=== PATIENT | female | born 1930 | race Hispanic/Latino ===

== ENCOUNTER 2018-01-24 11:43 | Inpatient (IN) | payer MEDICARE ==
[2018-01-24 11:43] VITALS: BMI 26.6
[2018-01-24 12:43] LABS: BASO % 0.2 % (0.0-2.0); HEMOGLOBIN 11.7 g/dL (11.0-16.0); LYMPH # 1.4 K/uL (1.0-4.3); LYMPH % 7.5 % (20.0-40.0); MEAN CELL VOLUME 91.7 fL (81.0-99.0); MEAN CORPUSCULAR HEMOGLOBIN 30.8 pg (27.0-31.0); MEAN CORPUSCULAR HGB CONC 33.6 g/dL (33.0-37.0); MEAN PLATELET VOLUME 10.6 fL (7.2-11.7); MONO # 1.7 K/uL (0.0-0.8); MONO % 9.2 % (0.0-10.0); NEUT % 83.1 % (50.0-75.0); NRBC % 0.1 % (0.0-2.0); PLATELET COUNT 283 K/uL (130-400); RBC 3.81 Mil/uL (3.80-5.20); RED CELL DISTRIBUTION WIDTH 15.4 % (11.5-14.5)
[2018-01-24] MEDS ORDERED: Albuterol-Ipratrop 3 mg / 0.5 (3 ml) UD INH STA (12:43)
[2018-01-24] MEDS ORDERED: Albuterol 0.083% Inhal Sol (2.5 mg/3 mL) UD IH STA (12:44)
[2018-01-24 12:50] LABS: WHITE BLOOD COUNT 18.1 K/uL (4.8-10.8)
--- NOTE | 2018-01-24 12:58 | RAD ---
Date of service: 01/24/2018 HISTORY: cough COMPARISON: Comparison made with chest radiographs and CT scan chest dated 12/28/2015 and 11/16/2017 respectively.. FINDINGS: LUNGS: Patchy multifocal interstitial and alveolar-type opacities are present bilaterally left greater than right. Suspect underlying underlying chronic interstitial fibrotic changes small bilateral effusions not excluded PLEURA: No significant pleural effusion identified, no pneumothorax apparent. CARDIOVASCULAR: Moderate aortic atherosclerotic calcification present. Heart appears enlarged. In situ bipolar pacemaker/defibrillator unchanged. No pulmonary vascular congestion. OSSEOUS STRUCTURES: No significant abnormalities. VISUALIZED UPPER ABDOMEN: Normal. OTHER FINDINGS: Note again made of metallic clips in the right parasagittal base of neck/upper mediastinum. Clinical correlation with history recommended. IMPRESSION: Patchy multifocal interstitial and alveolar-type opacities are present bilaterally left greater than right. Suspect underlying underlying chronic interstitial fibrotic changes small bilateral effusions not excluded
[2018-01-24 12:59] LABS: ALB/GLOB RATIO 0.7 (1.0-2.1); ALBUMIN 3.3 g/dL (3.5-5.0); CALCIUM 8.3 mg/dl (8.6-10.4)
[2018-01-24] MEDS ORDERED: Albuterol-Ipratrop 3 mg / 0.5 (3 ml) UD ONE (13:08)
[2018-01-24 13:13] LABS: LYMPHOCYTE 12 % (20-40); MONOCYTE 5 % (0-10); NEUTROPHIL 83 % (50-75); PLATELET ESTIMATE NORMAL (NORMAL); TOTAL CELLS COUNTED 100
--- NOTE | 2018-01-24 13:17 | C.PDOC ---
History Of Present Illness 87 y/o female comes to ER complaining of worsening shortness of breath over the last 2-3 months, significantly worsening since last night. Patient states her SOB worsens with exertion. She was seen by her PMD Dr. Barbour last week, was instructed to use [place] Oxygen as needed. Patient has been using O2 and nebulizer treatments at home with minimal relief. She also reports a non-productive cough. Patient denies fever, chest pain, palpitations, abdominal pain, nausea/vomiting. No additional complaints. PMHx: Pulmonary fibrosis, COPD Time Seen by Provider: 01/24/18 12:06 Chief Complaint (Nursing): Shortness Of Breath History Per: Patient History/Exam Limitations: no limitations Onset/Duration Of Symptoms: Persistent, Worse Since (last night) Current Symptoms Are (Timing): Still Present Current Respiratory Medications: See Home Med List Severity: Moderate Additional History Per: Patient Past Medical History Reviewed: Historical Data, Nursing Documentation, Vital Signs Vital Signs: Last Vital Signs Temp 98.2 F 01/24/18 11:55 Pulse 66 01/24/18 11:55 Resp 15 01/24/18 11:55 BP 148/67 01/24/18 11:55 Pulse Ox 91 L 01/24/18 11:55 - Medical History PMH: Anxiety (takes paxil), Arthritis, Atrial Fibrillation, Bronchitis, CHF, COPD, Dementia (new dementia; forgetful), HTN, Hypercholesterolemia, Hyperthyroidism (surgery done), Pulmonary Embolism Surgical History: Pacemaker Family History: States: No Known Family Hx - Social History Hx Alcohol Use: No Hx Substance Use: No - Immunization History Hx Tetanus Toxoid Vaccination: No Hx Influenza Vaccination: No Hx Pneumococcal Vaccination: No Review Of Systems Constitutional: Negative for: Fever, Chills Cardiovascular: Negative for: Chest Pain Respiratory: Positive for: Cough, Shortness of Breath, SOB with Excertion. Negative for: Sputum Gastrointestinal: Negative for: Nausea, Vomiting, Abdominal Pain Skin: Negative for: Rash Neurological: Negative for: Headache, Dizziness Physical Exam - Physical Exam Appears: Well, Non-toxic, In Acute Distress (in mild to moderate respiratory distress) Skin: Normal Color, Warm, Dry Head: Normacephalic Eye(s): bilateral: Normal Inspection Oral Mucosa: Moist Neck: Supple Lymphatic: No Adenopathy Chest: Symmetrical Cardiovascular: Rhythm Regular, Murmur ( 5/6 holosystolic ) Respiratory: No Normal Breath Sounds (+ coarse breath sounds bilaterally), Rales (bilateral rales at bases), Wheezing (expiratory wheezing bilaterally), Other (speaking in full sentences) Gastrointestinal/Abdominal: Normal Exam, Bowel Sounds, Soft, No Tenderness Back: Normal Inspection Extremity: Normal ROM, Pedal Edema (1+ pitting edema bilaterally), No Calf Tenderness Pulses: Left Dorsalis Pedis: Normal, Right Dorsalis Pedis: Normal Neurological/Psych: Oriented x3 ED Course And Treatment - Laboratory Results Result Diagrams: 02/08/18 05:32 02/08/18 05:34 ECG: Interpreted By Me, Viewed By Me (atrial paced rhythm 61 bpm, normal axis, 1mm ST depressions I, II, V4-V6) ECG Interpretation: Abnormal O2 Sat by Pulse Oximetry: 91 (RA) Pulse Ox Interpretation: Abnormal - Radiology CXR: Interpreted by Me, Viewed By Me CXR Interpretation: Yes: Other (no effusions, (+) fibrotic changes B/L ). No: Infiltrates Progress Note: Blood work, UA, EKG and chest x-ray ordered and reviewed. Patient given nebulizer treatments, IV solumedrol, IV Lasix. PO ASA given for elevated troponin, PO Kdur given for mild hypokalemia. Reevaluation Time: 14:30 Reassessment Condition: Improved (Patient is mildly improved since arrival, has decreased wheezing B/L without accessory muslce use- still SOB, will need admission.) - Physician Consult Information Time Consulting Physician Contacted: 14:39 Physician Contacted: Coreen Barbour Outcome Of Conversation: Discussed patient with Dr. Barbour, agrees with admiszsion for dyspnea, copd/chf exacerbation, pulmonary fibrosis, elevated troponin. Critical Care Time - Critical Care Note Total Time (in mins): 35 Documented critical care: time excludes all time spent performing seperately billable procedures. Disposition - Disposition Disposition: HOSPITALIZED Disposition Time: 14:39 Condition: FAIR - Clinical Impression Clinical Impression: Pulmonary fibrosis, COPD exacerbation, CHF exacerbation, Dyspnea, Elevated troponin - Scribe Statement The provider has reviewed the documentation as recorded by the Karlie Pederson Provider Attestation: All medical record entries made by the Marlenibrishabh were at my direction and personally dictated by me. I have reviewed the chart and agree that the record accurately reflects my personal performance of the history, physical exam, medical decision making, and the department course for this patient. I have also personally directed, reviewed, and agree with the discharge instructions and disposition. Decision To Admit - Pt Status Changed To: Hospital Disposition Of: Inpatient - Admit Certification Admit to Inpatient:: After my assessment, the patient will require hospitalization for at least two midnights. This is because of the severity of symptoms shown, intensity of services needed, and/or the medical risk in this patient being treated as an outpatient. - InPatient: Physician Admission Certification: I certify that this patient requires 2 or more midnights of care for the following reason:: see notes - . Bed Request Type: Telemetry Admitting Physician: Coreen Barbour Patient Diagnosis: COPD exacerbation, CHF exacerbation, Pulmonary fibrosis, Dyspnea, Elevated troponin
[2018-01-24] MEDS ORDERED: Albuterol 0.083% Inhal Sol (2.5 mg/3 mL) UD ONE (13:18)
[2018-01-24 13:35] LABS: CK-MB 1.51 ng/mL (0.0-3.38)
[2018-01-24 14:27] LABS: TROPONIN I 0.301 ng/mL (0.00-0.120)
[2018-01-24] MEDS ORDERED: Potassium Chloride 20 mEq ER Tab PO STA (14:27)
[2018-01-24] MEDS ORDERED: Potassium Chloride 20 mEq ER Tab PO ONE (14:32)
[2018-01-24 15:15] LABS: SQUAMOUS EPITHIAL 1 /hpf (0-5); URINE BACTERIA RARE (<OCC); URINE BILIRUBIN NEGATIVE (NEGATIVE); URINE BLOOD 2+ (NEGATIVE); URINE CLARITY Clear (Clear); URINE COLOR Yellow (YELLOW); URINE GLUCOSE (UA) NORMAL (Normal); URINE LEUKOCYTE ESTERASE 1+ Leu/uL (Negative); URINE PROTEIN NEGATIVE (NEGATIVE); URINE UROBILINOGEN NORMAL mg/dL (0.2-1.0)
[2018-01-24] MEDS: Albuterol-Ipratrop 3 mg / 0.5 (3 ml) UD INH SCH (19:40)
[2018-01-24 21:37] LABS: CK-MB 1.8 ng/mL (0.0-3.38); TROPONIN I 0.255 ng/mL (0.00-0.120)
[2018-01-24] MEDS: MethylPREDNISolone 40 mg Vial IVP SCH (22:23)
--- NOTE | 2018-01-24 22:51 | CP.PCM.HP ---
History of Present Illness - History of Present Illness History of Present Illness: Chief complaint: Increasing shortness of breath. HPI: 87-year-old female with a history of hypertension atrial fibrillation pacemaker recently seen in my office. Patient was recently diagnosed with the interstitial lung disease, on home oxygen started recently. I also started the patient on prednisone in the house. But patient started having increasing cough. Patient also having increasing shortness of breath. Leg swelling noted. According to the family patient was also having increasing confusion, lethargic. In the emergency room patient was evaluated Also noted to have a high troponin level. Chest x-ray showing congested. Lasix was given. At this time patient is currently lying down in the bed without any distress. She is awake and comfortable. Not in any distress resting. She has no chest pain. Denies any nausea vomiting. But poor intake noted. Past medical history: Hypertension, atrial fibrillation. Past surgical history: Pacemaker, thyroidectomy. Family history noncontributory Social history: Denies any alcohol or smoking. Possible secondhand smoking noted in the past. She drinks coffee at least it 3 times. Currently not working. Current medications: Reviewed. Review of systems: Patient generally feeling okay, no headache. Denies any sinus symptoms for a Having some exertional dyspnea, no cough. Patient has regular bowel habits. On examination: Vital signs stable. Chest good air entry. Regular heart sound. But bilateral Velcro-like rales noted Pedal edema noted. Reason CAT scan showing evidence of chronic lung disease, interstitiallung fibrosis. Chest x-ray now showing evidence of worseningCHF pattern. Assessment/recommendation: 87-year-old female with history of hypertension, atrial fibrillation, osteoarthritis, and a recently had a pneumonia came to the office with the worsening swelling and pain over the major articular areas involving right great toe interphalangeal joint, and also right ring finger PIP joint. Patient was also noted to have interstitial lung disease. Positive troponin. History of atrial fibrillation. On anticoagulation orally. Patient now admitted with acute decompensated heart failure likely. Associated with this severe interstitial lung disease. I agree with the Lasix. Low-dose Solu-Medrol. Cardiology evaluation. Echocardiogram. Antibiotic for empirical. GI prophylaxis. And will follow-up the patient. Patient on home oxygen Present on Admission - Present on Admission Any Indicators Present on Admission: No History of DVT/PE: No History of Uncontrolled Diabetes: No Urinary Catheter: No Decubitus Ulcer Present: No Past Patient History - Infectious Disease Hx of Infectious Diseases: None - Tetanus Immunizations Tetanus Immunization: Unknown - Past Medical History & Family History Past Medical History?: Yes - Past Social History Smoking Status: Never Smoked - CARDIAC Hx Atrial Fibrillation: Yes Hx Congestive Heart Failure: Yes Hx Hypercholesterolemia: Yes Hx Hypertension: Yes Hx Pacemaker: Yes Hx Peripheral Edema: No - PULMONARY Hx Bronchitis: Yes Hx Chronic Obstructive Pulmonary Disease (COPD): Yes Hx Pulmonary Embolism: Yes - NEUROLOGICAL Hx Dementia: Yes (new dementia; forgetful) - HEENT Hx HEENT Problems: Yes 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; gets injections) - RENAL Hx Chronic Kidney Disease: No - ENDOCRINE/METABOLIC Hx Hyperthyroidism: Yes (surgery done) - HEMATOLOGICAL/ONCOLOGICAL Hx Blood Disorders: No - INTEGUMENTARY Hx Dermatological Problems: No - MUSCULOSKELETAL/RHEUMATOLOGICAL Hx Arthritis: Yes Hx Falls: No - GASTROINTESTINAL Hx Gastrointestinal Disorders: No - GENITOURINARY/GYNECOLOGICAL Hx Genitourinary Disorders: No - PSYCHIATRIC Hx Anxiety: Yes (takes paxil) Hx Substance Use: No - SURGICAL HISTORY Hx Surgeries: Yes Hx Thyroidectomy: Yes Other/Comment: lumpectomy left breast - ANESTHESIA Hx Anesthesia: Yes Hx Anesthesia Reactions: No Hx Malignant Hyperthermia: No Meds Allergies/Adverse Reactions: Allergies Allergy/AdvReac Type Severity Reaction Status Date / Time codeine Allergy Intermediate Verified 01/24/18 12:00 lorazepam AdvReac Severe Verified 01/24/18 12:00 Results - Vital Signs Recent Vital Signs: Last Vital Signs Temp 98.1 F 01/24/18 15:39 Pulse 60 01/24/18 19:42 Resp 28 H 01/24/18 15:39 BP 158/54 H 01/24/18 15:39 Pulse Ox 91 L 01/24/18 15:39 - Labs Result Diagrams: 01/24/18 12:30 01/24/18 12:30 Labs: Laboratory Results - last 24 hr 01/24/18 01/24/18 01/24/18 12:30 12:30 15:00 WBC 18.1 H D RBC 3.81 Hgb 11.7 Hct 35.0 MCV 91.7 MCH 30.8 MCHC 33.6 RDW 15.4 H Plt Count 283 MPV 10.6 Neut % (Auto) 83.1 H Lymph % (Auto) 7.5 L Hamblen % (Auto) 9.2 Eos % (Auto) 0.0 Baso % (Auto) 0.2 Neut # (Auto) 15.0 H Lymph # (Auto) 1.4 Hamblen # (Auto) 1.7 H Eos # (Auto) 0.0 Baso # (Auto) 0.0 Neutrophils % (Manual) 83 H Lymphocytes % (Manual) 12 L Monocytes % (Manual) 5 Platelet Estimate Normal Sodium 136 Potassium 3.3 L Chloride 97 L Carbon Dioxide 26 Anion Gap 16 BUN 33 H Creatinine 1.2 Est GFR ( Amer) 52 Est GFR (Non-Af Amer) 43 Random Glucose 130 H Calcium 8.3 L Total Bilirubin 1.4 H AST 69 H D ALT 32 Alkaline Phosphatase 142 H D Total Creatine Kinase 56 CK-MB (Mass) 1.51 Troponin I 0.3010 H* NT-Pro-B Natriuret Pep 28571 H Total Protein 7.8 Albumin 3.3 L Globulin 4.5 H Albumin/Globulin Ratio 0.7 L Urine Color Yellow Urine Clarity Clear Urine pH 6.0 Ur Specific Girard 1.010 Urine Protein Negative Urine Glucose (UA) Normal Urine Ketones Negative Urine Blood 2+ H Urine Nitrate Negative Urine Bilirubin Negative Urine Urobilinogen Normal Ur Leukocyte Esterase 1+ H Urine WBC (Auto) 7 H Urine RBC (Auto) 13 H Ur Squamous Epith Cells 1 Urine Bacteria Rare 01/24/18 20:38 WBC RBC Hgb Hct MCV MCH MCHC RDW Plt Count MPV Neut % (Auto) Lymph % (Auto) Hamblen % (Auto) Eos % (Auto) Baso % (Auto) Neut # (Auto) Lymph # (Auto) Hamblen # (Auto) Eos # (Auto) Baso # (Auto) Neutrophils % (Manual) Lymphocytes % (Manual) Monocytes % (Manual) Platelet Estimate Sodium Potassium Chloride Carbon Dioxide Anion Gap BUN Creatinine Est GFR ( Amer) Est GFR (Non-Af Amer) Random Glucose Calcium Total Bilirubin AST ALT Alkaline Phosphatase Total Creatine Kinase 59 CK-MB (Mass) 1.80 Troponin I 0.2550 H* NT-Pro-B Natriuret Pep Total Protein Albumin Globulin Albumin/Globulin Ratio Urine Color Urine Clarity Urine pH Ur Specific Girard Urine Protein Urine Glucose (UA) Urine Ketones Urine Blood Urine Nitrate Urine Bilirubin Urine Urobilinogen Ur Leukocyte Esterase Urine WBC (Auto) Urine RBC (Auto) Ur Squamous Epith Cells Urine Bacteria
[2018-01-25] MEDS: Albuterol-Ipratrop 3 mg / 0.5 (3 ml) UD INH SCH ×4 (01:38→19:22)
[2018-01-25 07:54] LABS: BASO % 0.2 % (0.0-2.0); HEMOGLOBIN 11.4 g/dL (11.0-16.0); LYMPH # 0.8 K/uL (1.0-4.3); LYMPH % 4.5 % (20.0-40.0); MEAN CELL VOLUME 91.3 fL (81.0-99.0); MEAN CORPUSCULAR HEMOGLOBIN 30.4 pg (27.0-31.0); MEAN CORPUSCULAR HGB CONC 33.3 g/dL (33.0-37.0); MONO # 0.7 K/uL (0.0-0.8); MONO % 3.8 % (0.0-10.0); NEUT # 16.1 K/uL (1.8-7.0); NEUT % 91.5 % (50.0-75.0); PLATELET COUNT 273 K/uL (130-400); RBC 3.76 Mil/uL (3.80-5.20); RED CELL DISTRIBUTION WIDTH 14.9 % (11.5-14.5); WHITE BLOOD COUNT 17.6 K/uL (4.8-10.8)
[2018-01-25 08:41] LABS: ALB/GLOB RATIO 0.7 (1.0-2.1); ALBUMIN 2.8 g/dL (3.5-5.0); CALCIUM 8.3 mg/dl (8.6-10.4); CK-MB 1.95 ng/mL (0.0-3.38); TROPONIN I 0.186 ng/mL (0.00-0.120)
[2018-01-25] MEDS: MethylPREDNISolone 40 mg Vial IVP SCH (09:54)
[2018-01-25] MEDS ORDERED: PAROXETINE HCL 40 MG PO SCH (10:00)
[2018-01-25] MEDS: Azithromycin 500 MG in Sodium Chloride 0.9% 250 ML IVPB SCH (10:10)
[2018-01-25 10:49] LABS: LYMPHOCYTE 3 % (20-40); MONOCYTE 2 % (0-10); NEUTROPHIL 95 % (50-75); PLATELET ESTIMATE NORMAL (NORMAL); TOTAL CELLS COUNTED 100
[2018-01-25 10:50] LABS: ANISOCYTOSIS SLIGHT; HYPOCHROMIC SLIGHT; LARGE PLATELETS PRESENT; POLYCHROMIC SLIGHT; TOXIC GRANULATION PRESENT
[2018-01-25] MEDS ORDERED: Magnesium Sulfate 1 gm in D5W 1 GM/100 ML BAG IVPB ONE (15:30)
[2018-01-25] MEDS ORDERED: Potassium Chloride 20 mEq/15 ml LIQ UD PO ONE (15:30)
--- NOTE | 2018-01-25 21:06 | CARD ---
APPROVED REPORT Date of service: 01/25/2018 EXAM: Two-dimensional and M-mode echocardiogram with Doppler and color Doppler. Other Information Quality : GoodRhythm : INDICATION Dyspnea Atrial Fibrillation Syncope AORTIC STENOSIS 2D DIMENSIONS Aortic Root (2D)2.6 (2.0-3.7cm)LVOT Diameter1.2 (1.8-2.4cm) LA Glxmid341 (18-58mL)LVEF (%)60.0 (>50%) LVEF (Xavier's)60 % M-Mode DIMENSIONS Left Atrium (MM)4.82 (2.5-4.0cm)IVSd0.94 (0.7-1.1cm) Aortic Root3.09 (2.2-3.7cm)LVDd4.91 (4.0-5.6cm) Aortic Cusp Exc.1.20 (1.5-2.0cm)PWd1.46 (0.7-1.1cm) FS (%) 34 %LVDs3.25 (2.0-3.8cm) LVEF (%)62 (>50%) Aortic Valve AoV Peak Hyfuetyi530.3cm/sAoV VTI46.3cmAO Peak GR.24mmHg LVOT Peak Poitldcz761.3cm/sLVOT VTI37.26cmAO Mean GR.13mmHg CHRISTOPH (VMAX)0.25vz5CTI (VTI)0.36fc9YE P 1/2 [id number] Mitral Valve MV E Clamgfqw207.9cm/sMV A Upptxzed06.9cm/sMV [id number] E/A ratio2.3MVA (PHT)1.86cm2 TDI Lateral E' Peak V8.74cm/sMedial E' Peak V5.64cm/sE/Lateral E'13.9 E/Medial E'21.6 Tricuspid Valve TR Peak Gflaugza315df/sTR Peak Gr.34lfXuLKRA21joWo LEFT VENTRICLE The left ventricle is normal size. There is normal left ventricular wall thickness. Left ventricle systolic function is normal. The Ejection Fraction is 60-65%. There is normal LV segmental wall motion. The left ventricular diastolic function is normal. RIGHT VENTRICLE The right ventricle is normal size. There is normal right ventricular wall thickness. The right ventricular systolic function is normal. There is a pacemaker lead in the right ventricle. ATRIA The left atrium is moderately dilated. The right atrium size is normal. The interatrial septum is intact with no evidence for an atrial septal defect. AORTIC VALVE The aortic valve is calcified and displays decreased opening. There is mild aortic regurgitation. There is moderate to severe valvular aortic stenosis. Calculated aortic valve area is 0.9624 cm2 with maximum pressure gradient of 24 mmHg and mean pressure gradient of 13 mmHg. MITRAL VALVE Mitral annular calcification is moderate. There is no evidence of mitral valve prolapse. There is no mitral valve stenosis. Mitral regurgitation is mild to moderate. TRICUSPID VALVE The tricuspid valve is normal in structure. There is mild to moderate tricuspid regurgitation. Right ventricular systolic pressure is estimated at 40-50 mmHg. There is moderate pulmonary hypertension. PULMONIC VALVE The pulmonic valve is not well visualized. There is no pulmonic valvular regurgitation. GREAT VESSELS The aortic root is normal in size. PERICARDIAL EFFUSION There is no significant pericardial effusion. <Conclusion> Left ventricle systolic function is normal. The Ejection Fraction is 60-65%. There is mild aortic regurgitation. There is moderate to severe valvular aortic stenosis. Mitral regurgitation is mild to moderate. There is mild to moderate tricuspid regurgitation. There is moderate pulmonary hypertension. There is no pulmonic valvular regurgitation.
[2018-01-26] MEDS: Albuterol-Ipratrop 3 mg / 0.5 (3 ml) UD INH SCH ×5 (01:14→19:32)
--- NOTE | 2018-01-26 06:47 | PCM.RRT ---
<Moe Valladares - Last Filed: 01/26/18 06:52> CUPBOARD BUILDER Nurses Assessment - Situation Date: 01/26/18 Time CUPBOARD BUILDER was called: 06:35 CUPBOARD BUILDER Responder Arrival Time:: 06:36 CUPBOARD BUILDER Location:: Med/Surg Room Number: 652B CUPBOARD BUILDER Reason for Call: O2 Saturation below 90% CUPBOARD BUILDER Called By: RN - IV IV Inserted during CUPBOARD BUILDER?: No - Respiratory CUPBOARD BUILDER Delivery Method: Venturi Mask @% Oxygen Flow Rate: 50 Received Nebulizer Treatments: No Was the Patient Ventilated with Bag/Mask 100% O2?: No Secretions Suctioned?: No Was the Patient Intubated?: No Was the Patient Placed on a Ventilator?: No - Ventilator Settings SAO2 %: 95 - Medication Medications Administered During CUPBOARD BUILDER: Lasix 20mg IVP I.Reason for CUPBOARD BUILDER - A) Acute Change in Patient: (Select all that apply): Acute change in SpO2 less - Constitutional Appears: In Acute Distress - Head Head Exam: ATRAUMATIC, NORMAL INSPECTION - Eyes Eye Exam: EOMI, Normal appearance - Respiratory Exam Respiratory Exam: Rales (bilateral lower and right upper lung aguilar), Wheezes - Cardiovascular Exam Cardiovascular Exam: RRR, +S1, +S2, Murmur (aortic stenosis) - GI/Abdominal Exam GI & Abdominal Exam: Soft. absent: Tenderness - Neurological Exam Neurological Exam: Alert, Awake, CN II-XII Intact, Oriented x3 - Extremities Exam Extremities Exam: Normal Inspection Plan - Assessment of Findings&Treatment Plan CUPBOARD BUILDER called for spO2 of 79% BP 155/90 HR 95 T 98.1 RR 20 Vitals end of CUPBOARD BUILDER 95% spO2 BP 155/90 HR 95 T 98.1 RR 20 Pt is chronic COPD and pulmonary fibrosis, past CXR reviewed and medications reviewed Pt was started on Venti Mask 50%, spO2 normalized 95% rapid increase Ordered Lasix 20mg IVP Dr Barbour notifyed <Reji Celeste - Last Filed: 01/27/18 03:28> CUPBOARD BUILDER Nurses Assessment - Vital Signs Vital Signs: Rapid Response Vital Sign Blood Pressure 97/59 Pulse Rate 170 Respiratory Rate 20 Temperature 97.8 F Oxygen Saturation 97 - Vital Signs at end of CUPBOARD BUILDER Vital Signs at end of CUPBOARD BUILDER: Rapid Response End Vital Sign Blood Pressure 166/69 Pulse Rate 92 Respiratory Rate 20 Temperature 98.2 F O2 Sat by Pulse Oximetry 95 Attending/Attestation - Attestation I have personally seen and examined this patient.: Yes I have fully participated in the care of the patient.: Yes I have reviewed all pertinent clinical information, including history, physical exam and plan: Yes
[2018-01-26 08:24] LABS: BASO % 0.2 % (0.0-2.0); HEMOGLOBIN 11.2 g/dL (11.0-16.0); LYMPH # 0.6 K/uL (1.0-4.3); MEAN CORPUSCULAR HEMOGLOBIN 31.1 pg (27.0-31.0); MEAN CORPUSCULAR HGB CONC 34.2 g/dL (33.0-37.0); MONO # 1.7 K/uL (0.0-0.8); NEUT # 16.5 K/uL (1.8-7.0); NEUT % 87.8 % (50.0-75.0); NRBC % 0.2 % (0.0-2.0); PLATELET COUNT 303 K/uL (130-400); RED CELL DISTRIBUTION WIDTH 15.4 % (11.5-14.5); WHITE BLOOD COUNT 18.7 K/uL (4.8-10.8)
[2018-01-26 08:38] LABS: ALB/GLOB RATIO 0.7 (1.0-2.1); CALCIUM 8.2 mg/dl (8.6-10.4)
--- NOTE | 2018-01-26 09:45 | CP.PCM.CON ---
History of Present Illness - History of Present Illness History of Present Illness: Patient was seen and evaluated on 17/03/17 87 F with hx of Pulm fibrosis admitted for dyspnea on minimal exertion Labs revealed Non STEMI and CHF excerbation Patient not in distress but still has dyspnea ECHO: Normal EF Moderate to severe and moderate AI Moderate to severe pulmonary HTN A/P: Acute on chronic diastolic heart failure Non STEMI Pulmonary Fibrosis ? A Fib S/P PPM Change Pradaxa to Renal dose Lovenox Diuretic therapy Patient may lkely benefit fro cardiac Cath and Aortic valve evaluation Will d/w the family and PMD Past Patient History - Infectious Disease Hx of Infectious Diseases: None - Tetanus Immunizations Tetanus Immunization: Unknown - Past Medical History & Family History Past Medical History?: Yes - Past Social History Smoking Status: Never Smoked - CARDIAC Hx Atrial Fibrillation: Yes Hx Congestive Heart Failure: Yes Hx Hypercholesterolemia: Yes Hx Hypertension: Yes Hx Pacemaker: Yes Hx Peripheral Edema: No - PULMONARY Hx Bronchitis: Yes Hx Chronic Obstructive Pulmonary Disease (COPD): Yes Hx Pulmonary Embolism: Yes - NEUROLOGICAL Hx Dementia: Yes (new dementia; forgetful) - HEENT Hx HEENT Problems: Yes 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; gets injections) - RENAL Hx Chronic Kidney Disease: No - ENDOCRINE/METABOLIC Hx Hyperthyroidism: Yes (surgery done) - HEMATOLOGICAL/ONCOLOGICAL Hx Blood Disorders: No - INTEGUMENTARY Hx Dermatological Problems: No - MUSCULOSKELETAL/RHEUMATOLOGICAL Hx Arthritis: Yes Hx Falls: No - GASTROINTESTINAL Hx Gastrointestinal Disorders: No - GENITOURINARY/GYNECOLOGICAL Hx Genitourinary Disorders: No - PSYCHIATRIC Hx Anxiety: Yes (takes paxil) Hx Substance Use: No - SURGICAL HISTORY Hx Surgeries: Yes Hx Thyroidectomy: Yes Other/Comment: lumpectomy left breast - ANESTHESIA Hx Anesthesia: Yes Hx Anesthesia Reactions: No Hx Malignant Hyperthermia: No Meds Allergies/Adverse Reactions: Allergies Allergy/AdvReac Type Severity Reaction Status Date / Time codeine Allergy Intermediate Verified 01/24/18 12:00 lorazepam AdvReac Severe Verified 01/24/18 12:00 - Medications Medications: Current Medications Albuterol/Ipratropium (Duoneb 3 Mg/0.5 Mg (3 Ml) Ud) 3 ml INH RQ6 [facility] Last Admin: 01/26/18 07:53 Dose: 3 ml Enoxaparin Sodium (Lovenox) 30 mg SC Q12 [facility] Furosemide (Lasix) 20 mg IVP BID [facility] Ceftriaxone Sodium 1 gm/ (Sodium Chloride) 100 mls @ 100 mls/hr IVPB DAILY [facility]; Protocol Last Admin: 01/26/18 09:35 Dose: 100 mls/hr Azithromycin 500 mg/ Sodium (Chloride) 250 mls @ 250 mls/hr IVPB DAILY [facility]; Protocol Last Admin: 01/25/18 10:10 Dose: 250 mls/hr Influenza Virus Vaccine (Fluzone Quad [id number]) 60 mcg IM .ONCE ONE Stop: 01/27/18 12:01 Losartan Potassium (Cozaar) 50 mg PO DAILY [facility] Last Admin: 01/26/18 09:29 Dose: 50 mg Methylprednisolone (Solu-Medrol) 40 mg IVP DAILY [facility] Metoprolol Tartrate (Lopressor) 50 mg PO BID [facility] Last Admin: 01/26/18 09:29 Dose: 50 mg Pantoprazole Sodium (Protonix Inj) 40 mg IVP DAILY [facility] Last Admin: 01/26/18 09:29 Dose: 40 mg Paroxetine HCl (Paxil) 40 mg PO DAILY [facility] Last Admin: 01/26/18 09:29 Dose: 40 mg Pneumococcal Polyvalent Vaccine (Pneumovax 23 Vaccine) 0.5 ml IM .ONCE ONE Stop: 01/27/18 12:01 Results - Vital Signs Recent Vital Signs: Last Vital Signs Temp 98.1 F 01/26/18 06:50 Pulse 86 01/26/18 09:31 Resp 20 01/26/18 06:50 BP 120/55 L 01/26/18 09:33 Pulse Ox 95 01/26/18 06:50 - Labs Result Diagrams: 01/26/18 08:10 01/26/18 08:10 Labs: Laboratory Results - last 24 hr 01/25/18 01/26/18 01/26/18 07:43 06:37 08:10 WBC 18.7 H RBC 3.60 L Hgb 11.2 Hct 32.8 L MCV 91.0 MCH 31.1 H MCHC 34.2 RDW 15.4 H Plt Count 303 MPV 10.0 Neut % (Auto) 87.8 H Lymph % (Auto) 3.0 L [place] % (Auto) 9.0 Eos % (Auto) 0.0 Baso % (Auto) 0.2 Neut # (Auto) 16.5 H Lymph # (Auto) 0.6 L [place] # (Auto) 1.7 H Eos # (Auto) 0.0 Baso # (Auto) 0.0 Neutrophils % (Manual) 95 H Lymphocytes % (Manual) 3 L Monocytes % (Manual) 2 Toxic Granulation Present Platelet Estimate Normal Large Platelets Present Polychromasia Slight Hypochromasia (manual) Slight Anisocytosis (manual) Slight Sodium Potassium Chloride Carbon Dioxide Anion Gap BUN Creatinine Est GFR ( Amer) Est GFR (Non-Af Amer) POC Glucose (mg/dL) 142 H Random Glucose Calcium Total Bilirubin AST ALT Alkaline Phosphatase Total Protein Albumin Globulin Albumin/Globulin Ratio 01/26/18 08:10 WBC RBC Hgb Hct MCV MCH MCHC RDW Plt Count MPV Neut % (Auto) Lymph % (Auto) [place] % (Auto) Eos % (Auto) Baso % (Auto) Neut # (Auto) Lymph # (Auto) [place] # (Auto) Eos # (Auto) Baso # (Auto) Neutrophils % (Manual) Lymphocytes % (Manual) Monocytes % (Manual) Toxic Granulation Platelet Estimate Large Platelets Polychromasia Hypochromasia (manual) Anisocytosis (manual) Sodium 133 Potassium 3.3 L Chloride 94 L Carbon Dioxide 26 Anion Gap 16 BUN 41 H Creatinine 1.5 H Est GFR ( Amer) 40 Est GFR (Non-Af Amer) 33 POC Glucose (mg/dL) Random Glucose 113 H Calcium 8.2 L Total Bilirubin 0.7 AST 86 H D ALT 31 Alkaline Phosphatase 159 H D Total Protein 7.1 Albumin 3.0 L Globulin 4.1 H Albumin/Globulin Ratio 0.7 L
[2018-01-26] MEDS ORDERED: Potassium Chloride 20 mEq/15 ml LIQ UD PO STA (09:47)
[2018-01-26] MEDS ORDERED: Enoxaparin 30 mg Syringe SC SCH (10:00)
[2018-01-26] MEDS ORDERED: MethylPREDNISolone 40 mg Vial IVP SCH (10:00)
[2018-01-26] MEDS: Azithromycin 500 MG in Sodium Chloride 0.9% 250 ML IVPB SCH (10:33)
[2018-01-26 10:36] LABS: BANDS 3 % (0-2); MONOCYTE 4 % (0-10); NUCLEATED RED BLOOD CELL 1 % (0-0); TOTAL CELLS COUNTED 100
[2018-01-26 10:37] LABS: PLATELET ESTIMATE NORMAL (NORMAL)
[2018-01-26 10:46] LABS: LYMPHOCYTE 1 % (20-40); NEUTROPHIL 92 % (50-75)
[2018-01-26 21:38] LABS: BASO % 0.1 % (0.0-2.0); HEMOGLOBIN 11.5 g/dL (11.0-16.0); LYMPH # 0.4 K/uL (1.0-4.3); LYMPH % 3.1 % (20.0-40.0); MEAN CELL VOLUME 91.1 fL (81.0-99.0); MEAN CORPUSCULAR HEMOGLOBIN 30.4 pg (27.0-31.0); MEAN CORPUSCULAR HGB CONC 33.4 g/dL (33.0-37.0); MEAN PLATELET VOLUME 9.9 fL (7.2-11.7); MONO # 0.8 K/uL (0.0-0.8); MONO % 5.5 % (0.0-10.0); NEUT # 12.7 K/uL (1.8-7.0); NEUT % 91.3 % (50.0-75.0); NRBC % 0.1 % (0.0-2.0); PLATELET COUNT 265 K/uL (130-400); RBC 3.77 Mil/uL (3.80-5.20); RED CELL DISTRIBUTION WIDTH 15.6 % (11.5-14.5); WHITE BLOOD COUNT 13.9 K/uL (4.8-10.8)
[2018-01-26] MEDS ORDERED: Metoprolol 1 mg/ml Inj IVP PRN (21:59)
[2018-01-26 22:04] LABS: ALB/GLOB RATIO 0.8 (1.0-2.1); CALCIUM 7.8 mg/dl (8.6-10.4)
[2018-01-26 22:05] LABS: ANISOCYTOSIS SLIGHT; BANDS 4 % (0-2); HYPOCHROMIC SLIGHT; LYMPHOCYTE 3 % (20-40); MONOCYTE 5 % (0-10); NEUTROPHIL 88 % (50-75); PLATELET ESTIMATE NORMAL (NORMAL); POLYCHROMIC SLIGHT; TOTAL CELLS COUNTED 100; TOXIC GRANULATION PRESENT
[2018-01-26 22:06] LABS: LARGE PLATELETS PRESENT
[2018-01-26] MEDS ORDERED: Magnesium Sulfate 1 gm in D5W 1 GM/100 ML BAG IVPB ONE ×2 (22:08→23:00)
[2018-01-26] MEDS ORDERED: Heparin25000 units/250ml 1/2NS 25,000 UNITS/250 ML BAG IV PRN (22:13)
[2018-01-26] MEDS ORDERED: Potassium Chloride 20 mEq/15 ml LIQ UD PO ONE (22:30)
[2018-01-26] MEDS ORDERED: Amiodarone 360 mg/D5W 200 ml 360 MG/200 ML BAG IV ONE (22:30)
--- NOTE | 2018-01-26 22:51 | CP.PCM.CON ---
History of Present Illness - History of Present Illness History of Present Illness: Patient with h/o A-fib on lopressor 50 mg bid had a rapid response. 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 limited history as patient has dementia (delirium during evening) Pmx: A-fib, HTN, pulm HTN Psurg hx: unknown Alelrgies: opioids/benzo Review of Systems - Review of Systems Systems not reviewed;Unavailable: Altered Mental Status Past Patient History - Infectious Disease Hx of Infectious Diseases: None - Tetanus Immunizations Tetanus Immunization: Unknown - Past Medical History & Family History Past Medical History?: Yes - Past Social History Smoking Status: Never Smoked - CARDIAC Hx Atrial Fibrillation: Yes Hx Congestive Heart Failure: Yes Hx Hypercholesterolemia: Yes Hx Hypertension: Yes Hx Pacemaker: Yes Hx Peripheral Edema: No - PULMONARY Hx Bronchitis: Yes Hx Chronic Obstructive Pulmonary Disease (COPD): Yes Hx Pulmonary Embolism: Yes - NEUROLOGICAL Hx Dementia: Yes (new dementia; forgetful) - HEENT Hx HEENT Problems: Yes 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; gets injections) - RENAL Hx Chronic Kidney Disease: No - ENDOCRINE/METABOLIC Hx Hyperthyroidism: Yes (surgery done) - HEMATOLOGICAL/ONCOLOGICAL Hx Blood Disorders: No - INTEGUMENTARY Hx Dermatological Problems: No - MUSCULOSKELETAL/RHEUMATOLOGICAL Hx Arthritis: Yes Hx Falls: No - GASTROINTESTINAL Hx Gastrointestinal Disorders: No - GENITOURINARY/GYNECOLOGICAL Hx Genitourinary Disorders: No - PSYCHIATRIC Hx Anxiety: Yes (takes paxil) Hx Substance Use: No - SURGICAL HISTORY Hx Surgeries: Yes Hx Thyroidectomy: Yes Other/Comment: lumpectomy left breast - ANESTHESIA Hx Anesthesia: Yes Hx Anesthesia Reactions: No Hx Malignant Hyperthermia: No Meds Allergies/Adverse Reactions: Allergies Allergy/AdvReac Type Severity Reaction Status Date / Time codeine Allergy Intermediate Verified 01/24/18 12:00 lorazepam AdvReac Severe Verified 01/24/18 12:00 - Medications Medications: Current Medications Furosemide (Lasix) 20 mg IVP BID [facility] Last Admin: 01/26/18 17:57 Dose: 20 mg Ceftriaxone Sodium 1 gm/ (Sodium Chloride) 100 mls @ 100 mls/hr IVPB DAILY [facility]; Protocol Last Admin: 01/26/18 09:35 Dose: 100 mls/hr Azithromycin 500 mg/ Sodium (Chloride) 250 mls @ 250 mls/hr IVPB DAILY [facility]; Protocol Last Admin: 01/26/18 10:33 Dose: 250 mls/hr Potassium Chloride (Potassium Chloride 10 Meq/100 Ml) 10 meq in 100 mls @ 100 mls/hr IVPB ONCE ONE Stop: 01/26/18 23:02 Potassium Chloride (Potassium Chloride 10 Meq/100 Ml) 10 meq in 100 mls @ 100 mls/hr IVPB ONCE ONE Stop: 01/27/18 00:04 Potassium Chloride (Potassium Chloride 10 Meq/100 Ml) 10 meq in 100 mls @ 100 mls/hr IVPB ONCE ONE Stop: 01/27/18 01:04 Potassium Chloride (Potassium Chloride 10 Meq/100 Ml) 10 meq in 100 mls @ 100 mls/hr IVPB ONCE ONE Stop: 01/27/18 02:04 Magnesium Sulfate/Dextrose (Magnesium Sulfate 1 Gm/100 Ml D5w) 1 gm in 100 mls @ 200 mls/hr IVPB ONCE ONE Stop: 01/26/18 23:29 Heparin Sodium/Sodium Chloride (Heparin 27792 Units/250ml 1/2 Normal Saline) 25,000 units in 250 mls @ 0 mls/hr IV .Q0M PRN; Protocol PRN Reason: PROTOCOL Amiodarone HCl/Dextrose (Nexterone 360 Mg In D5w 200 Ml (Premix)) 360 mg in 200 mls @ 33.333 mls/hr IV .Q6H [facility]; Protocol Stop: 01/27/18 04:29 Amiodarone HCl 540 mg/ (Dextrose) 492.8 mls @ 27.38 mls/hr IV .Q18H [facility]; Protocol Stop: 01/27/18 22:30 Influenza Virus Vaccine (Fluzone Quad [id number]) 60 mcg IM .ONCE ONE Stop: 01/27/18 12:01 Losartan Potassium (Cozaar) 50 mg PO DAILY [facility] Last Admin: 01/26/18 09:29 Dose: 50 mg Methylprednisolone (Solu-Medrol) 40 mg IVP DAILY [facility] Last Admin: 01/26/18 10:27 Dose: Not Given Metoprolol Tartrate (Lopressor) 50 mg PO BID [facility] Last Admin: 01/26/18 17:58 Dose: Not Given Metoprolol Tartrate (Lopressor) 25 mg PO BID [facility] Pantoprazole Sodium (Protonix Inj) 40 mg IVP DAILY [facility] Last Admin: 01/26/18 09:29 Dose: 40 mg Paroxetine HCl (Paxil) 40 mg PO DAILY [facility] Last Admin: 01/26/18 09:29 Dose: 40 mg Pneumococcal Polyvalent Vaccine (Pneumovax 23 Vaccine) 0.5 ml IM .ONCE ONE Stop: 01/27/18 12:01 Verapamil HCl (Verapamil Inj) 5 mg IVP Q4H PRN PRN Reason: Heart rate Physical Exam - Eye Exam Eye Exam: EOMI, Normal appearance - ENT Exam ENT Exam: Mucous Membranes Moist - Respiratory Exam Respiratory Exam: Rales, NORMAL BREATHING PATTERN. absent: Accessory Muscle Use, Prolonged Expiratory Phase, Respiratory Distress, Stridor - Cardiovascular Exam Cardiovascular Exam: Tachycardia, +S1, +S2, Systolic Murmur - GI/Abdominal Exam GI & Abdominal Exam: Normal Bowel Sounds, Soft - Extremities Exam Extremities exam: Positive for: normal inspection. Negative for: pedal edema - Neurological Exam Neurological exam: Altered - Skin Skin Exam: Warm Results - Vital Signs Recent Vital Signs: Last Vital Signs Temp 98 F 01/26/18 15:00 Pulse 95 H 01/26/18 20:00 Resp 20 01/26/18 15:00 BP 128/60 01/26/18 17:57 Pulse Ox 96 01/26/18 15:00 - Labs Result Diagrams: 01/26/18 21:32 01/26/18 21:32 Labs: Laboratory Results - last 24 hr 01/26/18 01/26/18 01/26/18 06:37 08:10 08:10 WBC 18.7 H RBC 3.60 L Hgb 11.2 Hct 32.8 L MCV 91.0 MCH 31.1 H MCHC 34.2 RDW 15.4 H Plt Count 303 MPV 10.0 Neut % (Auto) 87.8 H Lymph % (Auto) 3.0 L [place] % (Auto) 9.0 Eos % (Auto) 0.0 Baso % (Auto) 0.2 Neut # (Auto) 16.5 H Lymph # (Auto) 0.6 L [place] # (Auto) 1.7 H Eos # (Auto) 0.0 Baso # (Auto) 0.0 Neutrophils % (Manual) 92 H Band Neutrophils % 3 H Lymphocytes % (Manual) 1 L Monocytes % (Manual) 4 Nucleated RBC % 1 H Toxic Granulation Platelet Estimate Normal Large Platelets Polychromasia Hypochromasia (manual) Anisocytosis (manual) Sodium 133 Potassium 3.3 L Chloride 94 L Carbon Dioxide 26 Anion Gap 16 BUN 41 H Creatinine 1.5 H Est GFR ( Amer) 40 Est GFR (Non-Af Amer) 33 POC Glucose (mg/dL) 142 H Random Glucose 113 H Calcium 8.2 L Phosphorus Magnesium Total Bilirubin 0.7 AST 86 H D ALT 31 Alkaline Phosphatase 159 H D Total Protein 7.1 Albumin 3.0 L Globulin 4.1 H Albumin/Globulin Ratio 0.7 L 01/26/18 01/26/18 01/26/18 16:42 21:32 21:32 WBC 13.9 H RBC 3.77 L Hgb 11.5 Hct 34.3 MCV 91.1 MCH 30.4 MCHC 33.4 RDW 15.6 H Plt Count 265 MPV 9.9 Neut % (Auto) 91.3 H Lymph % (Auto) 3.1 L [place] % (Auto) 5.5 Eos % (Auto) 0.0 Baso % (Auto) 0.1 Neut # (Auto) 12.7 H Lymph # (Auto) 0.4 L [place] # (Auto) 0.8 Eos # (Auto) 0.0 Baso # (Auto) 0.0 Neutrophils % (Manual) 88 H Band Neutrophils % 4 H Lymphocytes % (Manual) 3 L Monocytes % (Manual) 5 Nucleated RBC % Toxic Granulation Present Platelet Estimate Normal Large Platelets Present Polychromasia Slight Hypochromasia (manual) Slight Anisocytosis (manual) Slight Sodium 133 136 Potassium 2.8 L 2.6 L Chloride 92 L 92 L Carbon Dioxide 29 31 H Anion Gap 15 15 BUN 36 H 37 H Creatinine 1.4 H 1.4 H Est GFR ( Amer) 43 43 Est GFR (Non-Af Amer) 36 36 POC Glucose (mg/dL) Random Glucose 164 H 162 H Calcium 8.0 L 7.8 L Phosphorus 3.2 Magnesium 1.7 1.7 Total Bilirubin 0.6 AST 46 H D ALT 27 Alkaline Phosphatase 131 H Total Protein 7.1 Albumin 3.0 L Globulin 4.0 H Albumin/Globulin Ratio 0.8 L Assessment & Plan - Assessment and Plan (Free Text) Assessment: Tachycarrythmia: patient takes lopressor, continue oral lopressor, check and replace electrolytes, d/c beta agonist(albuterol), rate controlled with combination of verapamil and oral lopressor -A-fib: rate to be controlled with oral meds and IV, continue AC as per home dosage -Pulmonary HTN: suspect underlying pulmonary fibrosis, continue rx as per pharmacy technician instructor -avoid fluid overloaded states -(+)cough, check influenza and spututm cultures -contineu dvt ppx on NOAC -pud ppx pepcid -Severe hypopotassemia: can also lead to tachyarrythmia:check and replace potassium IV adn oral + mag sulfate -continue to monitor -d/w ICU team -Check and replace electrolytes and serial hb/hct f/u am labs multiple diagnostic test results pending - Date & Time Date: 01/26/18 Time: 22:56
[2018-01-26 22:55] LABS: ABG ALLEN TEST PO; ARTERIAL BLOOD GAS HCO3 32.3 mmol/L (21-28); ARTERIAL BLOOD GAS HEMOGLOBIN 10.5 g/dL (11.7-17.4); ARTERIAL BLOOD GAS O2 SAT 99.5 % (95-98); ARTERIAL BLOOD GAS PCO2 36 mm/Hg (35-45); ARTERIAL BLOOD GAS PH 7.56 (7.35-7.45); ARTERIAL BLOOD GAS PO2 117 mm/Hg (80-100); ARTERIAL BLOOD GAS TCO2 33.3 mmol/L (22-28)
--- NOTE | 2018-01-26 23:24 | PCM.RRT ---
BOAT FINISHER Nurses Assessment - Situation Date: 01/26/18 Time BOAT FINISHER was called: 21:00 BOAT FINISHER Responder Arrival Time:: 21:01 BOAT FINISHER Location:: T Med/Surg BOAT FINISHER Reason for Call: Tachycardia BOAT FINISHER Called By: RN - IV IV Inserted during BOAT FINISHER?: No - Respiratory BOAT FINISHER Delivery Method: Venturi Mask @% Received Nebulizer Treatments: No Was the Patient Ventilated with Bag/Mask 100% O2?: No Secretions Suctioned?: No Was the Patient Intubated?: No Was the Patient Placed on a Ventilator?: No - Ventilator Settings SAO2 %: 95 - Medication Medications Administered During BOAT FINISHER: Lasix 20mg IVP - Diagnostic Test Ordered EKG: Yes Chest X-Ray: No CT Scan: No - Stat Labs Ordered BOAT FINISHER Stat Labs Ordered: CBC, BMP CPR started during BOAT FINISHER?: No - Vital Signs Vital Signs: Rapid Response Vital Sign Blood Pressure 97/59 Pulse Rate 170 Respiratory Rate 20 Temperature 97.8 F Oxygen Saturation 97 - Time BOAT FINISHER Ended Time BOAT FINISHER Ended: 22:00 - Vital Signs at end of BOAT FINISHER Vital Signs at end of BOAT FINISHER: Rapid Response End Vital Sign Blood Pressure 166/69 Pulse Rate 92 Respiratory Rate 20 Temperature 98.2 F O2 Sat by Pulse Oximetry 95 - Recommendations Notifications: Attending Physician, Consultations I.Reason for BOAT FINISHER - A) Acute Change in Patient: (Select all that apply): Staff member or family is worried about patient - Neurological Status (Select all that apply): Alert, Responsive, Oriented, Verbal, Follows Commands - Respiratory Oxygen Delivery Method: Venturi Mask @% - Constitutional Appears: Well, Non-toxic, No Acute Distress - Head Head Exam: ATRAUMATIC, NORMAL INSPECTION, NORMOCEPHALIC - Eyes Eye Exam: EOMI, Normal appearance - Respiratory Exam Respiratory Exam: Wheezes (right middle lobe), NORMAL BREATHING PATTERN Additional comments: crackles on left lower lobe - Cardiovascular Exam Cardiovascular Exam: Tachycardia, Irregular Rhythm, +S1, +S2 - GI/Abdominal Exam GI & Abdominal Exam: Soft, Normal Bowel Sounds - Neurological Exam Neurological Exam: Alert, Awake, Oriented x3 - Extremities Exam Extremities Exam: Full ROM Plan - Assessment of Findings&Treatment Plan BOAT FINISHER called for Vtach. Vitals BP: 157/76, T: 98.3, HR 200, sat 94%. Upon arrival, patient was in no acute distress, with no complains. Denied chest pain, shortness of breath, palpiation or dizziness. EKG was ordered stat, confirmed SVT. 6mg of amiodarone pushed, bringing heart rate to 82 but rebouncing back to 160s-170s after seconds of administration. two 12mg of amiodarone were administered, heart rate down to 60-80s but rebounced once back to 160-180s. Blood pressuire at the time 116/63. Dr Flores notified and recommended transfer to ICU, and Amiodarone bolus and drip, and switch lovenox to heparin drip. Dr Lien Celeste notified, recommended ABG, Magnesium 2mg and potassium 10meq Qhour x4 and Bipap administration.
--- NOTE | 2018-01-27 00:05 | CP.PCM.PN ---
Subjective - Date & Time of Evaluation Date of Evaluation: 01/25/18 Time of Evaluation: 18:00 - Subjective Subjective: pt is comfortable elevation of troponin noted i discussed with cardio will get echo conservative treatment d/c family about the condition will need rehab eval pt with lung fibrosis and worsening chf ?pneumonia on o2 Objective - Vital Signs/Intake and Output Vital Signs (last 24 hours): Temp Pulse Resp BP Pulse Ox 98 F 95 H 20 128/60 96 01/26/18 15:00 01/26/18 20:00 01/26/18 15:00 01/26/18 17:57 01/26/18 15:00 - Medications Medications: Current Medications Ceftriaxone Sodium 1 gm/ (Sodium Chloride) 100 mls @ 100 mls/hr IVPB DAILY [facility]; Protocol Last Admin: 01/26/18 09:35 Dose: 100 mls/hr Azithromycin 500 mg/ Sodium (Chloride) 250 mls @ 250 mls/hr IVPB DAILY [facility]; Protocol Last Admin: 01/26/18 10:33 Dose: 250 mls/hr Heparin Sodium/Sodium Chloride (Heparin 73285 Units/250ml 1/2 Normal Saline) 25,000 units in 250 mls @ 5.661 mls/hr IV .Q24H PRN; Protocol PRN Reason: PROTOCOL Amiodarone HCl/Dextrose (Nexterone 360 Mg In D5w 200 Ml (Premix)) 360 mg in 200 mls @ 33.333 mls/hr IV .Q6H [facility]; Protocol Stop: 01/27/18 04:29 Amiodarone HCl 540 mg/ (Dextrose) 499.8 mls @ 27.77 mls/hr IV .Q18H [facility]; Protocol Stop: 01/27/18 22:30 Potassium Chloride (Potassium Chloride 20 Meq/100 Ml) 20 meq in 100 mls @ 50 mls/hr IVPB Q2H [facility] Stop: 01/27/18 03:44 Influenza Virus Vaccine (Fluzone Quad [id number]) 60 mcg IM .ONCE [facility] Stop: 01/27/18 12:01 Losartan Potassium (Cozaar) 50 mg PO DAILY [facility] Last Admin: 01/26/18 09:29 Dose: 50 mg Methylprednisolone (Solu-Medrol) 40 mg IVP DAILY [facility] Last Admin: 01/26/18 10:27 Dose: Not Given Metoprolol Tartrate (Lopressor) 50 mg PO BID [facility] Last Admin: 01/26/18 17:58 Dose: Not Given Pantoprazole Sodium (Protonix Inj) 40 mg IVP DAILY [facility] Last Admin: 01/26/18 09:29 Dose: 40 mg Paroxetine HCl (Paxil) 40 mg PO DAILY [facility] Last Admin: 01/26/18 09:29 Dose: 40 mg Pneumococcal Polyvalent Vaccine (Pneumovax 23 Vaccine) 0.5 ml IM .ONCE ONE Stop: 01/27/18 12:01 Verapamil HCl (Verapamil Inj) 5 mg IVP Q4H PRN PRN Reason: Heart rate - Labs Labs: 01/26/18 21:32 01/26/18 21:32
[2018-01-27] MEDS ORDERED: Verapamil 180 mg ER Tab PO ONE (00:11)
[2018-01-27] MEDS ORDERED: MethylPREDNISolone 40 mg Vial IVP SCH ×2 (00:14→13:30)
--- NOTE | 2018-01-27 00:17 | CP.PCM.PN ---
Subjective - Date & Time of Evaluation Date of Evaluation: 01/26/18 Time of Evaluation: 20:00 - Subjective Subjective: pt had episode of afib with rvr transferred to icu had ct chest did show worsening infiltrate and needing more O2 electrolytes being supplemented as pt has worsening lung fibrotic changes will avoid amiodarone continue beta sanjeev added verapamil on pradaxa will f/u pt also have severe aortic stenosis PHTN Objective - Vital Signs/Intake and Output Vital Signs (last 24 hours): Temp Pulse Resp BP Pulse Ox 98 F 95 H 20 128/60 96 01/26/18 15:00 01/26/18 20:00 01/26/18 15:00 01/26/18 17:57 01/26/18 15:00 - Medications Medications: Current Medications Dabigatran (Pradaxa) 75 mg PO BID [facility] Ceftriaxone Sodium 1 gm/ (Sodium Chloride) 100 mls @ 100 mls/hr IVPB DAILY [facility]; Protocol Last Admin: 01/26/18 09:35 Dose: 100 mls/hr Potassium Chloride (Potassium Chloride 20 Meq/100 Ml) 20 meq in 100 mls @ 50 mls/hr IVPB Q2H [facility] Stop: 01/27/18 03:44 Influenza Virus Vaccine (Fluzone Quad [id number]) 60 mcg IM .ONCE ONE Stop: 01/27/18 12:01 Methylprednisolone (Solu-Medrol) 20 mg IVP DAILY [facility] Stop: 01/28/18 10:01 Metoprolol Tartrate (Lopressor) 50 mg PO BID [facility] Last Admin: 01/26/18 17:58 Dose: Not Given Pantoprazole Sodium (Protonix Inj) 40 mg IVP DAILY [facility] Last Admin: 01/26/18 09:29 Dose: 40 mg Paroxetine HCl (Paxil) 40 mg PO DAILY [facility] Last Admin: 01/26/18 09:29 Dose: 40 mg Pneumococcal Polyvalent Vaccine (Pneumovax 23 Vaccine) 0.5 ml IM .ONCE ONE Stop: 01/27/18 12:01 Verapamil HCl (Verapamil Inj) 5 mg IVP Q4H PRN PRN Reason: Heart rate Verapamil HCl (Calan Sr Tab) 180 mg PO DAILY [facility] - Labs Labs: 01/26/18 21:32 01/26/18 21:32
[2018-01-27] MEDS ORDERED: Magnesium Sulfate 1 gm in D5W 1 GM/100 ML BAG IVPB ONE ×3 (01:00→02:30)
[2018-01-27] MEDS ORDERED: Potassium Chloride 20 mEq/15 ml LIQ UD PO ONE (01:15)
[2018-01-27] MEDS ORDERED: WATER IV ONE (04:31)
[2018-01-27] MEDS ORDERED: DEXTROSE 5% IV ONE (04:31)
[2018-01-27] MEDS ORDERED: AMIODARONE IV ONE (04:31)
[2018-01-27 06:45] LABS: HEMOGLOBIN 11.1 g/dL (11.0-16.0); LYMPH # 0.6 K/uL (1.0-4.3); LYMPH % 4.8 % (20.0-40.0); MEAN CELL VOLUME 91.3 fL (81.0-99.0); MEAN CORPUSCULAR HEMOGLOBIN 30.7 pg (27.0-31.0); MEAN CORPUSCULAR HGB CONC 33.7 g/dL (33.0-37.0); MEAN PLATELET VOLUME 9.7 fL (7.2-11.7); MONO # 1.1 K/uL (0.0-0.8); MONO % 8.5 % (0.0-10.0); NEUT # 11.3 K/uL (1.8-7.0); NEUT % 86.7 % (50.0-75.0); NRBC % 0.3 % (0.0-2.0); PLATELET COUNT 274 K/uL (130-400); RBC 3.63 Mil/uL (3.80-5.20); RED CELL DISTRIBUTION WIDTH 15.4 % (11.5-14.5)
[2018-01-27 06:56] LABS: ALB/GLOB RATIO 0.7 (1.0-2.1); ALBUMIN 2.8 g/dL (3.5-5.0); CALCIUM 7.9 mg/dl (8.6-10.4)
[2018-01-27 09:06] LABS: ANISOCYTOSIS SLIGHT; LYMPHOCYTE 4 % (20-40); MONOCYTE 4 % (0-10); NEUTROPHIL 92 % (50-75); PLATELET ESTIMATE NORMAL (NORMAL); TOTAL CELLS COUNTED 100
--- NOTE | 2018-01-27 09:45 | CARD ---
APPROVED REPORT Date of service: 01/26/2018 EKG Measurement Heart [id number] <Conclusion> Atrial fibrillation with premature ventricular or aberrantly conducted complexes Voltage criteria for left ventricular hypertrophy Marked ST abnormality, possible inferior subendocardial injury Marked ST abnormality, possible anterolateral subendocardial injury Abnormal ECG
[2018-01-27] MEDS ORDERED: Sodium Chloride 0.9% 1,000 ML IV ONE (09:50)
[2018-01-27] MEDS: Sodium Chloride 0.9% 250 ML IV ONE ×4 (10:00→13:43)
[2018-01-27] MEDS ORDERED: Verapamil 180 mg ER Tab PO SCH (10:00)
--- NOTE | 2018-01-27 10:21 | CT ---
Date of service: 01/26/2018 PROCEDURE: CT Chest without contrast HISTORY: Evaluate lungs COMPARISON: Comparison made with prior CT scan chest 01/26/2018. The TECHNIQUE: Contiguous axial images were obtained through the chest without intravenous contrast enhancement. Sagittal and coronal reconstructions were performed. Radiation dose: Total exam DLP = 350.31 mGy-cm. This CT exam was performed using one or more of the following dose reduction techniques: Automated exposure control, adjustment of the mA and/or kV according to patient size, and/or use of iterative reconstruction technique. FINDINGS: LUNGS: There appear to be underlying diffuse chronic interstitial changes with superimposed patchy multifocal ground-glass opacities and interstitial opacities seen throughout the upper and lower lobes bilaterally.. Findings may represent superimposed multifocal pneumonia. MEDIASTINUM: Heart is mildly enlarged with markedly enlarged left atrium. No evidence of significant pericardial effusion. Ascending thoracic aorta measures approximately 3.7 cm and descending thoracic aorta measures approximately 2.5 cm. Mild aortic atherosclerotic calcification.Pulmonary trunk measures approximately 3.1 cm.. No aneurysm. Normal sized heart. . Multiple small to enlarged mediastinal lymph nodes are present the largest in the right paratracheal region measuring approximately 2.6 cm. Evaluation for hilar adenopathy is limited due to the lack of circulating intravenous contrast material. The trachea is midline and patent with no large endoluminal lesions. Intermittent air seen throughout the esophagus. There is a small hiatal hernia. PLEURA: No pleural fluid. No pneumothorax. BONES: Mild diffuse demineralization. There are chronic appearing superior endplate compression deformities of the T11 and T12 segments with minimal fish-mouth endplate deformities of several additional mid mid/upper thoracic segments as well. UPPER ABDOMEN: Grossly unremarkable. OTHER FINDINGS: None. IMPRESSION: Apparent underlying diffuse chronic interstitial changes with superimposed patchy multifocal ground-glass opacities as well as increased interstitial opacities seen throughout the upper and lower lobes bilaterally.. Findings may represent superimposed multifocal pneumonia.. Mediastinal adenopathy.
[2018-01-27 11:13] LABS: TROPONIN I 0.106 ng/mL (0.00-0.120)
[2018-01-27] MEDS ORDERED: Pneumococcal 23-Valent Vaccine IM ONE (12:00)
[2018-01-27] MEDS ORDERED: Influenza Vaccine 60 MCG/0.5 ML SYR (3 yr & up) IM ONE (12:00)
[2018-01-27] MEDS ORDERED: Sodium Chloride 0.9% 250 ML IV ONE (12:14)
--- NOTE | 2018-01-27 13:24 | CP.PCM.PN ---
<MikeGiovanna perry - Last Filed: 01/27/18 18:19> Subjective - Date & Time of Evaluation Date of Evaluation: 01/27/18 Time of Evaluation: 13:21 - Subjective Subjective: Cardiology Follow Up Patient seen and examined at bedside. Patient denies any chest pain, shortness of breath, or palpitations. Objective - Vital Signs/Intake and Output Vital Signs (last 24 hours): Temp Pulse Resp BP Pulse Ox 98.3 F 60 20 80/27 L 100 01/27/18 00:00 01/27/18 12:03 01/27/18 12:03 01/27/18 12:04 01/27/18 12:03 Intake and Output: 01/27/18 01/27/18 06:59 18:59 Intake Total 570 620 Output Total 300 150 Balance 270 470 - Medications Medications: Current Medications Albuterol/Ipratropium (Duoneb 3 Mg/0.5 Mg (3 Ml) Ud) 3 ml INH RQ6 ANTONINO Dabigatran (Pradaxa) 75 mg PO BID [facility] Last Admin: 01/27/18 01:00 Dose: 75 mg Ceftriaxone Sodium 1 gm/ (Sodium Chloride) 100 mls @ 100 mls/hr IVPB DAILY [facility]; Protocol Last Admin: 01/27/18 10:27 Dose: 100 mls/hr Sodium Chloride (Sodium Chloride 0.9%) 1,000 mls @ 100 mls/hr IV .Q10H ONE Stop: 01/27/18 19:49 Last Admin: 01/27/18 11:52 Dose: 100 mls/hr Methylprednisolone (Solu-Medrol) 20 mg IVP DAILY [facility] Stop: 01/28/18 10:01 Last Admin: 01/27/18 10:09 Dose: 20 mg Metoprolol Tartrate (Lopressor) 50 mg PO BID [facility] Last Admin: 01/27/18 11:09 Dose: Not Given Pantoprazole Sodium (Protonix Inj) 40 mg IVP DAILY [facility] Last Admin: 01/27/18 10:08 Dose: 40 mg Paroxetine HCl (Paxil) 40 mg PO DAILY [facility] Last Admin: 01/26/18 09:29 Dose: 40 mg Verapamil HCl (Verapamil Inj) 5 mg IVP Q4H PRN PRN Reason: Heart rate Verapamil HCl (Calan Sr Tab) 180 mg PO DAILY [facility] Last Admin: 01/27/18 11:51 Dose: Not Given - Labs Labs: 01/27/18 06:32 01/27/18 06:32 - Constitutional Appears: No Acute Distress - Head Exam Head Exam: NORMAL INSPECTION, NORMOCEPHALIC - Eye Exam Eye Exam: EOMI, PERRL Pupil Exam: NORMAL ACCOMODATION - ENT Exam ENT Exam: Mucous Membranes Moist - Respiratory Exam Respiratory Exam: Decreased Breath Sounds - Cardiovascular Exam Cardiovascular Exam: Irregular Rhythm, +S1, +S2 - GI/Abdominal Exam GI & Abdominal Exam: Soft, Normal Bowel Sounds. absent: Distended, Tenderness - Extremities Exam Extremities Exam: Normal Inspection. absent: Pedal Edema, Tenderness - Neurological Exam Neurological Exam: Alert, Awake, Oriented x3 - Psychiatric Exam Psychiatric exam: Normal Affect, Normal Mood - Skin Skin Exam: Dry, Intact, Normal Color, Warm Assessment and Plan - Assessment and Plan (Free Text) Plan: Acute on Chronic Diastolic Heart Failure s/p PPM NSTEMI Atrial Fibrillation Pulmonary Fibrosis on home oxygen Hypertension Imaging: - ECHO: Normal EF. Moderate to severe and moderate AI. Moderate to severe pulmonary HTN Management: - Patient is for cardiac catherization Saturday01/29/18 8am. Case discussed with Giovanna Moyer, DO PGY2 <Jori Flores - Last Filed: 01/27/18 22:13> Objective - Vital Signs/Intake and Output Vital Signs (last 24 hours): Temp Pulse Resp BP Pulse Ox 98.3 F 62 15 103/46 L 98 01/27/18 00:00 01/27/18 21:00 01/27/18 21:00 01/27/18 20:59 01/27/18 21:00 Intake and Output: 01/27/18 01/28/18 18:59 06:59 Intake Total 1610 540 Output Total 200 Balance 1410 540 - Medications Medications: Current Medications Albuterol/Ipratropium (Duoneb 3 Mg/0.5 Mg (3 Ml) Ud) 3 ml INH RQ6 [facility] Last Admin: 01/27/18 19:27 Dose: 3 ml Dabigatran (Pradaxa) 75 mg PO BID [facility] Last Admin: 01/27/18 21:13 Dose: 75 mg Ceftriaxone Sodium 1 gm/ (Sodium Chloride) 100 mls @ 50 mls/hr IVPB DAILY [facility]; Protocol Methylprednisolone (Solu-Medrol) 40 mg IVP Q24H [facility] Last Admin: 01/27/18 13:38 Dose: 40 mg Metoprolol Tartrate (Lopressor) 50 mg PO BID [facility] Last Admin: 01/27/18 11:09 Dose: Not Given Pantoprazole Sodium (Protonix Inj) 40 mg IVP DAILY [facility] Last Admin: 01/27/18 10:08 Dose: 40 mg Paroxetine HCl (Paxil) 40 mg PO DAILY [facility] Last Admin: 01/27/18 15:42 Dose: 40 mg - Labs Labs: 01/27/18 15:38 01/27/18 15:38 Assessment and Plan - Assessment and Plan (Free Text) Plan: Patient seen and evaluated in person by me. Plan of care d/w the medical staff director and as documented
[2018-01-27] MEDS: Albuterol-Ipratrop 3 mg / 0.5 (3 ml) UD INH SCH ×2 (13:39→19:27)
[2018-01-27] MEDS ORDERED: Albuterol-Ipratrop 3 mg / 0.5 (3 ml) UD INH SCH (14:00)
--- NOTE | 2018-01-27 14:54 | RAD ---
Date of service: 01/27/2018 HISTORY: Abdominal pain COMPARISON: Noncontrast chest CT performed 01/26/18, chest x-ray performed 01/24/18 FINDINGS: BOWEL: Gaseous distension of the stomach. Nonspecific bowel gas pattern. Pelvic calcification, likely phlebolith. BONES: Osseous demineralization. Degenerative changes. Scoliosis. OTHER FINDINGS: Cardiomegaly. Ectatic aorta containing dense atherosclerotic calcifications. Dual lead left-sided pacemaker. Chronic interstitial markings. Mild superimposed edema or infection not excluded. Blunting of the right costophrenic angle may reflect pleural thickening or small fluid. Biapical pleural thickening. No definite pneumothorax. Multiple metallic clips project over the right neck. IMPRESSION: Gaseous distension of the stomach. Nonspecific bowel gas pattern. Correlate clinically. Chronic interstitial markings. Mild superimposed edema or infection not excluded. Blunting of the right costophrenic angle may reflect small fluid or pleural thickening. Biapical pleural thickening.
[2018-01-27 15:43] LABS: BASO % 0.1 % (0.0-2.0); HEMOGLOBIN 10.9 g/dL (11.0-16.0); LYMPH # 0.6 K/uL (1.0-4.3); MEAN CORPUSCULAR HEMOGLOBIN 29.9 pg (27.0-31.0); MEAN CORPUSCULAR HGB CONC 32.2 g/dL (33.0-37.0); MEAN PLATELET VOLUME 10.1 fL (7.2-11.7); MONO # 1.3 K/uL (0.0-0.8); MONO % 9.1 % (0.0-10.0); NEUT # 12.8 K/uL (1.8-7.0); NEUT % 86.8 % (50.0-75.0); NRBC % 0.3 % (0.0-2.0); PLATELET COUNT 259 K/uL (130-400); RBC 3.64 Mil/uL (3.80-5.20); RED CELL DISTRIBUTION WIDTH 15.7 % (11.5-14.5); WHITE BLOOD COUNT 14.7 K/uL (4.8-10.8)
--- NOTE | 2018-01-27 16:06 | CP.CCUPN ---
CCU Subjective - Physician Review Subjective (Free Text): 01/27/18 16:04 Danni Valladares PGY1 Progress Note for Dr. Barbour Pt was examined at bedside this morning. She was restless, and as per daughter who was present at bedside, pt was complaining of neck pain and shortness of breath. CCU Objective - Vital Signs / Intake & Output Vital Signs (Last 4 hours): Vital Signs Pulse Resp BP Pulse Ox 01/27/18 14:50 60 14 100 01/27/18 14:49 60 13 87/36 L 100 01/27/18 14:40 60 14 100 01/27/18 14:34 60 16 82/33 L 100 01/27/18 14:30 60 14 100 01/27/18 14:20 60 14 100 01/27/18 14:19 60 14 84/32 L 100 01/27/18 14:10 61 15 100 01/27/18 14:04 60 16 85/30 L 100 01/27/18 14:00 61 17 100 01/27/18 13:50 60 20 100 01/27/18 13:49 69 19 83/35 L 100 01/27/18 13:43 60 01/27/18 13:40 60 16 100 01/27/18 13:38 60 16 84/31 L 100 01/27/18 13:34 60 15 65/40 L 100 01/27/18 13:30 60 16 100 01/27/18 13:26 60 17 81/32 L 100 01/27/18 13:20 60 18 79/26 L 100 01/27/18 13:10 60 17 01/27/18 13:07 60 23 87/42 L 01/27/18 13:00 60 14 100 01/27/18 12:50 60 18 01/27/18 12:49 60 17 83/39 L 100 01/27/18 12:40 61 18 100 01/27/18 12:34 60 19 84/45 L 100 01/27/18 12:30 60 18 100 01/27/18 12:19 60 19 82/27 L 100 01/27/18 12:10 60 21 100 Intake and Output (Last 8hrs): Intake & Output 01/27/18 01/27/18 01/27/18 06:59 14:59 22:59 Intake Total 570 970 Output Total 300 150 Balance 270 820 Weight 116 lb 8 oz Intake: Intake, IV Amount 500 850 Right Forearm 300 50 Right Hand 200 800 Oral 70 120 Output: Urine 300 150 Urine, Voided 300 150 Stool 0 0 Other: # Voids Urine, Voided 1 - Physical Exam Physical Exam Limitations: Positive for: Uncooperative Head: Positive for: Atraumatic, Normocephalic Pupils: Positive for: PERRL Extroacular Muscles: Positive for: EOMI Conjunctiva: Positive for: Normal Mouth: Positive for: Moist Mucous Membranes Neck: Positive for: Paraspinal Tenderness. Negative for: Meningeal Signs, MIDLINE TENDERNESS Respiratory/Chest: Positive for: Rhonchi, Tachypneic. Negative for: Respiratory Distress, Retracting Cardiovascular: Positive for: Murmurs, Normal S1, S2, Irregular Rhythm, Tachycardic. Negative for: Rub, Gallop Abdomen: Positive for: Tenderness, Normal Bowel Sounds. Negative for: Distention, Peritoneal Signs, Rebound Upper Extremity: Positive for: Normal Inspection. Negative for: Cyanosis, Edema Lower Extremity: Positive for: Normal Inspection. Negative for: Edema Neurological: Positive for: GCS=15, Speech Normal Skin: Positive for: Warm, Diaphoretic. Negative for: Rashes, Normal Color - Medications Active Medications: Active Medications Generic Name Dose Route Start Last Admin Trade Name Freq PRN Reason Stop Dose Admin Albuterol/Ipratropium 3 ml 01/27/18 10:16 01/27/18 13:39 Duoneb 3 Mg/0.5 Mg (3 Ml) Ud INH 3 ml RQ6 ANTONINO Administration Dabigatran 75 mg 01/27/18 00:15 01/27/18 15:42 Pradaxa PO 75 mg BID ANTONINO Administration Ceftriaxone Sodium 1 gm/ 100 mls @ 100 mls/hr 01/25/18 10:00 01/27/18 10:27 Sodium Chloride IVPB 100 mls/hr DAILY AN[facility]INO Administration Protocol Sodium Chloride 1,000 mls @ 100 mls/hr 01/27/18 09:50 01/27/18 11:52 Sodium Chloride 0.9% IV 01/27/18 19:49 100 mls/hr .Q10H ONE Administration Methylprednisolone 40 mg 01/27/18 13:30 01/27/18 13:38 Solu-Medrol IVP 40 mg Q24H ANTONINO Administration Metoprolol Tartrate 50 mg 01/24/18 18:00 01/27/18 11:09 Lopressor PO Not Given BID ANTONINO Pantoprazole Sodium 40 mg 01/25/18 10:00 01/27/18 10:08 Protonix Inj IVP 40 mg DAILY AN[facility]INO Administration Paroxetine HCl 40 mg 01/26/18 10:00 01/27/18 15:42 Paxil PO 40 mg DAILY [facility] Administration Verapamil HCl 5 mg 01/26/18 22:39 Verapamil Inj IVP Q4H PRN Heart rate - Patient Studies Lab Studies: Microbiology Studies 01/24/18 13:40 Blood Culture - Preliminary Blood NO GROWTH AFTER 3 DAYS 01/24/18 13:39 Blood Culture - Preliminary Blood NO GROWTH AFTER 3 DAYS Lab Studies 01/27/18 01/27/18 01/27/18 Range/Units 15:38 06:32 06:32 WBC 14.7 H 13.0 H (4.8-10.8) K/uL RBC 3.64 L 3.63 L (3.80-5.20) Mil/uL Hgb 10.9 L 11.1 (11.0-16.0) g/dL Hct 33.8 L 33.1 L (34.0-47.0) % MCV 93.0 91.3 (81.0-99.0) fL MCH 29.9 30.7 (27.0-31.0) pg MCHC 32.2 L 33.7 (33.0-37.0) g/dL RDW 15.7 H 15.4 H (11.5-14.5) % Plt Count 259 274 (130-400) K/uL MPV 10.1 9.7 (7.2-11.7) fL Neut % (Auto) 86.8 H 86.7 H (50.0-75.0) % Lymph % (Auto) 4.0 L 4.8 L (20.0-40.0) % [place] % (Auto) 9.1 8.5 (0.0-10.0) % Eos % (Auto) 0.0 0.0 (0.0-4.0) % Baso % (Auto) 0.1 0.0 (0.0-2.0) % Neut # (Auto) 12.8 H 11.3 H (1.8-7.0) K/uL Lymph # (Auto) 0.6 L 0.6 L (1.0-4.3) K/uL [place] # (Auto) 1.3 H 1.1 H (0.0-0.8) K/uL Eos # (Auto) 0.0 0.0 (0.0-0.7) K/uL Baso # (Auto) 0.0 0.0 (0.0-0.2) K/uL Neutrophils % (Manual) 92 H (50-75) % Band Neutrophils % (0-2) % Lymphocytes % (Manual) 4 L (20-40) % Monocytes % (Manual) 4 (0-10) % Toxic Granulation Platelet Estimate Normal (NORMAL) Large Platelets Polychromasia Hypochromasia (manual) Anisocytosis (manual) Slight Puncture Site pCO2 (35-45) mm/Hg pO2 (80-100) mm/Hg HCO3 (21-28) mmol/L ABG pH (7.35-7.45) ABG Total CO2 (22-28) mmol/L ABG O2 Saturation (95-98) % ABG Base Excess (-2.0-3.0) mmol/L ABG Hemoglobin (11.7-17.4) g/dL ABG Carboxyhemoglobin (0.5-1.5) % POC ABG HHb (Measured) (0.0-5.0) % ABG Methemoglobin (0.0-3.0) % Glen Test A-a O2 Difference mm/Hg Respiratory Index Hgb O2 Saturation (95.0-98.0) % Liter Flow FiO2 % Sodium 137 (132-148) mmol/L Potassium 4.2 (3.6-5.2) mmol/L Chloride 97 L (98-107) mmol/L Carbon Dioxide 29 (22-30) mmol/L Anion Gap 15 (10-20) BUN 33 H (7-17) mg/dL Creatinine 1.1 (0.7-1.2) mg/dL Est GFR ( Amer) 57 Est GFR (Non-Af Amer) 47 Random Glucose 142 H (65-105) mg/dL Calcium 7.9 L (8.6-10.4) mg/dl Phosphorus 3.7 (2.5-4.5) mg/dL Magnesium 3.4 H (1.6-2.3) mg/dL Total Bilirubin 0.6 (0.2-1.3) mg/dL AST 58 H D (14-36) U/L ALT 28 (9-52) U/L Alkaline Phosphatase 127 H (38-126) U/L Troponin I 0.1060 (0.00-0.120) ng/mL Total Protein 6.8 (6.3-8.3) g/dL Albumin 2.8 L (3.5-5.0) g/dL Globulin 4.0 H (2.2-3.9) gm/dL Albumin/Globulin Ratio 0.7 L (1.0-2.1) 01/26/18 01/26/18 01/26/18 Range/Units 22:52 21:32 21:32 WBC 13.9 H (4.8-10.8) K/uL RBC 3.77 L (3.80-5.20) Mil/uL Hgb 11.5 (11.0-16.0) g/dL Hct 34.3 (34.0-47.0) % MCV 91.1 (81.0-99.0) fL MCH 30.4 (27.0-31.0) pg MCHC 33.4 (33.0-37.0) g/dL RDW 15.6 H (11.5-14.5) % Plt Count 265 (130-400) K/uL MPV 9.9 (7.2-11.7) fL Neut % (Auto) 91.3 H (50.0-75.0) % Lymph % (Auto) 3.1 L (20.0-40.0) % [place] % (Auto) 5.5 (0.0-10.0) % Eos % (Auto) 0.0 (0.0-4.0) % Baso % (Auto) 0.1 (0.0-2.0) % Neut # (Auto) 12.7 H (1.8-7.0) K/uL Lymph # (Auto) 0.4 L (1.0-4.3) K/uL [place] # (Auto) 0.8 (0.0-0.8) K/uL Eos # (Auto) 0.0 (0.0-0.7) K/uL Baso # (Auto) 0.0 (0.0-0.2) K/uL Neutrophils % (Manual) 88 H (50-75) % Band Neutrophils % 4 H (0-2) % Lymphocytes % (Manual) 3 L (20-40) % Monocytes % (Manual) 5 (0-10) % Toxic Granulation Present Platelet Estimate Normal (NORMAL) Large Platelets Present Polychromasia Slight Hypochromasia (manual) Slight Anisocytosis (manual) Slight Puncture Site Rr pCO2 36 (35-45) mm/Hg pO2 117 H (80-100) mm/Hg HCO3 32.3 H (21-28) mmol/L ABG pH 7.56 H (7.35-7.45) ABG Total CO2 33.3 H (22-28) mmol/L ABG O2 Saturation 99.5 H (95-98) % ABG Base Excess 9.4 H (-2.0-3.0) mmol/L ABG Hemoglobin 10.5 L (11.7-17.4) g/dL ABG Carboxyhemoglobin 2.0 H (0.5-1.5) % POC ABG HHb (Measured) 0.5 (0.0-5.0) % ABG Methemoglobin 0.9 (0.0-3.0) % Glen Test Po A-a O2 Difference 195.0 mm/Hg Respiratory Index 1.7 Hgb O2 Saturation 96.5 (95.0-98.0) % Liter Flow 12.0 FiO2 50.0 % Sodium 136 (132-148) mmol/L Potassium 2.6 L (3.6-5.2) mmol/L Chloride 92 L (98-107) mmol/L Carbon Dioxide 31 H (22-30) mmol/L Anion Gap 15 (10-20) BUN 37 H (7-17) mg/dL Creatinine 1.4 H (0.7-1.2) mg/dL Est GFR ( Amer) 43 Est GFR (Non-Af Amer) 36 Random Glucose 162 H (65-105) mg/dL Calcium 7.8 L (8.6-10.4) mg/dl Phosphorus 3.2 (2.5-4.5) mg/dL Magnesium 1.7 (1.6-2.3) mg/dL Total Bilirubin 0.6 (0.2-1.3) mg/dL AST 46 H D (14-36) U/L ALT 27 (9-52) U/L Alkaline Phosphatase 131 H (38-126) U/L Troponin I (0.00-0.120) ng/mL Total Protein 7.1 (6.3-8.3) g/dL Albumin 3.0 L (3.5-5.0) g/dL Globulin 4.0 H (2.2-3.9) gm/dL Albumin/Globulin Ratio 0.8 L (1.0-2.1) 01/26/18 Range/Units 16:42 WBC (4.8-10.8) K/uL RBC (3.80-5.20) Mil/uL Hgb (11.0-16.0) g/dL Hct (34.0-47.0) % MCV (81.0-99.0) fL MCH (27.0-31.0) pg MCHC (33.0-37.0) g/dL RDW (11.5-14.5) % Plt Count (130-400) K/uL MPV (7.2-11.7) fL Neut % (Auto) (50.0-75.0) % Lymph % (Auto) (20.0-40.0) % [place] % (Auto) (0.0-10.0) % Eos % (Auto) (0.0-4.0) % Baso % (Auto) (0.0-2.0) % Neut # (Auto) (1.8-7.0) K/uL Lymph # (Auto) (1.0-4.3) K/uL [place] # (Auto) (0.0-0.8) K/uL Eos # (Auto) (0.0-0.7) K/uL Baso # (Auto) (0.0-0.2) K/uL Neutrophils % (Manual) (50-75) % Band Neutrophils % (0-2) % Lymphocytes % (Manual) (20-40) % Monocytes % (Manual) (0-10) % Toxic Granulation Platelet Estimate (NORMAL) Large Platelets Polychromasia Hypochromasia (manual) Anisocytosis (manual) Puncture Site pCO2 (35-45) mm/Hg pO2 (80-100) mm/Hg HCO3 (21-28) mmol/L ABG pH (7.35-7.45) ABG Total CO2 (22-28) mmol/L ABG O2 Saturation (95-98) % ABG Base Excess (-2.0-3.0) mmol/L ABG Hemoglobin (11.7-17.4) g/dL ABG Carboxyhemoglobin (0.5-1.5) % POC ABG HHb (Measured) (0.0-5.0) % ABG Methemoglobin (0.0-3.0) % Glne Test A-a O2 Difference mm/Hg Respiratory Index Hgb O2 Saturation (95.0-98.0) % Liter Flow FiO2 % Sodium 133 (132-148) mmol/L Potassium 2.8 L (3.6-5.2) mmol/L Chloride 92 L (98-107) mmol/L Carbon Dioxide 29 (22-30) mmol/L Anion Gap 15 (10-20) BUN 36 H (7-17) mg/dL Creatinine 1.4 H (0.7-1.2) mg/dL Est GFR ( Amer) 43 Est GFR (Non-Af Amer) 36 Random Glucose 164 H (65-105) mg/dL Calcium 8.0 L (8.6-10.4) mg/dl Phosphorus (2.5-4.5) mg/dL Magnesium 1.7 (1.6-2.3) mg/dL Total Bilirubin (0.2-1.3) mg/dL AST (14-36) U/L ALT (9-52) U/L Alkaline Phosphatase (38-126) U/L Troponin I (0.00-0.120) ng/mL Total Protein (6.3-8.3) g/dL Albumin (3.5-5.0) g/dL Globulin (2.2-3.9) gm/dL Albumin/Globulin Ratio (1.0-2.1) Laboratory Results - last 24 hr 01/26/18 01/26/18 01/26/18 16:42 21:32 21:32 WBC 13.9 H RBC 3.77 L Hgb 11.5 Hct 34.3 MCV 91.1 MCH 30.4 MCHC 33.4 RDW 15.6 H Plt Count 265 MPV 9.9 Neut % (Auto) 91.3 H Lymph % (Auto) 3.1 L [place] % (Auto) 5.5 Eos % (Auto) 0.0 Baso % (Auto) 0.1 Neut # (Auto) 12.7 H Lymph # (Auto) 0.4 L [place] # (Auto) 0.8 Eos # (Auto) 0.0 Baso # (Auto) 0.0 Neutrophils % (Manual) 88 H Band Neutrophils % 4 H Lymphocytes % (Manual) 3 L Monocytes % (Manual) 5 Toxic Granulation Present Platelet Estimate Normal Large Platelets Present Polychromasia Slight Hypochromasia (manual) Slight Anisocytosis (manual) Slight Puncture Site pCO2 pO2 HCO3 ABG pH ABG Total CO2 ABG O2 Saturation ABG Base Excess ABG Hemoglobin ABG Carboxyhemoglobin POC ABG HHb (Measured) ABG Methemoglobin [place] Test A-a O2 Difference Respiratory Index Hgb O2 Saturation Liter Flow FiO2 Sodium 133 136 Potassium 2.8 L 2.6 L Chloride 92 L 92 L Carbon Dioxide 29 31 H Anion Gap 15 15 BUN 36 H 37 H Creatinine 1.4 H 1.4 H Est GFR ( Amer) 43 43 Est GFR (Non-Af Amer) 36 36 Random Glucose 164 H 162 H Calcium 8.0 L 7.8 L Phosphorus 3.2 Magnesium 1.7 1.7 Total Bilirubin 0.6 AST 46 H D ALT 27 Alkaline Phosphatase 131 H Troponin I Total Protein 7.1 Albumin 3.0 L Globulin 4.0 H Albumin/Globulin Ratio 0.8 L 01/26/18 01/27/18 01/27/18 22:52 06:32 06:32 WBC 13.0 H RBC 3.63 L Hgb 11.1 Hct 33.1 L MCV 91.3 MCH 30.7 MCHC 33.7 RDW 15.4 H Plt Count 274 MPV 9.7 Neut % (Auto) 86.7 H Lymph % (Auto) 4.8 L [place] % (Auto) 8.5 Eos % (Auto) 0.0 Baso % (Auto) 0.0 Neut # (Auto) 11.3 H Lymph # (Auto) 0.6 L [place] # (Auto) 1.1 H Eos # (Auto) 0.0 Baso # (Auto) 0.0 Neutrophils % (Manual) 92 H Band Neutrophils % Lymphocytes % (Manual) 4 L Monocytes % (Manual) 4 Toxic Granulation Platelet Estimate Normal Large Platelets Polychromasia Hypochromasia (manual) Anisocytosis (manual) Slight Puncture Site Rr pCO2 36 pO2 117 H HCO3 32.3 H ABG pH 7.56 H ABG Total CO2 33.3 H ABG O2 Saturation 99.5 H ABG Base Excess 9.4 H ABG Hemoglobin 10.5 L ABG Carboxyhemoglobin 2.0 H POC ABG HHb (Measured) 0.5 ABG Methemoglobin 0.9 Glen Test Po A-a O2 Difference 195.0 Respiratory Index 1.7 Hgb O2 Saturation 96.5 Liter Flow 12.0 FiO2 50.0 Sodium 137 Potassium 4.2 Chloride 97 L Carbon Dioxide 29 Anion Gap 15 BUN 33 H Creatinine 1.1 Est GFR ( Amer) 57 Est GFR (Non-Af Amer) 47 Random Glucose 142 H Calcium 7.9 L Phosphorus 3.7 Magnesium 3.4 H Total Bilirubin 0.6 AST 58 H D ALT 28 Alkaline Phosphatase 127 H Troponin I 0.1060 Total Protein 6.8 Albumin 2.8 L Globulin 4.0 H Albumin/Globulin Ratio 0.7 L 01/27/18 15:38 WBC 14.7 H RBC 3.64 L Hgb 10.9 L Hct 33.8 L MCV 93.0 MCH 29.9 MCHC 32.2 L RDW 15.7 H Plt Count 259 MPV 10.1 Neut % (Auto) 86.8 H Lymph % (Auto) 4.0 L [place] % (Auto) 9.1 Eos % (Auto) 0.0 Baso % (Auto) 0.1 Neut # (Auto) 12.8 H Lymph # (Auto) 0.6 L [place] # (Auto) 1.3 H Eos # (Auto) 0.0 Baso # (Auto) 0.0 Neutrophils % (Manual) Band Neutrophils % Lymphocytes % (Manual) Monocytes % (Manual) Toxic Granulation Platelet Estimate Large Platelets Polychromasia Hypochromasia (manual) Anisocytosis (manual) Puncture Site pCO2 pO2 HCO3 ABG pH ABG Total CO2 ABG O2 Saturation ABG Base Excess ABG Hemoglobin ABG Carboxyhemoglobin POC ABG HHb (Measured) ABG Methemoglobin [place] Test A-a O2 Difference Respiratory Index Hgb O2 Saturation Liter Flow FiO2 Sodium Potassium Chloride Carbon Dioxide Anion Gap BUN Creatinine Est GFR ( Amer) Est GFR (Non-Af Amer) Random Glucose Calcium Phosphorus Magnesium Total Bilirubin AST ALT Alkaline Phosphatase Troponin I Total Protein Albumin Globulin Albumin/Globulin Ratio EKG/Cardiology Studies: Cardiology / EKG Studies 01/26/18 21:05 EKG [ELECTROCARDIOGRAM] Stat Comment: Mode Of Transportation: BED Reason For Exam: [email or web address] 01/26/18 21:09 EKG [ELECTROCARDIOGRAM] Stat Comment: 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 01/27/18 06:00 EKG [ELECTROCARDIOGRAM] Routine Comment: Mode Of Transportation: Reason For Exam: [email or web address] 01/27/18 13:00 EKG [ELECTROCARDIOGRAM] Stat Comment: Mode Of Transportation: Reason For Exam: h/o NSTEMI Review of Systems - Review of Systems Review of Systems: as per [facility] Critical Care Progress Note - Nutrition Nutrition: Nutrition Category Date Time Status Heart Healthy Diet [DIET] Diets 01/24/18 Breakfast Active Assessment/Plan - Assessment and Plan (Free Text) Assessment: 87yo F with PMH A.fib, HTN, pulmonary HTN, admitted for acute decompensated heart failure and transferred to ICU s/p episode of V.tach, secondary to hypokalemia. Pt in respiratory distress today, started on Bipap. Plan: Neuro - pt with baseline dementia - no focal deficits Cardio - ECHO: normal EF, moderate to severe , moderate to severe pulmonary HTN - pt hypotensive today, given 250ml bolus - lopressor 50 po BID and verapamil 180mg po daily NOT given today - pradaxa 75mg po BID - Cardio consulted, Dr. Flores Pulm - CXR 01/27: chronic interstitial markings. mild superimposed edema or infection not excluded. blunting of R costophrenic angle. small fluid or pleural thickening. biapical pleural thickening - CT chest 01/26: pulmonary HTN - solumedrol 40mg IV daily - high flow GI - Abd Xray 01/27: gaseous distension of the stomach Renal - no active issues Heme - no active issues Endo - no active issues MSK - neck pain - toradol 15mg IV given once - morphine 2mg IV given once ID - UA: +leuk esterase, neg nitrates - BCx: neg x3 days - Ceftriaxone 1g IV daily (01/25) PPX GI: protonix 40 IV DVT: not indicated at this time HHD Pt seen and case reviewed with Dr. Barbour
[2018-01-27 16:13] LABS: ALB/GLOB RATIO 0.7 (1.0-2.1); ALBUMIN 2.5 g/dL (3.5-5.0); CALCIUM 7.8 mg/dl (8.6-10.4)
[2018-01-27 16:29] LABS: TROPONIN I 0.122 ng/mL (0.00-0.120)
[2018-01-27 16:30] LABS: BANDS 2 % (0-2); LYMPHOCYTE 3 % (20-40); MONOCYTE 7 % (0-10); NEUTROPHIL 87 % (50-75); PLATELET ESTIMATE NORMAL (NORMAL); TOTAL CELLS COUNTED 100
[2018-01-27 16:31] LABS: ANISOCYTOSIS SLIGHT; HYPOCHROMIC SLIGHT; LARGE PLATELETS PRESENT; POIKILOCYTOSIS SLIGHT
--- NOTE | 2018-01-28 00:01 | PN ---
DATE: 01/27/2018 The patient is currently in the intensive care unit. During the morning rounds around 7 o'clock, the patient was doing okay but an hour later, the patient became increasingly short of breath, hypotension and also worsening respiratory distress. The patient was placed immediately on the bed. While she was sitting down and then placed on the bed, she was placed on BiPAP also, received pain medication as the patient was complaining of increasing back pain, neck pain, and headache. Initially received Toradol 15 mg, but there was not improvement. Morphine 2 mg was given. Oxygen was 100% placed. As her blood pressure was very low, IV fluids were given. Fluid challenge was also given. Pressure slowly improved. The patient also slowly improved over a time. Heartbeat is currently 60, saturation 100%, respiration is 16%. Slowly over the next few hours, the patient got significant improvement in the condition. Now, the patient is currently on high-flow oxygen 60%, doing well at this time. I discussed with the family in detail. The patient's family was somewhat concerned about the overall prognosis. They do not want any intubation. We will discuss again tomorrow for further detail about the DNR and rehabilitation, and we will follow up the patient. Currently, the patient is receiving antibiotic for suspected pneumonia and IV fluid. Closely, we will monitor and we will follow up the patient. Coreen Barbour MD
[2018-01-28] MEDS: Albuterol-Ipratrop 3 mg / 0.5 (3 ml) UD INH SCH ×4 (02:26→19:34)
[2018-01-28] MEDS: Sodium Chloride 0.9% 1,000 ML IV SCH ×2 (04:37→22:00)
[2018-01-28 06:13] LABS: BASO % 0.2 % (0.0-2.0); HEMOGLOBIN 10.6 g/dL (11.0-16.0); LYMPH # 0.5 K/uL (1.0-4.3); LYMPH % 4.8 % (20.0-40.0); MEAN CELL VOLUME 92.1 fL (81.0-99.0); MEAN CORPUSCULAR HEMOGLOBIN 30.7 pg (27.0-31.0); MEAN CORPUSCULAR HGB CONC 33.3 g/dL (33.0-37.0); MEAN PLATELET VOLUME 9.9 fL (7.2-11.7); MONO # 0.7 K/uL (0.0-0.8); MONO % 6.1 % (0.0-10.0); NEUT % 88.9 % (50.0-75.0); PLATELET COUNT 235 K/uL (130-400); RBC 3.45 Mil/uL (3.80-5.20); RED CELL DISTRIBUTION WIDTH 15.7 % (11.5-14.5); WHITE BLOOD COUNT 11.2 K/uL (4.8-10.8)
[2018-01-28 06:34] LABS: ALB/GLOB RATIO 0.7 (1.0-2.1); ALBUMIN 2.6 g/dL (3.5-5.0); CALCIUM 7.8 mg/dl (8.6-10.4)
[2018-01-28 08:28] LABS: BANDS 2 % (0-2); LYMPHOCYTE 5 % (20-40); MONOCYTE 5 % (0-10); NEUTROPHIL 88 % (50-75); TOTAL CELLS COUNTED 100
[2018-01-28 08:29] LABS: ANISOCYTOSIS SLIGHT; HYPOCHROMIC SLIGHT; PLATELET ESTIMATE NORMAL (NORMAL); POLYCHROMIC SLIGHT
[2018-01-28] MEDS: MethylPREDNISolone 40 mg Vial IVP SCH (10:51)
[2018-01-28] MEDS: Heparin25000 units/250ml 1/2NS 25,000 UNITS/250 ML BAG IV PRN ×2 (10:52→19:43)
--- NOTE | 2018-01-28 12:45 | CP.CCUPN ---
<Danni Valladares - Last Filed: 01/28/18 12:58> CCU Subjective - Physician Review Subjective (Free Text): 01/28/18 12:42 Danni Valladares PGY1 Progress note for Dr. Man Pt was examined at bedside this morning. She reports improvement in her breathing. She denies any chest pain, headache, abdominal pain, nausea, or vomiting. CCU Objective - Vital Signs / Intake & Output Vital Signs (Last 4 hours): Vital Signs Resp 01/28/18 12:41 18 Intake and Output (Last 8hrs): Intake & Output 01/27/18 01/28/18 01/28/18 22:59 06:59 14:59 Intake Total 1380 680 60 Output Total 840 Balance 1380 -160 60 Weight 118 lb 9.6 oz Intake: Intake, IV Amount 800 680 60 Right Hand 800 680 60 Oral 580 Output: Urine 840 Urine, Voided 590 - Physical Exam Head: Positive for: Atraumatic, Normocephalic Pupils: Positive for: PERRL Extroacular Muscles: Positive for: EOMI Conjunctiva: Positive for: Normal Mouth: Positive for: Moist Mucous Membranes Neck: Positive for: Paraspinal Tenderness. Negative for: Meningeal Signs, MIDLINE TENDERNESS Respiratory/Chest: Positive for: Rhonchi. Negative for: Respiratory Distress, Rales, Retracting Cardiovascular: Positive for: Murmurs, Normal S1, S2, Irregular Rhythm. Negative for: Rub, Gallop Abdomen: Positive for: Normal Bowel Sounds. Negative for: Tenderness, Distention, Peritoneal Signs, Rebound Upper Extremity: Positive for: Normal Inspection. Negative for: Cyanosis, Edema Lower Extremity: Positive for: Normal Inspection. Negative for: Edema Neurological: Positive for: GCS=15, Speech Normal Skin: Positive for: Warm, Diaphoretic. Negative for: Rashes, Normal Color - Medications Active Medications: Active Medications Generic Name Dose Route Start Last Admin Trade Name Freq PRN Reason Stop Dose Admin Albuterol/Ipratropium 3 ml 01/27/18 10:16 01/28/18 07:50 Duoneb 3 Mg/0.5 Mg (3 Ml) Ud INH 3 ml RQ6 ANTONINO Administration Ceftriaxone Sodium 1 gm/ 100 mls @ 50 mls/hr 01/27/18 19:04 01/28/18 10:52 Sodium Chloride IVPB 50 mls/hr DAILY ANTONINO Administration Protocol Sodium Chloride 1,000 mls @ 60 mls/hr 01/28/18 04:30 01/28/18 04:37 Sodium Chloride 0.9% IV 60 mls/hr .[id number] ANTONINO Administration Heparin Sodium/Sodium Chloride 25,000 units in 250 mls @ 6.456 mls/hr 01/28/18 11:00 01/28/18 10:52 Heparin 27575 Units/250ml 1/2 Normal Saline IV 12 units/kg/hr .Q24H PRN 6.456 mls/hr PROTOCOL Administration Protocol 12 UNITS/KG/HR Methylprednisolone 20 mg 01/28/18 10:00 01/28/18 10:51 Solu-Medrol IVP 01/31/18 10:01 20 mg DAILY ANTONINO Administration Metoprolol Tartrate 50 mg 01/24/18 18:00 01/27/18 11:09 Lopressor PO Not Given BID ANTONINO Pantoprazole Sodium 40 mg 01/25/18 10:00 01/28/18 10:51 Protonix Inj IVP 40 mg DAILY ANTOINNO Administration Paroxetine HCl 40 mg 01/26/18 10:00 01/28/18 10:50 Paxil PO 40 mg DAILY ANTONINO Administration - Patient Studies Lab Studies: Microbiology Studies 01/24/18 13:40 Blood Culture - Preliminary Blood NO GROWTH AFTER 3 DAYS 01/24/18 13:39 Blood Culture - Preliminary Blood NO GROWTH AFTER 3 DAYS Lab Studies 01/28/18 01/28/18 01/27/18 Range/Units 06:10 06:10 15:38 WBC 11.2 H (4.8-10.8) K/uL RBC 3.45 L (3.80-5.20) Mil/uL Hgb 10.6 L (11.0-16.0) g/dL Hct 31.8 L (34.0-47.0) % MCV 92.1 (81.0-99.0) fL MCH 30.7 (27.0-31.0) pg MCHC 33.3 (33.0-37.0) g/dL RDW 15.7 H (11.5-14.5) % Plt Count 235 (130-400) K/uL MPV 9.9 (7.2-11.7) fL Neut % (Auto) 88.9 H (50.0-75.0) % Lymph % (Auto) 4.8 L (20.0-40.0) % Burnet % (Auto) 6.1 (0.0-10.0) % Eos % (Auto) 0.0 (0.0-4.0) % Baso % (Auto) 0.2 (0.0-2.0) % Neut # (Auto) 10.0 H (1.8-7.0) K/uL Lymph # (Auto) 0.5 L (1.0-4.3) K/uL Burnet # (Auto) 0.7 (0.0-0.8) K/uL Eos # (Auto) 0.0 (0.0-0.7) K/uL Baso # (Auto) 0.0 (0.0-0.2) K/uL Neutrophils % (Manual) 88 H (50-75) % Band Neutrophils % 2 (0-2) % Lymphocytes % (Manual) 5 L (20-40) % Monocytes % (Manual) 5 (0-10) % Platelet Estimate Normal (NORMAL) Large Platelets Polychromasia Slight Hypochromasia (manual) Slight Poikilocytosis (manual Anisocytosis (manual) Slight Sodium 139 139 (132-148) mmol/L Potassium 3.9 3.8 (3.6-5.2) mmol/L Chloride 105 100 (98-107) mmol/L Carbon Dioxide 27 30 (22-30) mmol/L Anion Gap 12 13 (10-20) BUN 47 H 40 H (7-17) mg/dL Creatinine 1.7 H 1.7 H (0.7-1.2) mg/dL Est GFR ( Amer) 34 34 Est GFR (Non-Af Amer) 28 28 Random Glucose 118 H 135 H (65-105) mg/dL Calcium 7.8 L 7.8 L (8.6-10.4) mg/dl Phosphorus 5.0 H 5.3 H (2.5-4.5) mg/dL Magnesium 2.8 H 3.2 H (1.6-2.3) mg/dL Total Bilirubin 0.4 0.5 (0.2-1.3) mg/dL AST 163 H D 381 H D (14-36) U/L ALT 72 H D 92 H D (9-52) U/L Alkaline Phosphatase 208 H 213 H D (38-126) U/L Troponin I 0.1220 H* (0.00-0.120) ng/mL Total Protein 6.3 6.2 L (6.3-8.3) g/dL Albumin 2.6 L 2.5 L (3.5-5.0) g/dL Globulin 3.7 3.7 (2.2-3.9) gm/dL Albumin/Globulin Ratio 0.7 L 0.7 L (1.0-2.1) 01/27/18 Range/Units 15:38 WBC 14.7 H (4.8-10.8) K/uL RBC 3.64 L (3.80-5.20) Mil/uL Hgb 10.9 L (11.0-16.0) g/dL Hct 33.8 L (34.0-47.0) % MCV 93.0 (81.0-99.0) fL MCH 29.9 (27.0-31.0) pg MCHC 32.2 L (33.0-37.0) g/dL RDW 15.7 H (11.5-14.5) % Plt Count 259 (130-400) K/uL MPV 10.1 (7.2-11.7) fL Neut % (Auto) 86.8 H (50.0-75.0) % Lymph % (Auto) 4.0 L (20.0-40.0) % Burnet % (Auto) 9.1 (0.0-10.0) % Eos % (Auto) 0.0 (0.0-4.0) % Baso % (Auto) 0.1 (0.0-2.0) % Neut # (Auto) 12.8 H (1.8-7.0) K/uL Lymph # (Auto) 0.6 L (1.0-4.3) K/uL Burnet # (Auto) 1.3 H (0.0-0.8) K/uL Eos # (Auto) 0.0 (0.0-0.7) K/uL Baso # (Auto) 0.0 (0.0-0.2) K/uL Neutrophils % (Manual) 87 H (50-75) % Band Neutrophils % 2 (0-2) % Lymphocytes % (Manual) 3 L (20-40) % Monocytes % (Manual) 7 (0-10) % Platelet Estimate Normal (NORMAL) Large Platelets Present Polychromasia Hypochromasia (manual) Slight Poikilocytosis (manual Slight Anisocytosis (manual) Slight Sodium (132-148) mmol/L Potassium (3.6-5.2) mmol/L Chloride (98-107) mmol/L Carbon Dioxide (22-30) mmol/L Anion Gap (10-20) BUN (7-17) mg/dL Creatinine (0.7-1.2) mg/dL Est GFR ( Amer) Est GFR (Non-Af Amer) Random Glucose (65-105) mg/dL Calcium (8.6-10.4) mg/dl Phosphorus (2.5-4.5) mg/dL Magnesium (1.6-2.3) mg/dL Total Bilirubin (0.2-1.3) mg/dL AST (14-36) U/L ALT (9-52) U/L Alkaline Phosphatase (38-126) U/L Troponin I (0.00-0.120) ng/mL Total Protein (6.3-8.3) g/dL Albumin (3.5-5.0) g/dL Globulin (2.2-3.9) gm/dL Albumin/Globulin Ratio (1.0-2.1) Laboratory Results - last 24 hr 01/27/18 01/27/18 01/28/18 15:38 15:38 06:10 WBC 14.7 H 11.2 H RBC 3.64 L 3.45 L Hgb 10.9 L 10.6 L Hct 33.8 L 31.8 L MCV 93.0 92.1 MCH 29.9 30.7 MCHC 32.2 L 33.3 RDW 15.7 H 15.7 H Plt Count 259 235 MPV 10.1 9.9 Neut % (Auto) 86.8 H 88.9 H Lymph % (Auto) 4.0 L 4.8 L Burnet % (Auto) 9.1 6.1 Eos % (Auto) 0.0 0.0 Baso % (Auto) 0.1 0.2 Neut # (Auto) 12.8 H 10.0 H Lymph # (Auto) 0.6 L 0.5 L Burnet # (Auto) 1.3 H 0.7 Eos # (Auto) 0.0 0.0 Baso # (Auto) 0.0 0.0 Neutrophils % (Manual) 87 H 88 H Band Neutrophils % 2 2 Lymphocytes % (Manual) 3 L 5 L Monocytes % (Manual) 7 5 Platelet Estimate Normal Normal Large Platelets Present Polychromasia Slight Hypochromasia (manual) Slight Slight Poikilocytosis (manual Slight Anisocytosis (manual) Slight Slight Sodium 139 Potassium 3.8 Chloride 100 Carbon Dioxide 30 Anion Gap 13 BUN 40 H Creatinine 1.7 H Est GFR ( Amer) 34 Est GFR (Non-Af Amer) 28 Random Glucose 135 H Calcium 7.8 L Phosphorus 5.3 H Magnesium 3.2 H Total Bilirubin 0.5 AST 381 H D ALT 92 H D Alkaline Phosphatase 213 H D Troponin I 0.1220 H* Total Protein 6.2 L Albumin 2.5 L Globulin 3.7 Albumin/Globulin Ratio 0.7 L 01/28/18 06:10 WBC RBC Hgb Hct MCV MCH MCHC RDW Plt Count MPV Neut % (Auto) Lymph % (Auto) Burnet % (Auto) Eos % (Auto) Baso % (Auto) Neut # (Auto) Lymph # (Auto) Burnet # (Auto) Eos # (Auto) Baso # (Auto) Neutrophils % (Manual) Band Neutrophils % Lymphocytes % (Manual) Monocytes % (Manual) Platelet Estimate Large Platelets Polychromasia Hypochromasia (manual) Poikilocytosis (manual Anisocytosis (manual) Sodium 139 Potassium 3.9 Chloride 105 Carbon Dioxide 27 Anion Gap 12 BUN 47 H Creatinine 1.7 H Est GFR ( Amer) 34 Est GFR (Non-Af Amer) 28 Random Glucose 118 H Calcium 7.8 L Phosphorus 5.0 H Magnesium 2.8 H Total Bilirubin 0.4 AST 163 H D ALT 72 H D Alkaline Phosphatase 208 H Troponin I Total Protein 6.3 Albumin 2.6 L Globulin 3.7 Albumin/Globulin Ratio 0.7 L EKG/Cardiology Studies: Cardiology / EKG Studies 01/27/18 13:00 EKG [ELECTROCARDIOGRAM] Stat Comment: Mode Of Transportation: Reason For Exam: h/o NSTEMI Review of Systems - Review of Systems Review of Systems: as per HPI Critical Care Progress Note - Nutrition Nutrition: Nutrition Category Date Time Status Heart Healthy Diet [DIET] Diets 01/24/18 Breakfast Active Heart Healthy Diet [DIET] Diets 01/29/18 Lunch Active NPO Diet [DIET] Diets 01/29/18 Breakfast Active Assessment/Plan - Assessment and Plan (Free Text) Assessment: 87yo F with PMH A.fib, HTN, pulmonary HTN, admitted for acute decompensated heart failure and transferred to ICU s/p episode of V.tach, secondary to hypokalemia. Pt had respiratory distress 01/26, now breathing improved and on high flow O2. Potential cath tomorrow. Plan: Neuro - pt with baseline dementia - no focal deficits Cardio - ECHO: normal EF, moderate to severe , moderate to severe pulmonary HTN - pt normotensive, maintain - start heparin drip - hold lopressor and verapamil - d/c pradaxa - for potential cath tomorrow, family still deciding if willing to agree to cath - Cardio consulted, Dr. Flores Pulm - CXR 01/27: chronic interstitial markings. mild superimposed edema or infection not excluded. blunting of R costophrenic angle. small fluid or pleural thickening. biapical pleural thickening - CT chest 01/26: pulmonary HTN - f/u rpt ABG - solumedrol 20mg IV daily - high flow O2 at 50 - duonebs q6h PRN GI - Abd Xray 01/27: gaseous distension of the stomach Renal - no active issues Heme - no active issues Endo - no active issues ID - UA: +leuk esterase, neg nitrates - BCx: neg x3 days - Ceftriaxone 1g IV daily (01/25) PPX GI: protonix 40 IV DVT: heparin drip HHD Pt seen and case reviewed with Dr. Man <Charlie Man - Last Filed: 01/28/18 18:31> CCU Subjective - Physician Review Critical Care Time Spent (in minutes): 40 CCU Objective - Vital Signs / Intake & Output Vital Signs (Last 4 hours): Vital Signs Pulse Resp BP Pulse Ox 01/28/18 17:03 84 13 140/59 L 95 01/28/18 17:00 86 23 134/60 94 L 01/28/18 16:12 18 01/28/18 16:02 81 18 134/60 92 L 01/28/18 16:00 81 26 H 91 L 01/28/18 15:33 67 20 134/50 L 88 L 01/28/18 15:03 68 17 133/49 L 97 01/28/18 15:00 66 16 96 Intake and Output (Last 8hrs): Intake & Output 01/28/18 01/28/18 01/28/18 06:59 14:59 22:59 Intake Total 680 261.0 Output Total 840 Balance -160 261.0 Weight 118 lb 9.6 oz Intake: Intake, IV Amount 680 86.0 Right Forearm 26.0 Right Hand 680 60 Oral 175 Output: Urine 840 Urine, Voided 590 Other: # Voids Urine, Voided 0 - Medications Active Medications: Active Medications Generic Name Dose Route Start Last Admin Trade Name Freq PRN Reason Stop Dose Admin Albuterol/Ipratropium 3 ml 01/27/18 10:16 01/28/18 14:03 Duoneb 3 Mg/0.5 Mg (3 Ml) Ud INH 3 ml RQ6 ANTONINO Administration Ceftriaxone Sodium 1 gm/ 100 mls @ 50 mls/hr 01/27/18 19:04 01/28/18 10:52 Sodium Chloride IVPB 50 mls/hr DAILY ANTONINO Administration Protocol Sodium Chloride 1,000 mls @ 60 mls/hr 01/28/18 04:30 01/28/18 04:37 Sodium Chloride 0.9% IV 60 mls/hr .[id number] ANTONINO Administration Heparin Sodium/Sodium Chloride 25,000 units in 250 mls @ 6.456 mls/hr 01/28/18 11:00 01/28/18 10:52 Heparin 51973 Units/250ml 1/2 Normal Saline IV 12 units/kg/hr .Q24H PRN 6.456 mls/hr PROTOCOL Administration Protocol 12 UNITS/KG/HR Methylprednisolone 20 mg 01/28/18 10:00 01/28/18 10:51 Solu-Medrol IVP 01/31/18 10:01 20 mg DAILY ANTONINO Administration Metoprolol Tartrate 50 mg 01/24/18 18:00 01/27/18 11:09 Lopressor PO Not Given BID ANTONINO Pantoprazole Sodium 40 mg 01/25/18 10:00 01/28/18 10:51 Protonix Inj IVP 40 mg DAILY ANTONINO Administration Paroxetine HCl 40 mg 01/26/18 10:00 12/04/18 10:50 Paxil PO 40 mg DAILY ANTONINO Administration - Patient Studies Lab Studies: Microbiology Studies 01/24/18 13:40 Blood Culture - Preliminary Blood NO GROWTH AFTER 4 DAYS 01/24/18 13:39 Blood Culture - Preliminary Blood NO GROWTH AFTER 4 DAYS Lab Studies 01/28/18 01/28/18 Range/Units 06:10 06:10 WBC 11.2 H (4.8-10.8) K/uL RBC 3.45 L (3.80-5.20) Mil/uL Hgb 10.6 L (11.0-16.0) g/dL Hct 31.8 L (34.0-47.0) % MCV 92.1 (81.0-99.0) fL MCH 30.7 (27.0-31.0) pg MCHC 33.3 (33.0-37.0) g/dL RDW 15.7 H (11.5-14.5) % Plt Count 235 (130-400) K/uL MPV 9.9 (7.2-11.7) fL Neut % (Auto) 88.9 H (50.0-75.0) % Lymph % (Auto) 4.8 L (20.0-40.0) % Burnet % (Auto) 6.1 (0.0-10.0) % Eos % (Auto) 0.0 (0.0-4.0) % Baso % (Auto) 0.2 (0.0-2.0) % Neut # (Auto) 10.0 H (1.8-7.0) K/uL Lymph # (Auto) 0.5 L (1.0-4.3) K/uL Burnet # (Auto) 0.7 (0.0-0.8) K/uL Eos # (Auto) 0.0 (0.0-0.7) K/uL Baso # (Auto) 0.0 (0.0-0.2) K/uL Neutrophils % (Manual) 88 H (50-75) % Band Neutrophils % 2 (0-2) % Lymphocytes % (Manual) 5 L (20-40) % Monocytes % (Manual) 5 (0-10) % Platelet Estimate Normal (NORMAL) Polychromasia Slight Hypochromasia (manual) Slight Anisocytosis (manual) Slight Sodium 139 (132-148) mmol/L Potassium 3.9 (3.6-5.2) mmol/L Chloride 105 (98-107) mmol/L Carbon Dioxide 27 (22-30) mmol/L Anion Gap 12 (10-20) BUN 47 H (7-17) mg/dL Creatinine 1.7 H (0.7-1.2) mg/dL Est GFR ( Amer) 34 Est GFR (Non-Af Amer) 28 Random Glucose 118 H (65-105) mg/dL Calcium 7.8 L (8.6-10.4) mg/dl Phosphorus 5.0 H (2.5-4.5) mg/dL Magnesium 2.8 H (1.6-2.3) mg/dL Total Bilirubin 0.4 (0.2-1.3) mg/dL AST 163 H D (14-36) U/L ALT 72 H D (9-52) U/L Alkaline Phosphatase 208 H (38-126) U/L Total Protein 6.3 (6.3-8.3) g/dL Albumin 2.6 L (3.5-5.0) g/dL Globulin 3.7 (2.2-3.9) gm/dL Albumin/Globulin Ratio 0.7 L (1.0-2.1) Laboratory Results - last 24 hr 01/28/18 01/28/18 06:10 06:10 WBC 11.2 H RBC 3.45 L Hgb 10.6 L Hct 31.8 L MCV 92.1 MCH 30.7 MCHC 33.3 RDW 15.7 H Plt Count 235 MPV 9.9 Neut % (Auto) 88.9 H Lymph % (Auto) 4.8 L Burnet % (Auto) 6.1 Eos % (Auto) 0.0 Baso % (Auto) 0.2 Neut # (Auto) 10.0 H Lymph # (Auto) 0.5 L Burnet # (Auto) 0.7 Eos # (Auto) 0.0 Baso # (Auto) 0.0 Neutrophils % (Manual) 88 H Band Neutrophils % 2 Lymphocytes % (Manual) 5 L Monocytes % (Manual) 5 Platelet Estimate Normal Polychromasia Slight Hypochromasia (manual) Slight Anisocytosis (manual) Slight Sodium 139 Potassium 3.9 Chloride 105 Carbon Dioxide 27 Anion Gap 12 BUN 47 H Creatinine 1.7 H Est GFR ( Amer) 34 Est GFR (Non-Af Amer) 28 Random Glucose 118 H Calcium 7.8 L Phosphorus 5.0 H Magnesium 2.8 H Total Bilirubin 0.4 AST 163 H D ALT 72 H D Alkaline Phosphatase 208 H Total Protein 6.3 Albumin 2.6 L Globulin 3.7 Albumin/Globulin Ratio 0.7 L Critical Care Progress Note - Nutrition Nutrition: Nutrition Category Date Time Status Heart Healthy Diet [DIET] Diets 01/24/18 Breakfast Active Heart Healthy Diet [DIET] Diets 01/29/18 Lunch Active NPO Diet [DIET] Diets 01/29/18 Breakfast Active Attending/Attestation - Attestation I have personally seen and examined this patient.: Yes I have fully participated in the care of the patient.: Yes I have reviewed all pertinent clinical information: Yes Notes (Text): 01/28/18 18:29 Patient seen and examined in the intensive care unit. Continue high flow oxygen poor Urine output status post fluid resuscitation Possible cardiac cath Continue present treatment Continue antibiotics and IV steroids
--- NOTE | 2018-01-28 13:20 | VASCLAB ---
Date of service: 01/27/2018 PROCEDURE: Lower Extremity Venous Duplex Exam. HISTORY: Leg swelling PRIORS: None. TECHNIQUE: Bilateral common femoral, femoral, popliteal and posterior tibial, peroneal and great saphenous veins were evaluated. Flow was assessed with color Doppler, compressibility, assessment of phasic flow and augmentation response. Report prepared by Pal Reynolds, TORRIE, RVT FINDINGS: RIGHT: 1. Common Femoral Vein: 1.1. Compressibility - Fully compressible: Thrombus - None : Flow - Phasic: Augmentation -Normal: Reflux - None. 2. Femoral Vein: 2.1. Compressibility - Fully compressible: Thrombus - None : Flow - Phasic: Augmentation -Normal: Reflux - None. 3. Popliteal Vein: 3.1. Compressibility - Fully compressible: Thrombus - None : Flow - Phasic: Augmentation -Normal: Reflux - None. 4. Posterior Tibial Vein: 4.1. Compressibility - Fully compressible: Thrombus - None: Flow - Phasic: Augmentation -Normal: Reflux - None. 5. Peroneal Vein: 5.1. Compressibility - Fully compressible: Thrombus - None: Flow - Phasic: Augmentation -Normal: Reflux - None. 6. Great Saphenous Vein: 6.1. Compressibility - Fully compressible: Thrombus - None: Flow - Phasic: Augmentation - Normal: Reflux - None. LEFT: 1. Common Femoral Vein: 1.1. Compressibility - Fully compressible: Thrombus - None: Flow - Phasic: Augmentation -Normal: Reflux - None. 2. Femoral Vein: 2.1. Compressibility - Fully compressible: Thrombus - None: Flow - Phasic: Augmentation -Normal: Reflux - None. 3. Popliteal Vein: 3.1. Compressibility - Fully compressible: Thrombus - None : Flow - Phasic: Augmentation -Normal: Reflux - None. 4. Posterior Tibial Vein: 4.1. Compressibility - Fully compressible: Thrombus - None: Flow - Phasic: Augmentation -Normal: Reflux - None. 5. Peroneal Vein: 5.1. Compressibility - Fully compressible: Thrombus - None: Flow - Phasic: Augmentation -Normal: Reflux - None. 6. Great Saphenous Vein: 6.1. Compressibility - Fully compressible: Thrombus - None: Flow - Phasic: Augmentation - Normal: Reflux - None. OTHER FINDINGS: Right: Intima wall thickening noted in the right greater saphenous vein. Left: None significant. IMPRESSION: Right: No evidence of deep or superficial vein thrombosis of the right lower extremity. Normal valve function noted of the right side. Left: No evidence of deep or superficial vein thrombosis of the left lower extremity. Normal valve function noted of the left side.
[2018-01-28] MEDS ORDERED: Sodium Chloride 0.9% 250 ML IV ONE (15:37)
--- NOTE | 2018-01-28 19:24 | CARD ---
APPROVED REPORT Date of service: 01/27/2018 EKG Measurement Heart [id number] <Conclusion> Atrial fibrillation Voltage criteria for left ventricular hypertrophy Abnormal ECG
[2018-01-29 01:01] LABS: CALCIUM 7.3 mg/dl (8.6-10.4)
[2018-01-29 01:19] LABS: ALBUMIN 2.3 g/dL (3.5-5.0)
[2018-01-29] MEDS: Albuterol-Ipratrop 3 mg / 0.5 (3 ml) UD INH SCH ×4 (01:19→19:58)
[2018-01-29] MEDS ORDERED: Potassium Chloride 20 mEq/15 ml LIQ UD PO ONE (01:26)
[2018-01-29 01:40] LABS: ALB/GLOB RATIO 0.6 (1.0-2.1)
[2018-01-29] MEDS: Sodium Chloride 0.9% 1,000 ML IV SCH (01:43)
--- NOTE | 2018-01-29 02:46 | PN ---
DATE: 01/28/2018 SUBJECTIVE: The patient is now in the intensive care unit at bed #3. Family is at bedside. The patient's daughter as well as is there. Son in the bedside. I explained to him. I spoke to the family in details about the overall condition. The patient now is more comfortable, currently tolerating the 3 L of nasal canula. No chest pain noted. She is coughing minimally, able to bring up the mucus. Able to eat today better. No BM noted, but urine output is somewhat on limited side. PHYSICAL EXAMINATION: VITAL SIGNS: Now, temperature is afebrile, heart rate 85 beats per minutes, blood pressure 136/48, saturation is 93% with 3 L of nasal canula. CHEST: Good air entry. Bilateral rales and wheezing noted. ABDOMEN: Nontender. EXTREMITIES: Edema negative. LABORATORY DATA: Labs showing WBC 11.2, hemoglobin 10.6. Chemistry: BUN 47, creatinine 1.7 with a GFR of 28. Mild positive troponin noted. MEDICATIONS: Currently, the patient is on Solu-Medrol; IV fluid, low dose; Rocephin; pantoprazole; paroxetine; and heparin drip. Also receiving DuoNeb. ASSESSMENT AND PLAN: An 87-year-old female with a history of chronic atrial fibrillation, on anticoagulation; also recently developing pulmonary fibrosis, oxygen dependent now; chronic pneumonia; chronic pneumonitis, possibly secondary to interstitial lung disease; aortic stenosis, moderate. Admitted with worsening respiratory status, likely secondary to lung fibrosis and interstitial lung changes worsening, likely diastolic heart failure, pulmonary hypertension, possible cor pulmonale and hypoxia secondary to pulmonary fibrosis. I spoke to the family in details about the possibility of angiogram, but the family is currently reluctant, and also there is a worsening renal function noted with low urinary output. Contrast may increase the risk of renal insufficiency. I will discuss with the marketing communications leader. We will continue the current supportive medical treatment, taper up the Solu-Medrol and will follow up the patient. Currently, the patient is Do Not Intubate. Coreen Barbour MD
[2018-01-29] MEDS ORDERED: Verapamil 2 ML ONE (05:17)
[2018-01-29] MEDS ORDERED: Nitroglycerin 2% Ointment Foilpak UD TOP STA (06:12)
[2018-01-29] MEDS ORDERED: Nitroglycerin 2% Ointment Foilpak UD TOP ONE (06:12)
--- NOTE | 2018-01-29 06:26 | CP.PCM.PCO ---
Additional Comments - Additional Comments Additional Comments: Patient got up from bed, removed oxygen, was confused spo2 in 70's, hr in 180's afib, elevated bp, she was then put on 100% NRB, given verapamil 2.5mgiv, the hr improved, spo2 improved but when being titrated of o2 she became hypoxic, she also had rales now, spo2 88% on NRB. Lasix 40mg iv given, nitro paste 2 inches, bipap 12/6/100% started as chf treatment, RR improved, sp2o 98%. CXR done mean while showed worsening alveolar infiltrates which in this senario were clinically acute chf. Patient is DNI, she will be continued to be followed up.
[2018-01-29 07:01] LABS: GRANULAR CAST 4 /lpf (0-1); SQUAMOUS EPITHIAL 1 /hpf (0-5); URINE BACTERIA OCC (<OCC); URINE BILIRUBIN NEGATIVE (NEGATIVE); URINE BLOOD 2+ (NEGATIVE); URINE CLARITY Clear (Clear); URINE COLOR Straw (YELLOW); URINE GLUCOSE (UA) NORMAL (Normal); URINE LEUKOCYTE ESTERASE NEG Leu/uL (Negative); URINE PROTEIN NEGATIVE (NEGATIVE); URINE UROBILINOGEN NORMAL mg/dL (0.2-1.0)
[2018-01-29 07:06] LABS: BASO % 0.1 % (0.0-2.0); HEMOGLOBIN 11.5 g/dL (11.0-16.0); LYMPH # 0.6 K/uL (1.0-4.3); LYMPH % 2.8 % (20.0-40.0); MEAN CELL VOLUME 91.7 fL (81.0-99.0); MEAN CORPUSCULAR HEMOGLOBIN 30.7 pg (27.0-31.0); MEAN CORPUSCULAR HGB CONC 33.5 g/dL (33.0-37.0); MEAN PLATELET VOLUME 9.8 fL (7.2-11.7); MONO # 1.7 K/uL (0.0-0.8); MONO % 7.8 % (0.0-10.0); NEUT # 19.5 K/uL (1.8-7.0); NEUT % 89.3 % (50.0-75.0); NRBC % 0.1 % (0.0-2.0); PLATELET COUNT 321 K/uL (130-400); RBC 3.74 Mil/uL (3.80-5.20); RED CELL DISTRIBUTION WIDTH 15.3 % (11.5-14.5); WHITE BLOOD COUNT 21.8 K/uL (4.8-10.8)
[2018-01-29 07:32] LABS: ALB/GLOB RATIO 0.7 (1.0-2.1); ALBUMIN 2.8 g/dL (3.5-5.0); CALCIUM 7.8 mg/dl (8.6-10.4)
[2018-01-29 08:15] LABS: ANISOCYTOSIS SLIGHT; BANDS 1 % (0-2); LYMPHOCYTE 1 % (20-40); MONOCYTE 5 % (0-10); NEUTROPHIL 93 % (50-75); PLATELET ESTIMATE NORMAL (NORMAL); TOTAL CELLS COUNTED 100
[2018-01-29 08:16] LABS: HYPOCHROMIC SLIGHT; POLYCHROMIC SLIGHT
--- NOTE | 2018-01-29 09:22 | RAD ---
Chest x-ray single frontal view HISTORY: Respiratory distress. COMPARISON: 01/27/2018 Findings: Prominent dense confluent consolidative opacification throughout both lungs, increased since the prior study. Enlarged ectatic aorta with calcification at the aortic. Cardiomegaly. Left-sided pacemaker. Degenerative changes in the spine and shoulders. Impression: Prominent dense confluent consolidative opacification throughout both lungs, increased since the prior study. Enlarged ectatic aorta with calcification at the aortic. Cardiomegaly. Left-sided pacemaker.
[2018-01-29] MEDS: MethylPREDNISolone 40 mg Vial IVP SCH ×2 (09:41→21:07)
--- NOTE | 2018-01-29 10:22 | CP.CCUPN ---
<DavidmarekDanni fischer - Last Filed: 01/29/18 10:19> CCU Subjective - Physician Review Subjective (Free Text): 01/29/18 10:19 Drisshildarishabh Hernandezjosiane PGY1 Progress note for Dr. Man Pt was examined at bedside this morning. She reports improvement of her shortness of breath overnight. She denies any chest pain, abdominal pain, headache, nausea, vomiting, diarrhea, dysuria. CCU Objective - Vital Signs / Intake & Output Vital Signs (Last 4 hours): Vital Signs Temp Pulse Resp BP Pulse Ox 01/29/18 09:39 141/59 L 01/29/18 09:03 93 H 24 141/59 L 100 01/29/18 09:00 94 H 22 100 01/29/18 08:28 90 01/29/18 08:03 120 H 27 H 147/68 95 01/29/18 08:00 98.4 F 98 H 19 88 L 01/29/18 07:47 88 19 160/66 H 100 01/29/18 07:02 97 H 26 H 169/110 H 97 01/29/18 07:00 98 H 18 98 01/29/18 06:26 115 H 22 187/80 H 98 01/29/18 06:24 106 H Intake and Output (Last 8hrs): Intake & Output 01/28/18 01/29/18 01/29/18 22:59 06:59 14:59 Intake Total 629.55 498.4 14.4 Output Total 500 325 825 Balance 129.55 173.4 -810.6 Weight 116 lb Intake: IV 250 Intake, IV Amount 279.55 398.4 14.4 Right Forearm 39.55 38.4 14.4 Right Hand 240 360 Oral 100 100 Output: Urine 500 325 825 Urethral (Bloom) 250 825 Urine, Voided 500 75 Other: # Bowel Movements 1 - Physical Exam Head: Positive for: Atraumatic, Normocephalic Pupils: Positive for: PERRL Extroacular Muscles: Positive for: EOMI Conjunctiva: Positive for: Normal Mouth: Positive for: Dry, Other (scant blood and fissure in anterior tongue, xerotic lips) Neck: Positive for: Paraspinal Tenderness. Negative for: Meningeal Signs, MIDLINE TENDERNESS Respiratory/Chest: Positive for: Rales. Negative for: Respiratory Distress, Retracting, Rhonchi Cardiovascular: Positive for: Murmurs, Normal S1, S2, Irregular Rhythm. Negative for: Rub, Gallop Abdomen: Positive for: Normal Bowel Sounds. Negative for: Tenderness, Distention, Peritoneal Signs, Rebound Upper Extremity: Positive for: Normal Inspection. Negative for: Cyanosis, Edema Lower Extremity: Positive for: Normal Inspection. Negative for: Edema Neurological: Positive for: GCS=15, Speech Normal Skin: Positive for: Warm, Diaphoretic. Negative for: Rashes, Normal Color - Medications Active Medications: Active Medications Generic Name Dose Route Start Last Admin Trade Name Freq PRN Reason Stop Dose Admin Albuterol/Ipratropium 3 ml 01/27/18 10:16 01/29/18 08:20 Duoneb 3 Mg/0.5 Mg (3 Ml) Ud INH 3 ml RQ6 ANTONINO Administration Ceftriaxone Sodium 1 gm/ 100 mls @ 50 mls/hr 01/27/18 19:04 01/29/18 09:39 Sodium Chloride IVPB 50 mls/hr DAILY ANTONINO Administration Protocol Heparin Sodium/Sodium Chloride 25,000 units in 250 mls @ 6.456 mls/hr 01/28/18 11:00 01/28/18 19:43 Heparin 20458 Units/250ml 1/2 Normal Saline IV 9 units/kg/hr .Q24H PRN 4.842 mls/hr PROTOCOL Administration Protocol 12 UNITS/KG/HR Methylprednisolone 20 mg 01/28/18 10:00 01/29/18 09:41 Solu-Medrol IVP 01/31/18 10:01 20 mg DAILY ANTONINO Administration Methylprednisolone 40 mg 01/29/18 14:00 Solu-Medrol IVP Q8 ANTONINO Metoprolol Tartrate 50 mg 01/24/18 18:00 01/27/18 11:09 Lopressor PO Not Given BID ANTONINO Pantoprazole Sodium 40 mg 01/25/18 10:00 01/29/18 09:39 Protonix Inj IVP 40 mg DAILY ANTONINO Administration Paroxetine HCl 40 mg 01/26/18 10:00 01/28/18 10:50 Paxil PO 40 mg DAILY ANTONINO Administration - Patient Studies Lab Studies: Microbiology Studies 01/27/18 06:27 MRSA Culture (Admit) - Final Nose MRSA NOT DETECTED 01/24/18 13:40 Blood Culture - Preliminary Blood NO GROWTH AFTER 4 DAYS 01/24/18 13:39 Blood Culture - Preliminary Blood NO GROWTH AFTER 4 DAYS Lab Studies 01/29/18 01/29/18 01/29/18 Range/Units 06:52 06:52 06:52 WBC (4.8-10.8) K/uL RBC (3.80-5.20) Mil/uL Hgb (11.0-16.0) g/dL Hct (34.0-47.0) % MCV (81.0-99.0) fL MCH (27.0-31.0) pg MCHC (33.0-37.0) g/dL RDW (11.5-14.5) % Plt Count (130-400) K/uL MPV (7.2-11.7) fL Neut % (Auto) (50.0-75.0) % Lymph % (Auto) (20.0-40.0) % Emmet % (Auto) (0.0-10.0) % Eos % (Auto) (0.0-4.0) % Baso % (Auto) (0.0-2.0) % Neut # (Auto) (1.8-7.0) K/uL Lymph # (Auto) (1.0-4.3) K/uL Emmet # (Auto) (0.0-0.8) K/uL Eos # (Auto) (0.0-0.7) K/uL Baso # (Auto) (0.0-0.2) K/uL Neutrophils % (Manual) (50-75) % Band Neutrophils % (0-2) % Lymphocytes % (Manual) (20-40) % Monocytes % (Manual) (0-10) % Platelet Estimate (NORMAL) Polychromasia Hypochromasia (manual) Anisocytosis (manual) APTT 65 H D (21-34) SECONDS Sodium 138 (132-148) mmol/L Potassium 3.9 (3.6-5.2) mmol/L Chloride 103 (98-107) mmol/L Carbon Dioxide 22 (22-30) mmol/L Anion Gap 16 (10-20) BUN 44 H (7-17) mg/dL Creatinine 1.5 H (0.7-1.2) mg/dL Est GFR ( Amer) 40 Est GFR (Non-Af Amer) 33 Random Glucose 134 H (65-105) mg/dL Calcium 7.8 L (8.6-10.4) mg/dl Phosphorus 4.0 (2.5-4.5) mg/dL Magnesium 2.4 H (1.6-2.3) mg/dL Total Bilirubin 0.4 (0.2-1.3) mg/dL AST 120 H D (14-36) U/L ALT 68 H (9-52) U/L Alkaline Phosphatase 177 H (38-126) U/L Total Protein 6.9 (6.3-8.3) g/dL Albumin 2.8 L D (3.5-5.0) g/dL Globulin 4.1 H (2.2-3.9) gm/dL Albumin/Globulin Ratio 0.7 L (1.0-2.1) Urine Color Straw (YELLOW) Urine Clarity Clear (Clear) Urine pH 5.0 (5.0-8.0) Ur Specific [place] 1.009 (1.003-1.030) Urine Protein Negative (NEGATIVE) mg/dL Urine Glucose (UA) Normal (Normal) mg/dL Urine Ketones Negative (NEGATIVE) mg/dL Urine Blood 2+ H (NEGATIVE) Urine Nitrate Negative (NEGATIVE) Urine Bilirubin Negative (NEGATIVE) Urine Urobilinogen Normal (0.2-1.0) mg/dL Ur Leukocyte Esterase Neg (Negative) Melo/uL Urine WBC (Auto) 4 (0-5) /hpf Urine RBC (Auto) 60 H (0-3) /hpf Ur Squamous Epith Cells 1 (0-5) /hpf Urine Bacteria Occ H (<OCC) Hyaline Casts 3-5 H (0-2) /lpf Granular Casts (Auto) 4 (0-1) /lpf 01/29/18 01/29/18 01/29/18 Range/Units 06:52 00:37 00:37 WBC 21.8 H D (4.8-10.8) K/uL RBC 3.74 L (3.80-5.20) Mil/uL Hgb 11.5 (11.0-16.0) g/dL Hct 34.3 (34.0-47.0) % MCV 91.7 (81.0-99.0) fL MCH 30.7 (27.0-31.0) pg MCHC 33.5 (33.0-37.0) g/dL RDW 15.3 H (11.5-14.5) % Plt Count 321 (130-400) K/uL MPV 9.8 (7.2-11.7) fL Neut % (Auto) 89.3 H (50.0-75.0) % Lymph % (Auto) 2.8 L (20.0-40.0) % Emmet % (Auto) 7.8 (0.0-10.0) % Eos % (Auto) 0.0 (0.0-4.0) % Baso % (Auto) 0.1 (0.0-2.0) % Neut # (Auto) 19.5 H (1.8-7.0) K/uL Lymph # (Auto) 0.6 L (1.0-4.3) K/uL Emmet # (Auto) 1.7 H (0.0-0.8) K/uL Eos # (Auto) 0.0 (0.0-0.7) K/uL Baso # (Auto) 0.0 (0.0-0.2) K/uL Neutrophils % (Manual) 93 H (50-75) % Band Neutrophils % 1 (0-2) % Lymphocytes % (Manual) 1 L (20-40) % Monocytes % (Manual) 5 (0-10) % Platelet Estimate Normal (NORMAL) Polychromasia Slight Hypochromasia (manual) Slight Anisocytosis (manual) Slight APTT 83 H D (21-34) SECONDS Sodium 136 (132-148) mmol/L Potassium 3.4 L (3.6-5.2) mmol/L Chloride 104 (98-107) mmol/L Carbon Dioxide 24 (22-30) mmol/L Anion Gap 12 (10-20) BUN 45 H (7-17) mg/dL Creatinine 1.5 H (0.7-1.2) mg/dL Est GFR ( Amer) 40 Est GFR (Non-Af Amer) 33 Random Glucose 115 H (65-105) mg/dL Calcium 7.3 L (8.6-10.4) mg/dl Phosphorus (2.5-4.5) mg/dL Magnesium (1.6-2.3) mg/dL Total Bilirubin 0.4 (0.2-1.3) mg/dL AST 84 H D (14-36) U/L ALT 64 H (9-52) U/L Alkaline Phosphatase 169 H (38-126) U/L Total Protein 5.9 L (6.3-8.3) g/dL Albumin 2.3 L (3.5-5.0) g/dL Globulin 3.6 (2.2-3.9) gm/dL Albumin/Globulin Ratio 0.6 L (1.0-2.1) Urine Color (YELLOW) Urine Clarity (Clear) Urine pH (5.0-8.0) Ur Specific [place] (1.003-1.030) Urine Protein (NEGATIVE) mg/dL Urine Glucose (UA) (Normal) mg/dL Urine Ketones (NEGATIVE) mg/dL Urine Blood (NEGATIVE) Urine Nitrate (NEGATIVE) Urine Bilirubin (NEGATIVE) Urine Urobilinogen (0.2-1.0) mg/dL Ur Leukocyte Esterase (Negative) Melo/uL Urine WBC (Auto) (0-5) /hpf Urine RBC (Auto) (0-3) /hpf Ur Squamous Epith Cells (0-5) /hpf Urine Bacteria (<OCC) Hyaline Casts (0-2) /lpf Granular Casts (Auto) (0-1) /lpf 01/28/18 Range/Units 17:40 WBC (4.8-10.8) K/uL RBC (3.80-5.20) Mil/uL Hgb (11.0-16.0) g/dL Hct (34.0-47.0) % MCV (81.0-99.0) fL MCH (27.0-31.0) pg MCHC (33.0-37.0) g/dL RDW (11.5-14.5) % Plt Count (130-400) K/uL MPV (7.2-11.7) fL Neut % (Auto) (50.0-75.0) % Lymph % (Auto) (20.0-40.0) % Emmet % (Auto) (0.0-10.0) % Eos % (Auto) (0.0-4.0) % Baso % (Auto) (0.0-2.0) % Neut # (Auto) (1.8-7.0) K/uL Lymph # (Auto) (1.0-4.3) K/uL Emmet # (Auto) (0.0-0.8) K/uL Eos # (Auto) (0.0-0.7) K/uL Baso # (Auto) (0.0-0.2) K/uL Neutrophils % (Manual) (50-75) % Band Neutrophils % (0-2) % Lymphocytes % (Manual) (20-40) % Monocytes % (Manual) (0-10) % Platelet Estimate (NORMAL) Polychromasia Hypochromasia (manual) Anisocytosis (manual) APTT 121 H* (21-34) SECONDS Sodium (132-148) mmol/L Potassium (3.6-5.2) mmol/L Chloride (98-107) mmol/L Carbon Dioxide (22-30) mmol/L Anion Gap (10-20) BUN (7-17) mg/dL Creatinine (0.7-1.2) mg/dL Est GFR ( Amer) Est GFR (Non-Af Amer) Random Glucose (65-105) mg/dL Calcium (8.6-10.4) mg/dl Phosphorus (2.5-4.5) mg/dL Magnesium (1.6-2.3) mg/dL Total Bilirubin (0.2-1.3) mg/dL AST (14-36) U/L ALT (9-52) U/L Alkaline Phosphatase (38-126) U/L Total Protein (6.3-8.3) g/dL Albumin (3.5-5.0) g/dL Globulin (2.2-3.9) gm/dL Albumin/Globulin Ratio (1.0-2.1) Urine Color (YELLOW) Urine Clarity (Clear) Urine pH (5.0-8.0) Ur Specific [place] (1.003-1.030) Urine Protein (NEGATIVE) mg/dL Urine Glucose (UA) (Normal) mg/dL Urine Ketones (NEGATIVE) mg/dL Urine Blood (NEGATIVE) Urine Nitrate (NEGATIVE) Urine Bilirubin (NEGATIVE) Urine Urobilinogen (0.2-1.0) mg/dL Ur Leukocyte Esterase (Negative) Melo/uL Urine WBC (Auto) (0-5) /hpf Urine RBC (Auto) (0-3) /hpf Ur Squamous Epith Cells (0-5) /hpf Urine Bacteria (<OCC) Hyaline Casts (0-2) /lpf Granular Casts (Auto) (0-1) /lpf Laboratory Results - last 24 hr 01/28/18 01/29/18 01/29/18 17:40 00:37 00:37 WBC RBC Hgb Hct MCV MCH MCHC RDW Plt Count MPV Neut % (Auto) Lymph % (Auto) Emmet % (Auto) Eos % (Auto) Baso % (Auto) Neut # (Auto) Lymph # (Auto) Emmet # (Auto) Eos # (Auto) Baso # (Auto) Neutrophils % (Manual) Band Neutrophils % Lymphocytes % (Manual) Monocytes % (Manual) Platelet Estimate Polychromasia Hypochromasia (manual) Anisocytosis (manual) APTT 121 H* 83 H D Sodium 136 Potassium 3.4 L Chloride 104 Carbon Dioxide 24 Anion Gap 12 BUN 45 H Creatinine 1.5 H Est GFR ( Amer) 40 Est GFR (Non-Af Amer) 33 Random Glucose 115 H Calcium 7.3 L Phosphorus Magnesium Total Bilirubin 0.4 AST 84 H D ALT 64 H Alkaline Phosphatase 169 H Total Protein 5.9 L Albumin 2.3 L Globulin 3.6 Albumin/Globulin Ratio 0.6 L Urine Color Urine Clarity Urine pH Ur Specific [place] Urine Protein Urine Glucose (UA) Urine Ketones Urine Blood Urine Nitrate Urine Bilirubin Urine Urobilinogen Ur Leukocyte Esterase Urine WBC (Auto) Urine RBC (Auto) Ur Squamous Epith Cells Urine Bacteria Hyaline Casts Granular Casts (Auto) 01/29/18 01/29/18 01/29/18 06:52 06:52 06:52 WBC 21.8 H D RBC 3.74 L Hgb 11.5 Hct 34.3 MCV 91.7 MCH 30.7 MCHC 33.5 RDW 15.3 H Plt Count 321 MPV 9.8 Neut % (Auto) 89.3 H Lymph % (Auto) 2.8 L Emmet % (Auto) 7.8 Eos % (Auto) 0.0 Baso % (Auto) 0.1 Neut # (Auto) 19.5 H Lymph # (Auto) 0.6 L Emmet # (Auto) 1.7 H Eos # (Auto) 0.0 Baso # (Auto) 0.0 Neutrophils % (Manual) 93 H Band Neutrophils % 1 Lymphocytes % (Manual) 1 L Monocytes % (Manual) 5 Platelet Estimate Normal Polychromasia Slight Hypochromasia (manual) Slight Anisocytosis (manual) Slight APTT 65 H D Sodium 138 Potassium 3.9 Chloride 103 Carbon Dioxide 22 Anion Gap 16 BUN 44 H Creatinine 1.5 H Est GFR ( Amer) 40 Est GFR (Non-Af Amer) 33 Random Glucose 134 H Calcium 7.8 L Phosphorus 4.0 Magnesium 2.4 H Total Bilirubin 0.4 AST 120 H D ALT 68 H Alkaline Phosphatase 177 H Total Protein 6.9 Albumin 2.8 L D Globulin 4.1 H Albumin/Globulin Ratio 0.7 L Urine Color Urine Clarity Urine pH Ur Specific [place] Urine Protein Urine Glucose (UA) Urine Ketones Urine Blood Urine Nitrate Urine Bilirubin Urine Urobilinogen Ur Leukocyte Esterase Urine WBC (Auto) Urine RBC (Auto) Ur Squamous Epith Cells Urine Bacteria Hyaline Casts Granular Casts (Auto) 01/29/18 06:52 WBC RBC Hgb Hct MCV MCH MCHC RDW Plt Count MPV Neut % (Auto) Lymph % (Auto) Emmet % (Auto) Eos % (Auto) Baso % (Auto) Neut # (Auto) Lymph # (Auto) Emmet # (Auto) Eos # (Auto) Baso # (Auto) Neutrophils % (Manual) Band Neutrophils % Lymphocytes % (Manual) Monocytes % (Manual) Platelet Estimate Polychromasia Hypochromasia (manual) Anisocytosis (manual) APTT Sodium Potassium Chloride Carbon Dioxide Anion Gap BUN Creatinine Est GFR ( Amer) Est GFR (Non-Af Amer) Random Glucose Calcium Phosphorus Magnesium Total Bilirubin AST ALT Alkaline Phosphatase Total Protein Albumin Globulin Albumin/Globulin Ratio Urine Color Straw Urine Clarity Clear Urine pH 5.0 Ur Specific [place] 1.009 Urine Protein Negative Urine Glucose (UA) Normal Urine Ketones Negative Urine Blood 2+ H Urine Nitrate Negative Urine Bilirubin Negative Urine Urobilinogen Normal Ur Leukocyte Esterase Neg Urine WBC (Auto) 4 Urine RBC (Auto) 60 H Ur Squamous Epith Cells 1 Urine Bacteria Occ H Hyaline Casts 3-5 H Granular Casts (Auto) 4 Review of Systems - Review of Systems Review of Systems: as per HPI Critical Care Progress Note - Nutrition Nutrition: Nutrition Category Date Time Status Heart Healthy Diet [DIET] Diets 01/29/18 Lunch Active Assessment/Plan - Assessment and Plan (Free Text) Assessment: 87yo F with PMH A.fib, HTN, pulmonary HTN, admitted for acute decompensated heart failure and transferred to ICU s/p episode of V.tach, secondary to hypokalemia. Pt had respiratory distress overnight, was placed on Bipap and given nitro paste 2%, verapamil, lasix IV. Pt now having good urine output. Cardiac cath for today cancelled as per Dr. Flores. Plan: Neuro - pt with baseline dementia - no focal deficits Cardio - ECHO: normal EF, moderate to severe , moderate to severe pulmonary HTN - pt normotensive, maintain - heparin @12u/kg/hr drip - lasix 40mg IV once given - hold lopressor - d/c IVF - Cardio consulted, Dr. Flores- cath for today cancelled, as pt is unstable Pulm - CXR 01/29: prominent dense confluent consolidative opacifications increased b/l. calcified aorta. cardiomegaly - CT chest 01/26: pulmonary HTN - f/u rpt ABG - f/u procal - f/u mycoplasma IgM - d/c IVF - lasix 40mg IV once given - xanax 0.5 BID PRN - solumedrol 40mg IV q8h - duonebs GI - Abd Xray 01/27: gaseous distension of the stomach Renal - BUN/Cr 44/1.5, improving Heme - no active issues Endo - no active issues ID - UA: +leuk esterase, neg nitrates - BCx: neg x3 days - Ceftriaxone 1g IV daily (01/25) PPX GI: protonix 40 IV DVT: heparin drip HHD Pt seen and case reviewed with Dr. Man <Charlie Man S - Last Filed: 01/29/18 17:19> CCU Subjective - Physician Review Critical Care Time Spent (in minutes): 45 CCU Objective - Vital Signs / Intake & Output Vital Signs (Last 4 hours): Vital Signs Pulse Resp BP Pulse Ox 01/29/18 17:02 75 20 152/67 H 96 01/29/18 17:00 80 21 96 01/29/18 16:02 73 23 143/44 L 99 01/29/18 16:00 85 22 99 01/29/18 15:02 96 H 21 155/59 H 99 01/29/18 15:00 92 H 23 100 01/29/18 14:02 97 H 22 161/50 H 98 01/29/18 14:00 87 22 93 L Intake and Output (Last 8hrs): Intake & Output 01/29/18 01/29/18 01/29/18 06:59 14:59 22:59 Intake Total 498.4 598.4 114.4 Output Total 325 2125 400 Balance 173.4 -1526.6 -285.6 Weight 116 lb Intake: Intake, IV Amount 398.4 38.4 14.4 Right Forearm 38.4 38.4 14.4 Right Hand 360 Oral 100 360 100 TPN/PPN 200 Output: Urine 325 2125 400 Urethral (Bloom) 250 2125 400 Urine, Voided 75 Other: # Bowel Movements 1 - Medications Active Medications: Active Medications Generic Name Dose Route Start Last Admin Trade Name Freq PRN Reason Stop Dose Admin Albuterol/Ipratropium 3 ml 01/27/18 10:16 01/29/18 13:20 Duoneb 3 Mg/0.5 Mg (3 Ml) Ud INH Not Given RQ6 ANTONINO Alprazolam 0.5 mg 01/29/18 17:12 Xanax PO BID PRN Anxiety Ceftriaxone Sodium 1 gm/ 100 mls @ 50 mls/hr 01/27/18 19:04 01/29/18 09:39 Sodium Chloride IVPB 50 mls/hr DAILY ANTONINO Administration Protocol Heparin Sodium/Sodium Chloride 25,000 units in 250 mls @ 6.456 mls/hr 01/28/18 11:00 01/28/18 19:43 Heparin 94493 Units/250ml 1/2 Normal Saline IV 9 units/kg/hr .Q24H PRN 4.842 mls/hr PROTOCOL Administration Protocol 12 UNITS/KG/HR Methylprednisolone 40 mg 01/29/18 14:00 01/29/18 15:02 Solu-Medrol IVP 40 mg Q8 ANTONINO Administration Metoprolol Tartrate 50 mg 01/24/18 18:00 01/27/18 11:09 Lopressor PO Not Given BID ANTONINO Pantoprazole Sodium 40 mg 01/25/18 10:00 01/29/18 09:39 Protonix Inj IVP 40 mg DAILY ANTONINO Administration Paroxetine HCl 40 mg 01/26/18 10:00 01/28/18 10:50 Paxil PO 40 mg DAILY ANTONINO Administration - Patient Studies Lab Studies: Microbiology Studies 01/24/18 13:40 Blood Culture - Final Blood NO GROWTH AFTER 5 DAYS Gram Stain - Final TEST NOT PERFORMED 01/24/18 13:39 Blood Culture - Final Blood NO GROWTH AFTER 5 DAYS Gram Stain - Final TEST NOT PERFORMED 01/27/18 06:27 MRSA Culture (Admit) - Final Nose MRSA NOT DETECTED Lab Studies 01/29/18 01/29/18 01/29/18 Range/Units 06:52 06:52 06:52 WBC (4.8-10.8) K/uL RBC (3.80-5.20) Mil/uL Hgb (11.0-16.0) g/dL Hct (34.0-47.0) % MCV (81.0-99.0) fL MCH (27.0-31.0) pg MCHC (33.0-37.0) g/dL RDW (11.5-14.5) % Plt Count (130-400) K/uL MPV (7.2-11.7) fL Neut % (Auto) (50.0-75.0) % Lymph % (Auto) (20.0-40.0) % Emmet % (Auto) (0.0-10.0) % Eos % (Auto) (0.0-4.0) % Baso % (Auto) (0.0-2.0) % Neut # (Auto) (1.8-7.0) K/uL Lymph # (Auto) (1.0-4.3) K/uL Emmet # (Auto) (0.0-0.8) K/uL Eos # (Auto) (0.0-0.7) K/uL Baso # (Auto) (0.0-0.2) K/uL Neutrophils % (Manual) (50-75) % Band Neutrophils % (0-2) % Lymphocytes % (Manual) (20-40) % Monocytes % (Manual) (0-10) % Platelet Estimate (NORMAL) Polychromasia Hypochromasia (manual) Anisocytosis (manual) APTT 65 H D (21-34) SECONDS Sodium 138 (132-148) mmol/L Potassium 3.9 (3.6-5.2) mmol/L Chloride 103 (98-107) mmol/L Carbon Dioxide 22 (22-30) mmol/L Anion Gap 16 (10-20) BUN 44 H (7-17) mg/dL Creatinine 1.5 H (0.7-1.2) mg/dL Est GFR ( Amer) 40 Est GFR (Non-Af Amer) 33 Random Glucose 134 H (65-105) mg/dL Calcium 7.8 L (8.6-10.4) mg/dl Phosphorus 4.0 (2.5-4.5) mg/dL Magnesium 2.4 H (1.6-2.3) mg/dL Total Bilirubin 0.4 (0.2-1.3) mg/dL AST 120 H D (14-36) U/L ALT 68 H (9-52) U/L Alkaline Phosphatase 177 H (38-126) U/L Total Protein 6.9 (6.3-8.3) g/dL Albumin 2.8 L D (3.5-5.0) g/dL Globulin 4.1 H (2.2-3.9) gm/dL Albumin/Globulin Ratio 0.7 L (1.0-2.1) Urine Color Straw (YELLOW) Urine Clarity Clear (Clear) Urine pH 5.0 (5.0-8.0) Ur Specific [place] 1.009 (1.003-1.030) Urine Protein Negative (NEGATIVE) mg/dL Urine Glucose (UA) Normal (Normal) mg/dL Urine Ketones Negative (NEGATIVE) mg/dL Urine Blood 2+ H (NEGATIVE) Urine Nitrate Negative (NEGATIVE) Urine Bilirubin Negative (NEGATIVE) Urine Urobilinogen Normal (0.2-1.0) mg/dL Ur Leukocyte Esterase Neg (Negative) Melo/uL Urine WBC (Auto) 4 (0-5) /hpf Urine RBC (Auto) 60 H (0-3) /hpf Ur Squamous Epith Cells 1 (0-5) /hpf Urine Bacteria Occ H (<OCC) Hyaline Casts 3-5 H (0-2) /lpf Granular Casts (Auto) 4 (0-1) /lpf 01/29/18 01/29/18 01/29/18 Range/Units 06:52 00:37 00:37 WBC 21.8 H D (4.8-10.8) K/uL RBC 3.74 L (3.80-5.20) Mil/uL Hgb 11.5 (11.0-16.0) g/dL Hct 34.3 (34.0-47.0) % MCV 91.7 (81.0-99.0) fL MCH 30.7 (27.0-31.0) pg MCHC 33.5 (33.0-37.0) g/dL RDW 15.3 H (11.5-14.5) % Plt Count 321 (130-400) K/uL MPV 9.8 (7.2-11.7) fL Neut % (Auto) 89.3 H (50.0-75.0) % Lymph % (Auto) 2.8 L (20.0-40.0) % Emmet % (Auto) 7.8 (0.0-10.0) % Eos % (Auto) 0.0 (0.0-4.0) % Baso % (Auto) 0.1 (0.0-2.0) % Neut # (Auto) 19.5 H (1.8-7.0) K/uL Lymph # (Auto) 0.6 L (1.0-4.3) K/uL Emmet # (Auto) 1.7 H (0.0-0.8) K/uL Eos # (Auto) 0.0 (0.0-0.7) K/uL Baso # (Auto) 0.0 (0.0-0.2) K/uL Neutrophils % (Manual) 93 H (50-75) % Band Neutrophils % 1 (0-2) % Lymphocytes % (Manual) 1 L (20-40) % Monocytes % (Manual) 5 (0-10) % Platelet Estimate Normal (NORMAL) Polychromasia Slight Hypochromasia (manual) Slight Anisocytosis (manual) Slight APTT 83 H D (21-34) SECONDS Sodium 136 (132-148) mmol/L Potassium 3.4 L (3.6-5.2) mmol/L Chloride 104 (98-107) mmol/L Carbon Dioxide 24 (22-30) mmol/L Anion Gap 12 (10-20) BUN 45 H (7-17) mg/dL Creatinine 1.5 H (0.7-1.2) mg/dL Est GFR ( Amer) 40 Est GFR (Non-Af Amer) 33 Random Glucose 115 H (65-105) mg/dL Calcium 7.3 L (8.6-10.4) mg/dl Phosphorus (2.5-4.5) mg/dL Magnesium (1.6-2.3) mg/dL Total Bilirubin 0.4 (0.2-1.3) mg/dL AST 84 H D (14-36) U/L ALT 64 H (9-52) U/L Alkaline Phosphatase 169 H (38-126) U/L Total Protein 5.9 L (6.3-8.3) g/dL Albumin 2.3 L (3.5-5.0) g/dL Globulin 3.6 (2.2-3.9) gm/dL Albumin/Globulin Ratio 0.6 L (1.0-2.1) Urine Color (YELLOW) Urine Clarity (Clear) Urine pH (5.0-8.0) Ur Specific [place] (1.003-1.030) Urine Protein (NEGATIVE) mg/dL Urine Glucose (UA) (Normal) mg/dL Urine Ketones (NEGATIVE) mg/dL Urine Blood (NEGATIVE) Urine Nitrate (NEGATIVE) Urine Bilirubin (NEGATIVE) Urine Urobilinogen (0.2-1.0) mg/dL Ur Leukocyte Esterase (Negative) Melo/uL Urine WBC (Auto) (0-5) /hpf Urine RBC (Auto) (0-3) /hpf Ur Squamous Epith Cells (0-5) /hpf Urine Bacteria (<OCC) Hyaline Casts (0-2) /lpf Granular Casts (Auto) (0-1) /lpf 01/28/18 Range/Units 17:40 WBC (4.8-10.8) K/uL RBC (3.80-5.20) Mil/uL Hgb (11.0-16.0) g/dL Hct (34.0-47.0) % MCV (81.0-99.0) fL MCH (27.0-31.0) pg MCHC (33.0-37.0) g/dL RDW (11.5-14.5) % Plt Count (130-400) K/uL MPV (7.2-11.7) fL Neut % (Auto) (50.0-75.0) % Lymph % (Auto) (20.0-40.0) % Emmet % (Auto) (0.0-10.0) % Eos % (Auto) (0.0-4.0) % Baso % (Auto) (0.0-2.0) % Neut # (Auto) (1.8-7.0) K/uL Lymph # (Auto) (1.0-4.3) K/uL Emmet # (Auto) (0.0-0.8) K/uL Eos # (Auto) (0.0-0.7) K/uL Baso # (Auto) (0.0-0.2) K/uL Neutrophils % (Manual) (50-75) % Band Neutrophils % (0-2) % Lymphocytes % (Manual) (20-40) % Monocytes % (Manual) (0-10) % Platelet Estimate (NORMAL) Polychromasia Hypochromasia (manual) Anisocytosis (manual) APTT 121 H* (21-34) SECONDS Sodium (132-148) mmol/L Potassium (3.6-5.2) mmol/L Chloride (98-107) mmol/L Carbon Dioxide (22-30) mmol/L Anion Gap (10-20) BUN (7-17) mg/dL Creatinine (0.7-1.2) mg/dL Est GFR ( Amer) Est GFR (Non-Af Amer) Random Glucose (65-105) mg/dL Calcium (8.6-10.4) mg/dl Phosphorus (2.5-4.5) mg/dL Magnesium (1.6-2.3) mg/dL Total Bilirubin (0.2-1.3) mg/dL AST (14-36) U/L ALT (9-52) U/L Alkaline Phosphatase (38-126) U/L Total Protein (6.3-8.3) g/dL Albumin (3.5-5.0) g/dL Globulin (2.2-3.9) gm/dL Albumin/Globulin Ratio (1.0-2.1) Urine Color (YELLOW) Urine Clarity (Clear) Urine pH (5.0-8.0) Ur Specific [place] (1.003-1.030) Urine Protein (NEGATIVE) mg/dL Urine Glucose (UA) (Normal) mg/dL Urine Ketones (NEGATIVE) mg/dL Urine Blood (NEGATIVE) Urine Nitrate (NEGATIVE) Urine Bilirubin (NEGATIVE) Urine Urobilinogen (0.2-1.0) mg/dL Ur Leukocyte Esterase (Negative) Melo/uL Urine WBC (Auto) (0-5) /hpf Urine RBC (Auto) (0-3) /hpf Ur Squamous Epith Cells (0-5) /hpf Urine Bacteria (<OCC) Hyaline Casts (0-2) /lpf Granular Casts (Auto) (0-1) /lpf Laboratory Results - last 24 hr 01/28/18 01/29/18 01/29/18 17:40 00:37 00:37 WBC RBC Hgb Hct MCV MCH MCHC RDW Plt Count MPV Neut % (Auto) Lymph % (Auto) Emmet % (Auto) Eos % (Auto) Baso % (Auto) Neut # (Auto) Lymph # (Auto) Emmet # (Auto) Eos # (Auto) Baso # (Auto) Neutrophils % (Manual) Band Neutrophils % Lymphocytes % (Manual) Monocytes % (Manual) Platelet Estimate Polychromasia Hypochromasia (manual) Anisocytosis (manual) APTT 121 H* 83 H D Sodium 136 Potassium 3.4 L Chloride 104 Carbon Dioxide 24 Anion Gap 12 BUN 45 H Creatinine 1.5 H Est GFR ( Amer) 40 Est GFR (Non-Af Amer) 33 Random Glucose 115 H Calcium 7.3 L Phosphorus Magnesium Total Bilirubin 0.4 AST 84 H D ALT 64 H Alkaline Phosphatase 169 H Total Protein 5.9 L Albumin 2.3 L Globulin 3.6 Albumin/Globulin Ratio 0.6 L Urine Color Urine Clarity Urine pH Ur Specific [place] Urine Protein Urine Glucose (UA) Urine Ketones Urine Blood Urine Nitrate Urine Bilirubin Urine Urobilinogen Ur Leukocyte Esterase Urine WBC (Auto) Urine RBC (Auto) Ur Squamous Epith Cells Urine Bacteria Hyaline Casts Granular Casts (Auto) 01/29/18 01/29/18 01/29/18 06:52 06:52 06:52 WBC 21.8 H D RBC 3.74 L Hgb 11.5 Hct 34.3 MCV 91.7 MCH 30.7 MCHC 33.5 RDW 15.3 H Plt Count 321 MPV 9.8 Neut % (Auto) 89.3 H Lymph % (Auto) 2.8 L Emmet % (Auto) 7.8 Eos % (Auto) 0.0 Baso % (Auto) 0.1 Neut # (Auto) 19.5 H Lymph # (Auto) 0.6 L Emmet # (Auto) 1.7 H Eos # (Auto) 0.0 Baso # (Auto) 0.0 Neutrophils % (Manual) 93 H Band Neutrophils % 1 Lymphocytes % (Manual) 1 L Monocytes % (Manual) 5 Platelet Estimate Normal Polychromasia Slight Hypochromasia (manual) Slight Anisocytosis (manual) Slight APTT 65 H D Sodium 138 Potassium 3.9 Chloride 103 Carbon Dioxide 22 Anion Gap 16 BUN 44 H Creatinine 1.5 H Est GFR ( Amer) 40 Est GFR (Non-Af Amer) 33 Random Glucose 134 H Calcium 7.8 L Phosphorus 4.0 Magnesium 2.4 H Total Bilirubin 0.4 AST 120 H D ALT 68 H Alkaline Phosphatase 177 H Total Protein 6.9 Albumin 2.8 L D Globulin 4.1 H Albumin/Globulin Ratio 0.7 L Urine Color Urine Clarity Urine pH Ur Specific [place] Urine Protein Urine Glucose (UA) Urine Ketones Urine Blood Urine Nitrate Urine Bilirubin Urine Urobilinogen Ur Leukocyte Esterase Urine WBC (Auto) Urine RBC (Auto) Ur Squamous Epith Cells Urine Bacteria Hyaline Casts Granular Casts (Auto) 01/29/18 06:52 WBC RBC Hgb Hct MCV MCH MCHC RDW Plt Count MPV Neut % (Auto) Lymph % (Auto) Emmet % (Auto) Eos % (Auto) Baso % (Auto) Neut # (Auto) Lymph # (Auto) Emmet # (Auto) Eos # (Auto) Baso # (Auto) Neutrophils % (Manual) Band Neutrophils % Lymphocytes % (Manual) Monocytes % (Manual) Platelet Estimate Polychromasia Hypochromasia (manual) Anisocytosis (manual) APTT Sodium Potassium Chloride Carbon Dioxide Anion Gap BUN Creatinine Est GFR ( Amer) Est GFR (Non-Af Amer) Random Glucose Calcium Phosphorus Magnesium Total Bilirubin AST ALT Alkaline Phosphatase Total Protein Albumin Globulin Albumin/Globulin Ratio Urine Color Straw Urine Clarity Clear Urine pH 5.0 Ur Specific [place] 1.009 Urine Protein Negative Urine Glucose (UA) Normal Urine Ketones Negative Urine Blood 2+ H Urine Nitrate Negative Urine Bilirubin Negative Urine Urobilinogen Normal Ur Leukocyte Esterase Neg Urine WBC (Auto) 4 Urine RBC (Auto) 60 H Ur Squamous Epith Cells 1 Urine Bacteria Occ H Hyaline Casts 3-5 H Granular Casts (Auto) 4 Critical Care Progress Note - Nutrition Nutrition: Nutrition Category Date Time Status Heart Healthy Diet [DIET] Diets 01/29/18 Lunch Active Attending/Attestation - Attestation I have personally seen and examined this patient.: Yes I have fully participated in the care of the patient.: Yes I have reviewed all pertinent clinical information: Yes Notes (Text): 01/29/18 17:17 patient seen and examined in the intensive care unit. in the morning patient went into pulmonary edema and to see if Lasix and nitrates Good urine output Breathing better On BiPAP Steroids increased Cardiac Cath cancelled Follow-up chest x-ray and ABG
--- NOTE | 2018-01-29 11:41 | CARD ---
APPROVED REPORT Date of service: 01/27/2018 EKG Measurement Heart [id number] [id number] <Conclusion> AV dual-paced rhythm with prolonged AV conduction Abnormal ECG
--- NOTE | 2018-01-29 11:41 | CARD ---
APPROVED REPORT Date of service: 01/27/2018 EKG Measurement Heart [id number] [id number] <Conclusion> AV dual-paced rhythm with prolonged AV conduction Abnormal ECG
[2018-01-29] MEDS ORDERED: MethylPREDNISolone 40 mg Vial IVP SCH (14:00)
[2018-01-29 18:50] LABS: ALB/GLOB RATIO 0.7 (1.0-2.1); ALBUMIN 2.6 g/dL (3.5-5.0); CALCIUM 7.7 mg/dl (8.6-10.4)
--- NOTE | 2018-01-29 22:22 | CP.PCM.PN ---
Subjective - Date & Time of Evaluation Date of Evaluation: 01/29/18 Time of Evaluation: 17:20 - Subjective Subjective: Patient seen and examined at bedside. Patient denies any chest pain, shortness of breath, or palpitations. Physical Examination - Constitutional Appears: No Acute Distress - Head Exam Head Exam: NORMAL INSPECTION, NORMOCEPHALIC - Eye Exam Eye Exam: EOMI, PERRL Pupil Exam: NORMAL ACCOMODATION - ENT Exam ENT Exam: Mucous Membranes Moist - Respiratory Exam Respiratory Exam: Decreased Breath Sounds - Cardiovascular Exam Cardiovascular Exam: Irregular Rhythm, +S1, +S2 - GI/Abdominal Exam GI & Abdominal Exam: Soft, Normal Bowel Sounds. absent: Distended, Tenderness - Extremities Exam Extremities Exam: Normal Inspection. absent: Pedal Edema, Tenderness - Neurological Exam Neurological Exam: Alert, Awake, Oriented x3 - Psychiatric Exam Psychiatric exam: Normal Affect, Normal Mood - Skin Skin Exam: Dry, Intact, Normal Color, Warm Assessment and Plan - Assessment and Plan (Free Text) Plan: Acute on Chronic Diastolic Heart Failure s/p PPM NSTEMI Atrial Fibrillation Pulmonary Fibrosis on home oxygen Hypertension Imaging: - ECHO: Normal EF. Moderate to severe and moderate AI. Moderate to severe pulmonary HTN Management: - Patient and family do not want cath Medical management only Objective - Vital Signs/Intake and Output Vital Signs (last 24 hours): Temp Pulse Resp BP Pulse Ox 98.4 F 80 21 122/61 96 01/29/18 08:00 01/29/18 21:35 01/29/18 21:02 01/29/18 21:02 01/29/18 21:02 Intake and Output: 01/29/18 01/30/18 18:59 06:59 Intake Total 817.6 371.6 Output Total 4000 250 Balance -3182.4 121.6 - Medications Medications: Current Medications Albuterol/Ipratropium (Duoneb 3 Mg/0.5 Mg (3 Ml) Ud) 3 ml INH RQ6 PENDING SALE TO [facility] Last Admin: 01/29/18 19:58 Dose: 3 ml Alprazolam (Xanax) 0.5 mg PO BID PRN PRN Reason: Anxiety Dabigatran (Pradaxa) 75 mg PO BID PENDING SALE TO [facility] Last Admin: 01/29/18 21:05 Dose: 75 mg Furosemide (Lasix) 20 mg PO DAILY PENDING SALE TO [facility] Ceftriaxone Sodium 1 gm/ (Sodium Chloride) 100 mls @ 50 mls/hr IVPB DAILY PENDING SALE TO [facility]; Protocol Last Admin: 01/29/18 09:39 Dose: 50 mls/hr Methylprednisolone (Solu-Medrol) 20 mg IVP Q12 ANTONINO Stop: 01/31/18 22:01 Last Admin: 01/29/18 21:07 Dose: 20 mg Metoprolol Tartrate (Lopressor) 50 mg PO BID PENDING SALE TO [facility] Last Admin: 01/27/18 11:09 Dose: Not Given Pantoprazole Sodium (Protonix Inj) 40 mg IVP DAILY PENDING SALE TO [facility] Last Admin: 01/29/18 09:39 Dose: 40 mg Paroxetine HCl (Paxil) 40 mg PO DAILY PENDING SALE TO [facility] Last Admin: 01/29/18 18:56 Dose: Not Given - Labs Labs: 01/29/18 06:52 01/29/18 18:28 APTT 65 SECONDS (21-34) H D 01/29/18 06:52
--- NOTE | 2018-01-30 00:19 | PN ---
DATE: 01/29/2018 SUBJECTIVE: The patient is seen by me around 9 p.m. in the ICU. She is in bed # 3. Family is at bedside. The patient this morning had an episode of tachycardia and also episode of tachypneic, placed on BiPAP. The patient was given verapamil intravenously, now received metoprolol. Heartbeat is much controlled now, but having episodes of atrial fibrillation with rapid ventricular rate. Blood pressure is stable otherwise. The patient able to eat this evening slightly better than before, but the patient has increasingly weakness noted, and she is also more sleepy at this time. PHYSICAL EXAMINATION: VITAL SIGNS: Temperature afebrile, pulse 80, blood pressure 122/61, respirations 21. The patient is currently on BiPAP 12/6 and 60%. CHEST: Diffuse bilateral wheezing and rales noted. HEART: Irregular heart sounds. Systolic murmur. ABDOMEN: Soft. EXTREMITIES: Edema bilaterally noted. LABORATORY DATA: Labs reviewed. WBC 21.8, hemoglobin 11.5, hematocrit is 34.3, platelet is 321. Chemistry: BUN and creatinine slight improvement noted. Potassium is 3.3, magnesium is 1.9. Chest x-ray: Diffuse bilateral pulmonary fibrotic changes, associated pneumonia cannot be ruled out. ASSESSMENT AND RECOMMENDATION: An 87-year-old female with pulmonary fibrosis, atrial fibrillation, chronic anticoagulation, severe aortic stenosis with possible diastolic heart failure. Admitted with worsening respiratory status. Underlying pneumonia cannot be ruled out. Mild procalcitonin elevation noted. On ceftriaxone. We will get the cultures tomorrow. Repeat blood gas analysis and chest x-ray. I discussed with the family regarding the overall prognosis. Prognosis is very poor at this time. The patient is currently Do Not Intubate. We will discuss with the family regarding the progression and prognosis tomorrow again. Coreen Barbour MD
[2018-01-30] MEDS: Albuterol-Ipratrop 3 mg / 0.5 (3 ml) UD INH SCH ×2 (01:10→07:41)
[2018-01-30 06:04] LABS: ABG ALLEN TEST POS; ARTERIAL BLOOD GAS HCO3 34.8 mmol/L (21-28); ARTERIAL BLOOD GAS HEMOGLOBIN 10.2 g/dL (11.7-17.4); ARTERIAL BLOOD GAS O2 SAT 94.4 % (95-98); ARTERIAL BLOOD GAS PCO2 44 mm/Hg (35-45); ARTERIAL BLOOD GAS PH 7.53 (7.35-7.45); ARTERIAL BLOOD GAS PO2 56 mm/Hg (80-100); ARTERIAL BLOOD GAS TCO2 38.2 mmol/L (22-28)
[2018-01-30 06:08] LABS: HEMOGLOBIN 10.6 g/dL (11.0-16.0); LYMPH # 0.5 K/uL (1.0-4.3); LYMPH % 3.3 % (20.0-40.0); MEAN CELL VOLUME 92.4 fL (81.0-99.0); MEAN CORPUSCULAR HEMOGLOBIN 30.7 pg (27.0-31.0); MEAN CORPUSCULAR HGB CONC 33.2 g/dL (33.0-37.0); MEAN PLATELET VOLUME 9.7 fL (7.2-11.7); MONO # 0.4 K/uL (0.0-0.8); MONO % 2.9 % (0.0-10.0); NEUT # 12.9 K/uL (1.8-7.0); NEUT % 93.8 % (50.0-75.0); PLATELET COUNT 235 K/uL (130-400); RBC 3.46 Mil/uL (3.80-5.20); RED CELL DISTRIBUTION WIDTH 15.2 % (11.5-14.5); WHITE BLOOD COUNT 13.8 K/uL (4.8-10.8)
[2018-01-30 06:28] LABS: ALB/GLOB RATIO 0.7 (1.0-2.1); ALBUMIN 2.6 g/dL (3.5-5.0); CALCIUM 7.8 mg/dl (8.6-10.4)
--- NOTE | 2018-01-30 07:12 | CP.CCUPN ---
<OmardeshaunJacky - Last Filed: 01/30/18 13:48> CCU Subjective - Physician Review Subjective (Free Text): 01/30/18 08:13 Patient was examined at bedside this morning. No acute events overnight. She denies any chest pain, abdominal pain, headache, nausea, vomiting, diarrhea, dysuria. Critical Care Time Spent (in minutes): 35 CCU Objective - Vital Signs / Intake & Output Vital Signs (Last 4 hours): Vital Signs Pulse Resp BP Pulse Ox 01/30/18 06:11 17 01/30/18 06:02 75 15 135/30 L 91 L 01/30/18 05:03 86 25 H 131/36 L 88 L 01/30/18 04:02 77 16 128/47 L 97 Intake and Output (Last 8hrs): Intake & Output 01/29/18 01/30/18 01/30/18 22:59 06:59 14:59 Intake Total 490.8 305 Output Total 1700 700 Balance -1209.2 -395 Weight 50.984 kg Intake: IV 62 Intake, IV Amount 328.8 65 Right Antecubital 45 Right Forearm 28.8 10 Right Hand 300 10 Oral 100 240 Output: Urine 1700 700 Urethral (Bloom) 1700 700 - Physical Exam Head: Positive for: Atraumatic, Normocephalic Pupils: Positive for: PERRL Extroacular Muscles: Positive for: EOMI Conjunctiva: Positive for: Normal Mouth: Positive for: Dry, Other (scant blood and fissure in anterior tongue, xerotic lips) Neck: Positive for: Paraspinal Tenderness. Negative for: Meningeal Signs, MIDLINE TENDERNESS Respiratory/Chest: Positive for: Rales. Negative for: Respiratory Distress, Retracting, Rhonchi Cardiovascular: Positive for: Murmurs, Normal S1, S2, Irregular Rhythm. Negative for: Rub, Gallop Abdomen: Positive for: Normal Bowel Sounds. Negative for: Tenderness, Distention, Peritoneal Signs, Rebound Upper Extremity: Positive for: Normal Inspection. Negative for: Cyanosis, Edema Lower Extremity: Positive for: Normal Inspection. Negative for: Edema Neurological: Positive for: GCS=15, Speech Normal Skin: Positive for: Warm, Diaphoretic. Negative for: Rashes, Normal Color - Medications Active Medications: Active Medications Generic Name Dose Route Start Last Admin Trade Name Freq PRN Reason Stop Dose Admin Albuterol/Ipratropium 3 ml 01/27/18 10:16 01/30/18 01:10 Duoneb 3 Mg/0.5 Mg (3 Ml) Ud INH 3 ml RQ6 ANTONINO Administration Alprazolam 0.5 mg 01/29/18 17:12 Xanax PO BID PRN Anxiety Dabigatran 75 mg 01/29/18 20:30 01/29/18 21:05 Pradaxa PO 75 mg BID ANTONINO Administration Furosemide 20 mg 01/30/18 10:00 Lasix PO DAILY ANTONINO Ceftriaxone Sodium 1 gm/ 100 mls @ 50 mls/hr 01/27/18 19:04 01/29/18 09:39 Sodium Chloride IVPB 50 mls/hr DAILY ANTONINO Administration Protocol Diltiazem HCl 125 mg/ Dextrose 125 mls @ 5 mls/hr 01/29/18 22:30 01/29/18 23:15 IV 5 mg/hr .Q24H ANTONINO 5 mls/hr Administration Protocol 5 MG/HR Methylprednisolone 20 mg 01/29/18 22:00 01/29/18 21:07 Solu-Medrol IVP 01/31/18 22:01 20 mg Q12 ANTONINO Administration Metoprolol Tartrate 50 mg 01/24/18 18:00 01/27/18 11:09 Lopressor PO Not Given BID ANTONINO Pantoprazole Sodium 40 mg 01/25/18 10:00 01/29/18 09:39 Protonix Inj IVP 40 mg DAILY ANTONINO Administration Paroxetine HCl 40 mg 01/26/18 10:00 01/29/18 18:56 Paxil PO Not Given DAILY ANTONINO - Patient Studies Lab Studies: Microbiology Studies 01/24/18 13:40 Blood Culture - Final Blood NO GROWTH AFTER 5 DAYS Gram Stain - Final TEST NOT PERFORMED 01/24/18 13:39 Blood Culture - Final Blood NO GROWTH AFTER 5 DAYS Gram Stain - Final TEST NOT PERFORMED Lab Studies 01/30/18 01/30/18 01/30/18 Range/Units 05:49 05:49 05:45 WBC 13.8 H (4.8-10.8) K/uL RBC 3.46 L (3.80-5.20) Mil/uL Hgb 10.6 L (11.0-16.0) g/dL Hct 32.0 L (34.0-47.0) % MCV 92.4 (81.0-99.0) fL MCH 30.7 (27.0-31.0) pg MCHC 33.2 (33.0-37.0) g/dL RDW 15.2 H (11.5-14.5) % Plt Count 235 (130-400) K/uL MPV 9.7 (7.2-11.7) fL Neut % (Auto) 93.8 H (50.0-75.0) % Lymph % (Auto) 3.3 L (20.0-40.0) % [place] % (Auto) 2.9 (0.0-10.0) % Eos % (Auto) 0.0 (0.0-4.0) % Baso % (Auto) 0.0 (0.0-2.0) % Neut # (Auto) 12.9 H (1.8-7.0) K/uL Lymph # (Auto) 0.5 L (1.0-4.3) K/uL [place] # (Auto) 0.4 (0.0-0.8) K/uL Eos # (Auto) 0.0 (0.0-0.7) K/uL Baso # (Auto) 0.0 (0.0-0.2) K/uL Neutrophils % (Manual) (50-75) % Band Neutrophils % (0-2) % Lymphocytes % (Manual) (20-40) % Monocytes % (Manual) (0-10) % Platelet Estimate (NORMAL) Polychromasia Hypochromasia (manual) Anisocytosis (manual) APTT (21-34) SECONDS Puncture Site R rad pCO2 44 (35-45) mm/Hg pO2 56 L (80-100) mm/Hg HCO3 34.8 H (21-28) mmol/L ABG pH 7.53 H (7.35-7.45) ABG Total CO2 38.2 H (22-28) mmol/L ABG O2 Saturation 94.4 L (95-98) % ABG Base Excess 12.8 H (-2.0-3.0) mmol/L ABG Hemoglobin 10.2 L (11.7-17.4) g/dL ABG Carboxyhemoglobin 2.4 H (0.5-1.5) % POC ABG HHb (Measured) 5.4 H (0.0-5.0) % ABG Methemoglobin 1.4 (0.0-3.0) % Glen Test Pos A-a O2 Difference 317.0 mm/Hg Respiratory Index 5.7 Hgb O2 Saturation 90.8 L (95.0-98.0) % FiO2 60.0 % Sodium 139 (132-148) mmol/L Potassium 3.1 L (3.6-5.2) mmol/L Chloride 96 L (98-107) mmol/L Carbon Dioxide 35 H (22-30) mmol/L Anion Gap 12 (10-20) BUN 33 H (7-17) mg/dL Creatinine 1.4 H (0.7-1.2) mg/dL Est GFR ( Amer) 43 Est GFR (Non-Af Amer) 36 Random Glucose 141 H (65-105) mg/dL Calcium 7.8 L (8.6-10.4) mg/dl Phosphorus 3.3 (2.5-4.5) mg/dL Magnesium 1.8 (1.6-2.3) mg/dL Total Bilirubin 0.6 (0.2-1.3) mg/dL AST 51 H D (14-36) U/L ALT 46 (9-52) U/L Alkaline Phosphatase 124 (38-126) U/L Total Protein 6.2 L (6.3-8.3) g/dL Albumin 2.6 L (3.5-5.0) g/dL Globulin 3.7 (2.2-3.9) gm/dL Albumin/Globulin Ratio 0.7 L (1.0-2.1) Procalcitonin (0.19-0.49) NG/ML Mycoplasma pneumon IgM (NEGATIVE) 01/29/18 01/29/18 01/29/18 Range/Units 18:28 12:41 12:41 WBC (4.8-10.8) K/uL RBC (3.80-5.20) Mil/uL Hgb (11.0-16.0) g/dL Hct (34.0-47.0) % MCV (81.0-99.0) fL MCH (27.0-31.0) pg MCHC (33.0-37.0) g/dL RDW (11.5-14.5) % Plt Count (130-400) K/uL MPV (7.2-11.7) fL Neut % (Auto) (50.0-75.0) % Lymph % (Auto) (20.0-40.0) % [place] % (Auto) (0.0-10.0) % Eos % (Auto) (0.0-4.0) % Baso % (Auto) (0.0-2.0) % Neut # (Auto) (1.8-7.0) K/uL Lymph # (Auto) (1.0-4.3) K/uL [place] # (Auto) (0.0-0.8) K/uL Eos # (Auto) (0.0-0.7) K/uL Baso # (Auto) (0.0-0.2) K/uL Neutrophils % (Manual) (50-75) % Band Neutrophils % (0-2) % Lymphocytes % (Manual) (20-40) % Monocytes % (Manual) (0-10) % Platelet Estimate (NORMAL) Polychromasia Hypochromasia (manual) Anisocytosis (manual) APTT (21-34) SECONDS Puncture Site pCO2 (35-45) mm/Hg pO2 (80-100) mm/Hg HCO3 (21-28) mmol/L ABG pH (7.35-7.45) ABG Total CO2 (22-28) mmol/L ABG O2 Saturation (95-98) % ABG Base Excess (-2.0-3.0) mmol/L ABG Hemoglobin (11.7-17.4) g/dL ABG Carboxyhemoglobin (0.5-1.5) % POC ABG HHb (Measured) (0.0-5.0) % ABG Methemoglobin (0.0-3.0) % Glen Test A-a O2 Difference mm/Hg Respiratory Index Hgb O2 Saturation (95.0-98.0) % FiO2 % Sodium 137 (132-148) mmol/L Potassium 3.3 L (3.6-5.2) mmol/L Chloride 95 L (98-107) mmol/L Carbon Dioxide 34 H (22-30) mmol/L Anion Gap 12 (10-20) BUN 38 H (7-17) mg/dL Creatinine 1.6 H (0.7-1.2) mg/dL Est GFR ( Amer) 37 Est GFR (Non-Af Amer) 31 Random Glucose 142 H (65-105) mg/dL Calcium 7.7 L (8.6-10.4) mg/dl Phosphorus 3.7 (2.5-4.5) mg/dL Magnesium 1.9 (1.6-2.3) mg/dL Total Bilirubin 0.5 (0.2-1.3) mg/dL AST 72 H D (14-36) U/L ALT 53 H D (9-52) U/L Alkaline Phosphatase 141 H D (38-126) U/L Total Protein 6.4 (6.3-8.3) g/dL Albumin 2.6 L (3.5-5.0) g/dL Globulin 3.8 (2.2-3.9) gm/dL Albumin/Globulin Ratio 0.7 L (1.0-2.1) Procalcitonin 0.94 H (0.19-0.49) NG/ML Mycoplasma pneumon IgM Negative (NEGATIVE) 01/29/18 01/29/18 01/29/18 Range/Units 06:52 06:52 06:52 WBC 21.8 H D (4.8-10.8) K/uL RBC 3.74 L (3.80-5.20) Mil/uL Hgb 11.5 (11.0-16.0) g/dL Hct 34.3 (34.0-47.0) % MCV 91.7 (81.0-99.0) fL MCH 30.7 (27.0-31.0) pg MCHC 33.5 (33.0-37.0) g/dL RDW 15.3 H (11.5-14.5) % Plt Count 321 (130-400) K/uL MPV 9.8 (7.2-11.7) fL Neut % (Auto) 89.3 H (50.0-75.0) % Lymph % (Auto) 2.8 L (20.0-40.0) % [place] % (Auto) 7.8 (0.0-10.0) % Eos % (Auto) 0.0 (0.0-4.0) % Baso % (Auto) 0.1 (0.0-2.0) % Neut # (Auto) 19.5 H (1.8-7.0) K/uL Lymph # (Auto) 0.6 L (1.0-4.3) K/uL [place] # (Auto) 1.7 H (0.0-0.8) K/uL Eos # (Auto) 0.0 (0.0-0.7) K/uL Baso # (Auto) 0.0 (0.0-0.2) K/uL Neutrophils % (Manual) 93 H (50-75) % Band Neutrophils % 1 (0-2) % Lymphocytes % (Manual) 1 L (20-40) % Monocytes % (Manual) 5 (0-10) % Platelet Estimate Normal (NORMAL) Polychromasia Slight Hypochromasia (manual) Slight Anisocytosis (manual) Slight APTT 65 H D (21-34) SECONDS Puncture Site pCO2 (35-45) mm/Hg pO2 (80-100) mm/Hg HCO3 (21-28) mmol/L ABG pH (7.35-7.45) ABG Total CO2 (22-28) mmol/L ABG O2 Saturation (95-98) % ABG Base Excess (-2.0-3.0) mmol/L ABG Hemoglobin (11.7-17.4) g/dL ABG Carboxyhemoglobin (0.5-1.5) % POC ABG HHb (Measured) (0.0-5.0) % ABG Methemoglobin (0.0-3.0) % Glen Test A-a O2 Difference mm/Hg Respiratory Index Hgb O2 Saturation (95.0-98.0) % FiO2 % Sodium 138 (132-148) mmol/L Potassium 3.9 (3.6-5.2) mmol/L Chloride 103 (98-107) mmol/L Carbon Dioxide 22 (22-30) mmol/L Anion Gap 16 (10-20) BUN 44 H (7-17) mg/dL Creatinine 1.5 H (0.7-1.2) mg/dL Est GFR ( Amer) 40 Est GFR (Non-Af Amer) 33 Random Glucose 134 H (65-105) mg/dL Calcium 7.8 L (8.6-10.4) mg/dl Phosphorus 4.0 (2.5-4.5) mg/dL Magnesium 2.4 H (1.6-2.3) mg/dL Total Bilirubin 0.4 (0.2-1.3) mg/dL AST 120 H D (14-36) U/L ALT 68 H (9-52) U/L Alkaline Phosphatase 177 H (38-126) U/L Total Protein 6.9 (6.3-8.3) g/dL Albumin 2.8 L D (3.5-5.0) g/dL Globulin 4.1 H (2.2-3.9) gm/dL Albumin/Globulin Ratio 0.7 L (1.0-2.1) Procalcitonin (0.19-0.49) NG/ML Mycoplasma pneumon IgM (NEGATIVE) Laboratory Results - last 24 hr 01/29/18 01/29/18 01/29/18 06:52 06:52 06:52 WBC 21.8 H D RBC 3.74 L Hgb 11.5 Hct 34.3 MCV 91.7 MCH 30.7 MCHC 33.5 RDW 15.3 H Plt Count 321 MPV 9.8 Neut % (Auto) 89.3 H Lymph % (Auto) 2.8 L [place] % (Auto) 7.8 Eos % (Auto) 0.0 Baso % (Auto) 0.1 Neut # (Auto) 19.5 H Lymph # (Auto) 0.6 L [place] # (Auto) 1.7 H Eos # (Auto) 0.0 Baso # (Auto) 0.0 Neutrophils % (Manual) 93 H Band Neutrophils % 1 Lymphocytes % (Manual) 1 L Monocytes % (Manual) 5 Platelet Estimate Normal Polychromasia Slight Hypochromasia (manual) Slight Anisocytosis (manual) Slight APTT 65 H D Puncture Site pCO2 pO2 HCO3 ABG pH ABG Total CO2 ABG O2 Saturation ABG Base Excess ABG Hemoglobin ABG Carboxyhemoglobin POC ABG HHb (Measured) ABG Methemoglobin [place] Test A-a O2 Difference Respiratory Index Hgb O2 Saturation FiO2 Sodium 138 Potassium 3.9 Chloride 103 Carbon Dioxide 22 Anion Gap 16 BUN 44 H Creatinine 1.5 H Est GFR ( Amer) 40 Est GFR (Non-Af Amer) 33 Random Glucose 134 H Calcium 7.8 L Phosphorus 4.0 Magnesium 2.4 H Total Bilirubin 0.4 AST 120 H D ALT 68 H Alkaline Phosphatase 177 H Total Protein 6.9 Albumin 2.8 L D Globulin 4.1 H Albumin/Globulin Ratio 0.7 L Procalcitonin Mycoplasma pneumon IgM 01/29/18 01/29/18 01/29/18 12:41 12:41 18:28 WBC RBC Hgb Hct MCV MCH MCHC RDW Plt Count MPV Neut % (Auto) Lymph % (Auto) [place] % (Auto) Eos % (Auto) Baso % (Auto) Neut # (Auto) Lymph # (Auto) [place] # (Auto) Eos # (Auto) Baso # (Auto) Neutrophils % (Manual) Band Neutrophils % Lymphocytes % (Manual) Monocytes % (Manual) Platelet Estimate Polychromasia Hypochromasia (manual) Anisocytosis (manual) APTT Puncture Site pCO2 pO2 HCO3 ABG pH ABG Total CO2 ABG O2 Saturation ABG Base Excess ABG Hemoglobin ABG Carboxyhemoglobin POC ABG HHb (Measured) ABG Methemoglobin [place] Test A-a O2 Difference Respiratory Index Hgb O2 Saturation FiO2 Sodium 137 Potassium 3.3 L Chloride 95 L Carbon Dioxide 34 H Anion Gap 12 BUN 38 H Creatinine 1.6 H Est GFR ( Amer) 37 Est GFR (Non-Af Amer) 31 Random Glucose 142 H Calcium 7.7 L Phosphorus 3.7 Magnesium 1.9 Total Bilirubin 0.5 AST 72 H D ALT 53 H D Alkaline Phosphatase 141 H D Total Protein 6.4 Albumin 2.6 L Globulin 3.8 Albumin/Globulin Ratio 0.7 L Procalcitonin 0.94 H Mycoplasma pneumon IgM Negative 01/30/18 01/30/18 01/30/18 05:45 05:49 05:49 WBC 13.8 H RBC 3.46 L Hgb 10.6 L Hct 32.0 L MCV 92.4 MCH 30.7 MCHC 33.2 RDW 15.2 H Plt Count 235 MPV 9.7 Neut % (Auto) 93.8 H Lymph % (Auto) 3.3 L [place] % (Auto) 2.9 Eos % (Auto) 0.0 Baso % (Auto) 0.0 Neut # (Auto) 12.9 H Lymph # (Auto) 0.5 L [place] # (Auto) 0.4 Eos # (Auto) 0.0 Baso # (Auto) 0.0 Neutrophils % (Manual) Band Neutrophils % Lymphocytes % (Manual) Monocytes % (Manual) Platelet Estimate Polychromasia Hypochromasia (manual) Anisocytosis (manual) APTT Puncture Site R rad pCO2 44 pO2 56 L HCO3 34.8 H ABG pH 7.53 H ABG Total CO2 38.2 H ABG O2 Saturation 94.4 L ABG Base Excess 12.8 H ABG Hemoglobin 10.2 L ABG Carboxyhemoglobin 2.4 H POC ABG HHb (Measured) 5.4 H ABG Methemoglobin 1.4 Glen Test Pos A-a O2 Difference 317.0 Respiratory Index 5.7 Hgb O2 Saturation 90.8 L FiO2 60.0 Sodium 139 Potassium 3.1 L Chloride 96 L Carbon Dioxide 35 H Anion Gap 12 BUN 33 H Creatinine 1.4 H Est GFR ( Amer) 43 Est GFR (Non-Af Amer) 36 Random Glucose 141 H Calcium 7.8 L Phosphorus 3.3 Magnesium 1.8 Total Bilirubin 0.6 AST 51 H D ALT 46 Alkaline Phosphatase 124 Total Protein 6.2 L Albumin 2.6 L Globulin 3.7 Albumin/Globulin Ratio 0.7 L Procalcitonin Mycoplasma pneumon IgM Critical Care Progress Note - Nutrition Nutrition: Nutrition Category Date Time Status Heart Healthy Diet [DIET] Diets 01/29/18 Lunch Active Assessment/Plan - Assessment and Plan (Free Text) Assessment: 87yo F with PMH A.fib, HTN, pulmonary HTN, admitted for acute decompensated heart failure and transferred to ICU s/p episode of V.tach, secondary to hypokalemia. Plan: Neuro Dementia - pt with baseline dementia - no focal deficits - Xanax 0.5mg PO Q12 PRN - Paroxetine 40mg PO QD Cardio Acute on Chronic Diastolic Heart Failure s/p PPM - ECHO: normal EF, moderate to severe , moderate to severe pulmonary HTN - lasix 20mg PO QD - Toprol XL 25mg PO QD NSTEMI - Cardio consulted, Dr. Flores - Pradaxa 75mg PO QD - Toprol XL 25mg PO QD - Patient family refused cardiac cath, medical management only Pulm Pulmonary fibrosis - CXR 01/29: prominent dense confluent consolidative opacifications increased b/l. calcified aorta. cardiomegaly - CT chest 01/26: pulmonary HTN - solumedrol 40mg IV q8h Possible PNA - Procal: 0.94 - Mycoplasma IgM: negative GI - Abd Xray 01/27: gaseous distension of the stomach Renal ROSE - BUN/Cr 33/1.4, improving - Avoid nephrotoxins - Continue to monitor Hypokalemia - Replete as needed - Continue to monitor Heme - no active issues Endo - no active issues ID UTI - UA: +leuk esterase, neg nitrates - BCx: neg x3 days - Ceftriaxone 1g IV daily (01/25) PPX GI: protonix 40 IV QD DVT: SCD's Pt seen and case reviewed with Dr. Monserrat Ma, PGY-1 <Aminta Celeste - Last Filed: 01/31/18 12:54> CCU Objective - Vital Signs / Intake & Output Vital Signs (Last 4 hours): Vital Signs Resp BP 01/31/18 11:22 15 01/31/18 10:16 104/40 L 01/31/18 09:26 132/56 L Intake and Output (Last 8hrs): Intake & Output 01/30/18 01/31/18 01/31/18 22:59 06:59 14:59 Intake Total 845 45 5 Output Total 320 400 0 Balance 525 -355 5 Weight 103 lb 8 oz Intake: IV 125 Intake, IV Amount 40 45 5 Right Antecubital 40 40 5 Right Forearm 5 Oral 680 Output: Urine 320 400 0 Urine, Voided 320 400 0 Other: # Voids Urine, Voided 1 - Medications Active Medications: Active Medications Generic Name Dose Route Start Last Admin Trade Name Freq PRN Reason Stop Dose Admin Alprazolam 0.5 mg 01/29/18 17:12 01/31/18 00:13 Xanax PO 0.5 mg BID PRN Administration Anxiety Dabigatran 75 mg 01/29/18 20:30 01/31/18 09:24 Pradaxa PO 75 mg BID ANTONINO Administration Furosemide 20 mg 01/30/18 10:00 01/31/18 09:26 Lasix PO 20 mg DAILY ANTONINO Administration Ceftriaxone Sodium 1 gm/ 100 mls @ 50 mls/hr 01/27/18 19:04 01/31/18 09:35 Sodium Chloride IVPB 50 mls/hr DAILY ANTONINO Administration Protocol Diltiazem HCl 125 mg/ Dextrose 125 mls @ 5 mls/hr 01/29/18 22:30 01/30/18 21:45 IV 5 mg/hr .Q24H ANTONINO 5 mls/hr Administration Protocol 5 MG/HR Methylprednisolone 20 mg 01/29/18 22:00 01/31/18 09:25 Solu-Medrol IVP 01/31/18 22:01 20 mg Q12 ANTONINO Administration Metoprolol Succinate 25 mg 01/30/18 10:00 01/31/18 09:24 Toprol Xl PO 25 mg DAILY ANTONINO Administration Pantoprazole Sodium 40 mg 01/25/18 10:00 01/31/18 09:26 Protonix Inj IVP 40 mg DAILY ANTONINO Administration Paroxetine HCl 40 mg 01/26/18 10:00 01/31/18 09:25 Paxil PO 40 mg DAILY ANTONINO Administration - Patient Studies Lab Studies: Microbiology Studies 01/30/18 00:34 Blood Culture - Preliminary Blood NO GROWTH AFTER 24 HOURS 01/29/18 06:52 Urine Culture - Final Urine,Catheterized No Growth (<1,000 CFU/ML) Lab Studies 01/31/18 01/31/18 Range/Units 06:22 06:22 WBC 14.3 H (4.8-10.8) K/uL RBC 3.37 L (3.80-5.20) Mil/uL Hgb 10.3 L (11.0-16.0) g/dL Hct 31.2 L (34.0-47.0) % MCV 92.6 (81.0-99.0) fL MCH 30.7 (27.0-31.0) pg MCHC 33.1 (33.0-37.0) g/dL RDW 15.3 H (11.5-14.5) % Plt Count 230 (130-400) K/uL MPV 9.5 (7.2-11.7) fL Neut % (Auto) 92.0 H (50.0-75.0) % Lymph % (Auto) 4.8 L (20.0-40.0) % [place] % (Auto) 3.1 (0.0-10.0) % Eos % (Auto) 0.0 (0.0-4.0) % Baso % (Auto) 0.1 (0.0-2.0) % Neut # (Auto) 13.2 H (1.8-7.0) K/uL Lymph # (Auto) 0.7 L (1.0-4.3) K/uL [place] # (Auto) 0.4 (0.0-0.8) K/uL Eos # (Auto) 0.0 (0.0-0.7) K/uL Baso # (Auto) 0.0 (0.0-0.2) K/uL Neutrophils % (Manual) 93 H (50-75) % Band Neutrophils % 1 (0-2) % Lymphocytes % (Manual) 5 L (20-40) % Monocytes % (Manual) 1 (0-10) % Platelet Estimate Normal (NORMAL) Polychromasia Slight Hypochromasia (manual) Slight Anisocytosis (manual) Slight Sodium 134 (132-148) mmol/L Potassium 3.5 L (3.6-5.2) mmol/L Chloride 95 L (98-107) mmol/L Carbon Dioxide 35 H (22-30) mmol/L Anion Gap 8 L (10-20) BUN 31 H (7-17) mg/dL Creatinine 1.2 (0.7-1.2) mg/dL Est GFR ( Amer) 52 Est GFR (Non-Af Amer) 43 Random Glucose 124 H (65-105) mg/dL Calcium 7.7 L (8.6-10.4) mg/dl Phosphorus 2.8 (2.5-4.5) mg/dL Magnesium 1.7 (1.6-2.3) mg/dL Total Bilirubin 0.8 (0.2-1.3) mg/dL AST 35 (14-36) U/L ALT 39 (9-52) U/L Alkaline Phosphatase 111 (38-126) U/L Total Protein 6.0 L (6.3-8.3) g/dL Albumin 2.4 L (3.5-5.0) g/dL Globulin 3.6 (2.2-3.9) gm/dL Albumin/Globulin Ratio 0.7 L (1.0-2.1) Laboratory Results - last 24 hr 01/31/18 01/31/18 06:22 06:22 WBC 14.3 H RBC 3.37 L Hgb 10.3 L Hct 31.2 L MCV 92.6 MCH 30.7 MCHC 33.1 RDW 15.3 H Plt Count 230 MPV 9.5 Neut % (Auto) 92.0 H Lymph % (Auto) 4.8 L [place] % (Auto) 3.1 Eos % (Auto) 0.0 Baso % (Auto) 0.1 Neut # (Auto) 13.2 H Lymph # (Auto) 0.7 L [place] # (Auto) 0.4 Eos # (Auto) 0.0 Baso # (Auto) 0.0 Neutrophils % (Manual) 93 H Band Neutrophils % 1 Lymphocytes % (Manual) 5 L Monocytes % (Manual) 1 Platelet Estimate Normal Polychromasia Slight Hypochromasia (manual) Slight Anisocytosis (manual) Slight Sodium 134 Potassium 3.5 L Chloride 95 L Carbon Dioxide 35 H Anion Gap 8 L BUN 31 H Creatinine 1.2 Est GFR ( Amer) 52 Est GFR (Non-Af Amer) 43 Random Glucose 124 H Calcium 7.7 L Phosphorus 2.8 Magnesium 1.7 Total Bilirubin 0.8 AST 35 ALT 39 Alkaline Phosphatase 111 Total Protein 6.0 L Albumin 2.4 L Globulin 3.6 Albumin/Globulin Ratio 0.7 L Critical Care Progress Note - Nutrition Nutrition: Nutrition Category Date Time Status Pureed [Dysphagia/Modified Consistency Diet] [DIET] Diets 01/30/18 Dinner Active Assessment/Plan - Assessment and Plan (Free Text) Plan: -Tachycarrythmia:patient getting IV cardizem + oral lopressor, consider change from IV to oral cardizem, optimize oral av dianna sanjeev, -A-fib: will benefit from av dianna sanjeev + oral NOAC -Pulmonary HTN: suspect underlying pulmonary fibrosis, oxygen supplementation and AC, not a candidate for heart/lung transplant, continue rx as per provider enrollment specialist -avoid fluid overloaded states -(+)cough: improved -contineu dvt ppx on NOAC -pud ppx pepcid -continue to monitor -d/w ICU team -OOB to chair -eating oral diet -oob to chair -titrate off IV CCB and start with oral CCB d/w ICU team - Date & Time Date: 01/30/18 Time: 19:00
[2018-01-30 08:18] LABS: ANISOCYTOSIS SLIGHT; LYMPHOCYTE 1 % (20-40); MONOCYTE 4 % (0-10); NEUTROPHIL 95 % (50-75); PLATELET ESTIMATE NORMAL (NORMAL); TOTAL CELLS COUNTED 100
[2018-01-30] MEDS ORDERED: Potassium Chloride 20 mEq ER Tab PO ONE (08:30)
[2018-01-30] MEDS: MethylPREDNISolone 40 mg Vial IVP SCH ×2 (09:25→21:45)
[2018-01-30] MEDS: Metoprolol Succinate 25 mg XL Tab PO SCH (09:25)
[2018-01-30] MEDS ORDERED: diltiaZEM 240 mg/24 Hours CD Cap PO SCH (10:00)
--- NOTE | 2018-01-30 13:44 | RAD ---
Date of service: 01/30/2018 HISTORY: SOB COMPARISON: 01/29/2018 FINDINGS: LUNGS: The bilateral patchy coalescent airspace opacities compatible with bilateral patchy infiltrates are fairly similar in appearance. Slight decreased density-inferred trace improved aeration of that right sided lateral mid lung zone opacity is suggested.. No other changes appreciated PLEURA: Probable small bilateral pleural effusions. No more significant appearing effusions suggested. No pneumothorax apparent. CARDIOVASCULAR: There is presence of aortic atherosclerotic calcification on x-ray. Cardiomegaly-similar Pacemaker in place as before. Normal cardiac size. Concomitant mild pulmonary venous congestion possible. OSSEOUS STRUCTURES: Bilateral shoulder arthrosis. Generalized osteopenia, thoracic spondylosis. And slight leftward convexity to the inferior thoracic spine noted. VISUALIZED UPPER ABDOMEN: Normal. OTHER FINDINGS: Right paratracheal nuchal level surgical clips probably relating to prior thyroid surgery. Correlate clinically IMPRESSION: Persistent patchy bilateral coalescent infiltrates. -as referenced above. Additional areas of concomitant pulmonary venous congestion not excluded. Other findings as above.
[2018-01-30] MEDS ORDERED: Potassium Chloride 20 mEq ER Tab PO SCH (16:15)
[2018-01-30] MEDS ORDERED: Vitamins A & D Oint UD Foilpak TOP SCH (19:20)
--- NOTE | 2018-01-30 21:52 | PN ---
DATE: 01/30/[address] Flores. SUBJECTIVE: According to the patient's daughter at the bedside, the patient is wheezing, is much better than yesterday. She denies any chest pain. PHYSICAL EXAMINATION: VITAL SIGNS: Blood pressure 175/46, heart rate 74, and temperature 98.4. HEENT: Normocephalic. CHEST: Bilateral dry crepitations. HEART: S1 and S2, regular. EXTREMITIES: No edema. LABORATORY DATA: Today's hemoglobin and hematocrit 10.6 and 32, white count 15.3, and platelet count 135,000. SMA-7: Sodium 139, potassium 3.1, chloride 96, CO2 of 35, glucose 141, BUN 33, creatinine 1.4. Yesterday's PTT was 65. Today's chest x-ray revealed persistent patchy bilateral infiltrate, additional areas of concomitant pulmonary venous congestion not excluded. Echocardiographic study revealed normal ejection fraction, moderate to severe aortic stenosis, and moderate pulmonary hypertension. ASSESSMENT: 1. Pulmonary fibrosis. 2. Moderate to severe aortic stenosis. 3. Paroxysmal atrial fibrillation. RECOMMENDATIONS: Continue current IV Rocephin at 1 g daily. Continue Lasix 20 mg once a day, mg twice a day, Solu-Medrol 20 mg intravenously every 12 hours, Toprol-XL 25 mg daily. I will order K-Dur 20 mEq orally today. Marvin East MD
--- NOTE | 2018-01-30 22:26 | CARD ---
APPROVED REPORT Date of service: 01/24/2018 EKG Measurement Heart [id number] [place] 192P [id number] <Conclusion> Atrial-paced rhythm Left ventricular hypertrophy with repolarization abnormality Prolonged QT Abnormal ECG
--- NOTE | 2018-01-31 01:54 | PN ---
DATE: 01/30/2018 TIME OF VISIT: 08:16 p.m. SUBJECTIVE: The patient's son is in the bedside. Today, the patient is more awake and responding. She is off BiPAP, high flow oxygen, 60% is running right now. Right now, she has a sinus rhythm, 73 beats per minute. PHYSICAL EXAMINATION: VITAL SIGNS: Blood pressure 124/38, respirations 19, saturations 94% on FiO2 of 60%. CHEST: Diffuse bilateral rales and wheezing noted. HEART: Regular heart sound. ABDOMEN: Soft. Edema 1+ noted. LABORATORY DATA: Labs today showing WBC 13.8, hemoglobin 10.6, hematocrit is 32, platelet is 235. BUN 33, creatinine 1.4. Liver enzyme is improving. Magnesium is 1.8, potassium is 3.1. Chest x-ray is still showing diffuse bilateral pulmonary infiltrative changes. The process is most likely related to chronic lung fibrosis and associated to mild fluid in the lungs, and also the patient has gastric shadows. MEDICATIONS: The patient is currently on Xanax p.r.n., Protonix 40 IV daily, Paxil 40 daily, Rocephin 1 g daily, Pradaxa 50 to 75 b.i.d., methylprednisolone 20 mg b.i.d., Lasix 20 daily, diltiazem 5 mg, metoprolol 25 mg daily. The patient received IV potassium today. ASSESSMENT AND PLAN: An 87 female with a history of atrial fibrillation, chronic; osteoporosis; osteoarthritis; aortic stenosis; admitted with worsening lung fibrotic changes, non-ST elevation myocardial infarction, mild congestive heart failure, and possible pneumonia. The patient is currently being treated with all 3 conditions, needing high flow FiO2. Gently, we will taper off the Cardizem. We will slowly increase metoprolol, and we will closely follow up the patient. Coreen Barbour MD
[2018-01-31 06:33] LABS: BASO % 0.1 % (0.0-2.0); HEMOGLOBIN 10.3 g/dL (11.0-16.0); LYMPH # 0.7 K/uL (1.0-4.3); LYMPH % 4.8 % (20.0-40.0); MEAN CELL VOLUME 92.6 fL (81.0-99.0); MEAN CORPUSCULAR HEMOGLOBIN 30.7 pg (27.0-31.0); MEAN CORPUSCULAR HGB CONC 33.1 g/dL (33.0-37.0); MEAN PLATELET VOLUME 9.5 fL (7.2-11.7); MONO # 0.4 K/uL (0.0-0.8); MONO % 3.1 % (0.0-10.0); NEUT # 13.2 K/uL (1.8-7.0); PLATELET COUNT 230 K/uL (130-400); RBC 3.37 Mil/uL (3.80-5.20); RED CELL DISTRIBUTION WIDTH 15.3 % (11.5-14.5); WHITE BLOOD COUNT 14.3 K/uL (4.8-10.8)
[2018-01-31 07:03] LABS: ALB/GLOB RATIO 0.7 (1.0-2.1); ALBUMIN 2.4 g/dL (3.5-5.0); CALCIUM 7.7 mg/dl (8.6-10.4)
--- NOTE | 2018-01-31 07:58 | CP.CCUPN ---
<Danni Valladares - Last Filed: 01/31/18 09:56> CCU Subjective - Physician Review Subjective (Free Text): 01/31/18 09:42 Danni Valladares PGY1 Progress note for Dr. Man Pt was examined at bedside this morning. She has no acute complaints. She denies any chest pain, abdominal pain, shortness of breath, headache, nausea, vomiting, diarrhea, dysuria. Pt is deemed stable for downgrade to [facility]. CCU Objective - Vital Signs / Intake & Output Vital Signs (Last 4 hours): Vital Signs Pulse Resp BP Pulse Ox 01/31/18 06:26 65 14 127/49 L 96 01/31/18 05:17 15 01/31/18 04:28 60 17 140/42 L 98 Intake and Output (Last 8hrs): Intake & Output 01/30/18 01/31/18 01/31/18 22:59 06:59 14:59 Intake Total 845 45 5 Output Total 320 400 0 Balance 525 -355 5 Weight 103 lb 8 oz Intake: IV 125 Intake, IV Amount 40 45 5 Right Antecubital 40 40 5 Right Forearm 5 Oral 680 Output: Urine 320 400 0 Urine, Voided 320 400 0 Other: # Voids Urine, Voided 1 - Physical Exam Head: Positive for: Atraumatic, Normocephalic Pupils: Positive for: PERRL Extroacular Muscles: Positive for: EOMI Conjunctiva: Positive for: Normal Mouth: Positive for: Dry, Other (scant blood and fissure in anterior tongue, xerotic lips) Neck: Positive for: Normal Range of Motion. Negative for: Meningeal Signs, MIDLINE TENDERNESS Respiratory/Chest: Positive for: Rales. Negative for: Respiratory Distress, Retracting, Rhonchi Cardiovascular: Positive for: Murmurs, Normal S1, S2, Irregular Rhythm. Neg ative for: Rub, Gallop Abdomen: Positive for: Normal Bowel Sounds. Negative for: Tenderness, Distention, Peritoneal Signs, Rebound Upper Extremity: Positive for: Normal Inspection. Negative for: Cyanosis, Edema Lower Extremity: Positive for: Normal Inspection. Negative for: Edema Neurological: Positive for: GCS=15, Speech Normal Skin: Positive for: Warm. Negative for: Rashes, Normal Color - Medications Active Medications: Active Medications Generic Name Dose Route Start Last Admin Trade Name Freq PRN Reason Stop Dose Admin Alprazolam 0.5 mg 01/29/18 17:12 01/31/18 00:13 Xanax PO 0.5 mg BID PRN Administration Anxiety Dabigatran 75 mg 01/29/18 20:30 01/30/18 17:26 Pradaxa PO 75 mg BID [facility] Administration Furosemide 20 mg 01/30/18 10:00 01/30/18 09:25 Lasix PO 20 mg DAILY [facility] Administration Ceftriaxone Sodium 1 gm/ 100 mls @ 50 mls/hr 01/27/18 19:04 01/30/18 09:43 Sodium Chloride IVPB 50 mls/hr DAILY [facility] Administration Protocol Diltiazem HCl 125 mg/ Dextrose 125 mls @ 5 mls/hr 01/29/18 22:30 01/30/18 21:45 IV 5 mg/hr .Q24H [facility]INO 5 mls/hr Administration Protocol 5 MG/HR Methylprednisolone 20 mg 01/29/18 22:00 01/30/18 21:45 Solu-Medrol IVP 01/31/18 22:01 20 mg Q12 [facility]INO Administration Metoprolol Succinate 25 mg 01/30/18 10:00 01/30/18 09:25 Toprol Xl PO 25 mg DAILY [facility] Administration Pantoprazole Sodium 40 mg 01/25/18 10:00 01/30/18 09:25 Protonix Inj IVP 40 mg DAILY [facility]INO Administration Paroxetine HCl 40 mg 01/26/18 10:00 01/30/18 09:51 Paxil PO 40 mg DAILY [facility] Administration Potassium Chloride 20 meq 01/31/18 07:30 Potassium Chloride Oral Soln PO 01/31/18 11:31 Q4H ANTONINO - Patient Studies Lab Studies: Microbiology Studies 01/30/18 00:34 Blood Culture - Preliminary Blood NO GROWTH AFTER 24 HOURS 01/29/18 06:52 Urine Culture - Final Urine,Catheterized No Growth (<1,000 CFU/ML) Lab Studies 01/31/18 01/31/18 01/30/18 Range/Units 06:22 06:22 05:49 WBC 14.3 H (4.8-10.8) K/uL RBC 3.37 L (3.80-5.20) Mil/uL Hgb 10.3 L (11.0-16.0) g/dL Hct 31.2 L (34.0-47.0) % MCV 92.6 (81.0-99.0) fL MCH 30.7 (27.0-31.0) pg MCHC 33.1 (33.0-37.0) g/dL RDW 15.3 H (11.5-14.5) % Plt Count 230 (130-400) K/uL MPV 9.5 (7.2-11.7) fL Neut % (Auto) 92.0 H (50.0-75.0) % Lymph % (Auto) 4.8 L (20.0-40.0) % [place] % (Auto) 3.1 (0.0-10.0) % Eos % (Auto) 0.0 (0.0-4.0) % Baso % (Auto) 0.1 (0.0-2.0) % Neut # (Auto) 13.2 H (1.8-7.0) K/uL Lymph # (Auto) 0.7 L (1.0-4.3) K/uL [place] # (Auto) 0.4 (0.0-0.8) K/uL Eos # (Auto) 0.0 (0.0-0.7) K/uL Baso # (Auto) 0.0 (0.0-0.2) K/uL Neutrophils % (Manual) 95 H (50-75) % Lymphocytes % (Manual) 1 L (20-40) % Monocytes % (Manual) 4 (0-10) % Platelet Estimate Normal (NORMAL) Anisocytosis (manual) Slight Sodium 134 (132-148) mmol/L Potassium 3.5 L (3.6-5.2) mmol/L Chloride 95 L (98-107) mmol/L Carbon Dioxide 35 H (22-30) mmol/L Anion Gap 8 L (10-20) BUN 31 H (7-17) mg/dL Creatinine 1.2 (0.7-1.2) mg/dL Est GFR ( Amer) 52 Est GFR (Non-Af Amer) 43 Random Glucose 124 H (65-105) mg/dL Calcium 7.7 L (8.6-10.4) mg/dl Phosphorus 2.8 (2.5-4.5) mg/dL Magnesium 1.7 (1.6-2.3) mg/dL Total Bilirubin 0.8 (0.2-1.3) mg/dL AST 35 (14-36) U/L ALT 39 (9-52) U/L Alkaline Phosphatase 111 (38-126) U/L Total Protein 6.0 L (6.3-8.3) g/dL Albumin 2.4 L (3.5-5.0) g/dL Globulin 3.6 (2.2-3.9) gm/dL Albumin/Globulin Ratio 0.7 L (1.0-2.1) Laboratory Results - last 24 hr 01/30/18 01/31/18 01/31/18 05:49 06:22 06:22 WBC 14.3 H RBC 3.37 L Hgb 10.3 L Hct 31.2 L MCV 92.6 MCH 30.7 MCHC 33.1 RDW 15.3 H Plt Count 230 MPV 9.5 Neut % (Auto) 92.0 H Lymph % (Auto) 4.8 L [place] % (Auto) 3.1 Eos % (Auto) 0.0 Baso % (Auto) 0.1 Neut # (Auto) 13.2 H Lymph # (Auto) 0.7 L [place] # (Auto) 0.4 Eos # (Auto) 0.0 Baso # (Auto) 0.0 Neutrophils % (Manual) 95 H Lymphocytes % (Manual) 1 L Monocytes % (Manual) 4 Platelet Estimate Normal Anisocytosis (manual) Slight Sodium 134 Potassium 3.5 L Chloride 95 L Carbon Dioxide 35 H Anion Gap 8 L BUN 31 H Creatinine 1.2 Est GFR ( Amer) 52 Est GFR (Non-Af Amer) 43 Random Glucose 124 H Calcium 7.7 L Phosphorus 2.8 Magnesium 1.7 Total Bilirubin 0.8 AST 35 ALT 39 Alkaline Phosphatase 111 Total Protein 6.0 L Albumin 2.4 L Globulin 3.6 Albumin/Globulin Ratio 0.7 L Review of Systems - Review of Systems Review of Systems: as per HPI Critical Care Progress Note - Nutrition Nutrition: Nutrition Category Date Time Status Pureed [Dysphagia/Modified Consistency Diet] [DIET] Diets 01/30/18 Dinner Active Assessment/Plan - Assessment and Plan (Free Text) Assessment: 87yo F with PMH A.fib, HTN, pulmonary HTN, admitted for acute decompensated heart failure and transferred to ICU s/p episode of V.tach, secondary to hypokalemia. Pt with NSTEMI. Plan: Neuro Dementia - pt with baseline dementia - no focal deficits - Xanax 0.5mg PO Q12 PRN - Paroxetine 40mg PO QD Cardio Acute on Chronic Diastolic Heart Failure s/p PPM - ECHO: normal EF, moderate to severe , moderate to severe pulmonary HTN - lasix 20mg PO QD - Toprol XL 25mg PO QD NSTEMI - Cardio consulted, Dr. Flores - Pradaxa 75mg PO QD - Toprol XL 25mg PO QD - Patient family refused cardiac cath, medical management only Pulm Pulmonary fibrosis - CXR 01/29: prominent dense confluent consolidative opacifications increased b/l. calcified aorta. cardiomegaly - CT chest 01/26: pulmonary HTN - solumedrol 40mg IV q8h Possible PNA - Procal: 0.94 - Mycoplasma IgM: negative GI - Abd Xray 01/27: gaseous distension of the stomach Renal ROSE - BUN/Cr 33/1.4, improving - Avoid nephrotoxins - Continue to monitor Hypokalemia - Replete as needed - Continue to monitor Heme - no active issues Endo - no active issues ID UTI - UA: +leuk esterase, neg nitrates - BCx: neg x3 days - Ceftriaxone 1g IV daily (01/25) PPX GI: protonix 40 IV QD DVT: SCD's Pureed diet Pt seen and case reviewed with Dr. Monserrat Celeste <Aminta Celeste - Last Filed: 01/31/18 13:52> CCU Objective - Vital Signs / Intake & Output Vital Signs (Last 4 hours): Vital Signs Resp BP 01/31/18 11:22 15 01/31/18 10:16 104/40 L 01/31/18 09:26 132/56 L Intake and Output (Last 8hrs): Intake & Output 01/30/18 01/31/18 01/31/18 22:59 06:59 14:59 Intake Total 845 45 5 Output Total 320 400 0 Balance 525 -355 5 Weight 103 lb 8 oz Intake: IV 125 Intake, IV Amount 40 45 5 Right Antecubital 40 40 5 Right Forearm 5 Oral 680 Output: Urine 320 400 0 Urine, Voided 320 400 0 Other: # Voids Urine, Voided 1 - Medications Active Medications: Active Medications Generic Name Dose Route Start Last Admin Trade Name Freq PRN Reason Stop Dose Admin Alprazolam 0.5 mg 01/29/18 17:12 01/31/18 00:13 Xanax PO 0.5 mg BID PRN Administration Anxiety Dabigatran 75 mg 01/29/18 20:30 01/31/18 09:24 Pradaxa PO 75 mg BID ANTONINO Administration Furosemide 20 mg 01/30/18 10:00 01/31/18 09:26 Lasix PO 20 mg DAILY AN[facility]INO Administration Ceftriaxone Sodium 1 gm/ 100 mls @ 50 mls/hr 01/27/18 19:04 01/31/18 09:35 Sodium Chloride IVPB 50 mls/hr DAILY AN[facility]INO Administration Protocol Diltiazem HCl 125 mg/ Dextrose 125 mls @ 5 mls/hr 01/29/18 22:30 01/30/18 21:45 IV 5 mg/hr .Q24H AN[facility]INO 5 mls/hr Administration Protocol 5 MG/HR Methylprednisolone 20 mg 01/29/18 22:00 01/31/18 09:25 Solu-Medrol IVP 01/31/18 22:01 20 mg Q12 ANTONINO Administration Metoprolol Succinate 25 mg 01/30/18 10:00 01/31/18 09:24 Toprol Xl PO 25 mg DAILY AN[facility]INO Administration Pantoprazole Sodium 40 mg 01/25/18 10:00 01/31/18 09:26 Protonix Inj IVP 40 mg DAILY AN[facility]INO Administration Paroxetine HCl 40 mg 01/26/18 10:00 01/31/18 09:25 Paxil PO 40 mg DAILY AN[facility]INO Administration - Patient Studies Lab Studies: Microbiology Studies 01/30/18 00:34 Blood Culture - Preliminary Blood NO GROWTH AFTER 24 HOURS 01/29/18 06:52 Urine Culture - Final Urine,Catheterized No Growth (<1,000 CFU/ML) Lab Studies 01/31/18 01/31/18 Range/Units 06:22 06:22 WBC 14.3 H (4.8-10.8) K/uL RBC 3.37 L (3.80-5.20) Mil/uL Hgb 10.3 L (11.0-16.0) g/dL Hct 31.2 L (34.0-47.0) % MCV 92.6 (81.0-99.0) fL MCH 30.7 (27.0-31.0) pg MCHC 33.1 (33.0-37.0) g/dL RDW 15.3 H (11.5-14.5) % Plt Count 230 (130-400) K/uL MPV 9.5 (7.2-11.7) fL Neut % (Auto) 92.0 H (50.0-75.0) % Lymph % (Auto) 4.8 L (20.0-40.0) % [place] % (Auto) 3.1 (0.0-10.0) % Eos % (Auto) 0.0 (0.0-4.0) % Baso % (Auto) 0.1 (0.0-2.0) % Neut # (Auto) 13.2 H (1.8-7.0) K/uL Lymph # (Auto) 0.7 L (1.0-4.3) K/uL [place] # (Auto) 0.4 (0.0-0.8) K/uL Eos # (Auto) 0.0 (0.0-0.7) K/uL Baso # (Auto) 0.0 (0.0-0.2) K/uL Neutrophils % (Manual) 93 H (50-75) % Band Neutrophils % 1 (0-2) % Lymphocytes % (Manual) 5 L (20-40) % Monocytes % (Manual) 1 (0-10) % Platelet Estimate Normal (NORMAL) Polychromasia Slight Hypochromasia (manual) Slight Anisocytosis (manual) Slight Sodium 134 (132-148) mmol/L Potassium 3.5 L (3.6-5.2) mmol/L Chloride 95 L (98-107) mmol/L Carbon Dioxide 35 H (22-30) mmol/L Anion Gap 8 L (10-20) BUN 31 H (7-17) mg/dL Creatinine 1.2 (0.7-1.2) mg/dL Est GFR ( Amer) 52 Est GFR (Non-Af Amer) 43 Random Glucose 124 H (65-105) mg/dL Calcium 7.7 L (8.6-10.4) mg/dl Phosphorus 2.8 (2.5-4.5) mg/dL Magnesium 1.7 (1.6-2.3) mg/dL Total Bilirubin 0.8 (0.2-1.3) mg/dL AST 35 (14-36) U/L ALT 39 (9-52) U/L Alkaline Phosphatase 111 (38-126) U/L Total Protein 6.0 L (6.3-8.3) g/dL Albumin 2.4 L (3.5-5.0) g/dL Globulin 3.6 (2.2-3.9) gm/dL Albumin/Globulin Ratio 0.7 L (1.0-2.1) Laboratory Results - last 24 hr 01/31/18 01/31/18 06:22 06:22 WBC 14.3 H RBC 3.37 L Hgb 10.3 L Hct 31.2 L MCV 92.6 MCH 30.7 MCHC 33.1 RDW 15.3 H Plt Count 230 MPV 9.5 Neut % (Auto) 92.0 H Lymph % (Auto) 4.8 L [place] % (Auto) 3.1 Eos % (Auto) 0.0 Baso % (Auto) 0.1 Neut # (Auto) 13.2 H Lymph # (Auto) 0.7 L [place] # (Auto) 0.4 Eos # (Auto) 0.0 Baso # (Auto) 0.0 Neutrophils % (Manual) 93 H Band Neutrophils % 1 Lymphocytes % (Manual) 5 L Monocytes % (Manual) 1 Platelet Estimate Normal Polychromasia Slight Hypochromasia (manual) Slight Anisocytosis (manual) Slight Sodium 134 Potassium 3.5 L Chloride 95 L Carbon Dioxide 35 H Anion Gap 8 L BUN 31 H Creatinine 1.2 Est GFR ( Amer) 52 Est GFR (Non-Af Amer) 43 Random Glucose 124 H Calcium 7.7 L Phosphorus 2.8 Magnesium 1.7 Total Bilirubin 0.8 AST 35 ALT 39 Alkaline Phosphatase 111 Total Protein 6.0 L Albumin 2.4 L Globulin 3.6 Albumin/Globulin Ratio 0.7 L Critical Care Progress Note - Nutrition Nutrition: Nutrition Category Date Time Status Pureed [Dysphagia/Modified Consistency Diet] [DIET] Diets 01/30/18 Dinner Active Assessment/Plan - Assessment and Plan (Free Text) Plan: Above patient seen and examined at bedside. Patient did not get oral CCB (discontinued by PMD) and IV ccb restarted at low dose. Patient oob to chair -A-fib: rate controlled, consider switch to oral CCB, continue AC -Heart failure//Diastolic: Patient will need good AV dianna sanjeev, tachycarrythmia can cause transient respiratory failure -continue all other treatment -PAtient remains hemodynamically stable (consider switching from IV to oral ccb) -d/w daughter - prognosis poor -code status DNI - Date & Time Date: 01/31/18 Time: 13:52
[2018-01-31 08:36] LABS: ANISOCYTOSIS SLIGHT; BANDS 1 % (0-2); HYPOCHROMIC SLIGHT; LYMPHOCYTE 5 % (20-40); MONOCYTE 1 % (0-10); NEUTROPHIL 93 % (50-75); PLATELET ESTIMATE NORMAL (NORMAL); POLYCHROMIC SLIGHT; TOTAL CELLS COUNTED 100
[2018-01-31] MEDS: Potassium Chloride 20 mEq/15 ml LIQ UD PO SCH ×2 (09:00→12:30)
[2018-01-31] MEDS: Metoprolol Succinate 25 mg XL Tab PO SCH (09:24)
[2018-01-31] MEDS: MethylPREDNISolone 40 mg Vial IVP SCH ×2 (09:25→21:48)
--- NOTE | 2018-01-31 10:53 | CP.PCM.PN ---
<Elizabeth Bergmana - Last Filed: 01/31/18 10:49> Subjective - Date & Time of Evaluation Date of Evaluation: 01/31/18 Time of Evaluation: 10:50 - Subjective Subjective: Cardiology Follow Up Patient seen and examined at bedside. Patient currently on vapotherm, saturating mid 80s. Patient denies any chest pain, shortness of breath, or palpitations. Objective - Vital Signs/Intake and Output Vital Signs (last 24 hours): Temp Pulse Resp BP Pulse Ox 98.4 F 65 14 104/40 L 96 01/29/18 08:00 01/31/18 06:26 01/31/18 08:16 01/31/18 10:16 01/31/18 06:26 Intake and Output: 01/31/18 01/31/18 06:59 18:59 Intake Total 670 5 Output Total 500 0 Balance 170 5 - Medications Medications: Current Medications Alprazolam (Xanax) 0.5 mg PO BID PRN PRN Reason: Anxiety Last Admin: 01/31/18 00:13 Dose: 0.5 mg Dabigatran (Pradaxa) 75 mg PO BID [facility] Last Admin: 01/31/18 09:24 Dose: 75 mg Furosemide (Lasix) 20 mg PO DAILY [facility] Last Admin: 01/31/18 09:26 Dose: 20 mg Ceftriaxone Sodium 1 gm/ (Sodium Chloride) 100 mls @ 50 mls/hr IVPB DAILY [facility]; Protocol Last Admin: 01/31/18 09:35 Dose: 50 mls/hr Diltiazem HCl 125 mg/ Dextrose 125 mls @ 5 mls/hr IV .Q24H [facility]; Protocol Last Admin: 01/30/18 21:45 Dose: 5 mg/hr, 5 mls/hr Methylprednisolone (Solu-Medrol) 20 mg IVP Q12 [facility] Stop: 01/31/18 22:01 Last Admin: 01/31/18 09:25 Dose: 20 mg Metoprolol Succinate (Toprol Xl) 25 mg PO DAILY [facility] Last Admin: 01/31/18 09:24 Dose: 25 mg Pantoprazole Sodium (Protonix Inj) 40 mg IVP DAILY [facility] Last Admin: 01/31/18 09:26 Dose: 40 mg Paroxetine HCl (Paxil) 40 mg PO DAILY [facility] Last Admin: 01/31/18 09:25 Dose: 40 mg Potassium Chloride (Potassium Chloride Oral Soln) 20 meq PO Q4H [facility] Stop: 01/31/18 11:31 Last Admin: 01/31/18 09:00 Dose: 20 meq - Labs Labs: 01/31/18 06:22 01/31/18 06:22 APTT 65 SECONDS (21-34) H D 01/29/18 06:52 - Additional Findings Additional findings: - Constitutional Appears: No Acute Distress - Head Exam Head Exam: NORMAL INSPECTION, NORMOCEPHALIC - Eye Exam Eye Exam: EOMI, PERRL Pupil Exam: NORMAL ACCOMODATION - ENT Exam ENT Exam: Mucous Membranes Moist - Respiratory Exam Respiratory Exam: Decreased Breath Sounds - Cardiovascular Exam Cardiovascular Exam: Irregular Rhythm, +S1, +S2 - GI/Abdominal Exam GI & Abdominal Exam: Soft, Normal Bowel Sounds. absent: Distended, Tenderness - Extremities Exam Extremities Exam: Normal Inspection. absent: Pedal Edema, Tenderness - Neurological Exam Neurological Exam: Alert, Awake, Oriented x3 - Psychiatric Exam Psychiatric exam: Normal Affect, Normal Mood - Skin Skin Exam: Dry, Intact, Normal Color, Warm Assessment and Plan - Assessment and Plan (Free Text) Plan: Acute on Chronic Diastolic Heart Failure s/p PPM NSTEMI Atrial Fibrillation Pulmonary Fibrosis on home oxygen Hypertension Imaging: - ECHO: Normal EF. Moderate to severe and moderate AI. Moderate to severe pulmonary HTN Management: - As per family's request, no cardiac catherization, medical management only. - Continue with current AC, as per primary. Case discussed with Giovanna Moyer, DO PGY2 <Jori Flores - Last Filed: 01/31/18 21:47> Objective - Vital Signs/Intake and Output Vital Signs (last 24 hours): Temp Pulse Resp BP Pulse Ox 97.8 F 60 20 131/50 L 97 01/31/18 20:00 01/31/18 20:27 01/31/18 20:32 01/31/18 20:27 01/31/18 20:27 Intake and Output: 01/31/18 02/01/18 18:59 06:59 Intake Total 392 109 Output Total 601 Balance -209 109 - Medications Medications: Current Medications Acetylcysteine (Acetylcysteine 20%) 4 ml INH Q12 [facility] Alprazolam (Xanax) 0.5 mg PO BID PRN PRN Reason: Anxiety Last Admin: 01/31/18 00:13 Dose: 0.5 mg Dabigatran (Pradaxa) 75 mg PO BID [facility] Last Admin: 01/31/18 17:34 Dose: 75 mg Diltiazem HCl (Cardizem) 30 mg PO Q8 [facility] Furosemide (Lasix) 20 mg PO DAILY [facility] Last Admin: 01/31/18 09:26 Dose: 20 mg Diltiazem HCl 125 mg/ Dextrose 125 mls @ 5 mls/hr IV .Q24H [facility]; Protocol Last Titration: 01/31/18 12:30 Dose: 3 mg/hr, 3 mls/hr Methylprednisolone (Solu-Medrol) 20 mg IVP Q12 [facility] Stop: 01/31/18 22:01 Last Admin: 01/31/18 09:25 Dose: 20 mg Metoprolol Succinate (Toprol Xl) 25 mg PO DAILY [facility] Last Admin: 01/31/18 09:24 Dose: 25 mg Nystatin (Nystatin Oral Susp) 5 ml PO QID [facility] Pantoprazole Sodium (Protonix Susp) 40 mg PO 0600 [facility] Paroxetine HCl (Paxil) 20 mg PO DAILY [facility] Tiotropium [place] (Spiriva) 18 mcg INH RQ24 [facility] - Labs Labs: 01/31/18 06:22 01/31/18 06:22 APTT 65 SECONDS (21-34) H D 01/29/18 06:52 Assessment and Plan - Assessment and Plan (Free Text) Plan: Patient seen and evaluated personally by wy Plan of care d/w the medical device assembler and as documented
--- NOTE | 2018-01-31 21:27 | PN ---
DATE: 01/31/2018 SUBJECTIVE: The patient is currently in the intensive care unit, bed 3. Today, the patient is still on Cardizem drip. Heart rate is much controlled than before. Pacemaker rhythm noted. Blood pressure is 123/50, saturation is 93%, but the patient is on high-flow FIO2 at 80%. The patient needing high-flow oxygen now. The patient is able to eat today. She is also making urine. She denies any chest pain. Mild distress noted otherwise. Edema 1+ noted. LABORATORY DATA: Labs reviewed. Potassium low noted. Magnesium is also low. Supplemented this morning. We will repeat the chest x-ray tomorrow. ASSESSMENT: The patient is an 87-year-old female with chronic atrial fibrillation, aortic stenosis, pulmonary fibrosis, moderate pulmonary hypertension. PLAN: We will continue the bronchodilator. Also, we will continue Mucomyst, incentive spirometer. We are currently off antibiotics. We will monitor antibiotics status. To repeat a chest x-ray if needed. We will start the patient on empirical antibiotics for possible methicillin-resistant staphylococcus aureus or staphylococcal infection and the possible fungal infection also, but at this time, there is no evidence on anticoagulation and we will follow up the patient. Coreen Barbour MD
[2018-01-31] MEDS: Nystatin 100,000 Units/ml Oral Susp 5 ml UD PO SCH (21:52)
[2018-01-31] MEDS ORDERED: Acetylcysteine 20% Inhal Soln (4ml) INH SCH (22:00)
[2018-02-01] MEDS: Pantoprazole 40 mg Susp UD PO SCH (05:31)
[2018-02-01 05:44] LABS: BASO % 0.1 % (0.0-2.0); HEMOGLOBIN 11.3 g/dL (11.0-16.0); LYMPH # 0.7 K/uL (1.0-4.3); LYMPH % 4.5 % (20.0-40.0); MEAN CELL VOLUME 90.7 fL (81.0-99.0); MEAN CORPUSCULAR HEMOGLOBIN 29.8 pg (27.0-31.0); MEAN CORPUSCULAR HGB CONC 32.9 g/dL (33.0-37.0); MEAN PLATELET VOLUME 9.2 fL (7.2-11.7); MONO # 0.5 K/uL (0.0-0.8); MONO % 3.3 % (0.0-10.0); NEUT # 14.4 K/uL (1.8-7.0); NEUT % 92.1 % (50.0-75.0); NRBC % 0.1 % (0.0-2.0); PLATELET COUNT 273 K/uL (130-400); RBC 3.79 Mil/uL (3.80-5.20); RED CELL DISTRIBUTION WIDTH 15.4 % (11.5-14.5); WHITE BLOOD COUNT 15.6 K/uL (4.8-10.8)
[2018-02-01 06:38] LABS: ALB/GLOB RATIO 0.7 (1.0-2.1); ALBUMIN 2.6 g/dL (3.5-5.0); CALCIUM 7.7 mg/dl (8.6-10.4)
[2018-02-01] MEDS: Tiotropium 18 mcg Cap For Inhalation INH SCH (08:03)
[2018-02-01] MEDS ORDERED: Magnesium Sulfate 1 gm in D5W 1 GM/100 ML BAG IVPB ONE (08:07)
[2018-02-01 08:37] LABS: ANISOCYTOSIS SLIGHT; BANDS 2 % (0-2); LYMPHOCYTE 4 % (20-40); MONOCYTE 3 % (0-10); NEUTROPHIL 90 % (50-75); PLATELET ESTIMATE NORMAL (NORMAL); REACTIVE LYMPHOCYTES 1 % (0-0); TOTAL CELLS COUNTED 100
[2018-02-01 08:38] LABS: GIANT PLATELETS PRESENT; HYPOCHROMIC SLIGHT; LARGE PLATELETS PRESENT; POLYCHROMIC SLIGHT
[2018-02-01] MEDS: MethylPREDNISolone 40 mg Vial IVP SCH ×2 (08:45→21:40)
[2018-02-01] MEDS: Potassium Chloride 20 mEq/15 ml LIQ UD PO SCH ×3 (08:50→21:27)
[2018-02-01] MEDS: Nystatin 100,000 Units/ml Oral Susp 5 ml UD PO SCH ×4 (09:27→21:36)
[2018-02-01] MEDS: Metoprolol Succinate 25 mg XL Tab PO SCH (09:27)
--- NOTE | 2018-02-01 09:48 | CP.PCM.PN ---
Subjective - Date & Time of Evaluation Date of Evaluation: 02/01/18 Time of Evaluation: 09:45 - Subjective Subjective: Patient seen and examined at bedside. Patient awake, alert breathing comfotable. Objective - Vital Signs/Intake and Output Vital Signs (last 24 hours): Temp Pulse Resp BP Pulse Ox 98.1 F 68 17 142/54 L 97 02/01/18 04:00 02/01/18 07:02 02/01/18 08:05 02/01/18 09:27 02/01/18 07:02 Intake and Output: 02/01/18 02/01/18 06:59 18:59 Intake Total 323.5 Output Total 300 Balance 23.5 - Medications Medications: Current Medications Albuterol/Ipratropium (Duoneb 3 Mg/0.5 Mg (3 Ml) Ud) 3 ml INH RQ6 [facility] Alprazolam (Xanax) 0.5 mg PO BID PRN PRN Reason: Anxiety Last Admin: 01/31/18 00:13 Dose: 0.5 mg Dabigatran (Pradaxa) 75 mg PO BID [facility] Last Admin: 02/01/18 09:27 Dose: 75 mg Diltiazem HCl (Cardizem) 30 mg PO Q8 [facility] Last Admin: 02/01/18 05:31 Dose: 30 mg Furosemide (Lasix) 20 mg PO DAILY [facility] Last Admin: 02/01/18 09:27 Dose: 20 mg Potassium Chloride (Potassium Chloride 10 Meq/100 Ml) 10 meq in 100 mls @ 100 mls/hr IVPB Q1H [facility] Stop: 02/01/18 10:59 Last Admin: 02/01/18 09:44 Dose: 100 mls/hr Methylprednisolone (Solu-Medrol) 20 mg IVP Q12H [facility] Last Admin: 02/01/18 08:45 Dose: 20 mg Metoprolol Succinate (Toprol Xl) 25 mg PO DAILY [facility] Last Admin: 02/01/18 09:27 Dose: 25 mg Nystatin (Nystatin Oral Susp) 5 ml PO QID [facility] Last Admin: 02/01/18 09:27 Dose: 5 ml Pantoprazole Sodium (Protonix Susp) 40 mg PO 0600 [facility] Last Admin: 02/01/18 05:31 Dose: 40 mg Paroxetine HCl (Paxil) 20 mg PO DAILY [facility] Last Admin: 02/01/18 09:27 Dose: 20 mg Potassium Chloride (Potassium Chloride Oral Soln) 40 meq PO Q6H [facility] Stop: 02/01/18 20:01 Last Admin: 02/01/18 08:50 Dose: 40 meq Tiotropium [place] (Spiriva) 18 mcg INH RQ24 [facility] Last Admin: 02/01/18 08:03 Dose: 18 mcg - Labs Labs: 02/01/18 05:34 02/01/18 05:34 APTT 65 SECONDS (21-34) H D 01/29/18 06:52 - Head Exam Head Exam: ATRAUMATIC, NORMAL INSPECTION - Eye Exam Eye Exam: EOMI - ENT Exam ENT Exam: Mucous Membranes Moist - Respiratory Exam Respiratory Exam: Rales, NORMAL BREATHING PATTERN - Cardiovascular Exam Cardiovascular Exam: REGULAR RHYTHM, +S1, +S2, +S4, Murmur - GI/Abdominal Exam GI & Abdominal Exam: Normal Bowel Sounds - Extremities Exam Extremities Exam: Normal Inspection Assessment and Plan - Assessment and Plan (Free Text) Assessment: -A-fib: rate controlled, on CCB orally, not on IV cardizem -Heart failure//Diastolic:optimize heart medications -continue all other treatment -PAtient remains hemodynamically stable - prognosis poor as patient has pulmonary HTN -code status DNI -continue to monitor
--- NOTE | 2018-02-01 12:21 | PN ---
DATE: 02/01/2018 TIME: 7:30 a.m. SUBJECTIVE: The patient last night was more comfortable. Her heart rate was much controlled well with Cardizem. The Cardizem drip was discontinued last night. Currently, she is still receiving high FiO2, but saturation is 99% at the FiO2 of 60%. The patient had a confusion last night and she was also agitated last night. She was trying to pull things out. PHYSICAL EXAMINATION: VITAL SIGNS: Currently afebrile, heartbeat is 68 beats per minute, blood pressure 134/49, saturation is 97% with the FiO2 of 60% high flow. CHEST: Good air entry but bilateral respiratory wheezing and rales noted. HEART: Regular heart sounds. ABDOMEN: Soft. EXTREMITIES: Edema 1+ noted. MEDICATIONS: So far, the cultures are negative. The patient is currently on Solu-Medrol 20 every 12 hours, also received potassium supplementation. Antibiotic is currently off. LABORATORY DATA: Reviewed. Chest x-ray showing slight worsening infiltrative changes. ASSESSMENT AND PLAN: An 87-year-old female, admitted with a history of chronic atrial fibrillation, admitted with pulmonary fibrosis. We will continue the current treatment. Out of bed to chair, physical therapy, continue the oxygen, and we will follow up the patient. Coreen Barbour MD
--- NOTE | 2018-02-01 12:29 | RAD ---
Date of service: 02/01/2018 HISTORY: pna COMPARISON: 01/30/2018. FINDINGS: LUNGS: There is redemonstration of multifocal airspace disease in the lungs. There is also a background of interstitial fibrosis. PLEURA: Small effusions. No pneumothorax. CARDIOVASCULAR: Cannot evaluate due to overlying leads. Stable position of left-sided permanent pacing device. No aortic atherosclerotic calcification present. OSSEOUS STRUCTURES: Within normal limits for the patient's age. VISUALIZED UPPER ABDOMEN: Normal. OTHER FINDINGS: None. IMPRESSION: No change in multifocal airspace disease superimposed on underlying chronic interstitial fibrosis. Limited portable examination.
[2018-02-01] MEDS: Albuterol-Ipratrop 3 mg / 0.5 (3 ml) UD INH SCH ×3 (13:43→19:26)
[2018-02-01] MEDS ORDERED: Potassium Chloride 20 mEq/15 ml LIQ UD PO ONE (21:26)
--- NOTE | 2018-02-01 22:47 | CP.PCM.PN ---
Subjective - Date & Time of Evaluation Date of Evaluation: 02/01/18 Time of Evaluation: 12:05 - Subjective Subjective: Patient seen and examined at bedside. Patient currently on vapotherm, saturating mid 80s. Patient denies any chest pain, shortness of breath, or palpitations. Objective - Vital Signs/Intake and Output Vital Signs (last 24 hours): Temp Pulse Resp BP Pulse Ox 98.4 F 65 14 104/40 L 96 01/29/18 08:00 01/31/18 06:26 01/31/18 08:16 01/31/18 10:16 01/31/18 06:26 Intake and Output: 01/31/18 01/31/18 06:59 18:59 Intake Total 670 5 Output Total 500 0 Balance 170 5 - Medications Medications: Current Medications Alprazolam (Xanax) 0.5 mg PO BID PRN PRN Reason: Anxiety Last Admin: 01/31/18 00:13 Dose: 0.5 mg Dabigatran (Pradaxa) 75 mg PO BID [facility] Last Admin: 01/31/18 09:24 Dose: 75 mg Furosemide (Lasix) 20 mg PO DAILY [facility] Last Admin: 01/31/18 09:26 Dose: 20 mg Ceftriaxone Sodium 1 gm/ (Sodium Chloride) 100 mls @ 50 mls/hr IVPB DAILY [facility]; Protocol Last Admin: 01/31/18 09:35 Dose: 50 mls/hr Diltiazem HCl 125 mg/ Dextrose 125 mls @ 5 mls/hr IV .Q24H [facility]; Protocol Last Admin: 01/30/18 21:45 Dose: 5 mg/hr, 5 mls/hr Methylprednisolone (Solu-Medrol) 20 mg IVP Q12 [facility] Stop: 01/31/18 22:01 Last Admin: 01/31/18 09:25 Dose: 20 mg Metoprolol Succinate (Toprol Xl) 25 mg PO DAILY [facility] Last Admin: 01/31/18 09:24 Dose: 25 mg Pantoprazole Sodium (Protonix Inj) 40 mg IVP DAILY [facility] Last Admin: 01/31/18 09:26 Dose: 40 mg Paroxetine HCl (Paxil) 40 mg PO DAILY [facility] Last Admin: 01/31/18 09:25 Dose: 40 mg Potassium Chloride (Potassium Chloride Oral Soln) 20 meq PO Q4H [facility] Stop: 01/31/18 11:31 Last Admin: 01/31/18 09:00 Dose: 20 meq - Labs Labs: 01/31/18 06:22 01/31/18 06:22 APTT 65 SECONDS (21-34) H D 01/29/18 06:52 - Additional Findings Additional findings: - Constitutional Appears: No Acute Distress - Head Exam Head Exam: NORMAL INSPECTION, NORMOCEPHALIC - Eye Exam Eye Exam: EOMI, PERRL Pupil Exam: NORMAL ACCOMODATION - ENT Exam ENT Exam: Mucous Membranes Moist - Respiratory Exam Respiratory Exam: Decreased Breath Sounds - Cardiovascular Exam Cardiovascular Exam: Irregular Rhythm, +S1, +S2 - GI/Abdominal Exam GI & Abdominal Exam: Soft, Normal Bowel Sounds. absent: Distended, Tenderness - Extremities Exam Extremities Exam: Normal Inspection. absent: Pedal Edema, Tenderness - Neurological Exam Neurological Exam: Alert, Awake, Oriented x3 - Psychiatric Exam Psychiatric exam: Normal Affect, Normal Mood - Skin Skin Exam: Dry, Intact, Normal Color, Warm Assessment and Plan - Assessment and Plan (Free Text) Plan: Acute on Chronic Diastolic Heart Failure s/p PPM NSTEMI Atrial Fibrillation Pulmonary Fibrosis on home oxygen Hypertension Imaging: - ECHO: Normal EF. Moderate to severe and moderate AI. Moderate to severe pulmonary HTN Management: - As per family's request, no cardiac catherization, medical management only. - Continue with current AC, as per primary. Objective - Vital Signs/Intake and Output Vital Signs (last 24 hours): Temp Pulse Resp BP Pulse Ox 98.1 F 70 17 122/49 L 96 02/01/18 04:00 02/01/18 16:02 02/01/18 21:00 02/01/18 16:02 02/01/18 16:02 Intake and Output: 02/01/18 02/02/18 18:59 06:59 Intake Total 600 Output Total 300 Balance 300 - Medications Medications: Current Medications Albuterol/Ipratropium (Duoneb 3 Mg/0.5 Mg (3 Ml) Ud) 3 ml INH RQ6 [facility] Last Admin: 02/01/18 19:26 Dose: 3 ml Alprazolam (Xanax) 0.5 mg PO BID PRN PRN Reason: Anxiety Last Admin: 01/31/18 00:13 Dose: 0.5 mg Dabigatran (Pradaxa) 75 mg PO BID [facility] Last Admin: 02/01/18 17:55 Dose: 75 mg Diltiazem HCl (Cardizem) 30 mg PO Q8 [facility] Last Admin: 02/01/18 21:36 Dose: 30 mg Furosemide (Lasix) 20 mg PO DAILY [facility] Last Admin: 02/01/18 09:27 Dose: 20 mg Methylprednisolone (Solu-Medrol) 20 mg IVP Q12H [facility] Last Admin: 02/01/18 21:40 Dose: 20 mg Metoprolol Succinate (Toprol Xl) 25 mg PO DAILY [facility] Last Admin: 02/01/18 09:27 Dose: 25 mg Nystatin (Nystatin Oral Susp) 5 ml PO QID [facility] Last Admin: 02/01/18 21:36 Dose: 5 ml Pantoprazole Sodium (Protonix Susp) 40 mg PO 0600 [facility] Last Admin: 02/01/18 05:31 Dose: 40 mg Paroxetine HCl (Paxil) 20 mg PO DAILY [facility] Last Admin: 02/01/18 09:27 Dose: 20 mg Tiotropium [place] (Spiriva) 18 mcg INH RQ24 [facility] Last Admin: 02/01/18 08:03 Dose: 18 mcg - Labs Labs: 02/01/18 05:34 02/01/18 05:34 APTT 65 SECONDS (21-34) H D 01/29/18 06:52
[2018-02-02] MEDS: Albuterol-Ipratrop 3 mg / 0.5 (3 ml) UD INH SCH ×4 (01:04→19:30)
[2018-02-02] MEDS: Pantoprazole 40 mg Susp UD PO SCH (06:17)
[2018-02-02 07:39] LABS: HEMOGLOBIN 11.3 g/dL (11.0-16.0); LYMPH # 0.7 K/uL (1.0-4.3); MEAN CELL VOLUME 92.6 fL (81.0-99.0); MEAN CORPUSCULAR HEMOGLOBIN 30.6 pg (27.0-31.0); MEAN CORPUSCULAR HGB CONC 33.1 g/dL (33.0-37.0); MEAN PLATELET VOLUME 9.5 fL (7.2-11.7); MONO # 0.6 K/uL (0.0-0.8); MONO % 3.4 % (0.0-10.0); NEUT # 15.3 K/uL (1.8-7.0); NEUT % 92.6 % (50.0-75.0); PLATELET COUNT 279 K/uL (130-400); RED CELL DISTRIBUTION WIDTH 15.4 % (11.5-14.5); WHITE BLOOD COUNT 16.5 K/uL (4.8-10.8)
[2018-02-02] MEDS: Tiotropium 18 mcg Cap For Inhalation INH SCH (07:43)
[2018-02-02 08:06] LABS: ALB/GLOB RATIO 0.7 (1.0-2.1); ALBUMIN 2.4 g/dL (3.5-5.0); CALCIUM 7.8 mg/dl (8.6-10.4)
[2018-02-02] MEDS: MethylPREDNISolone 40 mg Vial IVP SCH ×2 (08:28→20:44)
[2018-02-02 08:52] LABS: LYMPHOCYTE 4 % (20-40); MONOCYTE 4 % (0-10); NEUTROPHIL 92 % (50-75); PLATELET ESTIMATE NORMAL (NORMAL); TOTAL CELLS COUNTED 100
[2018-02-02 08:53] LABS: ANISOCYTOSIS SLIGHT; GIANT PLATELETS PRESENT; LARGE PLATELETS PRESENT; TOXIC GRANULATION PRESENT
[2018-02-02 08:54] LABS: HYPOCHROMIC SLIGHT; POLYCHROMIC SLIGHT
[2018-02-02] MEDS: Nystatin 100,000 Units/ml Oral Susp 5 ml UD PO SCH ×4 (09:46→21:44)
[2018-02-02] MEDS: Metoprolol Succinate 25 mg XL Tab PO SCH (09:47)
--- NOTE | 2018-02-02 17:50 | CP.PCM.PN ---
Subjective - Date & Time of Evaluation Date of Evaluation: 02/02/18 Time of Evaluation: 15:10 - Subjective Subjective: Patient seen and examined at bedside. No cardiac events noted. Physical Examination - Additional Findings Additional findings: - Constitutional Appears: No Acute Distress - Head Exam Head Exam: NORMAL INSPECTION, NORMOCEPHALIC - Eye Exam Eye Exam: EOMI, PERRL Pupil Exam: NORMAL ACCOMODATION - ENT Exam ENT Exam: Mucous Membranes Moist - Respiratory Exam Respiratory Exam: Decreased Breath Sounds - Cardiovascular Exam Cardiovascular Exam: Irregular Rhythm, +S1, +S2 - GI/Abdominal Exam GI & Abdominal Exam: Soft, Normal Bowel Sounds. absent: Distended, Tenderness - Extremities Exam Extremities Exam: Normal Inspection. absent: Pedal Edema, Tenderness - Neurological Exam Neurological Exam: Alert, Awake, Oriented x3 - Psychiatric Exam Psychiatric exam: Normal Affect, Normal Mood - Skin Skin Exam: Dry, Intact, Normal Color, Warm Assessment and Plan - Assessment and Plan (Free Text) Plan: Acute on Chronic Diastolic Heart Failure s/p PPM NSTEMI Atrial Fibrillation Pulmonary Fibrosis on home oxygen Hypertension Imaging: - ECHO: Normal EF. Moderate to severe and moderate AI. Moderate to severe pulmonary HTN Management: - As per family's request, no cardiac catherization, medical management only. - Continue with current AC, as per primary. Objective - Vital Signs/Intake and Output Vital Signs (last 24 hours): Temp Pulse Resp BP Pulse Ox 98.3 F 66 28 H 136/47 L 97 02/02/18 16:00 02/02/18 16:17 02/02/18 16:17 02/02/18 16:17 02/02/18 16:17 Intake and Output: 02/02/18 02/02/18 06:59 18:59 Intake Total 220 720 Output Total 300 Balance -80 720 - Medications Medications: Current Medications Albuterol/Ipratropium (Duoneb 3 Mg/0.5 Mg (3 Ml) Ud) 3 ml INH RQ6 [facility] Last Admin: 02/02/18 13:09 Dose: 3 ml Alprazolam (Xanax) 0.5 mg PO BID PRN PRN Reason: Anxiety Last Admin: 01/31/18 00:13 Dose: 0.5 mg Dabigatran (Pradaxa) 75 mg PO BID [facility] Last Admin: 02/02/18 09:46 Dose: 75 mg Diltiazem HCl (Cardizem) 30 mg PO Q8 [facility] Last Admin: 02/02/18 14:07 Dose: 30 mg Furosemide (Lasix) 20 mg PO DAILY [facility] Last Admin: 02/02/18 09:47 Dose: 20 mg Methylprednisolone (Solu-Medrol) 20 mg IVP Q12H [facility] Last Admin: 02/02/18 08:28 Dose: 20 mg Metoprolol Succinate (Toprol Xl) 25 mg PO DAILY [facility] Last Admin: 02/02/18 09:47 Dose: 25 mg Nystatin (Nystatin Oral Susp) 5 ml PO QID [facility] Last Admin: 02/02/18 14:07 Dose: 5 ml Pantoprazole Sodium (Protonix Susp) 40 mg PO 0600 [facility] Last Admin: 02/02/18 06:17 Dose: 40 mg Paroxetine HCl (Paxil) 20 mg PO DAILY [facility] Last Admin: 02/02/18 09:47 Dose: 20 mg Tiotropium [place] (Spiriva) 18 mcg INH RQ24 [facility] Last Admin: 02/02/18 07:43 Dose: 18 mcg - Labs Labs: 02/02/18 07:32 02/02/18 07:32 APTT 65 SECONDS (21-34) H D 01/29/18 06:52
[2018-02-03] MEDS: Albuterol-Ipratrop 3 mg / 0.5 (3 ml) UD INH SCH ×3 (02:18→19:25)
[2018-02-03 05:49] LABS: BASO % 0.2 % (0.0-2.0); HEMOGLOBIN 11.6 g/dL (11.0-16.0); LYMPH # 0.7 K/uL (1.0-4.3); LYMPH % 4.2 % (20.0-40.0); MEAN CELL VOLUME 91.8 fL (81.0-99.0); MEAN CORPUSCULAR HEMOGLOBIN 29.7 pg (27.0-31.0); MEAN CORPUSCULAR HGB CONC 32.4 g/dL (33.0-37.0); MEAN PLATELET VOLUME 9.8 fL (7.2-11.7); MONO # 0.3 K/uL (0.0-0.8); MONO % 1.9 % (0.0-10.0); NEUT # 16.4 K/uL (1.8-7.0); NEUT % 93.7 % (50.0-75.0); NRBC % 0.1 % (0.0-2.0); PLATELET COUNT 237 K/uL (130-400); RBC 3.92 Mil/uL (3.80-5.20); RED CELL DISTRIBUTION WIDTH 15.3 % (11.5-14.5); WHITE BLOOD COUNT 17.5 K/uL (4.8-10.8)
[2018-02-03] MEDS: Pantoprazole 40 mg Susp UD PO SCH (06:47)
[2018-02-03 06:54] LABS: ALB/GLOB RATIO 0.7 (1.0-2.1); ALBUMIN 2.4 g/dL (3.5-5.0); CALCIUM 7.7 mg/dl (8.6-10.4)
[2018-02-03] MEDS: MethylPREDNISolone 40 mg Vial IVP SCH ×2 (07:48→22:52)
[2018-02-03] MEDS: Tiotropium 18 mcg Cap For Inhalation INH SCH (08:00)
[2018-02-03 09:04] LABS: MONOCYTE 1 % (0-10); TOTAL CELLS COUNTED 100
[2018-02-03 09:05] LABS: LYMPHOCYTE 2 % (20-40); NEUTROPHIL 97 % (50-75); PLATELET ESTIMATE NORMAL (NORMAL)
--- NOTE | 2018-02-03 09:31 | CP.PCM.PN ---
<MikeorlandoGiovanna - Last Filed: 02/03/18 09:29> Subjective - Date & Time of Evaluation Date of Evaluation: 02/03/18 Time of Evaluation: 09:30 - Subjective Subjective: Cardiology Follow Up Patient seen and examined at bedside. Patient denies any chest pain, shortness of breath, or palpitations. Objective - Vital Signs/Intake and Output Vital Signs (last 24 hours): Temp Pulse Resp BP Pulse Ox 97.6 F 62 17 134/53 L 93 L 02/03/18 08:00 02/03/18 08:17 02/03/18 08:17 02/03/18 08:17 02/03/18 08:17 Intake and Output: 02/03/18 02/03/18 06:59 18:59 Intake Total 400 Output Total 500 Balance -100 - Medications Medications: Current Medications Albuterol/Ipratropium (Duoneb 3 Mg/0.5 Mg (3 Ml) Ud) 3 ml INH RQ6 [facility] Last Admin: 02/03/18 08:00 Dose: 3 ml Alprazolam (Xanax) 0.5 mg PO BID PRN PRN Reason: Anxiety Last Admin: 01/31/18 00:13 Dose: 0.5 mg Dabigatran (Pradaxa) 75 mg PO BID [facility] Last Admin: 02/02/18 18:00 Dose: 75 mg Diltiazem HCl (Cardizem) 30 mg PO Q8 [facility] Last Admin: 02/03/18 06:47 Dose: 30 mg Furosemide (Lasix) 20 mg PO DAILY [facility] Last Admin: 02/02/18 09:47 Dose: 20 mg Methylprednisolone (Solu-Medrol) 20 mg IVP Q12H [facility] Last Admin: 02/03/18 07:48 Dose: 20 mg Metoprolol Succinate (Toprol Xl) 25 mg PO DAILY [facility] Last Admin: 02/02/18 09:47 Dose: 25 mg Nystatin (Nystatin Oral Susp) 5 ml PO QID [facility] Last Admin: 02/02/18 21:44 Dose: 5 ml Pantoprazole Sodium (Protonix Susp) 40 mg PO 0600 [facility] Last Admin: 02/03/18 06:47 Dose: 40 mg Paroxetine HCl (Paxil) 20 mg PO DAILY [facility] Last Admin: 02/02/18 09:47 Dose: 20 mg Tiotropium [place] (Spiriva) 18 mcg INH RQ24 [facility] Last Admin: 02/03/18 08:00 Dose: 18 mcg - Labs Labs: 02/03/18 05:40 02/03/18 06:37 APTT 65 SECONDS (21-34) H D 01/29/18 06:52 - Additional Findings Additional findings: - Constitutional Appears: No Acute Distress - Head Exam Head Exam: NORMAL INSPECTION, NORMOCEPHALIC - Eye Exam Eye Exam: EOMI, PERRL Pupil Exam: NORMAL ACCOMODATION - ENT Exam ENT Exam: Mucous Membranes Moist - Respiratory Exam Respiratory Exam: Decreased Breath Sounds - Cardiovascular Exam Cardiovascular Exam: Irregular Rhythm, +S1, +S2 - GI/Abdominal Exam GI & Abdominal Exam: Soft, Normal Bowel Sounds. absent: Distended, Tenderness - Extremities Exam Extremities Exam: Normal Inspection. absent: Pedal Edema, Tenderness - Neurological Exam Neurological Exam: Alert, Awake, Oriented x3 - Psychiatric Exam Psychiatric exam: Normal Affect, Normal Mood - Skin Skin Exam: Dry, Intact, Normal Color, Warm Assessment and Plan - Assessment and Plan (Free Text) Plan: Acute on Chronic Diastolic Heart Failure s/p PPM NSTEMI Atrial Fibrillation Pulmonary Fibrosis on home oxygen Hypertension Imaging: - ECHO: Normal EF. Moderate to severe and moderate AI. Moderate to severe pulmonary HTN Management: - As per family's request, no cardiac catherization, medical management only. - Continue with current AC, as per primary. Case discussed with Giovanna Moyer, DO PGY2 <Jori Flores - Last Filed: 02/03/18 21:32> Objective - Vital Signs/Intake and Output Vital Signs (last 24 hours): Temp Pulse Resp BP Pulse Ox 97.2 F L 75 12 136/48 L 96 02/03/18 16:00 02/03/18 20:18 02/03/18 20:18 02/03/18 20:18 02/03/18 20:18 Intake and Output: 02/03/18 02/04/18 18:59 06:59 Intake Total 720 Output Total 250 Balance 470 - Medications Medications: Current Medications Albuterol/Ipratropium (Duoneb 3 Mg/0.5 Mg (3 Ml) Ud) 3 ml INH RQ6 [facility] Last Admin: 02/03/18 19:25 Dose: 3 ml Alprazolam (Xanax) 0.5 mg PO BID PRN PRN Reason: Anxiety Last Admin: 01/31/18 00:13 Dose: 0.5 mg Dabigatran (Pradaxa) 75 mg PO BID [facility] Last Admin: 02/03/18 18:41 Dose: 75 mg Diltiazem HCl (Cardizem) 30 mg PO Q8 [facility] Last Admin: 02/03/18 13:11 Dose: 30 mg Furosemide (Lasix) 20 mg PO DAILY [facility] Last Admin: 02/03/18 09:39 Dose: 20 mg Methylprednisolone (Solu-Medrol) 20 mg IVP Q12H [facility] Last Admin: 02/03/18 07:48 Dose: 20 mg Metoprolol Succinate (Toprol Xl) 25 mg PO DAILY [facility] Last Admin: 02/03/18 09:39 Dose: 25 mg Nystatin (Nystatin Oral Susp) 5 ml PO QID [facility] Last Admin: 02/03/18 17:09 Dose: 5 ml Pantoprazole Sodium (Protonix Susp) 40 mg PO 0600 [facility] Last Admin: 02/03/18 06:47 Dose: 40 mg Paroxetine HCl (Paxil) 20 mg PO DAILY [facility] Last Admin: 02/03/18 09:39 Dose: 20 mg Tiotropium [place] (Spiriva) 18 mcg INH RQ24 [facility] Last Admin: 02/03/18 08:00 Dose: 18 mcg - Labs Labs: 02/03/18 05:40 02/03/18 06:37 APTT 65 SECONDS (21-34) H D 01/29/18 06:52 Assessment and Plan - Assessment and Plan (Free Text) Plan: Patient seen and evaluated personally by ms Plan of care d/w the resident and as documented
[2018-02-03] MEDS: Nystatin 100,000 Units/ml Oral Susp 5 ml UD PO SCH ×4 (09:39→22:52)
[2018-02-03] MEDS: Metoprolol Succinate 25 mg XL Tab PO SCH (09:39)
--- NOTE | 2018-02-03 10:59 | PN ---
DATE: 02/03/2018 SUBJECTIVE: The patient today is feeling much better than yesterday. She is able to eat. She was actually out of bed to chair. The patient's son at bedside. PHYSICAL EXAMINATION: VITAL SIGNS: Afebrile temperature, heart rate is 69, blood pressure is 135/53, respiration is 20, oxygen saturation is 98% with FIO2 of 50%. CHEST: Good air entry. Expiratory wheezing. Rales noted. Regular heart sound. ABDOMEN: Soft. Nontender. EXTREMITIES: Pedal edema negative. LABORATORY DATA: Blood culture and urine culture is negative. Labs are reviewed and nonspecific. ASSESSMENT AND PLAN: Feeling well otherwise. We will continue the current treatment and we will follow up the patient. Coreen Barbour MD
[2018-02-04] MEDS: Albuterol-Ipratrop 3 mg / 0.5 (3 ml) UD INH SCH ×4 (01:41→19:49)
[2018-02-04 06:11] LABS: BASO % 0.1 % (0.0-2.0); HEMOGLOBIN 12.1 g/dL (11.0-16.0); LYMPH # 1.3 K/uL (1.0-4.3); LYMPH % 5.3 % (20.0-40.0); MEAN CELL VOLUME 93.4 fL (81.0-99.0); MEAN CORPUSCULAR HEMOGLOBIN 30.5 pg (27.0-31.0); MEAN CORPUSCULAR HGB CONC 32.7 g/dL (33.0-37.0); MEAN PLATELET VOLUME 9.2 fL (7.2-11.7); MONO # 1.1 K/uL (0.0-0.8); MONO % 4.5 % (0.0-10.0); NEUT # 21.6 K/uL (1.8-7.0); NEUT % 90.1 % (50.0-75.0); PLATELET COUNT 314 K/uL (130-400); RBC 3.95 Mil/uL (3.80-5.20); RED CELL DISTRIBUTION WIDTH 15.4 % (11.5-14.5)
[2018-02-04 06:37] LABS: ALB/GLOB RATIO 0.8 (1.0-2.1); ALBUMIN 2.8 g/dL (3.5-5.0); CALCIUM 7.7 mg/dl (8.6-10.4)
[2018-02-04] MEDS: Pantoprazole 40 mg Susp UD PO SCH (06:37)
[2018-02-04] MEDS: Tiotropium 18 mcg Cap For Inhalation INH SCH (07:20)
[2018-02-04] MEDS: MethylPREDNISolone 40 mg Vial IVP SCH (07:58)
[2018-02-04 08:51] LABS: BANDS 4 % (0-2); LYMPHOCYTE 4 % (20-40); MONOCYTE 3 % (0-10); NEUTROPHIL 89 % (50-75); TOTAL CELLS COUNTED 100
[2018-02-04 08:52] LABS: PLATELET ESTIMATE NORMAL (NORMAL)
[2018-02-04] MEDS: Nystatin 100,000 Units/ml Oral Susp 5 ml UD PO SCH ×4 (09:56→22:54)
[2018-02-04] MEDS: Saccharomyces Boulardi 250 mg Cap PO SCH ×3 (09:57→19:42)
[2018-02-04] MEDS: Metoprolol Succinate 25 mg XL Tab PO SCH (09:57)
[2018-02-04] MEDS ORDERED: MethylPREDNISolone 40 mg Vial IVP SCH (10:00)
[2018-02-04 10:30] LABS: URINE BACTERIA OCC (<OCC); URINE BILIRUBIN NEGATIVE (NEGATIVE); URINE BLOOD NEGATIVE (NEGATIVE); URINE CLARITY Clear (Clear); URINE COLOR Yellow (YELLOW); URINE GLUCOSE (UA) NORMAL (Normal); URINE LEUKOCYTE ESTERASE NEG Leu/uL (Negative); URINE PROTEIN NEGATIVE (NEGATIVE); URINE UROBILINOGEN NORMAL mg/dL (0.2-1.0)
--- NOTE | 2018-02-04 11:59 | PN ---
DATE: 02/03/2018 SUBJECTIVE: The patient is much comfortable. She is currently receiving low oxygen, 95% saturation noted. The patient is having minimal cough. She is out of bed to chair. Eating well. No chest pain. Minimal exertional dyspnea noted. PHYSICAL EXAMINATION: VITAL SIGNS: Temperature is afebrile, blood pressure is 134/53. According to the nurse, the patient had two episodes of diarrhea. We will continue to monitor. We will do the stool workup and we will follow up the patient. 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 Continue to taper off the oxygen slowly, physical therapy, possible rehab evaluation and we will follow up the patient. Coreen Barbour MD
--- NOTE | 2018-02-04 12:03 | RAD ---
Chest x-ray single frontal view HISTORY: Pneumonia. COMPARISON: 02/01/2018 Findings: Prominent diffuse confluent increased airspace opacifications which may represent superimposed acute infiltrate on chronic fibrotic changes. Clinical correlation. Post treatment interval follow-up may be helpful if clinically indicated. Correlation with chest CT may be helpful if clinically indicated. Surgical clips in the neck and at the right apex. Atherosclerotic calcification at the aortic knob. Cardiomegaly. Left-sided pacemaker. Degenerative changes in the spine and shoulders. Impression: Prominent diffuse confluent increased airspace opacifications which may represent superimposed acute infiltrate on chronic fibrotic changes. Clinical correlation. Post treatment interval follow-up may be helpful if clinically indicated. Correlation with chest CT may be helpful if clinically indicated. Surgical clips in the neck and at the right apex. Atherosclerotic calcification at the aortic knob. Cardiomegaly. Left-sided pacemaker.
--- NOTE | 2018-02-04 19:46 | CP.PCM.CON ---
History of Present Illness - History of Present Illness History of Present Illness: INFECTIOUS DISEASE ICU #3 CONSULTATION PHOENIX BROWN MD, FACP 02/04/2018 CHART REVIEWED PT EXAMINED CASE DISCUSSED WITH PMD DR GHOSH AND OSD [employer] FINISHER 87 F with hx of Pulm fibrosis admitted for dyspnea on minimal exertion Labs revealed Non STEMI and CHF excerbation Patient not in distress but still has dyspnea ECHO: Normal EF Moderate to severe and moderate AI Moderate to severe pulmonary HTN AN INFECTIOUS DISEASE CONSULTATION WAS REQUESTED BECAUSE OF ELEVATED WBC AND DIARRHEA ALLERGIC TO CODEINE/DIAZEPAMS NO TOBACCO SOCIAL MEAL TIME ETOH IN THE PAST FAMILY HX NOT APPLICABLE A/P: LEUKOCYTOSIS WITH DIARRHEA POST PNEUMONIA - R/P C DIFF VS ANTIBIOTIC INDUCED DIARRHEA DEMENTIA S/P THYROID SURGERY Acute on chronic diastolic heart failure Non STEMI Pulmonary Fibrosis ? A Fib S/P PPM Change Pradaxa to Renal dose Lovenox Diuretic therapy Patient may lkely benefit fro cardiac Cath and Aortic valve evaluation Will d/w the family and PMD NO OBVIOUS NEED FOR ISOLATION SINCE BM'S REDUCING TO SOLID SMALL PARTICLES, BUT WILL BE PREEMPTIVE-START VANCOMYCIN PO 125MG PO Q 6 HOURS, DEEMED SAFE AND PRECAUTIONARY. Past Patient History - Infectious Disease Hx of Infectious Diseases: None - Tetanus Immunizations Tetanus Immunization: Unknown - Past Medical History & Family History Past Medical History?: Yes - Past Social History Smoking Status: Never Smoked - CARDIAC Hx Atrial Fibrillation: Yes Hx Congestive Heart Failure: Yes Hx Hypercholesterolemia: Yes Hx Hypertension: Yes Hx Pacemaker: Yes Hx Peripheral Edema: No - PULMONARY Hx Bronchitis: Yes Hx Chronic Obstructive Pulmonary Disease (COPD): Yes Hx Pulmonary Embolism: Yes - NEUROLOGICAL Hx Dementia: Yes (new dementia; forgetful) - HEENT Hx HEENT Problems: Yes 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; gets injections) - RENAL Hx Chronic Kidney Disease: No - ENDOCRINE/METABOLIC Hx Hyperthyroidism: Yes (surgery done) - HEMATOLOGICAL/ONCOLOGICAL Hx Blood Disorders: No - INTEGUMENTARY Hx Dermatological Problems: No - MUSCULOSKELETAL/RHEUMATOLOGICAL Hx Arthritis: Yes Hx Falls: No - GASTROINTESTINAL Hx Gastrointestinal Disorders: No - GENITOURINARY/GYNECOLOGICAL Hx Genitourinary Disorders: No - PSYCHIATRIC Hx Anxiety: Yes (takes paxil) Hx Substance Use: No - SURGICAL HISTORY Hx Surgeries: Yes Hx Thyroidectomy: Yes Other/Comment: lumpectomy left breast - ANESTHESIA Hx Anesthesia: Yes Hx Anesthesia Reactions: No Hx Malignant Hyperthermia: No Meds Allergies/Adverse Reactions: Allergies Allergy/AdvReac Type Severity Reaction Status Date / Time codeine Allergy Intermediate Verified 01/24/18 12:00 lorazepam AdvReac Severe Verified 01/24/18 12:00 - Medications Medications: Current Medications Albuterol/Ipratropium (Duoneb 3 Mg/0.5 Mg (3 Ml) Ud) 3 ml INH RQ6 [facility] Last Admin: 01/26/18 07:53 Dose: 3 ml Enoxaparin Sodium (Lovenox) 30 mg SC Q12 [facility] Furosemide (Lasix) 20 mg IVP BID [facility] Ceftriaxone Sodium 1 gm/ (Sodium Chloride) 100 mls @ 100 mls/hr IVPB DAILY [facility]; Protocol Last Admin: 01/26/18 09:35 Dose: 100 mls/hr Azithromycin 500 mg/ Sodium (Chloride) 250 mls @ 250 mls/hr IVPB DAILY [facility]; Protocol Last Admin: 01/25/18 10:10 Dose: 250 mls/hr Influenza Virus Vaccine (Fluzone Quad [id number]) 60 mcg IM .ONCE ONE Stop: 01/27/18 12:01 Losartan Potassium (Cozaar) 50 mg PO DAILY [facility] Last Admin: 01/26/18 09:29 Dose: 50 mg Methylprednisolone (Solu-Medrol) 40 mg IVP DAILY [facility] Metoprolol Tartrate (Lopressor) 50 mg PO BID [facility] Last Admin: 01/26/18 09:29 Dose: 50 mg Pantoprazole Sodium (Protonix Inj) 40 mg IVP DAILY [facility] Last Admin: 01/26/18 09:29 Dose: 40 mg Paroxetine HCl (Paxil) 40 mg PO DAILY [facility] Last Admin: 01/26/18 09:29 Dose: 40 mg Pneumococcal Polyvalent Vaccine (Pneumovax 23 Vaccine) 0.5 ml IM .ONCE ONE Stop: 01/27/18 12:01 Results - Vital Signs Recent Vital Signs: Last Vital Signs Temp 98.1 F 01/26/18 06:50 Pulse 86 01/26/18 09:31 Resp 20 01/26/18 06:50 BP 120/55 L 01/26/18 09:33 Pulse Ox 95 01/26/18 06:50 - Labs Result Diagrams: 01/26/18 08:10 01/26/18 08:10 Labs: Laboratory Results - last 24 hr 01/25/18 01/26/18 01/26/18 07:43 06:37 08:10 WBC 18.7 H RBC 3.60 L Hgb 11.2 Hct 32.8 L MCV 91.0 MCH 31.1 H MCHC 34.2 RDW 15.4 H Plt Count 303 MPV 10.0 Neut % (Auto) 87.8 H Lymph % (Auto) 3.0 L Wallace % (Auto) 9.0 Eos % (Auto) 0.0 Baso % (Auto) 0.2 Neut # (Auto) 16.5 H Lymph # (Auto) 0.6 L Wallace # (Auto) 1.7 H Eos # (Auto) 0.0 Baso # (Auto) 0.0 Neutrophils % (Manual) 95 H Lymphocytes % (Manual) 3 L Monocytes % (Manual) 2 Toxic Granulation Present Platelet Estimate Normal Large Platelets Present Polychromasia Slight Hypochromasia (manual) Slight Anisocytosis (manual) Slight Sodium Potassium Chloride Carbon Dioxide Anion Gap BUN Creatinine Est GFR ( Amer) Est GFR (Non-Af Amer) POC Glucose (mg/dL) 142 H Random Glucose Calcium Total Bilirubin AST ALT Alkaline Phosphatase Total Protein Albumin Globulin Albumin/Globulin Ratio 01/26/18 08:10 WBC RBC Hgb Hct MCV MCH MCHC RDW Plt Count MPV Neut % (Auto) Lymph % (Auto) Wallace % (Auto) Eos % (Auto) Baso % (Auto) Neut # (Auto) Lymph # (Auto) Wallace # (Auto) Eos # (Auto) Baso # (Auto) Neutrophils % (Manual) Lymphocytes % (Manual) Monocytes % (Manual) Toxic Granulation Platelet Estimate Large Platelets Polychromasia Hypochromasia (manual) Anisocytosis (manual) Sodium 133 Potassium 3.3 L Chloride 94 L Carbon Dioxide 26 Anion Gap 16 BUN 41 H Creatinine 1.5 H Est GFR ( Amer) 40 Est GFR (Non-Af Amer) 33 POC Glucose (mg/dL) Random Glucose 113 H Calcium 8.2 L Total Bilirubin 0.7 AST 86 H D ALT 31 Alkaline Phosphatase 159 H D Total Protein 7.1 Albumin 3.0 L Globulin 4.1 H Albumin/Globulin Ratio 0.7 L Past Patient History - Infectious Disease Hx of Infectious Diseases: None - Tetanus Immunizations Tetanus Immunization: Unknown - Past Medical History & Family History Past Medical History?: Yes - Past Social History Smoking Status: Never Smoked - CARDIAC Hx Congestive Heart Failure: Yes Hx Hypercholesterolemia: Yes Hx Hypertension: Yes - PULMONARY Hx Chronic Obstructive Pulmonary Disease (COPD): Yes - NEUROLOGICAL Hx Dementia: Yes (new dementia; forgetful) - HEENT Hx HEENT Problems: Yes 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; gets injections) - RENAL Hx Chronic Kidney Disease: No - ENDOCRINE/METABOLIC Hx Hyperthyroidism: Yes (surgery done) - HEMATOLOGICAL/ONCOLOGICAL Hx Blood Disorders: No - INTEGUMENTARY Hx Dermatological Problems: No - MUSCULOSKELETAL/RHEUMATOLOGICAL Hx Arthritis: Yes - GASTROINTESTINAL Hx Gastrointestinal Disorders: No - GENITOURINARY/GYNECOLOGICAL Hx Genitourinary Disorders: No - PSYCHIATRIC Hx Anxiety: Yes (takes paxil) Hx Substance Use: No - SURGICAL HISTORY Hx Surgeries: Yes Hx Thyroidectomy: Yes Other/Comment: lumpectomy left breast - ANESTHESIA Hx Anesthesia: Yes Hx Anesthesia Reactions: No Hx Malignant Hyperthermia: No Meds Allergies/Adverse Reactions: Allergies Allergy/AdvReac Type Severity Reaction Status Date / Time codeine Allergy Intermediate Verified 01/24/18 12:00 lorazepam AdvReac Severe Verified 01/24/18 12:00 - Medications Medications: Current Medications Albuterol/Ipratropium (Duoneb 3 Mg/0.5 Mg (3 Ml) Ud) 3 ml INH RQ6 [facility] Last Admin: 02/04/18 13:50 Dose: 3 ml Alprazolam (Xanax) 0.5 mg PO BID PRN PRN Reason: Anxiety Last Admin: 01/31/18 00:13 Dose: 0.5 mg Budesonide (Pulmicort Respules) 0.5 mg INH RQ12 [facility] Dabigatran (Pradaxa) 75 mg PO BID [facility] Last Admin: 02/04/18 17:26 Dose: 75 mg Diltiazem HCl (Cardizem) 30 mg PO Q8 [facility] Last Admin: 02/04/18 13:46 Dose: 30 mg Furosemide (Lasix) 20 mg PO DAILY [facility] Last Admin: 02/04/18 09:56 Dose: 20 mg Metoprolol Succinate (Toprol Xl) 25 mg PO DAILY [facility] Last Admin: 02/04/18 09:57 Dose: 25 mg Metronidazole (Flagyl) 250 mg PO Q8H [facility]; Protocol Last Admin: 02/04/18 17:26 Dose: 250 mg Nystatin (Nystatin Oral Susp) 5 ml PO QID [facility] Last Admin: 02/04/18 17:26 Dose: 5 ml Pantoprazole Sodium (Protonix Susp) 40 mg PO 0600 [facility] Last Admin: 02/04/18 06:37 Dose: 40 mg Paroxetine HCl (Paxil) 20 mg PO DAILY [facility] Last Admin: 02/04/18 09:56 Dose: 20 mg Saccharomyces Boulardii (Florastor) 250 mg PO TID [facility] Last Admin: 02/04/18 14:23 Dose: 250 mg Tiotropium [place] (Spiriva) 18 mcg INH RQ24 [facility] Last Admin: 02/04/18 07:20 Dose: 18 mcg Vancomycin HCl (Vancocin (Oral Or Rectal Use)) 125 mg PO Q6H [facility]; Protocol Vitamin A (Vitamin A & D Oint Ud Foilpak) 1 ea TOP Q8 PRN PRN Reason: dry lips Results - Vital Signs Recent Vital Signs: Last Vital Signs Temp 98.1 F 02/04/18 16:00 Pulse 78 02/04/18 18:00 Resp 24 02/04/18 18:00 BP 138/51 L 02/04/18 15:52 Pulse Ox 96 02/04/18 18:00 - Labs Result Diagrams: 02/04/18 06:03 02/04/18 06:03 Labs: Laboratory Results - last 24 hr 02/03/18 02/04/18 02/04/18 07:43 06:03 06:03 WBC 24.0 H RBC 3.95 Hgb 12.1 Hct 36.9 MCV 93.4 MCH 30.5 MCHC 32.7 L RDW 15.4 H Plt Count 314 MPV 9.2 Neut % (Auto) 90.1 H Lymph % (Auto) 5.3 L Wallace % (Auto) 4.5 Eos % (Auto) 0.0 Baso % (Auto) 0.1 Neut # (Auto) 21.6 H Lymph # (Auto) 1.3 Wallace # (Auto) 1.1 H Eos # (Auto) 0.0 Baso # (Auto) 0.0 Neutrophils % (Manual) 89 H Band Neutrophils % 4 H Lymphocytes % (Manual) 4 L Monocytes % (Manual) 3 Platelet Estimate Normal RBC Morphology Normal Sodium 134 Potassium 4.9 Chloride 96 L Carbon Dioxide 28 Anion Gap 15 BUN 54 H Creatinine 1.1 Est GFR ( Amer) 57 Est GFR (Non-Af Amer) 47 Random Glucose 104 Calcium 7.7 L Phosphorus 4.0 Magnesium 1.8 Total Bilirubin 0.6 AST 24 ALT 20 Alkaline Phosphatase 90 Total Protein 6.3 Albumin 2.8 L Globulin 3.6 Albumin/Globulin Ratio 0.8 L Urine Color Urine Clarity Urine pH Ur Specific [place] Urine Protein Urine Glucose (UA) Urine Ketones Urine Blood Urine Nitrate Urine Bilirubin Urine Urobilinogen Ur Leukocyte Esterase Urine WBC (Auto) Urine RBC (Auto) Urine Bacteria C. difficile Ag & Toxin Negative 02/04/18 10:14 WBC RBC Hgb Hct MCV MCH MCHC RDW Plt Count MPV Neut % (Auto) Lymph % (Auto) Wallace % (Auto) Eos % (Auto) Baso % (Auto) Neut # (Auto) Lymph # (Auto) Wallace # (Auto) Eos # (Auto) Baso # (Auto) Neutrophils % (Manual) Band Neutrophils % Lymphocytes % (Manual) Monocytes % (Manual) Platelet Estimate RBC Morphology Sodium Potassium Chloride Carbon Dioxide Anion Gap BUN Creatinine Est GFR ( Amer) Est GFR (Non-Af Amer) Random Glucose Calcium Phosphorus Magnesium Total Bilirubin AST ALT Alkaline Phosphatase Total Protein Albumin Globulin Albumin/Globulin Ratio Urine Color Yellow Urine Clarity Clear Urine pH 6.0 Ur Specific [place] 1.015 Urine Protein Negative Urine Glucose (UA) Normal Urine Ketones Negative Urine Blood Negative Urine Nitrate Negative Urine Bilirubin Negative Urine Urobilinogen Normal Ur Leukocyte Esterase Neg Urine WBC (Auto) 1 Urine RBC (Auto) 1 Urine Bacteria Occ H C. difficile Ag & Toxin
[2018-02-04] MEDS: Budesonide 0.5 mg/2 ml Inhal Susp UD INH SCH (19:49)
[2018-02-04] MEDS ORDERED: Saccharomyces Boulardi 250 mg Cap PO SCH (20:00)
[2018-02-04] MEDS: Vancomycin 125 MG/5 ML SOLN (ORAL/RECTAL) PO SCH (20:15)
[2018-02-05] MEDS: Albuterol-Ipratrop 3 mg / 0.5 (3 ml) UD INH SCH ×4 (01:06→19:09)
[2018-02-05] MEDS: Vancomycin 125 MG/5 ML SOLN (ORAL/RECTAL) PO SCH ×4 (01:30→20:46)
[2018-02-05] MEDS: Pantoprazole 40 mg Susp UD PO SCH (05:34)
[2018-02-05 05:46] LABS: BASO % 0.3 % (0.0-2.0); EOS % 0.1 % (0.0-4.0); HEMOGLOBIN 11.2 g/dL (11.0-16.0); LYMPH # 1.1 K/uL (1.0-4.3); LYMPH % 6.7 % (20.0-40.0); MEAN CELL VOLUME 92.3 fL (81.0-99.0); MEAN CORPUSCULAR HGB CONC 33.5 g/dL (33.0-37.0); MEAN PLATELET VOLUME 8.9 fL (7.2-11.7); MONO # 0.9 K/uL (0.0-0.8); MONO % 5.4 % (0.0-10.0); NEUT # 14.8 K/uL (1.8-7.0); NEUT % 87.5 % (50.0-75.0); PLATELET COUNT 236 K/uL (130-400); RBC 3.62 Mil/uL (3.80-5.20); RED CELL DISTRIBUTION WIDTH 15.1 % (11.5-14.5); WHITE BLOOD COUNT 16.9 K/uL (4.8-10.8)
--- NOTE | 2018-02-05 06:18 | CP.PCM.PN ---
Subjective - Date & Time of Evaluation Date of Evaluation: 02/04/18 Time of Evaluation: 10:30 - Subjective Subjective: Patient seen and evaluated No active cardiac symptoms at this time Conservative medical management for now as per the family request Objective - Vital Signs/Intake and Output Vital Signs (last 24 hours): Temp Pulse Resp BP Pulse Ox 98.1 F 65 19 119/45 L 99 02/04/18 16:00 02/05/18 06:00 02/05/18 06:00 02/05/18 04:17 02/05/18 06:00 Intake and Output: 02/04/18 02/05/18 18:59 06:59 Intake Total 820 Output Total 450 Balance 370 - Medications Medications: Current Medications Albuterol/Ipratropium (Duoneb 3 Mg/0.5 Mg (3 Ml) Ud) 3 ml INH RQ6 [facility] Last Admin: 02/05/18 01:06 Dose: 3 ml Alprazolam (Xanax) 0.5 mg PO BID PRN PRN Reason: Anxiety Last Admin: 02/04/18 22:54 Dose: 0.5 mg Budesonide (Pulmicort Respules) 0.5 mg INH RQ12 [facility] Last Admin: 02/04/18 19:49 Dose: 0.5 mg Dabigatran (Pradaxa) 75 mg PO BID [facility] Last Admin: 02/04/18 17:26 Dose: 75 mg Diltiazem HCl (Cardizem) 30 mg PO Q8 [facility] Last Admin: 02/05/18 05:34 Dose: 30 mg Furosemide (Lasix) 20 mg PO DAILY [facility] Last Admin: 02/04/18 09:56 Dose: 20 mg Metoprolol Succinate (Toprol Xl) 25 mg PO DAILY [facility] Last Admin: 02/04/18 09:57 Dose: 25 mg Nystatin (Nystatin Oral Susp) 5 ml PO QID [facility] Last Admin: 02/04/18 22:54 Dose: 5 ml Pantoprazole Sodium (Protonix Susp) 40 mg PO 0600 [facility] Last Admin: 02/05/18 05:34 Dose: 40 mg Paroxetine HCl (Paxil) 20 mg PO DAILY [facility] Last Admin: 02/04/18 09:56 Dose: 20 mg Saccharomyces Boulardii (Florastor) 500 mg PO BID [facility] Tiotropium [place] (Spiriva) 18 mcg INH RQ24 [facility] Last Admin: 02/04/18 07:20 Dose: 18 mcg Vancomycin HCl (Vancocin (Oral Or Rectal Use)) 125 mg PO Q6H [facility]; Protocol Last Admin: 02/04/18 20:15 Dose: 125 mg Vitamin A (Vitamin A & D Oint Ud Foilpak) 1 ea TOP Q8 PRN PRN Reason: dry lips - Labs Labs: 02/05/18 05:42 02/04/18 06:03 APTT 65 SECONDS (21-34) H D 01/29/18 06:52
[2018-02-05 06:32] LABS: ALB/GLOB RATIO 0.7 (1.0-2.1); ALBUMIN 2.3 g/dL (3.5-5.0); CALCIUM 7.3 mg/dl (8.6-10.4)
[2018-02-05] MEDS: Budesonide 0.5 mg/2 ml Inhal Susp UD INH SCH ×2 (07:45→19:08)
[2018-02-05] MEDS: Tiotropium 18 mcg Cap For Inhalation INH SCH (07:45)
[2018-02-05 08:11] LABS: ANISOCYTOSIS SLIGHT; HYPOCHROMIC SLIGHT; LYMPHOCYTE 4 % (20-40); MONOCYTE 9 % (0-10); NEUTROPHIL 87 % (50-75); OVALOCYTES SLIGHT; PLATELET ESTIMATE NORMAL (NORMAL); POIKILOCYTOSIS SLIGHT; TARGET CELLS SLIGHT; TOTAL CELLS COUNTED 100
[2018-02-05 08:12] LABS: TEARDROP CELLS SLIGHT
[2018-02-05] MEDS: Nystatin 100,000 Units/ml Oral Susp 5 ml UD PO SCH ×4 (09:02→22:08)
[2018-02-05] MEDS: Metoprolol Succinate 25 mg XL Tab PO SCH (09:02)
[2018-02-05] MEDS: Saccharomyces Boulardi 250 mg Cap PO SCH ×2 (09:04→18:21)
--- NOTE | 2018-02-05 09:23 | CP.PCM.PN ---
<Elizabeth Bergmana - Last Filed: 02/05/18 09:22> Subjective - Date & Time of Evaluation Date of Evaluation: 02/05/18 Time of Evaluation: 09:22 - Subjective Subjective: Cardiology Follow Up Patient seen and examined at bedside. Patient denies any chest pain, shortness of breath, or palpitations. Objective - Vital Signs/Intake and Output Vital Signs (last 24 hours): Temp Pulse Resp BP Pulse Ox 98.1 F 76 23 159/58 H 100 02/04/18 16:00 02/05/18 08:17 02/05/18 08:17 02/05/18 09:02 02/05/18 08:17 - Medications Medications: Current Medications Albuterol/Ipratropium (Duoneb 3 Mg/0.5 Mg (3 Ml) Ud) 3 ml INH RQ6 [facility] Last Admin: 02/05/18 07:45 Dose: 3 ml Alprazolam (Xanax) 0.5 mg PO BID PRN PRN Reason: Anxiety Last Admin: 02/04/18 22:54 Dose: 0.5 mg Budesonide (Pulmicort Respules) 0.5 mg INH RQ12 [facility] Last Admin: 02/05/18 07:45 Dose: 0.5 mg Dabigatran (Pradaxa) 75 mg PO BID [facility] Last Admin: 02/05/18 09:02 Dose: 75 mg Diltiazem HCl (Cardizem) 30 mg PO Q8 [facility] Last Admin: 02/05/18 05:34 Dose: 30 mg Furosemide (Lasix) 20 mg PO DAILY [facility] Last Admin: 02/05/18 09:02 Dose: 20 mg Metoprolol Succinate (Toprol Xl) 25 mg PO DAILY [facility] Last Admin: 02/05/18 09:02 Dose: 25 mg Nystatin (Nystatin Oral Susp) 5 ml PO QID [facility] Last Admin: 02/05/18 09:02 Dose: 5 ml Pantoprazole Sodium (Protonix Susp) 40 mg PO 0600 [facility] [place] Last Admin: 02/05/18 05:34 Dose: 40 mg Paroxetine HCl (Paxil) 20 mg PO DAILY [facility] [place] Last Admin: 02/05/18 09:02 Dose: 20 mg Saccharomyces Boulardii (Florastor) 500 mg PO BID [facility] [place] Last Admin: 02/05/18 09:04 Dose: 500 mg Tiotropium [place] (Spiriva) 18 mcg INH RQ24 [facility] Last Admin: 02/05/18 07:45 Dose: 18 mcg Vancomycin HCl (Vancocin (Oral Or Rectal Use)) 125 mg PO Q6H [facility]; Protocol Last Admin: 02/05/18 09:02 Dose: 125 mg Vitamin A (Vitamin A & D Oint Ud Foilpak) 1 ea TOP Q8 PRN PRN Reason: dry lips - Labs Labs: 02/05/18 05:42 02/05/18 05:42 APTT 65 SECONDS (21-34) H D 01/29/18 06:52 - Additional Findings Additional findings: - Constitutional Appears: No Acute Distress - Head Exam Head Exam: NORMAL INSPECTION, NORMOCEPHALIC - Eye Exam Eye Exam: EOMI, PERRL Pupil Exam: NORMAL ACCOMODATION - ENT Exam ENT Exam: Mucous Membranes Moist - Respiratory Exam Respiratory Exam: Decreased Breath Sounds - Cardiovascular Exam Cardiovascular Exam: Irregular Rhythm, +S1, +S2 - GI/Abdominal Exam GI & Abdominal Exam: Soft, Normal Bowel Sounds. absent: Distended, Tenderness - Extremities Exam Extremities Exam: Normal Inspection. absent: Pedal Edema, Tenderness - Neurological Exam Neurological Exam: Alert, Awake, Oriented x3 - Psychiatric Exam Psychiatric exam: Normal Affect, Normal Mood - Skin Skin Exam: Dry, Intact, Normal Color, Warm Assessment and Plan - Assessment and Plan (Free Text) Plan: Chronic Diastolic Heart Failure s/p PPM NSTEMI Atrial Fibrillation Pulmonary Fibrosis on home oxygen Hypertension Imaging: - ECHO: Normal EF. Moderate to severe and moderate AI. Moderate to severe pulmonary HTN Management: - As per family's request, no cardiac catherization, medical management only. - Continue with current AC, as per primary. Case discussed with Giovanna Moyer, DO PGY2 <Jori Flores - Last Filed: 02/05/18 22:17> Objective - Vital Signs/Intake and Output Vital Signs (last 24 hours): Temp Pulse Resp BP Pulse Ox 97.6 F 75 23 124/64 97 02/05/18 12:00 02/05/18 18:00 02/05/18 19:09 02/05/18 16:17 02/05/18 18:00 Intake and Output: 02/05/18 02/06/18 18:59 06:59 Intake Total 960 Balance 960 - Medications Medications: Current Medications Albuterol/Ipratropium (Duoneb 3 Mg/0.5 Mg (3 Ml) Ud) 3 ml INH RQ6 [facility] Last Admin: 02/05/18 19:09 Dose: 3 ml Budesonide (Pulmicort Respules) 0.5 mg INH RQ12 [facility] [place] Last Admin: 02/05/18 19:08 Dose: 0.5 mg Dabigatran (Pradaxa) 75 mg PO BID [facility] [place] Last Admin: 02/05/18 18:21 Dose: 75 mg Diltiazem HCl (Cardizem) 30 mg PO Q8 [facility] [place] Last Admin: 02/05/18 15:40 Dose: 30 mg Furosemide (Lasix) 20 mg PO DAILY [facility] [place] Last Admin: 02/05/18 09:02 Dose: 20 mg Metoprolol Succinate (Toprol Xl) 25 mg PO DAILY [facility] [place] Last Admin: 02/05/18 09:02 Dose: 25 mg Nystatin (Nystatin Oral Susp) 5 ml PO QID [facility] [place] Last Admin: 02/05/18 18:21 Dose: 5 ml Pantoprazole Sodium (Protonix Susp) 40 mg PO 0600 [facility] [place] Last Admin: 02/05/18 05:34 Dose: 40 mg Paroxetine HCl (Paxil) 20 mg PO DAILY [facility] [place] Last Admin: 02/05/18 09:02 Dose: 20 mg Saccharomyces Boulardii (Florastor) 500 mg PO BID [facility] [place] Last Admin: 02/05/18 18:21 Dose: 500 mg Tiotropium [place] (Spiriva) 18 mcg INH RQ24 [facility] [place] Last Admin: 02/05/18 07:45 Dose: 18 mcg Vancomycin HCl (Vancocin (Oral Or Rectal Use)) 125 mg PO Q6H [facility]; Protocol Last Admin: 02/05/18 20:46 Dose: 125 mg Vitamin A (Vitamin A & D Oint Ud Foilpak) 1 ea TOP Q8 PRN PRN Reason: dry lips Last Admin: 02/05/18 20:48 Dose: 1 ea - Labs Labs: 02/05/18 05:42 02/05/18 05:42 APTT 65 SECONDS (21-34) H D 01/29/18 06:52 Assessment and Plan - Assessment and Plan (Free Text) Plan: patient seen and evaluated personally by tx Plan of care d/w the medical officer and as documented
[2018-02-05] MEDS: Vitamins A & D Oint UD Foilpak TOP PRN (20:48)
--- NOTE | 2018-02-05 23:02 | CP.PCM.PN ---
Subjective - Date & Time of Evaluation Date of Evaluation: 02/05/18 Time of Evaluation: 22:58 - Subjective Subjective: INFECTIOUS DISEASE ICU#3 PROGRESS NOTES PHOENIX BROWN MD, FACP 02/05/2018 CHART REVIEWED EXAMINE DESCRIBED CASE DISCUSSED WITH DR GHOSH Patient denies any chest pain, shortness of breath, or palpitations. Objective - Vital Signs/Intake and Output Vital Signs (last 24 hours): Temp Pulse Resp BP Pulse Ox 98.1 F 76 23 159/58 H 100 02/04/18 16:00 02/05/18 08:17 02/05/18 08:17 02/05/18 09:02 02/05/18 08:17 - Medications Medications: Current Medications Albuterol/Ipratropium (Duoneb 3 Mg/0.5 Mg (3 Ml) Ud) 3 ml INH RQ6 [facility] Last Admin: 02/05/18 07:45 Dose: 3 ml Alprazolam (Xanax) 0.5 mg PO BID PRN PRN Reason: Anxiety Last Admin: 02/04/18 22:54 Dose: 0.5 mg Budesonide (Pulmicort Respules) 0.5 mg INH RQ12 [facility] Last Admin: 02/05/18 07:45 Dose: 0.5 mg Dabigatran (Pradaxa) 75 mg PO BID [facility] Last Admin: 02/05/18 09:02 Dose: 75 mg Diltiazem HCl (Cardizem) 30 mg PO Q8 [facility] Last Admin: 02/05/18 05:34 Dose: 30 mg Furosemide (Lasix) 20 mg PO DAILY [facility] Last Admin: 02/05/18 09:02 Dose: 20 mg Metoprolol Succinate (Toprol Xl) 25 mg PO DAILY [facility] Last Admin: 02/05/18 09:02 Dose: 25 mg Nystatin (Nystatin Oral Susp) 5 ml PO QID [facility] Last Admin: 02/05/18 09:02 Dose: 5 ml Pantoprazole Sodium (Protonix Susp) 40 mg PO 0600 [facility] Last Admin: 02/05/18 05:34 Dose: 40 mg Paroxetine HCl (Paxil) 20 mg PO DAILY [facility] Last Admin: 02/05/18 09:02 Dose: 20 mg Saccharomyces Boulardii (Florastor) 500 mg PO BID [facility] Last Admin: 02/05/18 09:04 Dose: 500 mg Tiotrop[address] [place] (Spiriva) 18 mcg INH RQ24 [facility] Last Admin: 02/05/18 07:45 Dose: 18 mcg Vancomycin HCl (Vancocin (Oral Or Rectal Use)) 125 mg PO Q6H [facility]; Protocol Last Admin: 02/05/18 09:02 Dose: 125 mg Vitamin A (Vitamin A & D Oint Ud Foilpak) 1 ea TOP Q8 PRN PRN Reason: dry lips - Labs Labs: 02/05/18 05:42 02/05/18 05:42 APTT 65 SECONDS (21-34) H D 01/29/18 06:52 - Additional Findings Additional findings: - Constitutional Appears: No Acute Distress - Head Exam Head Exam: NORMAL INSPECTION, NORMOCEPHALIC - Eye Exam Eye Exam: EOMI, PERRL Pupil Exam: NORMAL ACCOMODATION - ENT Exam ENT Exam: Mucous Membranes Moist - Respiratory Exam Respiratory Exam: Decreased Breath Sounds - Cardiovascular Exam Cardiovascular Exam: Irregular Rhythm, +S1, +S2 - GI/Abdominal Exam GI & Abdominal Exam: Soft, Normal Bowel Sounds. absent: Distended, Tenderness - Extremities Exam Extremities Exam: Normal Inspection. absent: Pedal Edema, Tenderness - Neurological Exam Neurological Exam: Alert, Awake, Oriented x3 - Psychiatric Exam Psychiatric exam: Normal Affect, Normal Mood - Skin Skin Exam: Dry, Intact, Normal Color, Warm Assessment and Plan - Assessment and Plan (Free Text) Plan: Chronic Diastolic Heart Failure s/p PPM NSTEMI Atrial Fibrillation Pulmonary Fibrosis on home oxygen Hypertension DIARRHEA-RESOLVING DEMENTIA Imaging: - ECHO: Normal EF. Moderate to severe and moderate AI. Moderate to severe pulmonary HTN Management: - As per family's request, no cardiac catherization, medical management only. - Continue with current AC, as per primary. Objective - Vital Signs/Intake and Output Vital Signs (last 24 hours): Temp Pulse Resp BP Pulse Ox 97.6 F 75 23 124/64 97 02/05/18 12:00 02/05/18 18:00 02/05/18 19:09 02/05/18 16:17 02/05/18 18:00 Intake and Output: 02/05/18 02/06/18 18:59 06:59 Intake Total 960 Balance 960 - Medications Medications: Current Medications Albuterol/Ipratropium (Duoneb 3 Mg/0.5 Mg (3 Ml) Ud) 3 ml INH RQ6 [facility] Last Admin: 02/05/18 19:09 Dose: 3 ml Budesonide (Pulmicort Respules) 0.5 mg INH RQ12 [facility] Last Admin: 02/05/18 19:08 Dose: 0.5 mg Dabigatran (Pradaxa) 75 mg PO BID [facility] Last Admin: 02/05/18 18:21 Dose: 75 mg Diltiazem HCl (Cardizem) 30 mg PO Q8 [facility] Last Admin: 02/05/18 15:40 Dose: 30 mg Furosemide (Lasix) 20 mg PO DAILY [facility] Last Admin: 02/05/18 09:02 Dose: 20 mg Metoprolol Succinate (Toprol Xl) 25 mg PO DAILY [facility] Last Admin: 02/05/18 09:02 Dose: 25 mg Nystatin (Nystatin Oral Susp) 5 ml PO QID [facility] Last Admin: 02/05/18 18:21 Dose: 5 ml Pantoprazole Sodium (Protonix Susp) 40 mg PO 0600 [facility] Last Admin: 02/05/18 05:34 Dose: 40 mg Paroxetine HCl (Paxil) 20 mg PO DAILY [facility] Last Admin: 02/05/18 09:02 Dose: 20 mg Saccharomyces Boulardii (Florastor) 500 mg PO BID [facility] Last Admin: 02/05/18 18:21 Dose: [address] T[address] [place] (Spiriva) 18 mcg INH RQ24 [facility] Last Admin: 02/05/18 07:45 Dose: 18 mcg Vancomycin HCl (Vancocin (Oral Or Rectal Use)) 125 mg PO Q6H [facility]; Protocol Last Admin: 02/05/18 20:46 Dose: 125 mg Vitamin A (Vitamin A & D Oint Ud Foilpak) 1 ea TOP Q8 PRN PRN Reason: dry lips Last Admin: 02/05/18 20:48 Dose: 1 ea - Labs Labs: 02/05/18 05:42 02/05/18 05:42 APTT 65 SECONDS (21-34) H D 01/29/18 06:52 Assessment and Plan - Assessment and Plan (Free Text) Plan: patient seen and evaluated personally by me Plan of care d/w the medical TEAM Objective - Vital Signs/Intake and Output Vital Signs (last 24 hours): Temp Pulse Resp BP Pulse Ox 97.6 F 75 22 124/64 97 02/05/18 12:00 02/05/18 18:00 02/05/18 22:34 02/05/18 16:17 02/05/18 18:00 Intake and Output: 02/05/18 02/06/18 18:59 06:59 Intake Total 960 Balance 960 - Medications Medications: Current Medications Albuterol/Ipratropium (Duoneb 3 Mg/0.5 Mg (3 Ml) Ud) 3 ml INH RQ6 [facility] Last Admin: 02/05/18 19:09 Dose: 3 ml Budesonide (Pulmicort Respules) 0.5 mg INH RQ12 [facility] Last Admin: 02/05/18 19:08 Dose: 0.5 mg Dabigatran (Pradaxa) 75 mg PO BID [facility] Last Admin: 02/05/18 18:21 Dose: 75 mg Diltiazem HCl (Cardizem) 30 mg PO Q8 [facility] Last Admin: 02/05/18 22:08 Dose: 30 mg Furosemide (Lasix) 20 mg PO DAILY [facility] Last Admin: 02/05/18 09:02 Dose: 20 mg Metoprolol Succinate (Toprol Xl) 25 mg PO DAILY [facility] Last Admin: 02/05/18 09:02 Dose: 25 mg Nystatin (Nystatin Oral Susp) 5 ml PO QID [facility] Last Admin: 02/05/18 22:08 Dose: 5 ml Pantoprazole Sodium (Protonix Susp) 40 mg PO 0600 [facility] Last Admin: 02/05/18 05:34 Dose: 40 mg Paroxetine HCl (Paxil) 20 mg PO DAILY [facility] Last Admin: 02/05/18 09:02 Dose: 20 mg Saccharomyces Boulardii (Florastor) 500 mg PO BID [facility] Last Admin: 02/05/18 18:21 Dose: [address] [place] (Spiriva) 18 mcg INH RQ24 [facility] Last Admin: 02/05/18 07:45 Dose: 18 mcg Vancomycin HCl (Vancocin (Oral Or Rectal Use)) 125 mg PO Q6H [facility]; Protocol Last Admin: 02/05/18 20:46 Dose: 125 mg Vitamin A (Vitamin A & D Oint Ud Foilpak) 1 ea TOP Q8 PRN PRN Reason: dry lips Last Admin: 02/05/18 20:48 Dose: 1 ea - Labs Labs: 02/05/18 05:42 02/05/18 05:42 APTT 65 SECONDS (21-34) H D 01/29/18 06:52
[2018-02-06] MEDS: Vancomycin 125 MG/5 ML SOLN (ORAL/RECTAL) PO SCH ×4 (01:33→20:15)
[2018-02-06] MEDS: Albuterol-Ipratrop 3 mg / 0.5 (3 ml) UD INH SCH ×4 (01:43→19:57)
[2018-02-06] MEDS: Pantoprazole 40 mg Susp UD PO SCH (06:32)
[2018-02-06] MEDS: Budesonide 0.5 mg/2 ml Inhal Susp UD INH SCH ×2 (07:45→19:58)
[2018-02-06] MEDS: Tiotropium 18 mcg Cap For Inhalation INH SCH (07:45)
[2018-02-06] MEDS: Metoprolol Succinate 25 mg XL Tab PO SCH (09:50)
[2018-02-06] MEDS: Saccharomyces Boulardi 250 mg Cap PO SCH ×2 (09:50→17:39)
--- NOTE | 2018-02-06 20:07 | CP.PCM.PN ---
Subjective - Date & Time of Evaluation Date of Evaluation: 02/06/18 Time of Evaluation: 20:05 - Subjective Subjective: INFECTIOUS DISEASE ICU#3 PROGRESS NOTE PHOENIX BROWN MD, FACP 02/06/2018 CHART REVIEWED PT EXAMINED CASE DISCUSSED ASYMPTOMATIC BACTURIA WITH VRE LUNG CLEAR PRESENTLY COR RR ABD SOFT NO DIARRHEA CONTACT ISOLATION NO PRESENT REASON TO TREAT ASYMTOMATIC BACTURIA, PTS URINALYSIS HAS NO WBC'S WHATSOEVER! Objective - Vital Signs/Intake and Output Vital Signs (last 24 hours): Temp Pulse Resp BP Pulse Ox 98.5 F 81 13 125/53 L 99 02/06/18 12:00 02/06/18 18:00 02/06/18 18:00 02/06/18 15:57 02/06/18 18:00 Intake and Output: 02/06/18 02/07/18 18:59 06:59 Intake Total 480 Output Total 700 Balance -220 - Medications Medications: Current Medications Albuterol/Ipratropium (Duoneb 3 Mg/0.5 Mg (3 Ml) Ud) 3 ml INH RQ6 [facility] Last Admin: 02/06/18 19:57 Dose: 3 ml Budesonide (Pulmicort Respules) 0.5 mg INH RQ12 [facility] Last Admin: 02/06/18 19:58 Dose: 0.5 mg Diltiazem HCl (Cardizem) 30 mg PO Q8 [facility] Last Admin: 02/06/18 14:15 Dose: 30 mg Furosemide (Lasix) 20 mg PO DAILY [facility] Last Admin: 02/06/18 09:50 Dose: 20 mg Metoprolol Succinate (Toprol Xl) 25 mg PO DAILY [facility] Last Admin: 02/06/18 09:50 Dose: 25 mg Pantoprazole Sodium (Protonix Susp) 40 mg PO 0600 [facility] Last Admin: 02/06/18 06:32 Dose: 40 mg Paroxetine HCl (Paxil) 20 mg PO DAILY [facility] Last Admin: 02/06/18 09:53 Dose: 20 mg Saccharomyces Boulardii (Florastor) 500 mg PO BID [facility] Last Admin: 02/06/18 17:39 Dose: 500 mg Tiotropium [place] (Spiriva) 18 mcg INH RQ24 [facility] Last Admin: 02/06/18 07:45 Dose: 18 mcg Vancomycin HCl (Vancocin (Oral Or Rectal Use)) 125 mg PO Q6H [facility]; Protocol Last Admin: 02/06/18 14:15 Dose: 125 mg Vitamin A (Vitamin A & D Oint Ud Foilpak) 1 ea TOP Q8 PRN PRN Reason: dry lips Last Admin: 02/05/18 20:48 Dose: 1 ea - Labs Labs: 02/05/18 05:42 02/05/18 05:42 APTT 65 SECONDS (21-34) H D 01/29/18 06:52
[2018-02-07] MEDS: Albuterol-Ipratrop 3 mg / 0.5 (3 ml) UD INH SCH ×4 (01:07→19:43)
[2018-02-07] MEDS: Vancomycin 125 MG/5 ML SOLN (ORAL/RECTAL) PO SCH ×3 (02:02→14:00)
[2018-02-07] MEDS: Pantoprazole 40 mg Susp UD PO SCH (05:21)
--- NOTE | 2018-02-07 06:15 | CP.PCM.PN ---
Subjective - Date & Time of Evaluation Date of Evaluation: 02/06/18 Time of Evaluation: 19:30 - Subjective Subjective: No cardiac events noted Patient not in distress Continue medical management Objective - Vital Signs/Intake and Output Vital Signs (last 24 hours): Temp Pulse Resp BP Pulse Ox 98.5 F 73 21 122/41 L 93 L 02/06/18 12:00 02/07/18 06:00 02/07/18 06:00 02/07/18 03:57 02/07/18 04:00 Intake and Output: 02/06/18 02/07/18 18:59 06:59 Intake Total 480 200 Output Total 700 350 Balance -220 -150 - Medications Medications: Current Medications Albuterol/Ipratropium (Duoneb 3 Mg/0.5 Mg (3 Ml) Ud) 3 ml INH RQ6 [facility] Last Admin: 02/07/18 01:07 Dose: 3 ml Budesonide (Pulmicort Respules) 0.5 mg INH RQ12 [facility] Last Admin: 02/06/18 19:58 Dose: 0.5 mg Diltiazem HCl (Cardizem) 30 mg PO Q8 [facility] Last Admin: 02/07/18 05:21 Dose: 30 mg Furosemide (Lasix) 20 mg PO DAILY [facility] Last Admin: 02/06/18 09:50 Dose: 20 mg Metoprolol Succinate (Toprol Xl) 25 mg PO DAILY [facility] Last Admin: 02/06/18 09:50 Dose: 25 mg Pantoprazole Sodium (Protonix Susp) 40 mg PO 0600 [facility] Last Admin: 02/07/18 05:21 Dose: 40 mg Paroxetine HCl (Paxil) 20 mg PO DAILY [facility] Last Admin: 02/06/18 09:53 Dose: 20 mg Saccharomyces Boulardii (Florastor) 500 mg PO BID [facility] Last Admin: 02/06/18 17:39 Dose: 500 mg Tiotropium [place] (Spiriva) 18 mcg INH RQ24 [facility] Last Admin: 02/06/18 07:45 Dose: 18 mcg Vancomycin HCl (Vancocin (Oral Or Rectal Use)) 125 mg PO Q6H [facility]; Protocol Last Admin: 02/07/18 02:02 Dose: 125 mg Vitamin A (Vitamin A & D Oint Ud Foilpak) 1 ea TOP Q8 PRN PRN Reason: dry lips Last Admin: 02/05/18 20:48 Dose: 1 ea - Labs Labs: 02/05/18 05:42 02/05/18 05:42 APTT 65 SECONDS (21-34) H D 01/29/18 06:52
[2018-02-07] MEDS: Budesonide 0.5 mg/2 ml Inhal Susp UD INH SCH ×2 (07:52→19:43)
[2018-02-07] MEDS: Tiotropium 18 mcg Cap For Inhalation INH SCH (08:22)
--- NOTE | 2018-02-07 10:33 | CP.PCM.PN ---
<Givoanna Bergman - Last Filed: 02/07/18 10:32> Subjective - Date & Time of Evaluation Date of Evaluation: 02/07/18 Time of Evaluation: 10:32 - Subjective Subjective: Cardiology Follow Up Patient seen and examined at bedside. Patient denies any chest pain, shortness of breath, or palpitations. Objective - Vital Signs/Intake and Output Vital Signs (last 24 hours): Temp Pulse Resp BP Pulse Ox 98.8 F 73 21 122/41 L 97 02/07/18 08:00 02/07/18 06:00 02/07/18 06:00 02/07/18 03:57 02/07/18 08:00 Intake and Output: 02/07/18 02/07/18 06:59 18:59 Intake Total 200 Output Total 350 Balance -150 - Medications Medications: Current Medications Albuterol/Ipratropium (Duoneb 3 Mg/0.5 Mg (3 Ml) Ud) 3 ml INH RQ6 [facility] Last Admin: 02/07/18 07:52 Dose: 3 ml Budesonide (Pulmicort Respules) 0.5 mg INH RQ12 [facility] Last Admin: 02/07/18 07:52 Dose: 0.5 mg Diltiazem HCl (Cardizem) 30 mg PO Q8 [facility] Last Admin: 02/07/18 05:21 Dose: 30 mg Furosemide (Lasix) 20 mg PO DAILY [facility] Last Admin: 02/06/18 09:50 Dose: 20 mg Metoprolol Succinate (Toprol Xl) 25 mg PO DAILY [facility] Last Admin: 02/06/18 09:50 Dose: 25 mg Pantoprazole Sodium (Protonix Susp) 40 mg PO 0600 [facility] Last Admin: 02/07/18 05:21 Dose: 40 mg Paroxetine HCl (Paxil) 20 mg PO DAILY [facility] Last Admin: 02/06/18 09:53 Dose: 20 mg Saccharomyces Boulardii (Florastor) 500 mg PO BID [facility] Last Admin: 02/06/18 17:39 Dose: 500 mg Tiotropium [place] (Spiriva) 18 mcg INH RQ24 [facility] Last Admin: 02/07/18 08:22 Dose: 18 mcg Vancomycin HCl (Vancocin (Oral Or Rectal Use)) 125 mg PO Q6H [facility]; Protocol Last Admin: 02/07/18 08:15 Dose: 125 mg Vitamin A (Vitamin A & D Oint Ud Foilpak) 1 ea TOP Q8 PRN PRN Reason: dry lips Last Admin: 02/05/18 20:48 Dose: 1 ea - Labs Labs: 02/05/18 05:42 02/05/18 05:42 APTT 65 SECONDS (21-34) H D 01/29/18 06:52 - Additional Findings Additional findings: - Constitutional Appears: No Acute Distress - Head Exam Head Exam: NORMAL INSPECTION, NORMOCEPHALIC - Eye Exam Eye Exam: EOMI, PERRL Pupil Exam: NORMAL ACCOMODATION - ENT Exam ENT Exam: Mucous Membranes Moist - Respiratory Exam Respiratory Exam: Decreased Breath Sounds - Cardiovascular Exam Cardiovascular Exam: Irregular Rhythm, +S1, +S2 - GI/Abdominal Exam GI & Abdominal Exam: Soft, Normal Bowel Sounds. absent: Distended, Tenderness - Extremities Exam Extremities Exam: Normal Inspection. absent: Pedal Edema, Tenderness - Neurological Exam Neurological Exam: Alert, Awake, Oriented x3 - Psychiatric Exam Psychiatric exam: Normal Affect, Normal Mood - Skin Skin Exam: Dry, Intact, Normal Color, Warm Assessment and Plan - Assessment and Plan (Free Text) Plan: NSTEMI Chronic Diastolic Heart Failure s/p PPM Atrial Fibrillation Pulmonary Fibrosis on home oxygen Hypertension Imaging: - ECHO: Normal EF. Moderate to severe and moderate AI. Moderate to severe pulmonary HTN Management: - As per family's request, no cardiac catherization, medical management only - Continue medical management Case discussed with Dr. Flores, Giovanna Bergman, DO PGY2 <Jori Flores - Last Filed: 02/07/18 19:57> Objective - Vital Signs/Intake and Output Vital Signs (last 24 hours): Temp Pulse Resp BP Pulse Ox 98.8 F 87 28 H 119/41 L 99 02/07/18 08:00 02/07/18 18:00 02/07/18 18:00 02/07/18 15:57 02/07/18 18:00 Intake and Output: 02/07/18 02/08/18 18:59 06:59 Intake Total 470 Output Total 750 180 Balance -280 -180 - Medications Medications: Current Medications Albuterol/Ipratropium (Duoneb 3 Mg/0.5 Mg (3 Ml) Ud) 3 ml INH RQ6 [facility] Last Admin: 02/07/18 19:43 Dose: 3 ml Budesonide (Pulmicort Respules) 0.5 mg INH RQ12 [facility] Last Admin: 02/07/18 19:43 Dose: 0.5 mg Diltiazem HCl (Cardizem) 30 mg PO Q8 [facility] Last Admin: 02/07/18 15:04 Dose: 30 mg Furosemide (Lasix) 20 mg PO DAILY [facility] Last Admin: 02/07/18 11:32 Dose: 20 mg Metoprolol Succinate (Toprol Xl) 25 mg PO DAILY [facility] Last Admin: 02/07/18 11:35 Dose: 25 mg Pantoprazole Sodium (Protonix Ec Tab) 40 mg PO DAILY [facility] Last Admin: 02/07/18 11:38 Dose: 40 mg Paroxetine HCl (Paxil) 20 mg PO DAILY [facility] Last Admin: 02/07/18 11:34 Dose: 20 mg Saccharomyces Boulardii (Florastor) 500 mg PO BID [facility] Last Admin: 02/07/18 17:22 Dose: 500 mg Tiotropium [place] (Spiriva) 18 mcg INH RQ24 [facility] Last Admin: 02/07/18 08:22 Dose: 18 mcg Vitamin A (Vitamin A & D Oint Ud Foilpak) 1 ea TOP Q8 PRN PRN Reason: dry lips Last Admin: 02/05/18 20:48 Dose: 1 ea - Labs Labs: 02/05/18 05:42 02/05/18 05:42 APTT 65 SECONDS (21-34) H D 01/29/18 06:52 Assessment and Plan - Assessment and Plan (Free Text) Plan: Patient seen and evaluated personally by me. Plan of care d/w the medical stenographer and as documented
[2018-02-07] MEDS: Saccharomyces Boulardi 250 mg Cap PO SCH ×2 (11:34→17:22)
[2018-02-07] MEDS: Metoprolol Succinate 25 mg XL Tab PO SCH (11:35)
[2018-02-07] MEDS: Pantoprazole 40 mg EC Tab PO SCH (11:38)
--- NOTE | 2018-02-07 19:30 | CP.PCM.PN ---
Subjective - Date & Time of Evaluation Date of Evaluation: 02/07/18 Time of Evaluation: 19:26 - Subjective Subjective: INFECTIOUS DISEASE ICU#3 PROGRESS NOTES PHOENIX BROWN MD, FACP 02/07/2018 CHART REVIEWED PT EXAMINED CASE DISCUSSEDWITH ICU TESTM AND FAMILY PRESENT CLINICALLY UP AND TALKATIVE LUNGS DECREASED BREATH SOUNDS ABD AIR IN ANTERIOR ABD NO TENDERNESS NO REBOUND COR MURMUR CONTINUE CONTACT ISOLATION WITH ASYMPTOMATIC BACTERURIA, NOTE NL URINALYSIS DISCUSSED WITH FAMILY OBSERVE RISK BENEFITS OF ADVANCED AGE NOTED AND APPRECIATED Objective - Vital Signs/Intake and Output Vital Signs (last 24 hours): Temp Pulse Resp BP Pulse Ox 98.8 F 73 21 122/41 L 97 02/07/18 08:00 02/07/18 06:00 02/07/18 06:00 02/07/18 03:57 02/07/18 08:00 Intake and Output: 02/07/18 02/07/18 06:59 18:59 Intake Total 200 Output Total 350 Balance -150 - Medications Medications: Current Medications Albuterol/Ipratropium (Duoneb 3 Mg/0.5 Mg (3 Ml) Ud) 3 ml INH RQ6 [facility] Last Admin: 02/07/18 07:52 Dose: 3 ml Budesonide (Pulmicort Respules) 0.5 mg INH RQ12 [facility] Last Admin: 02/07/18 07:52 Dose: 0.5 mg Diltiazem HCl (Cardizem) 30 mg PO Q8 [facility] Last Admin: 02/07/18 05:21 Dose: 30 mg Furosemide (Lasix) 20 mg PO DAILY [facility] Last Admin: 02/06/18 09:50 Dose: 20 mg Metoprolol Succinate (Toprol Xl) 25 mg PO DAILY [facility] Last Admin: 02/06/18 09:50 Dose: 25 mg Pantoprazole Sodium (Protonix Susp) 40 mg PO 0600 [facility] Last Admin: 02/07/18 05:21 Dose: 40 mg Paroxetine HCl (Paxil) 20 mg PO DAILY [facility] Last Admin: 02/06/18 09:53 Dose: 20 mg Saccharomyces Boulardii (Florastor) 500 mg PO BID [facility] Last Admin: 02/06/18 17:39 Dose: 500 mg Tiotropium [place] (Spiriva) 18 mcg INH RQ24 [facility] Last Admin: 02/07/18 08:22 Dose: 18 mcg Vancomycin HCl (Vancocin (Oral Or Rectal Use)) 125 mg PO Q6H [facility]; Protocol Last Admin: 02/07/18 08:15 Dose: 125 mg Vitamin A (Vitamin A & D Oint Ud Foilpak) 1 ea TOP Q8 PRN PRN Reason: dry lips Last Admin: 02/05/18 20:48 Dose: 1 ea - Labs Labs: 02/05/18 05:42 02/05/18 05:42 APTT 65 SECONDS (21-34) H D 01/29/18 06:52 - Additional Findings Additional findings: - Constitutional Appears: No Acute Distress - Head Exam Head Exam: NORMAL INSPECTION, NORMOCEPHALIC - Eye Exam Eye Exam: EOMI, PERRL Pupil Exam: NORMAL ACCOMODATION - ENT Exam ENT Exam: Mucous Membranes Moist - Respiratory Exam Respiratory Exam: Decreased Breath Sounds - Cardiovascular Exam Cardiovascular Exam: Irregular Rhythm, +S1, +S2 - GI/Abdominal Exam GI & Abdominal Exam: Soft, Normal Bowel Sounds. absent: Distended, Tenderness - Extremities Exam Extremities Exam: Normal Inspection. absent: Pedal Edema, Tenderness - Neurological Exam Neurological Exam: Alert, Awake, Oriented x3 - Psychiatric Exam Psychiatric exam: Normal Affect, Normal Mood - Skin Skin Exam: Dry, Intact, Normal Color, Warm Assessment and Plan Imaging: - ECHO: Normal EF. Moderate to severe and moderate AI. Moderate to severe pulmonary HTN Management: - As per family's request, no cardiac catherization, medical management only - Continue medical management Objective - Vital Signs/Intake and Output Vital Signs (last 24 hours): Temp Pulse Resp BP Pulse Ox 98.8 F 82 14 141/51 L 95 02/07/18 08:00 02/07/18 14:00 02/07/18 14:00 02/07/18 11:57 02/07/18 14:00 Intake and Output: 02/07/18 02/08/18 18:59 06:59 Intake Total 470 Output Total 750 Balance -280 - Medications Medications: Current Medications Albuterol/Ipratropium (Duoneb 3 Mg/0.5 Mg (3 Ml) Ud) 3 ml INH RQ6 [facility] Last Admin: 02/07/18 13:31 Dose: 3 ml Budesonide (Pulmicort Respules) 0.5 mg INH RQ12 [facility] Last Admin: 02/07/18 07:52 Dose: 0.5 mg Diltiazem HCl (Cardizem) 30 mg PO Q8 [facility] Last Admin: 02/07/18 15:04 Dose: 30 mg Furosemide (Lasix) 20 mg PO DAILY [facility] Last Admin: 02/07/18 11:32 Dose: 20 mg Metoprolol Succinate (Toprol Xl) 25 mg PO DAILY [facility] Last Admin: 02/07/18 11:35 Dose: 25 mg Pantoprazole Sodium (Protonix Ec Tab) 40 mg PO DAILY [facility] Last Admin: 02/07/18 11:38 Dose: 40 mg Paroxetine HCl (Paxil) 20 mg PO DAILY [facility] Last Admin: 02/07/18 11:34 Dose: 20 mg Saccharomyces Boulardii (Florastor) 500 mg PO BID [facility] Last Admin: 02/07/18 17:22 Dose: 500 mg Tiotropium [place] (Spiriva) 18 mcg INH RQ24 [facility] Last Admin: 02/07/18 08:22 Dose: 18 mcg Vitamin A (Vitamin A & D Oint Ud Foilpak) 1 ea TOP Q8 PRN PRN Reason: dry lips Last Admin: 02/05/18 20:48 Dose: 1 ea - Labs Labs: 02/05/18 05:42 02/05/18 05:42 APTT 65 SECONDS (21-34) H D 01/29/18 06:52
[2018-02-08] MEDS: Albuterol-Ipratrop 3 mg / 0.5 (3 ml) UD INH SCH ×4 (01:40→19:45)
--- NOTE | 2018-02-08 02:16 | PN ---
DATE: 02/07/2018 SUBJECTIVE: The patient is still in the intensive care unit. Currently, she is feeling well. Seen by me at 02/06/2018 at 6:30 p.m. I spoke to the infectious disease specialist. The patient has a VRE, but asymptomatic at this time. No need for any further antibiotic. The patient has no diarrhea at this time. She is able to eat, tolerating, and she also is able to move well, and she is using the bedside commode. PHYSICAL EXAMINATION: VITAL SIGNS: Stable. CHEST: Good air entry. HEART: Bilaterally regular heart sounds. ABDOMEN: Nontender abdomen. ASSESSMENT: The patient is an 87-year-old female with chronic atrial fibrillation, hypertension, admitted with possible aspiration pneumonia, and possibility of acute interstitial pneumonia with exacerbation, lung fibrosis, congestive heart failure, possibly systolic heart failure associated with atrial fibrillation and flutter. Currently doing well. We will continue to monitor, and we will follow up with the patient. Coreen Barbour MD
--- NOTE | 2018-02-08 02:34 | PN ---
DATE: 02/05/2018 DATE OF VISIT: 02/05/2018 at 6:30 p.m. SUBJECTIVE: The patient is currently comfortable, not in distress. The patient is still receiving high-flow FiO2, but we will reduce the FiO2 to nasal cannula. Clinically, otherwise she is doing well. PHYSICAL EXAMINATION: CHEST: Bilateral significant wheezing and rales noted. HEART: Regular heart sounds. ABDOMEN: Nontender abdomen. EXTREMITIES: Pedal edema negative. ASSESSMENT AND PLAN: We will get infectious disease evaluation as the patient's family requested with Dr. Smith for possible white count elevation. We will continue to monitor. Coreen Barbour MD
--- NOTE | 2018-02-08 02:59 | PN ---
DATE: 02/07/2018 SUBJECTIVE: The patient right now is sleeping well. She is not in any distress. Blood pressure and vital signs are stable. Comfortable, otherwise. She has a sinus rhythm. PHYSICAL EXAMINATION: VITAL SIGNS: Blood pressure is 155/93, saturation is 97% with 2 L nasal cannula. CHEST: Good air entry. No wheezing or rales noted. ABDOMEN: Soft. EXTREMITIES: No pedal edema. ASSESSMENT AND PLAN: We will get the chest x-ray tomorrow. Physical therapy to be started. The patient once stable can be discharged and transferred to rehab, possibly on Saturday. I spoke to the patient's daughter in detail. Currently on multiple medications. The patient is currently receiving diltiazem, DuoNeb, Lasix, Paxil, pantoprazole, Pulmicort, Spiriva, metoprolol, and vitamin A and D ointment. We will continue to monitor and will follow the patient. Coreen Barbour MD
[2018-02-08] MEDS: Vitamins A & D Oint UD Foilpak TOP PRN (05:15)
[2018-02-08 05:59] LABS: BASO % 0.1 % (0.0-2.0); EOS # 0.2 K/uL (0.0-0.7); EOS % 1.9 % (0.0-4.0); HEMOGLOBIN 10.2 g/dL (11.0-16.0); LYMPH % 8.1 % (20.0-40.0); MEAN CELL VOLUME 93.1 fL (81.0-99.0); MEAN CORPUSCULAR HEMOGLOBIN 30.5 pg (27.0-31.0); MEAN CORPUSCULAR HGB CONC 32.8 g/dL (33.0-37.0); MEAN PLATELET VOLUME 9.4 fL (7.2-11.7); MONO # 0.9 K/uL (0.0-0.8); MONO % 6.8 % (0.0-10.0); NEUT # 10.6 K/uL (1.8-7.0); NEUT % 83.1 % (50.0-75.0); PLATELET COUNT 181 K/uL (130-400); RBC 3.35 Mil/uL (3.80-5.20); RED CELL DISTRIBUTION WIDTH 15.9 % (11.5-14.5); WHITE BLOOD COUNT 12.7 K/uL (4.8-10.8)
[2018-02-08 06:10] LABS: ALB/GLOB RATIO 0.7 (1.0-2.1); ALBUMIN 2.2 g/dL (3.5-5.0); ALT/SGPT 19 U/L (9-52); AST/SGOT 22 U/L (14-36); BLOOD UREA NITROGEN 30 mg/dL (7-17); CALCIUM 7.1 mg/dl (8.6-10.4); GFR NON-AFRICAN AMERICAN > 60
[2018-02-08] MEDS: Budesonide 0.5 mg/2 ml Inhal Susp UD INH SCH ×2 (07:40→19:42)
[2018-02-08] MEDS: Tiotropium 18 mcg Cap For Inhalation INH SCH (07:40)
[2018-02-08 08:39] LABS: BANDS 3 % (0-2); EOSINOPHIL 1 % (0-4); LYMPHOCYTE 8 % (20-40); MONOCYTE 3 % (0-10); NEUTROPHIL 85 % (50-75); TOTAL CELLS COUNTED 100
[2018-02-08 08:42] LABS: PLATELET ESTIMATE NORMAL (NORMAL)
[2018-02-08 08:43] LABS: ANISOCYTOSIS SLIGHT; TOXIC GRANULATION PRESENT
[2018-02-08] MEDS ORDERED: Potassium Chloride 20 mEq ER Tab PO ONE (09:00)
[2018-02-08] MEDS: Pantoprazole 40 mg EC Tab PO SCH (09:48)
[2018-02-08] MEDS: Saccharomyces Boulardi 250 mg Cap PO SCH ×2 (09:48→17:08)
[2018-02-08] MEDS: Metoprolol Succinate 25 mg XL Tab PO SCH (09:48)
[2018-02-08] MEDS ORDERED: Aluminum Hydroxide/Magnesium Hydroxide Susp (30 mL) PO ONE (12:30)
[2018-02-08] MEDS: Mag&Al/Simet/Diphen/Lido 237 ML KIT PO SCH ×2 (13:16→19:39)
[2018-02-09] MEDS: Albuterol-Ipratrop 3 mg / 0.5 (3 ml) UD INH SCH ×4 (01:12→20:12)
[2018-02-09] MEDS: Mag&Al/Simet/Diphen/Lido 237 ML KIT PO SCH ×5 (01:31→20:28)
[2018-02-09] MEDS: Vitamins A & D Oint UD Foilpak TOP PRN (06:33)
[2018-02-09] MEDS: Tiotropium 18 mcg Cap For Inhalation INH SCH (07:30)
[2018-02-09] MEDS: Budesonide 0.5 mg/2 ml Inhal Susp UD INH SCH ×2 (07:30→20:12)
[2018-02-09] MEDS: Saccharomyces Boulardi 250 mg Cap PO SCH ×2 (09:50→17:23)
[2018-02-09] MEDS: Pantoprazole 40 mg EC Tab PO SCH (09:52)
[2018-02-09] MEDS: Metoprolol Succinate 25 mg XL Tab PO SCH (09:53)
--- NOTE | 2018-02-09 09:57 | CP.PCM.PN ---
Subjective - Date & Time of Evaluation Date of Evaluation: 02/08/18 Time of Evaluation: 18:25 - Subjective Subjective: Patient seen and evaluated. Patient denies any chest pain, shortness of breath, or palpitations. Physical Examination - Additional Findings Additional findings: - Constitutional Appears: No Acute Distress - Head Exam Head Exam: NORMAL INSPECTION, NORMOCEPHALIC - Eye Exam Eye Exam: EOMI, PERRL Pupil Exam: NORMAL ACCOMODATION - ENT Exam ENT Exam: Mucous Membranes Moist - Respiratory Exam Respiratory Exam: Decreased Breath Sounds - Cardiovascular Exam Cardiovascular Exam: Irregular Rhythm, +S1, +S2 - GI/Abdominal Exam GI & Abdominal Exam: Soft, Normal Bowel Sounds. absent: Distended, Tenderness - Extremities Exam Extremities Exam: Normal Inspection. absent: Pedal Edema, Tenderness - Neurological Exam Neurological Exam: Alert, Awake, Oriented x3 - Psychiatric Exam Psychiatric exam: Normal Affect, Normal Mood - Skin Skin Exam: Dry, Intact, Normal Color, Warm Assessment and Plan - Assessment and Plan (Free Text) Plan: Chronic Diastolic Heart Failure s/p PPM NSTEMI Atrial Fibrillation Pulmonary Fibrosis on home oxygen Hypertension Imaging: - ECHO: Normal EF. Moderate to severe and moderate AI. Moderate to severe pulmonary HTN Management: - As per family's request, no cardiac catherization, medical management only. - Continue with current AC, as per primary. Objective - Vital Signs/Intake and Output Vital Signs (last 24 hours): Temp Pulse Resp BP Pulse Ox 98.6 F 74 19 115/94 H 99 02/09/18 08:00 02/09/18 08:00 02/09/18 08:00 02/09/18 09:50 02/09/18 08:00 Intake and Output: 02/09/18 02/09/18 06:59 18:59 Intake Total 50 Balance 50 - Medications Medications: Current Medications Albuterol/Ipratropium (Duoneb 3 Mg/0.5 Mg (3 Ml) Ud) 3 ml INH RQ6 [facility] Last Admin: 02/09/18 07:30 Dose: 3 ml Budesonide (Pulmicort Respules) 0.5 mg INH RQ12 [facility] Last Admin: 02/09/18 07:30 Dose: 0.5 mg Dabigatran (Pradaxa) 75 mg PO BID [facility] Last Admin: 02/09/18 09:52 Dose: 75 mg Diltiazem HCl (Cardizem) 30 mg PO Q8 [facility] Last Admin: 02/09/18 06:20 Dose: 30 mg Furosemide (Lasix) 20 mg PO DAILY [facility] Last Admin: 02/09/18 09:50 Dose: 20 mg Metoprolol Succinate (Toprol Xl) 25 mg PO DAILY [facility] Last Admin: 02/09/18 09:53 Dose: 25 mg Pantoprazole Sodium (Protonix Ec Tab) 40 mg PO DAILY [facility] Last Admin: 02/09/18 09:52 Dose: 40 mg Paroxetine HCl (Paxil) 20 mg PO DAILY [facility] Last Admin: 02/09/18 09:52 Dose: 20 mg Saccharomyces Boulardii (Florastor) 500 mg PO BID [facility] Last Admin: 02/09/18 09:50 Dose: 500 mg Saliva Substitute (First Magic Mouthwash) 5 ml PO Q6H [facility] Last Admin: 02/09/18 06:33 Dose: 5 ml Tiotropium [place] (Spiriva) 18 mcg INH RQ24 [facility] Last Admin: 02/09/18 07:30 Dose: 18 mcg Vitamin A (Vitamin A & D Oint Ud Foilpak) 1 ea TOP Q8 PRN PRN Reason: dry lips Last Admin: 02/09/18 06:33 Dose: 1 ea - Labs Labs: 02/08/18 05:32 02/08/18 05:34 APTT 65 SECONDS (21-34) H D 01/29/18 06:52
--- NOTE | 2018-02-09 22:38 | CP.PCM.PN ---
Subjective - Date & Time of Evaluation Date of Evaluation: 02/09/18 Time of Evaluation: 08:40 - Subjective Subjective: Patient with no cardiac events Conservative cardiac management Objective - Vital Signs/Intake and Output Vital Signs (last 24 hours): Temp Pulse Resp BP Pulse Ox 99 F 80 25 H 121/55 L 100 02/09/18 20:00 02/09/18 20:00 02/09/18 20:00 02/09/18 19:57 02/09/18 20:00 Intake and Output: 02/09/18 02/10/18 18:59 06:59 Intake Total 360 Balance 360 - Medications Medications: Current Medications Albuterol/Ipratropium (Duoneb 3 Mg/0.5 Mg (3 Ml) Ud) 3 ml INH RQ6 [facility] Last Admin: 02/09/18 20:12 Dose: 3 ml Budesonide (Pulmicort Respules) 0.5 mg INH RQ12 [facility] Last Admin: 02/09/18 20:12 Dose: 0.5 mg Dabigatran (Pradaxa) 75 mg PO BID [facility] Last Admin: 02/09/18 17:23 Dose: 75 mg Diltiazem HCl (Cardizem) 30 mg PO Q8 [facility] Last Admin: 02/09/18 21:28 Dose: 30 mg Furosemide (Lasix) 20 mg PO DAILY [facility] Last Admin: 02/09/18 09:50 Dose: 20 mg Metoprolol Succinate (Toprol Xl) 25 mg PO DAILY [facility] Last Admin: 02/09/18 09:53 Dose: 25 mg Pantoprazole Sodium (Protonix Ec Tab) 40 mg PO DAILY [facility] Last Admin: 02/09/18 09:52 Dose: 40 mg Paroxetine HCl (Paxil) 20 mg PO DAILY [facility] Last Admin: 02/09/18 09:52 Dose: 20 mg Saccharomyces Boulardii (Florastor) 500 mg PO BID [facility] Last Admin: 02/09/18 17:23 Dose: 500 mg Saliva Substitute (First Magic Mouthwash) 5 ml PO Q6H [facility] Last Admin: 02/09/18 20:28 Dose: 5 ml Tiotropium [place] (Spiriva) 18 mcg INH RQ24 [facility] Last Admin: 02/09/18 07:30 Dose: 18 mcg Vitamin A (Vitamin A & D Oint Ud Foilpak) 1 ea TOP Q8 PRN PRN Reason: dry lips Last Admin: 02/09/18 06:33 Dose: 1 ea - Labs Labs: 02/08/18 05:32 02/08/18 05:34 APTT 65 SECONDS (21-34) H D 01/29/18 06:52
[2018-02-10] MEDS: Albuterol-Ipratrop 3 mg / 0.5 (3 ml) UD INH SCH ×3 (01:19→14:00)
[2018-02-10] MEDS: Mag&Al/Simet/Diphen/Lido 237 ML KIT PO SCH ×3 (01:25→12:29)
[2018-02-10] MEDS: Vitamins A & D Oint UD Foilpak TOP PRN (06:09)
[2018-02-10] MEDS: Budesonide 0.5 mg/2 ml Inhal Susp UD INH SCH (07:20)
[2018-02-10] MEDS: Tiotropium 18 mcg Cap For Inhalation INH SCH (07:50)
[2018-02-10] MEDS: Metoprolol Succinate 25 mg XL Tab PO SCH (09:50)
[2018-02-10] MEDS: Pantoprazole 40 mg EC Tab PO SCH (09:50)
[2018-02-10] MEDS: Saccharomyces Boulardi 250 mg Cap PO SCH (09:52)
[2018-02-10 12:18] VITALS: TEMP 98.5
[2018-02-10] MEDS ORDERED: Nystatin 100,000 Units/ml Oral Susp 5 ml UD PO SCH (14:00)
[2018-02-10] MEDS ORDERED: Influenza Vaccine 60 MCG/0.5 ML SYR (3 yr & up) IM ONE (15:00)
[2018-02-10 16:19] VITALS: BP 112/42; PULSE 75; RESP 18; O2SAT 96
--- NOTE | 2018-02-10 18:53 | PN ---
DATE: 02/08/2018 TIME OF EVALUATION: 08:30 a.m. SUBJECTIVE: The patient is sitting up in the intensive care unit bed #3 comfortably. Not in any distress. She is also tolerating the oxygen. Room air oxygen saturation is 91%, actually doing very well. Not in any distress. I spoke to the family in detail. Possible discharge plan once the bed is available in the rehab. We will continue to monitor. PHYSICAL EXAMINATION: CHEST: Good air entry, minimal expiratory wheezing noted. HEART: Regular heart sounds. ABDOMEN: Soft. EXTREMITIES: 1+ pedal edema. ASSESSMENT AND PLAN: The patient is an 87-year-old female with a history of pneumonia, respiratory insufficiency, heart failure, and also atrial flutter and fibrillation, right now doing well. We will continue to monitor. Coreen Barbour MD
--- NOTE | 2018-02-10 19:06 | PN ---
DATE: 02/10/2018 TIME OF VISIT: Around 6:30 p.m. LOCATION: The patient is still in the room, bed 3 in ICU. SUBJECTIVE: The patient is comfortably sitting up, not in any distress. She has oral mouth redness and strawberry tongue noted, complaining of some pain, eating otherwise well. No chest pain, no shortness of breath. PHYSICAL EXAMINATION: VITAL SIGNS: On examination, vital signs are stable. Saturation is 93% on 1 L nasal cannula. CHEST: Good air entry. HEART: Regular heart sounds. ABDOMEN: Soft. ASSESSMENT AND PLAN: The patient is an 87-year-old female with a history of lung fibrosis, atrial flutter/fibrillation, and heart failure, admitted to the hospital with acute respiratory insufficiency and pneumonia, also now having vancomycin-resistant Enterococcus. Otherwise, the patient is stable. There were no antibiotics needed at this time as per Infectious Disease. I spoke to the Infectious Disease. I also spoke to the patient's daughter in detail. We will follow up with the patient. Possible discharge plan tomorrow. Coreen Barbour MD
--- NOTE | 2018-02-11 07:17 | DS ---
HISTORY: This is an 87-year-old female with a history of chronic hypertension, chronic atrial flutter fibrillation, and she also had a pacemaker recently, admitted to the hospital with acute increasing shortness of breath. The patient was admitted to the hospital with worsening shortness of breath and also recently diagnosed with worsening respiratory status, on oxygen. While she was at home prior to the hospitalization, the patient received oxygen as well as prednisone. She started having increasing shortness of breath, confusion, and lethargy, so brought into the emergency room. The patient was initially admitted to the hospital with the diagnoses of possible pneumonia and also history of rheumatoid arthritis associated with possible interstitial lung disease. The patient had a positive troponin upon admission. She had a history of chronic atrial flutter and fibrillation, but on oral anticoagulation. Initially, now admitted with acute decompensated heart failure likely and associated with severe worsening interstitial lung disease. The patient placed on Lasix, Solu-Medrol, cardiac evaluation, echocardiogram, and GI evaluation was done. The patient while she was recovering from the floor, her condition got worse and more episodes of hypoxia noted and the patient was brought to the Intensive Care Unit because of atrial flutter and fibrillation. She was initially placed on amiodarone, Lopressor because of increasing heart rate, and also given Cardizem and her heart rate was controlled after this brief episode of rapid ventricular rate, but her condition got worse on 01/27/2018. At that time, the patient's condition really got worse. She became more hypoxic, became more hypotensive and as the condition got worse, I informed the family and we explained about the overall prognosis. They did not want any intubation at that time, but the patient was managed conservatively with the BiPAP, oxygen, Lasix, and gentle IV hydration. The patient slowly got better. Over the next few days, the patient slowly improved. Her oxygen requirement improved from 100% to 3 L of nasal cannula. She started improving markedly. She was also receiving multiple medications including antibiotic and also bronchodilator, Solu-Medrol, and Lasix. Currently, she is being maintained well with 2 L of nasal cannula. She is doing extremely well. She is more independent. She is able to walk with assistance, able to eat, but she has significant oral thrush associated with strawberry tongue, on nystatin swish and swallow. The patient is currently receiving Cardizem 30 mg three times a day, DuoNeb, probiotic, Lasix 20 mg daily, nystatin swish and swallow four times a day, Paxil 20 mg daily, Pradaxa 75 mg twice a day, Protonix 40 mg daily, Pulmicort twice a day, Spiriva once a day, metoprolol 25 mg daily, and A and D cream. The patient is currently doing well. She will be discharged to rehabilitation today. She will be followed up by Dr. Vasques in the rehab and I spoke to the patient's family in detail. She will need some extensive physical exercise and treatment and after that she will follow up as an outpatient. The patient had microbiologically showing evidence of vancomycin-resistant enterococcus faecium, but as the patient has no signs and symptoms, it was decided not to start the patient on any antibiotic. We will observe and closely will be monitored. Coreen Barbour MD
== END 2018-02-10 16:20 | DRG 280 ==
LOC: C.ER 11:43 → C.6T 14:39 → C.9I 01-26 22:18
PROVIDERS: ADMIT Internal Medicine; ATTEND Internal Medicine
PROC: 5A09457 Assistance with Respiratory Ventilation, 24-96 Consecutive Hours, Continuous Positive Airway Pressure (ICD-10-PCS; principal; 2018-01-28)
DX: I11.0 Hypertensive heart disease with heart failure (principal); I21.4 Non-ST elevation (NSTEMI) myocardial infarction; J18.9 Pneumonia, unspecified organism; J69.0 Pneumonitis due to inhalation of food and vomit; J44.1 Chronic obstructive pulmonary disease with (acute) exacerbation; J44.0 Chronic obstructive pulmonary disease with (acute) lower respiratory infection; I47.2 Ventricular tachycardia; E87.3 Alkalosis; B37.0 Candidal stomatitis; I50.43 Acute on chronic combined systolic (congestive) and diastolic (congestive) heart failure; J84.10 Pulmonary fibrosis, unspecified; E87.6 Hypokalemia; I27.20 Pulmonary hypertension, unspecified; I35.0 Nonrheumatic aortic (valve) stenosis; I48.0 Paroxysmal atrial fibrillation; I48.2 Chronic atrial fibrillation; R09.02 Hypoxemia; I95.9 Hypotension, unspecified; M06.9 Rheumatoid arthritis, unspecified; E89.0 Postprocedural hypothyroidism; B95.2 Enterococcus as the cause of diseases classified elsewhere; F03.90 Unspecified dementia, unspecified severity, without behavioral disturbance, psychotic disturbance, mood disturbance, and anxiety; M81.0 Age-related osteoporosis without current pathological fracture; K14.3 Hypertrophy of tongue papillae; Z16.21 Resistance to vancomycin; H35.30 Unspecified macular degeneration; E78.00 Pure hypercholesterolemia, unspecified; Z95.0 Presence of cardiac pacemaker; Z23 Encounter for immunization; Z99.81 Dependence on supplemental oxygen; Z86.711 Personal history of pulmonary embolism; Z79.01 Long term (current) use of anticoagulants; Z79.899 Other long term (current) drug therapy; Z87.01 Personal history of pneumonia (recurrent); Z88.5 Allergy status to narcotic agent

== ENCOUNTER 2018-03-30 00:43 | Inpatient (IN) | payer MEDICARE ==
[2018-03-30 00:44] VITALS: BMI 26.6
[2018-03-30] MEDS ORDERED: MethylPREDNISolone 40 mg Vial IVP STA (01:03)
[2018-03-30] MEDS ORDERED: Albuterol-Ipratrop 3 mg / 0.5 (3 ml) UD INH STA ×2 (01:06)
[2018-03-30] MEDS ORDERED: Albuterol-Ipratrop 3 mg / 0.5 (3 ml) UD ONE (01:16)
[2018-03-30 01:31] LABS: BASO # 0.2 K/uL (0.0-0.2); BASO % 1.7 % (0.0-2.0); EOS % 0.3 % (0.0-4.0); HEMOGLOBIN 10.2 g/dL (11.0-16.0); LYMPH # 1.1 K/uL (1.0-4.3); LYMPH % 7.7 % (20.0-40.0); MEAN CELL VOLUME 92.2 fL (81.0-99.0); MEAN CORPUSCULAR HEMOGLOBIN 30.4 pg (27.0-31.0); MEAN CORPUSCULAR HGB CONC 32.9 g/dL (33.0-37.0); MEAN PLATELET VOLUME 10.4 fL (7.2-11.7); MONO # 1.7 K/uL (0.0-0.8); MONO % 11.7 % (0.0-10.0); NEUT # 11.2 K/uL (1.8-7.0); NEUT % 78.6 % (50.0-75.0); PLATELET COUNT 226 K/uL (130-400); RBC 3.37 Mil/uL (3.80-5.20); WHITE BLOOD COUNT 14.2 K/uL (4.8-10.8)
[2018-03-30 01:40] LABS: INR 1.9; PROTHROMBIN TIME 20.8 SECONDS (9.7-12.2)
[2018-03-30 01:43] LABS: ALB/GLOB RATIO 0.9 (1.0-2.1); ALBUMIN 3.3 g/dL (3.5-5.0); AST/SGOT 41 U/L (14-36); BLOOD UREA NITROGEN 15 mg/dL (7-17); CALCIUM 8.1 mg/dl (8.6-10.4); GFR NON-AFRICAN AMERICAN > 60
[2018-03-30 01:46] LABS: ALT/SGPT < 6 U/L (9-52)
--- NOTE | 2018-03-30 01:58 | C.PDOC ---
History Of Present Illness 87 year old female is brought to the ED by EMS on CPAP for evaluation of SOB that started this evening. Patient's family reports patient had fever and mild cough while at home. Patient denies any pain while in the ED. Time Seen by Provider: 03/30/18 01:00 Chief Complaint (Nursing): Shortness Of Breath History Per: Patient, EMS, Family History/Exam Limitations: no limitations Onset/Duration Of Symptoms: Hrs Current Symptoms Are (Timing): Still Present Initiating Event: Upper Respiratory Illness Current Respiratory Medications: See Home Med List Associated Symptoms: Fever Recent travel outside of the [place]: No Additional History Per: Patient Past Medical History Reviewed: Historical Data, Nursing Documentation, Vital Signs Vital Signs: Last Vital Signs Temp 98.3 F 03/30/18 00:50 Pulse 131 H 03/30/18 00:50 Resp 28 H 03/30/18 01:31 BP 112/68 03/30/18 00:50 Pulse Ox 99 03/30/18 01:31 - Medical History PMH: Anxiety (takes paxil), Arthritis, Atrial Fibrillation, Bronchitis, CHF, [employer]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 Negative for: Chills Cardiovascular: Negative for: Chest Pain, Palpitations Respiratory: Positive for: Cough, Shortness of Breath. Negative for: Sputum, Wheezing Gastrointestinal: Negative for: Nausea, Vomiting, Abdominal Pain Skin: Negative for: Rash Neurological: Negative for: Weakness, Numbness, Headache, Dizziness Physical Exam - Physical Exam Appears: Non-toxic, In Acute Distress Skin: Normal Color, Warm, Dry Head: Atraumatic, Normacephalic Eye(s): bilateral: Normal Inspection Oral Mucosa: Moist Neck: Normal ROM, Supple Chest: Symmetrical, Other (pacemaker on chest wall) Cardiovascular: Rhythm Irregular (tachycardic) Respiratory: Rales (at the bases), No Rhonchi, Wheezing (expiratory and inspiratory) Gastrointestinal/Abdominal: Soft, No Tenderness, No Guarding, No Rebound Extremity: Normal ROM, No Tenderness, Pedal Edema (1+ bilaterally), Capillary Refill (< 2 seconds) Pulses: Left Dorsalis Pedis: Normal, Right Dorsalis Pedis: Normal Neurological/Psych: Oriented x3, Normal Speech, Normal Cognition ED Course And Treatment - Laboratory Results Result Diagrams: 03/30/18 01:20 03/30/18 01:20 Lab Results: PT 20.8 SECONDS (9.7-12.2) H 03/30/18 01:20 INR 1.9 03/30/18 01:20 APTT 57 SECONDS (21-34) H 03/30/18 01:20 Troponin I 1.4400 ng/mL (0.00-0.120) H* 03/30/18 01:20 Total Bilirubin 1.2 mg/dL (0.2-1.3) 03/30/18 01:20 AST 41 U/L (14-36) H D 03/30/18 01:20 ALT < 6 U/L (9-52) L D 03/30/18 01:20 Alkaline Phosphatase 90 U/L (38-126) 03/30/18 01:20 Total Protein 7.0 g/dL (6.3-8.3) 03/30/18 01:20 Albumin 3.3 g/dL (3.5-5.0) L D 03/30/18 01:20 Globulin 3.6 gm/dL (2.2-3.9) 03/30/18 01:20 Albumin/Globulin Ratio 0.9 (1.0-2.1) L 03/30/18 01:20 ECG: Interpreted By Me, Viewed By Me ECG Rhythm: Atrial Fibrillation Rate From EC (BPM) O2 Sat by Pulse Oximetry: 99 (ON BIPAP) Pulse Ox Interpretation: Normal Critical Care Time - Critical Care Note Total Time (in mins): 60 Documented critical care: time excludes all time spent performing seperately billable procedures. Medical Decision Making Medical Decision Making: Plan: * EKG * Labs * CXR * Aspirin 325 mg PO * Cardizem IV * Duoneb x2 * Lasix 20 mg IVP * Solumedrol 125 mg IVP * Blood culture * urine culture * Influenza A B * UA Spoke with Dr. Barbour (PMD) and Dr. Monserrat Celeste (ICU glass vial bending conveyor feeder) reviewed the case, patient will be admitted to the ICU floor. Patient will be kept on BIPAP Disposition - Disposition Disposition: HOSPITALIZED Disposition Time: 02:10 Condition: GUARDED - Clinical Impression Clinical Impression: Atrial fibrillation with rapid ventricular response, CHF exacerbation, Elevated troponin, Respiratory distress - Scribe Statement The provider has reviewed the documentation as recorded by the Scribe Axel Garrison All medical record entries made by the Scribe were at my direction and personally dictated by me. I have reviewed the chart and agree that the record accurately reflects my personal performance of the history, physical exam, medical decision making, and the department course for this patient. I have also personally directed, reviewed, and agree with the discharge instructions and disposition.
[2018-03-30] MEDS ORDERED: Digoxin 500 mcg/2ml (0.5 mg/2ml) Inj IVP ONE (02:18)
[2018-03-30 02:19] LABS: LYMPHOCYTE 11 % (20-40); MONOCYTE 13 % (0-10); NEUTROPHIL 76 % (50-75); PLATELET ESTIMATE NORMAL (NORMAL); TOTAL CELLS COUNTED 100
[2018-03-30] MEDS ORDERED: Digoxin 500 mcg/2ml (0.5 mg/2ml) Inj ONE (02:34)
--- NOTE | 2018-03-30 03:51 | CP.PCM.CON ---
History of Present Illness - History of Present Illness History of Present Illness: 87 y/o female with past medical history of A.fib, HTN, pulmonary HTN, admitted to [facility] for difficulty breathing. Patient has h/o acute decompensated heart failure and previosuly transferred to ICU s/p episode of V.tach and NSTEMI. Patient denies any chest pain, c/o LE edema, denies any dizziness. Pmx: dementia, chronic diastolic heart failure, NSTEMI, PNA, pulmonary fibrosis Psurg hx: Allergies Review of Systems - Review of Systems Systems not reviewed;Unavailable: Unstable Vital Signs, Respiratory Distress Past Patient History - Infectious Disease Hx of Infectious Diseases: None - Tetanus Immunizations Tetanus Immunization: Unknown - Past Medical History & Family History Past Medical History?: Yes - Past Social History Smoking Status: Never Smoked - CARDIAC Hx Cardiac Disorders: Yes Hx Atrial Fibrillation: Yes Hx Congestive Heart Failure: Yes Hx Hypercholesterolemia: Yes Hx Hypertension: Yes Hx Pacemaker: Yes Hx Peripheral Edema: No - PULMONARY Hx Respiratory Disorders: Yes Hx Bronchitis: Yes Hx Chronic Obstructive Pulmonary Disease (COPD): Yes Hx Pulmonary Embolism: Yes - NEUROLOGICAL Hx Neurological Disorder: Yes Hx Dementia: Yes (new dementia; forgetful) - HEENT Hx HEENT Problems: Yes 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; gets injections) - RENAL Hx Chronic Kidney Disease: No - ENDOCRINE/METABOLIC Hx Endocrine Disorders: Yes Hx Hyperthyroidism: Yes (surgery done) - HEMATOLOGICAL/ONCOLOGICAL Hx Blood Disorders: No - INTEGUMENTARY Hx Dermatological Problems: No - MUSCULOSKELETAL/RHEUMATOLOGICAL Hx Musculoskeletal Disorders: Yes Hx Arthritis: Yes - GASTROINTESTINAL Hx Gastrointestinal Disorders: No - GENITOURINARY/GYNECOLOGICAL Hx Genitourinary Disorders: No - PSYCHIATRIC Hx Psychophysiologic Disorder: Yes Hx Anxiety: Yes (takes paxil) Hx Substance Use: No - SURGICAL HISTORY Hx Surgeries: Yes Hx Thyroidectomy: Yes Other/Comment: lumpectomy left breast - ANESTHESIA Hx Anesthesia: Yes Hx Anesthesia Reactions: No Hx Malignant Hyperthermia: No Has any member of the family had a problem w/ anesthesia?: No Meds Allergies/Adverse Reactions: Allergies Allergy/AdvReac Type Severity Reaction Status Date / Time codeine Allergy Intermediate Verified 01/24/18 12:00 lorazepam AdvReac Severe Verified 01/24/18 12:00 - Medications Medications: Current Medications Diltiazem HCl 125 mg/ Dextrose 125 mls @ 5 mls/hr IV .Q24H ANTONINO; Protocol Last Admin: 03/30/18 02:43 Dose: 5 mg/hr, 5 mls/hr Physical Exam - Head Exam Head Exam: ATRAUMATIC, NORMAL INSPECTION - Eye Exam Eye Exam: EOMI - ENT Exam ENT Exam: Mucous Membranes Dry - Neck Exam Neck exam: Positive for: Normal Inspection - Respiratory Exam Respiratory Exam: Accessory Muscle Use, Rales, Rhonchi, Respiratory Distress. absent: Decreased Breath Sounds, Stridor - Cardiovascular Exam Cardiovascular Exam: Tachycardia, +S1, +S2, +S4, Systolic Murmur - GI/Abdominal Exam GI & Abdominal Exam: Normal Bowel Sounds, Soft - Extremities Exam Extremities exam: Positive for: pedal edema - Neurological Exam Neurological exam: Alert, Oriented x3 - Skin Skin Exam: Normal Color, Warm Results - Vital Signs Recent Vital Signs: Last Vital Signs Temp 97.7 F 03/30/18 03:08 Pulse 91 H 03/30/18 03:08 Resp 24 03/30/18 03:08 BP 100/60 03/30/18 03:08 Pulse Ox 95 03/30/18 03:08 - Labs Result Diagrams: 03/30/18 01:20 03/30/18 01:20 Labs: Laboratory Results - last 24 hr 03/30/18 03/30/18 03/30/18 01:20 01:20 01:20 WBC 14.2 H RBC 3.37 L Hgb 10.2 L Hct 31.1 L MCV 92.2 MCH 30.4 MCHC 32.9 L RDW 16.0 H Plt Count 226 MPV 10.4 Neut % (Auto) 78.6 H Lymph % (Auto) 7.7 L Sargent % (Auto) 11.7 H Eos % (Auto) 0.3 Baso % (Auto) 1.7 Neut # (Auto) 11.2 H Lymph # (Auto) 1.1 Sargent # (Auto) 1.7 H Eos # (Auto) 0.0 Baso # (Auto) 0.2 Neutrophils % (Manual) 76 H Lymphocytes % (Manual) 11 L Monocytes % (Manual) 13 H Platelet Estimate Normal PT 20.8 H INR 1.9 APTT 57 H Sodium 135 Potassium 3.7 Chloride 101 Carbon Dioxide 27 Anion Gap 10 BUN 15 Creatinine 0.8 Est GFR ( Amer) > 60 Est GFR (Non-Af Amer) > 60 Random Glucose 152 H D Calcium 8.1 L Magnesium 1.4 L Total Bilirubin 1.2 AST 41 H D ALT < 6 L D Alkaline Phosphatase 90 Troponin I 1.4400 H* NT-Pro-B Natriuret Pep Total Protein 7.0 Albumin 3.3 L D Globulin 3.6 Albumin/Globulin Ratio 0.9 L Digoxin Influenza Typ A,B (EIA) 03/30/18 03/30/18 03/30/18 01:20 01:20 01:52 WBC RBC Hgb Hct MCV MCH MCHC RDW Plt Count MPV Neut % (Auto) Lymph % (Auto) Sargent % (Auto) Eos % (Auto) Baso % (Auto) Neut # (Auto) Lymph # (Auto) Sargent # (Auto) Eos # (Auto) Baso # (Auto) Neutrophils % (Manual) Lymphocytes % (Manual) Monocytes % (Manual) Platelet Estimate PT INR APTT Sodium Potassium Chloride Carbon Dioxide Anion Gap BUN Creatinine Est GFR ( Amer) Est GFR (Non-Af Amer) Random Glucose Calcium Magnesium Total Bilirubin AST ALT Alkaline Phosphatase Troponin I NT-Pro-B Natriuret Pep 51539 H Total Protein Albumin Globulin Albumin/Globulin Ratio Digoxin 0.6 L Influenza Typ A,B (EIA) Negative for flu a/b Assessment & Plan - Assessment and Plan (Free Text) Assessment: -Acute on Chronic Diastolic Heart Failure s/p PPM/NSTEMI - ECHO: normal EF, moderate to severe , moderate to severe pulmonary HTN - lasix 20mg PO QD - currently on cardizem ggt as per primary team -patient took pradaxa, will start IV heparin after 24 hours of stopping pradaxa (INR 1.9) -Decrease preload and afterload: start bi-pap -h/o Pulmonary fibrosis/Pulmonary Hypertension - CXR 01/29: prominent dense confluent consolidative opacifications increased b/l. calcified aorta. cardiomegaly - CT chest 01/26: pulmonary HTN - oxygen and negative balance -chronic pulmonary HTN -Possible PNA/sepsis - Procal: pending -check influenza, start empirical abx (doxy + cefepime), woodard culture, given heart failure, patient will not benefit from 30 ml/kg of IVF bolus -NPO -h/o ROSE: monitor urine output, avoid nephrotoxic drugs PPX GI: pepcid DVT: was on pradaxa Given CXR findings and clinical scenario, patient will benefit from ICU level care. Cardiology consult for NSTEMI, cc time 45 minutes - Date & Time Date: 03/30/18 Time: 03:56
[2018-03-30 04:05] LABS: URINE BILIRUBIN NEGATIVE (NEGATIVE); URINE BLOOD 2+ (NEGATIVE); URINE CLARITY Clear (Clear); URINE COLOR Straw (YELLOW); URINE GLUCOSE (UA) NORMAL (Normal); URINE LEUKOCYTE ESTERASE NEG Leu/uL (Negative); URINE PROTEIN NEGATIVE (NEGATIVE); URINE UROBILINOGEN NORMAL mg/dL (0.2-1.0)
[2018-03-30] MEDS: Magnesium Sulfate 1 gm in D5W 1 GM/100 ML BAG IVPB SCH ×2 (04:50→06:02)
--- NOTE | 2018-03-30 05:12 | PCM.SEPTIC ---
Sepsis Progress Note - Reassessment Type Date of Evaluation: 03/30/18 Time of Evaluation: 05:11 Reassessment Type: Non-invasive reassessment - Non Invasive Reassessment Were the most recent vital sign reviewed: Yes Vital Sign (Latest): Temp Pulse Resp BP Pulse Ox 98.0 F 84 22 119/52 L 97 03/30/18 03:54 03/30/18 04:32 03/30/18 04:32 03/30/18 03:54 03/30/18 04:32 Cardiovascular: Yes: Murmur, Irregularly Irregular Respiratory: Yes: Crackles. No: Accessory Muscle Use, Stridor, Wheezing, Respiratory Distress Capillary Refill: Normal (Less than 2 sec) Pulses: Normal Radial, Normal Dorsalis Pedis, Normal Posterior Tibialis Skin: Normal Color - Invasive Reassessment (complete 2 of 4) Was a Central Venous Pressure Measurement obtained within 6 Hours after the presentation of septic shock: No Was a central venous oxygen measurement obtained within 6 hours after the presentation of septic shock: No Was a bedside cardiovascular ultrasound performed within 6 hours after the pr esentation of septic shock: No Was a passive leg raise performed or was a fluid challenge performed within 6 hrs of the initial fluid bolus: No Fluid Challenge performed: No
[2018-03-30] MEDS ORDERED: Verapamil 120 mg ER Tab PO ONE (05:18)
[2018-03-30] MEDS: Ipratropium 0.02% Inhal Soln (0.5 mg/2.5 ml) UD IH SCH ×4 (05:56→19:37)
[2018-03-30] MEDS: Cefepime IV 1 gm in Dextrose 1 GM/50 ML BAG IVPB SCH ×2 (06:30→15:19)
[2018-03-30] MEDS ORDERED: Enoxaparin 40 mg Syringe SC SCH ×2 (10:00→22:00)
[2018-03-30] MEDS ORDERED: Verapamil 180 mg ER Tab PO SCH (10:00)
--- NOTE | 2018-03-30 10:12 | RAD ---
Date of service: 03/30/2018 HISTORY: SOB COMPARISON: Portable chest 02/04/2018. FINDINGS: LUNGS: Mixed alveolar and interstitial infiltrates rare reiterated at the bilateral mid inferior lung aguilar predominantly and are unchanged in the interval. PLEURA: Trace right pleural effusion not excluded. None is seen at the left. No pneumothorax bilaterally. CARDIOVASCULAR: Calcific atherosclerotic changes are seen related to the thoracic aorta. Normal cardiac size. Bipolar pacemaker reiterated. Vascular pattern obscured by infiltrates. OSSEOUS STRUCTURES: No significant abnormalities. VISUALIZED UPPER ABDOMEN: Normal. OTHER FINDINGS: Surgical clips reiterated at the right neck. IMPRESSION: Stable mixed alveolar/interstitial infiltrates at the mid to inferior lung zones bilaterally. Vascular pattern obscured by infiltrates.
[2018-03-30 11:35] LABS: BLOOD UREA NITROGEN 18 mg/dL (7-17); CALCIUM 8.3 mg/dl (8.6-10.4); GFR NON-AFRICAN AMERICAN > 60
[2018-03-30 11:46] LABS: CK-MB 3.14 ng/mL (0.0-3.38)
--- NOTE | 2018-03-30 12:01 | CP.PCM.HP ---
History of Present Illness - History of Present Illness History of Present Illness: Chief complaint: Severe shortness of breath and chest pain, shortness of breath HPI: 87-year-old female with a history of hypertension atrial fibrillation pacemaker Recently hospitalized with the decompensated heart failure, atrial flutter and fibrillation. Patient was recovering from the rehabilitation, and at home she was using the home oxygen, she started noticing worsening shortness of breath, family concerned that she is not breathing to breathe well. Chest discomfort associate with this will be noted. Patient was using the oxygen in the house, including the nebulizer without any improvement. In the emergency room patient was having severe shortness of breath, she was on oxygen as well as placed on BiPAP. But as the heart rate was controlled with intravenous medication patient hospitalized and admitted to the intensive care unit. Also noted to have a high troponin level. Chest x-ray showing congested. Lasix was given. She has no chest pain. Denies any nausea vomiting. But poor intake noted. Past medical history: Hypertension, atrial fibrillation. Lung fibrosis, home oxygen Past surgical history: Pacemaker, thyroidectomy. Family history noncontributory Social history: Denies any alcohol or smoking. Possible secondhand smoking noted in the past. She drinks coffee at least it 3 times. Currently not working. Current medications: Reviewed. Review of systems: Recently she started having increasing dementia. Episodes of shortness of breath. Cough noted. Sometimes with mucus production. Even at minimal exertion to using accessory muscles. Using home oxygen On examination: Patient had a tachycardia, episodes of flutter and the atrial fibrillation. Using the home oxygen. Also taking the anticoagulation. Patient has no chest pain. Regular heart sound. But bilateral Velcro-like rales noted Pedal edema noted. Chest x-ray showing evidence of bilateral worsening infiltrative changes. Worsening congestion noted. Cardiomegaly no pleural effusion. Assessment/recommendation: 87-year-old female with history of hypertension, atrial fibrillation, osteoarthritis, recently hospital with the decompensated heart failure with the atrial flutter fibrillation. Lung fibrosis. Patient was also noted to have interstitial lung disease. Positive troponin. History of atrial fibrillation. On anticoagulation orally. Patient now admitted with acute decompensated heart failure likely. Associated with this severe interstitial lung disease. I agree with the Lasix. Low-dose Solu-Medrol. Cardiology evaluation. Echocardiogram. Antibiotic for empirical. GI prophylaxis. And will follow-up the patient. Patient on home oxygen Will speak to the family and progressively increase the physical exercise. BiPAP now. Bronchodilators and will follow the patient Present on Admission - Present on Admission Any Indicators Present on Admission: No History of DVT/PE: No History of Uncontrolled Diabetes: No Urinary Catheter: No Decubitus Ulcer Present: No Past Patient History - Infectious Disease Hx of Infectious Diseases: None - Tetanus Immunizations Tetanus Immunization: Unknown - Past Medical History & Family History Past Medical History?: Yes - Past Social History Smoking Status: Never Smoked - CARDIAC Hx Atrial Fibrillation: Yes Hx Congestive Heart Failure: Yes Hx Hypercholesterolemia: Yes Hx Hypertension: Yes Hx Pacemaker: Yes Hx Peripheral Edema: No - PULMONARY Hx Bronchitis: Yes Hx Chronic Obstructive Pulmonary Disease (COPD): Yes Hx Pulmonary Embolism: Yes - NEUROLOGICAL Hx Dementia: Yes (new dementia; forgetful) - HEENT Hx HEENT Problems: Yes 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; gets injections) - RENAL Hx Chronic Kidney Disease: No - ENDOCRINE/METABOLIC Hx Hyperthyroidism: Yes (surgery done) - HEMATOLOGICAL/ONCOLOGICAL Hx Blood Disorders: No - INTEGUMENTARY Hx Dermatological Problems: No - MUSCULOSKELETAL/RHEUMATOLOGICAL Hx Arthritis: Yes - GASTROINTESTINAL Hx Gastrointestinal Disorders: No - GENITOURINARY/GYNECOLOGICAL Hx Genitourinary Disorders: No - PSYCHIATRIC Hx Anxiety: Yes (takes paxil) Hx Substance Use: No - SURGICAL HISTORY Hx Surgeries: Yes Hx Thyroidectomy: Yes Other/Comment: lumpectomy left breast - ANESTHESIA Hx Anesthesia: Yes Hx Anesthesia Reactions: No Hx Malignant Hyperthermia: No Has any member of the family had a problem w/ anesthesia?: No Meds Allergies/Adverse Reactions: Allergies Allergy/AdvReac Type Severity Reaction Status Date / Time codeine Allergy Intermediate Verified 01/24/18 12:00 lorazepam AdvReac Severe Verified 01/24/18 12:00 Results - Vital Signs Recent Vital Signs: Last Vital Signs Temp 97.1 F L 03/30/18 08:00 Pulse 68 03/30/18 11:01 Resp 42 H 03/30/18 08:00 BP 95/54 L 03/30/18 07:17 Pulse Ox 94 L 03/30/18 08:00 - Labs Result Diagrams: 03/30/18 01:20 03/30/18 11:11 Labs: Laboratory Results - last 24 hr 03/30/18 03/30/18 03/30/18 01:20 01:20 01:20 WBC 14.2 H RBC 3.37 L Hgb 10.2 L Hct 31.1 L MCV 92.2 MCH 30.4 MCHC 32.9 L RDW 16.0 H Plt Count 226 MPV 10.4 Neut % (Auto) 78.6 H Lymph % (Auto) 7.7 L [place] % (Auto) 11.7 H Eos % (Auto) 0.3 Baso % (Auto) 1.7 Neut # (Auto) 11.2 H Lymph # (Auto) 1.1 [place] # (Auto) 1.7 H Eos # (Auto) 0.0 Baso # (Auto) 0.2 Neutrophils % (Manual) 76 H Lymphocytes % (Manual) 11 L Monocytes % (Manual) 13 H Platelet Estimate Normal PT 20.8 H INR 1.9 APTT 57 H Sodium 135 Potassium 3.7 Chloride 101 Carbon Dioxide 27 Anion Gap 10 BUN 15 Creatinine 0.8 Est GFR ( Amer) > 60 Est GFR (Non-Af Amer) > 60 Random Glucose 152 H D Lactic Acid Calcium 8.1 L Magnesium 1.4 L Total Bilirubin 1.2 AST 41 H D ALT < 6 L D Alkaline Phosphatase 90 Total Creatine Kinase CK-MB (Mass) Troponin I 1.4400 H* NT-Pro-B Natriuret Pep Total Protein 7.0 Albumin 3.3 L D Globulin 3.6 Albumin/Globulin Ratio 0.9 L Urine Color Urine Clarity Urine pH Ur Specific [place] Urine Protein Urine Glucose (UA) Urine Ketones Urine Blood Urine Nitrate Urine Bilirubin Urine Urobilinogen Ur Leukocyte Esterase Urine WBC (Auto) Urine RBC (Auto) Digoxin Influenza Typ A,B (EIA) 03/30/18 03/30/18 03/30/18 01:20 01:20 01:52 WBC RBC Hgb Hct MCV MCH MCHC RDW Plt Count MPV Neut % (Auto) Lymph % (Auto) [place] % (Auto) Eos % (Auto) Baso % (Auto) Neut # (Auto) Lymph # (Auto) [place] # (Auto) Eos # (Auto) Baso # (Auto) Neutrophils % (Manual) Lymphocytes % (Manual) Monocytes % (Manual) Platelet Estimate PT INR APTT Sodium Potassium Chloride Carbon Dioxide Anion Gap BUN Creatinine Est GFR ( Amer) Est GFR (Non-Af Amer) Random Glucose Lactic Acid Calcium Magnesium Total Bilirubin AST ALT Alkaline Phosphatase Total Creatine Kinase CK-MB (Mass) Troponin I NT-Pro-B Natriuret Pep 74473 H Total Protein Albumin Globulin Albumin/Globulin Ratio Urine Color Urine Clarity Urine pH Ur Specific [place] Urine Protein Urine Glucose (UA) Urine Ketones Urine Blood Urine Nitrate Urine Bilirubin Urine Urobilinogen Ur Leukocyte Esterase Urine WBC (Auto) Urine RBC (Auto) Digoxin 0.6 L Influenza Typ A,B (EIA) Negative for flu a/b 03/30/18 03/30/18 03/30/18 03:57 06:32 11:11 WBC RBC Hgb Hct MCV MCH MCHC RDW Plt Count MPV Neut % (Auto) Lymph % (Auto) [place] % (Auto) Eos % (Auto) Baso % (Auto) Neut # (Auto) Lymph # (Auto) [place] # (Auto) Eos # (Auto) Baso # (Auto) Neutrophils % (Manual) Lymphocytes % (Manual) Monocytes % (Manual) Platelet Estimate PT INR APTT Sodium 137 Potassium 3.6 Chloride 101 Carbon Dioxide 29 Anion Gap 10 BUN 18 H Creatinine 0.8 Est GFR ( Amer) > 60 Est GFR (Non-Af Amer) > 60 Random Glucose 160 H Lactic Acid 1.8 Calcium 8.3 L Magnesium 2.4 H Total Bilirubin AST ALT Alkaline Phosphatase Total Creatine Kinase 41 CK-MB (Mass) 3.14 Troponin I 2.2900 H* NT-Pro-B Natriuret Pep Total Protein Albumin Globulin Albumin/Globulin Ratio Urine Color Straw Urine Clarity Clear Urine pH 7.0 Ur Specific [place] 1.003 Urine Protein Negative Urine Glucose (UA) Normal Urine Ketones Negative Urine Blood 2+ H Urine Nitrate Negative Urine Bilirubin Negative Urine Urobilinogen Normal Ur Leukocyte Esterase Neg Urine WBC (Auto) 1 Urine RBC (Auto) 14 H Digoxin Influenza Typ A,B (EIA) 03/30/18 11:11 WBC RBC Hgb Hct MCV MCH MCHC RDW Plt Count MPV Neut % (Auto) Lymph % (Auto) [place] % (Auto) Eos % (Auto) Baso % (Auto) Neut # (Auto) Lymph # (Auto) [place] # (Auto) Eos # (Auto) Baso # (Auto) Neutrophils % (Manual) Lymphocytes % (Manual) Monocytes % (Manual) Platelet Estimate PT INR APTT Sodium Potassium Chloride Carbon Dioxide Anion Gap BUN Creatinine Est GFR ( Amer) Est GFR (Non-Af Amer) Random Glucose Lactic Acid 2.2 H Calcium Magnesium Total Bilirubin AST ALT Alkaline Phosphatase Total Creatine Kinase CK-MB (Mass) Troponin I NT-Pro-B Natriuret Pep Total Protein Albumin Globulin Albumin/Globulin Ratio Urine Color Urine Clarity Urine pH Ur Specific [place] Urine Protein Urine Glucose (UA) Urine Ketones Urine Blood Urine Nitrate Urine Bilirubin Urine Urobilinogen Ur Leukocyte Esterase Urine WBC (Auto) Urine RBC (Auto) Digoxin Influenza Typ A,B (EIA)
--- NOTE | 2018-03-30 15:39 | CP.PCM.PN ---
Subjective - Date & Time of Evaluation Date of Evaluation: 03/30/18 Time of Evaluation: 15:32 - Subjective Subjective: Patient assessed on bipap, responds and communicates, not in distress, HR maintained in mid 70's, variable aflutter, fio2 requirement 40%. Objective - Vital Signs/Intake and Output Vital Signs (last 24 hours): Temp Pulse Resp BP Pulse Ox 97.5 F L 70 24 108/37 L 97 03/30/18 12:00 03/30/18 15:00 03/30/18 15:00 03/30/18 14:51 03/30/18 15:00 Intake and Output: 03/30/18 03/30/18 06:59 18:59 Intake Total 381 583 Output Total 200 700 Balance 181 -117 - Medications Medications: Current Medications Aspirin (Aspirin Chewable) 81 mg PO DAILY [facility] Last Admin: 03/30/18 09:16 Dose: 81 mg Clopidogrel Bisulfate (Plavix) 75 mg PO DAILY [facility] Last Admin: 03/30/18 13:37 Dose: 75 mg Digoxin (Digoxin) 0.125 mg PO DAILY@1800 [facility] Diltiazem HCl (Cardizem) 30 mg PO QID [facility] Last Admin: 03/30/18 13:37 Dose: 30 mg Enoxaparin Sodium (Lovenox) 40 mg SC Q12H [facility] Famotidine (Pepcid) 20 mg PO DAILY [facility] Last Admin: 03/30/18 09:16 Dose: 20 mg Furosemide (Lasix) 20 mg IVP DAILY [facility] Doxycycline Hyclate 100 mg/ (Sodium Chloride) 100 mls @ 100 mls/hr IVPB Q12H [facility]; Protocol Last Admin: 03/30/18 15:20 Dose: 100 mls/hr Cefepime HCl (Maxipime Iv 1 Gm Premix) 1 gm in 50 mls @ 100 mls/hr IVPB Q12H [facility]; Protocol Last Admin: 03/30/18 15:19 Dose: 100 mls/hr Ipratropium [place] (Atrovent) 0.5 mg IH RQ6 [facility] Last Admin: 03/30/18 13:43 Dose: 0.5 mg Methylprednisolone (Solu-Medrol) 20 mg IVP Q12 [facility] Paroxetine HCl (Paxil) 20 mg PO DAILY [facility] Rosuvastatin Calcium (Crestor) 10 mg PO HS [facility] - Labs Labs: 03/30/18 01:20 03/30/18 11:11 PT 20.8 SECONDS (9.7-12.2) H 03/30/18 01:20 INR 1.9 03/30/18 01:20 APTT 57 SECONDS (21-34) H 03/30/18 01:20 - Additional Findings Additional findings: * HEENT SAUL * Neck external and internal jugular venous distension * CVS irregular * Chest coarse rales * PA soft, nt bs present * Ext no edema * Skin normal turgor Assessment and Plan - Assessment and Plan (Free Text) Assessment: * NSTEMI * CHF * H/o pulm htn, MR, , TR * Refused cath last admission * Signeed DNR, and refused cath last time * Empiric abx * Plan: * Therapeutic lovenox, rate control, asa/plavix * D/w family primary team about code status. * Continue empiric abx till initial cultures negative * Diuresis * See orders for detail.
--- NOTE | 2018-03-30 20:54 | CP.PCM.CON ---
History of Present Illness - History of Present Illness History of Present Illness: CC: Dyspnea 87 year old female is brought to the ED by EMS on CPAP for evaluation of SOB that started this evening. Patient's family reports patient had fever and mild cough while at home. Patient denies any pain Chief Complaint (Nursing): Shortness Of Breath History Per: Patient, EMS, Family History/Exam Limitations: no limitations Onset/Duration Of Symptoms: Hrs Current Symptoms Are (Timing): Still Present Initiating Event: Upper Respiratory Illness Current Respiratory Medications: See Home Med List Associated Symptoms: Fever Recent travel outside of the [place]: No Additional History Per: Patient Past Medical History Reviewed: Historical Data, Nursing Documentation, Vital Signs Vital Signs: Last Vital Signs Temp 98.3 F 03/30/18 00:50 Pulse 131 H 03/30/18 00:50 Resp 28 H 03/30/18 01:31 BP 112/68 03/30/18 00:50 Pulse Ox 99 03/30/18 01:31 - Medical History PMH: Anxiety (takes paxil), Arthritis, Atrial Fibrillation, Bronchitis, CHF, COPD, Dementia (new dementia; forgetful), HTN, Hypercholesterolemia, Hype rthyroidism (surgery done), Pulmonary Embolism Denies: Peripheral Edema, Chronic Kidney Disease Surgical History: Pacemaker - [facility] Procedures ASSISTANCE WITH RESPIRATORY VENTILATION, 24-96 HRS, CPAP (01/24/18) Family History: States: Unknown Family Hx - Social History Hx Alcohol Use: No Hx Substance Use: No - Immunization History Hx Tetanus Toxoid Vaccination: No Hx Influenza Vaccination: No Hx Pneumococcal Vaccination: No Review Of Systems Constitutional: Positive for: Fever. Negative for: Chills Cardiovascular: Negative for: Chest Pain, Palpitations Respiratory: Positive for: Cough, Shortness of Breath. Negative for: Sputum, Wheezing Gastrointestinal: Negative for: Nausea, Vomiting, Abdominal Pain Skin: Negative for: Rash Neurological: Negative for: Weakness, Numbness, Headache, Dizziness Physical Exam - Physical Exam Appears: Non-toxic, In Acute Distress Skin: Normal Color, Warm, Dry Head: Atraumatic, Normacephalic Eye(s): bilateral: Normal Inspection Oral Mucosa: Moist Neck: Normal ROM, Supple Chest: Symmetrical, Other (pacemaker on chest wall) Cardiovascular: Rhythm Irregular (tachycardic) Respiratory: Rales (at the bases), No Rhonchi, Wheezing (expiratory and inspiratory) Gastrointestinal/Abdominal: Soft, No Tenderness, No Guarding, No Rebound Extremity: Normal ROM, No Tenderness, Pedal Edema (1+ bilaterally), Capillary Refill (< 2 seconds) Pulses: Left Dorsalis Pedis: Normal, Right Dorsalis Pedis: Normal Neurological/Psych: Oriented x3, Normal Speech, Normal Cognition Assessment and Plan Chronic Diastolic Heart Failure s/p PPM NSTEMI Atrial Fibrillation Pulmonary Fibrosis on home oxygen Hypertension Imaging: - ECHO: Normal EF. Moderate to severe and moderate AI. Moderate to severe pulmonary HTN Management: - As per family's request, no cardiac catherization, medical management only. - Pradaxa 75 po bid plus ASA 81 daily Past Patient History - Infectious Disease Hx of Infectious Diseases: None - Tetanus Immunizations Tetanus Immunization: Unknown - Past Medical History & Family History Past Medical History?: Yes - Past Social History Smoking Status: Never Smoked - CARDIAC Hx Atrial Fibrillation: Yes Hx Congestive Heart Failure: Yes Hx Hypercholesterolemia: Yes Hx Hypertension: Yes Hx Pacemaker: Yes Hx Peripheral Edema: No - PULMONARY Hx Bronchitis: Yes Hx Chronic Obstructive Pulmonary Disease (COPD): Yes Hx Pulmonary Embolism: Yes - NEUROLOGICAL Hx Dementia: Yes (new dementia; forgetful) - HEENT Hx HEENT Problems: Yes 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; gets injections) - RENAL Hx Chronic Kidney Disease: No - ENDOCRINE/METABOLIC Hx Hyperthyroidism: Yes (surgery done) - HEMATOLOGICAL/ONCOLOGICAL Hx Blood Disorders: No - INTEGUMENTARY Hx Dermatological Problems: No - MUSCULOSKELETAL/RHEUMATOLOGICAL Hx Arthritis: Yes - GASTROINTESTINAL Hx Gastrointestinal Disorders: No - GENITOURINARY/GYNECOLOGICAL Hx Genitourinary Disorders: No - PSYCHIATRIC Hx Anxiety: Yes (takes paxil) Hx Substance Use: No - SURGICAL HISTORY Hx Surgeries: Yes Hx Thyroidectomy: Yes Other/Comment: lumpectomy left breast - ANESTHESIA Hx Anesthesia: Yes Hx Anesthesia Reactions: No Hx Malignant Hyperthermia: No Has any member of the family had a problem w/ anesthesia?: No Meds Allergies/Adverse Reactions: Allergies Allergy/AdvReac Type Severity Reaction Status Date / Time codeine Allergy Intermediate Verified 01/24/18 12:00 lorazepam AdvReac Severe Verified 01/24/18 12:00 - Medications Medications: Current Medications Aspirin (Aspirin Chewable) 81 mg PO DAILY [facility] Last Admin: 03/30/18 09:16 Dose: 81 mg Clopidogrel Bisulfate (Plavix) 75 mg PO DAILY [facility] Last Admin: 03/30/18 13:37 Dose: 75 mg Digoxin (Digoxin) 0.125 mg PO DAILY@1800 [facility] Diltiazem HCl (Cardizem) 30 mg PO QID [facility] Last Admin: 03/30/18 17:41 Dose: 30 mg Enoxaparin Sodium (Lovenox) 40 mg SC Q12H [facility] Famotidine (Pepcid) 20 mg PO DAILY [facility] Last Admin: 03/30/18 09:16 Dose: 20 mg Furosemide (Lasix) 20 mg IVP DAILY [facility] Last Admin: 03/30/18 17:41 Dose: 20 mg Doxycycline Hyclate 100 mg/ (Sodium Chloride) 100 mls @ 100 mls/hr IVPB Q12H [facility]; Protocol Last Admin: 03/30/18 15:20 Dose: 100 mls/hr Cefepime HCl (Maxipime Iv 1 Gm Premix) 1 gm in 50 mls @ 100 mls/hr IVPB Q12H [facility]; Protocol Last Admin: 03/30/18 15:19 Dose: 100 mls/hr Ipratropium [place] (Atrovent) 0.5 mg IH RQ6 [facility] Last Admin: 03/30/18 19:37 Dose: 0.5 mg Methylprednisolone (Solu-Medrol) 20 mg IVP Q12 [facility] Paroxetine HCl (Paxil) 20 mg PO DAILY [facility] Rosuvastatin Calcium (Crestor) 10 mg PO HS [facility] Results - Vital Signs Recent Vital Signs: Last Vital Signs Temp 97.3 F L 03/30/18 16:00 Pulse 66 03/30/18 19:38 Resp 35 H 03/30/18 18:00 BP 112/34 L 03/30/18 17:41 Pulse Ox 90 L 03/30/18 18:00 - Labs Result Diagrams: 03/30/18 01:20 03/30/18 11:11 Labs: Laboratory Results - last 24 hr 03/30/18 03/30/18 03/30/18 01:20 01:20 01:20 WBC 14.2 H RBC 3.37 L Hgb 10.2 L Hct 31.1 L MCV 92.2 MCH 30.4 MCHC 32.9 L RDW 16.0 H Plt Count 226 MPV 10.4 Neut % (Auto) 78.6 H Lymph % (Auto) 7.7 L [place] % (Auto) 11.7 H Eos % (Auto) 0.3 Baso % (Auto) 1.7 Neut # (Auto) 11.2 H Lymph # (Auto) 1.1 [place] # (Auto) 1.7 H Eos # (Auto) 0.0 Baso # (Auto) 0.2 Neutrophils % (Manual) 76 H Lymphocytes % (Manual) 11 L Monocytes % (Manual) 13 H Platelet Estimate Normal PT 20.8 H INR 1.9 APTT 57 H Sodium 135 Potassium 3.7 Chloride 101 Carbon Dioxide 27 Anion Gap 10 BUN 15 Creatinine 0.8 Est GFR ( Amer) > 60 Est GFR (Non-Af Amer) > 60 Random Glucose 152 H D Lactic Acid Calcium 8.1 L Magnesium 1.4 L Total Bilirubin 1.2 AST 41 H D ALT < 6 L D Alkaline Phosphatase 90 Total Creatine Kinase CK-MB (Mass) Troponin I 1.4400 H* NT-Pro-B Natriuret Pep Total Protein 7.0 Albumin 3.3 L D Globulin 3.6 Albumin/Globulin Ratio 0.9 L Urine Color Urine Clarity Urine pH Ur Specific [place] Urine Protein Urine Glucose (UA) Urine Ketones Urine Blood Urine Nitrate Urine Bilirubin Urine Urobilinogen Ur Leukocyte Esterase Urine WBC (Auto) Urine RBC (Auto) Digoxin Influenza Typ A,B (EIA) 03/30/18 03/30/18 03/30/18 01:20 01:20 01:52 WBC RBC Hgb Hct MCV MCH MCHC RDW Plt Count MPV Neut % (Auto) Lymph % (Auto) [place] % (Auto) Eos % (Auto) Baso % (Auto) Neut # (Auto) Lymph # (Auto) [place] # (Auto) Eos # (Auto) Baso # (Auto) Neutrophils % (Manual) Lymphocytes % (Manual) Monocytes % (Manual) Platelet Estimate PT INR APTT Sodium Potassium Chloride Carbon Dioxide Anion Gap BUN Creatinine Est GFR ( Amer) Est GFR (Non-Af Amer) Random Glucose Lactic Acid Calcium Magnesium Total Bilirubin AST ALT Alkaline Phosphatase Total Creatine Kinase CK-MB (Mass) Troponin I NT-Pro-B Natriuret Pep 74663 H Total Protein Albumin Globulin Albumin/Globulin Ratio Urine Color Urine Clarity Urine pH Ur Specific [place] Urine Protein Urine Glucose (UA) Urine Ketones Urine Blood Urine Nitrate Urine Bilirubin Urine Urobilinogen Ur Leukocyte Esterase Urine WBC (Auto) Urine RBC (Auto) Digoxin 0.6 L Influenza Typ A,B (EIA) Negative for flu a/b 03/30/18 03/30/18 03/30/18 03:57 06:32 11:11 WBC RBC Hgb Hct MCV MCH MCHC RDW Plt Count MPV Neut % (Auto) Lymph % (Auto) [place] % (Auto) Eos % (Auto) Baso % (Auto) Neut # (Auto) Lymph # (Auto) [place] # (Auto) Eos # (Auto) Baso # (Auto) Neutrophils % (Manual) Lymphocytes % (Manual) Monocytes % (Manual) Platelet Estimate PT INR APTT Sodium 137 Potassium 3.6 Chloride 101 Carbon Dioxide 29 Anion Gap 10 BUN 18 H Creatinine 0.8 Est GFR ( Amer) > 60 Est GFR (Non-Af Amer) > 60 Random Glucose 160 H Lactic Acid 1.8 Calcium 8.3 L Magnesium 2.4 H Total Bilirubin AST ALT Alkaline Phosphatase Total Creatine Kinase 41 CK-MB (Mass) 3.14 Troponin I 2.2900 H* NT-Pro-B Natriuret Pep Total Protein Albumin Globulin Albumin/Globulin Ratio Urine Color Straw Urine Clarity Clear Urine pH 7.0 Ur Specific [place] 1.003 Urine Protein Negative Urine Glucose (UA) Normal Urine Ketones Negative Urine Blood 2+ H Urine Nitrate Negative Urine Bilirubin Negative Urine Urobilinogen Normal Ur Leukocyte Esterase Neg Urine WBC (Auto) 1 Urine RBC (Auto) 14 H Digoxin Influenza Typ A,B (EIA) 03/30/18 11:11 WBC RBC Hgb Hct MCV MCH MCHC RDW Plt Count MPV Neut % (Auto) Lymph % (Auto) [place] % (Auto) Eos % (Auto) Baso % (Auto) Neut # (Auto) Lymph # (Auto) [place] # (Auto) Eos # (Auto) Baso # (Auto) Neutrophils % (Manual) Lymphocytes % (Manual) Monocytes % (Manual) Platelet Estimate PT INR APTT Sodium Potassium Chloride Carbon Dioxide Anion Gap BUN Creatinine Est GFR ( Amer) Est GFR (Non-Af Amer) Random Glucose Lactic Acid 2.2 H Calcium Magnesium Total Bilirubin AST ALT Alkaline Phosphatase Total Creatine Kinase CK-MB (Mass) Troponin I NT-Pro-B Natriuret Pep Total Protein Albumin Globulin Albumin/Globulin Ratio Urine Color Urine Clarity Urine pH Ur Specific [place] Urine Protein Urine Glucose (UA) Urine Ketones Urine Blood Urine Nitrate Urine Bilirubin Urine Urobilinogen Ur Leukocyte Esterase Urine WBC (Auto) Urine RBC (Auto) Digoxin Influenza Typ A,B (EIA)
[2018-03-30] MEDS: MethylPREDNISolone 40 mg Vial IVP SCH (21:27)
[2018-03-31] MEDS: Ipratropium 0.02% Inhal Soln (0.5 mg/2.5 ml) UD IH SCH ×4 (02:32→20:29)
[2018-03-31] MEDS: Cefepime IV 1 gm in Dextrose 1 GM/50 ML BAG IVPB SCH (04:03)
[2018-03-31 04:07] LABS: BASO % 0.1 % (0.0-2.0); HEMOGLOBIN 10.8 g/dL (11.0-16.0); LYMPH # 1.6 K/uL (1.0-4.3); LYMPH % 9.8 % (20.0-40.0); MEAN CELL VOLUME 92.9 fL (81.0-99.0); MEAN CORPUSCULAR HEMOGLOBIN 30.1 pg (27.0-31.0); MEAN CORPUSCULAR HGB CONC 32.4 g/dL (33.0-37.0); MEAN PLATELET VOLUME 10.6 fL (7.2-11.7); MONO % 5.8 % (0.0-10.0); NEUT # 13.8 K/uL (1.8-7.0); NEUT % 84.3 % (50.0-75.0); NRBC % 0.1 % (0.0-2.0); PLATELET COUNT 211 K/uL (130-400); RBC 3.58 Mil/uL (3.80-5.20); RED CELL DISTRIBUTION WIDTH 16.7 % (11.5-14.5); WHITE BLOOD COUNT 16.4 K/uL (4.8-10.8)
[2018-03-31 04:17] LABS: INR 1.4; PROTHROMBIN TIME 15.5 SECONDS (9.7-12.2)
[2018-03-31 05:03] LABS: ALB/GLOB RATIO 0.9 (1.0-2.1); ALBUMIN 3.2 g/dL (3.5-5.0); ALT/SGPT < 6 U/L (9-52); AST/SGOT 35 U/L (14-36); BLOOD UREA NITROGEN 29 mg/dL (7-17); CALCIUM 8.7 mg/dl (8.6-10.4); CK-MB 2.53 ng/mL (0.0-3.38); GFR NON-AFRICAN AMERICAN 43
[2018-03-31 06:07] LABS: BANDS 3 % (0-2); EOSINOPHIL 2 % (0-4); LYMPHOCYTE 3 % (20-40); MONOCYTE 3 % (0-10); NEUTROPHIL 89 % (50-75); PLATELET ESTIMATE NORMAL (NORMAL); TOTAL CELLS COUNTED 100
--- NOTE | 2018-03-31 09:54 | RAD ---
Chest x-ray single frontal view HISTORY: Pneumonia. COMPARISON: 03/30/2018 Findings: Surgical clips at the level of the right neck. Left-sided pacemaker. Atherosclerotic calcification at the aortic knob. Cardiomegaly. Degenerative changes in the spine and shoulders. Confluent consolidative opacification in the left mid to lower lung zone as well as the right lung base. Scattered nodularity throughout both lungs. Biapical pleural thickening. Degenerative changes in the spine and shoulders. Impression: Surgical clips at the level of the right neck. Left-sided pacemaker. Atherosclerotic calcification at the aortic knob. Cardiomegaly. Degenerative changes in the spine and shoulders. Confluent consolidative opacification in the left mid to lower lung zone as well as the right lung base. Scattered nodularity throughout both lungs. Biapical pleural thickening.
[2018-03-31] MEDS ORDERED: Verapamil 180 mg ER Tab PO SCH (10:00)
--- NOTE | 2018-03-31 10:12 | CP.PCM.PN ---
<Jasiel Ashton - Last Filed: 03/31/18 18:05> Subjective - Date & Time of Evaluation Date of Evaluation: 03/31/18 Time of Evaluation: 10:12 - Subjective Subjective: Dr. Flores Service Patient seen and examined at bedside. Per nursing, no acute events occurred overnight . Patient denies any chest pain, shortness of breath, fevers, chills, abdominal pain, or any other complaints. Objective - Vital Signs/Intake and Output Vital Signs (last 24 hours): Temp Pulse Resp BP Pulse Ox 97.9 F 99 H 31 H 151/56 H 83 L 03/31/18 04:00 03/31/18 07:16 03/31/18 07:16 03/31/18 07:16 03/31/18 07:16 Intake and Output: 03/31/18 03/31/18 06:59 18:59 Intake Total 510 Output Total 200 Balance 310 - Medications Medications: Current Medications Aspirin (Aspirin Chewable) 81 mg PO DAILY [facility] Last Admin: 03/30/18 09:16 Dose: 81 mg Dabigatran (Pradaxa) 75 mg PO BID [facility] Digoxin (Digoxin) 0.125 mg PO DAILY@1800 [facility] Diltiazem HCl (Cardizem) 30 mg PO QID [facility] Last Admin: 03/30/18 21:29 Dose: 30 mg Famotidine (Pepcid) 20 mg PO DAILY [facility] Last Admin: 03/30/18 09:16 Dose: 20 mg Furosemide (Lasix) 20 mg IVP DAILY [facility] Last Admin: 03/30/18 17:41 Dose: 20 mg Doxycycline Hyclate 100 mg/ (Sodium Chloride) 100 mls @ 100 mls/hr IVPB Q12H [facility]; Protocol Last Admin: 03/31/18 04:03 Dose: 100 mls/hr Cefepime HCl (Maxipime Iv 1 Gm Premix) 1 gm in 50 mls @ 100 mls/hr IVPB Q12H [facility]; Protocol Last Admin: 03/31/18 04:03 Dose: 100 mls/hr Ipratropium [place] (Atrovent) 0.5 mg IH RQ6 [facility] Last Admin: 03/31/18 07:20 Dose: 0.5 mg Methylprednisolone (Solu-Medrol) 20 mg IVP Q12 [facility] Last Admin: 03/30/18 21:27 Dose: 20 mg Paroxetine HCl (Paxil) 20 mg PO DAILY [facility] Rosuvastatin Calcium (Crestor) 10 mg PO HS [facility] Last Admin: 03/30/18 21:28 Dose: 10 mg - Labs Labs: 03/31/18 04:03 03/31/18 04:03 PT 15.5 SECONDS (9.7-12.2) H D 03/31/18 04:03 INR 1.4 D 03/31/18 04:03 APTT 47 SECONDS (21-34) H D 03/31/18 04:03 - Head Exam Head Exam: ATRAUMATIC, NORMAL INSPECTION - Eye Exam Eye Exam: EOMI, Normal appearance, PERRL Pupil Exam: NORMAL ACCOMODATION - ENT Exam ENT Exam: Mucous Membranes Moist, Normal Oropharynx - Respiratory Exam Respiratory Exam: Clear to Ausculation Bilateral, NORMAL BREATHING PATTERN. absent: Respiratory Distress - Cardiovascular Exam Cardiovascular Exam: +S1, +S2 - GI/Abdominal Exam GI & Abdominal Exam: Soft, Normal Bowel Sounds. absent: Hyperactive Bowel Sounds - Back Exam Back Exam: NORMAL INSPECTION. absent: paraspinal tenderness - Neurological Exam Neurological Exam: Alert, Awake, Oriented x3 - Psychiatric Exam Psychiatric exam: Normal Affect, Normal Mood - Skin Skin Exam: Dry, Intact Assessment and Plan - Assessment and Plan (Free Text) Plan: Chronic diastolic heart failure Echo: Presevered EF Moderate to Severe and moderate AI Moderate to sever pulmonary hypertension (See EMR for full report) Medications Digozxin .125mg PO Daily Crestor 10mg PO HS [facility] Furosemide 20mg IVP DAILY [facility] Pradaxa 75mg PO BID [facility] Aspirin 81mg PO Daily -Continue medical management per family wishes. Pulmonary Fibrosis -O2 Atrial Fibrillation Medications: Cardizem 30mg PO QID [facility] ppx -Pepcid 20mg DAILY [facility] Plan discussed with Attending Dr. Flores. Jasiel Ashton, PGY-2 <Jori Flores - Last Filed: 03/31/18 23:11> Objective - Vital Signs/Intake and Output Vital Signs (last 24 hours): Temp Pulse Resp BP Pulse Ox 96.9 F L 98 H 19 111/55 L 84 L 03/31/18 16:00 03/31/18 19:00 03/31/18 20:33 03/31/18 16:30 03/31/18 19:00 Intake and Output: 03/31/18 04/01/18 18:59 06:59 Intake Total 800 Output Total 360 Balance 440 - Medications Medications: Current Medications Aspirin (Aspirin Chewable) 81 mg PO DAILY [facility] Last Admin: 03/31/18 10:19 Dose: 81 mg Buspirone HCl (Buspar) 10 mg PO BID [facility] Last Admin: 03/31/18 21:10 Dose: 10 mg Dabigatran (Pradaxa) 75 mg PO BID [facility] Last Admin: 03/31/18 17:53 Dose: 75 mg Digoxin (Digoxin) 0.125 mg PO DAILY@1800 [facility] Last Admin: 03/31/18 17:52 Dose: 0.125 mg Diltiazem HCl (Cardizem) 30 mg PO QID [facility] Last Admin: 03/31/18 21:10 Dose: 30 mg Famotidine (Pepcid) 20 mg PO DAILY [facility] Last Admin: 03/31/18 10:19 Dose: 20 mg Furosemide (Lasix) 20 mg IVP DAILY [facility] Last Admin: 03/31/18 10:20 Dose: 20 mg Doxycycline Hyclate 100 mg/ (Sodium Chloride) 100 mls @ 100 mls/hr IVPB Q12H [facility]; Protocol Last Admin: 03/31/18 16:20 Dose: 100 mls/hr Cefepime HCl (Maxipime Iv 1 Gm Premix) 1 gm in 50 mls @ 100 mls/hr IVPB DAILY [facility]; Protocol Ipratropium [place] (Atrovent) 0.5 mg IH RQ6 [facility] Last Admin: 03/31/18 20:29 Dose: 0.5 mg Methylprednisolone (Solu-Medrol) 20 mg IVP DAILY [facility] Mupirocin (Bactroban 2% Nasal) 0.25 gm [place]DO BID [facility] Paroxetine HCl (Paxil) 20 mg PO DAILY [facility] Last Admin: 03/31/18 10:19 Dose: 20 mg Rosuvastatin Calcium (Crestor) 10 mg PO HS [facility] Last Admin: 03/31/18 21:10 Dose: 10 mg - Labs Labs: 03/31/18 04:03 03/31/18 04:03 PT 15.5 SECONDS (9.7-12.2) H D 03/31/18 04:03 INR 1.4 D 03/31/18 04:03 APTT 47 SECONDS (21-34) H D 03/31/18 04:03 Assessment and Plan - Assessment and Plan (Free Text) Plan: Patient seen and evaluated personally by me. Plan of care d/w the medical case worker and as documented
[2018-03-31] MEDS: MethylPREDNISolone 40 mg Vial IVP SCH (10:20)
[2018-03-31] MEDS: Digoxin 125 mcg (0.125 mg) Tab PO SCH (17:52)
[2018-04-01] MEDS: Ipratropium 0.02% Inhal Soln (0.5 mg/2.5 ml) UD IH SCH ×4 (02:50→20:00)
[2018-04-01] MEDS ORDERED: Digoxin 500 mcg/2ml (0.5 mg/2ml) Inj IVP ONE (08:45)
[2018-04-01 09:30] VITALS: PULSE 137
[2018-04-01] MEDS ORDERED: MethylPREDNISolone 40 mg Vial IVP SCH (10:00)
--- NOTE | 2018-04-01 10:03 | CARD ---
APPROVED REPORT Date of service: 03/30/2018 EKG Measurement Heart [id number] <Conclusion> Atrial fibrillation with rapid ventricular response Voltage criteria for left ventricular hypertrophy Marked ST abnormality, possible inferolateral subendocardial injury Abnormal ECG
[2018-04-01] MEDS: Cefepime IV 1 gm in Dextrose 1 GM/50 ML BAG IVPB SCH (10:51)
[2018-04-01] MEDS: Mupirocin 2% Ointment (NASAL) NAS SCH (10:55)
--- NOTE | 2018-04-01 14:36 | CP.PCM.PN ---
<Jasiel Ashton - Last Filed: 04/01/18 17:28> Subjective - Date & Time of Evaluation Date of Evaluation: 04/01/18 Time of Evaluation: 14:36 - Subjective Subjective: Dr. Flores Service Patient seen and examined at bedside. Per nursing, no acute events occurred overnight . Patient denies any chest pain, shortness of breath, fevers, chills, abdominal pain, or any other complaints. Objective - Vital Signs/Intake and Output Vital Signs (last 24 hours): Temp Pulse Resp BP Pulse Ox 97.9 F 103 H 15 124/46 L 90 L 04/01/18 12:00 04/01/18 13:18 04/01/18 13:18 04/01/18 13:14 04/01/18 13:18 Intake and Output: 04/01/18 04/01/18 06:59 18:59 Intake Total 25 Output Total 30 Balance -5 - Medications Medications: Current Medications Aspirin (Aspirin Chewable) 81 mg PO DAILY [facility] Last Admin: 03/31/18 10:19 Dose: 81 mg Buspirone HCl (Buspar) 10 mg PO BID [facility] Last Admin: 04/01/18 10:54 Dose: Not Given Dabigatran (Pradaxa) 75 mg PO BID [facility] Last Admin: 04/01/18 10:56 Dose: Not Given Digoxin (Digoxin) 0.125 mg PO DAILY@1800 [facility] Last Admin: 03/31/18 17:52 Dose: 0.125 mg Famotidine (Pepcid) 20 mg PO DAILY [facility] Last Admin: 03/31/18 10:19 Dose: 20 mg Furosemide (Lasix) 20 mg IVP DAILY [facility] Last Admin: 04/01/18 10:50 Dose: 20 mg Cefepime HCl (Maxipime Iv 1 Gm Premix) 1 gm in 50 mls @ 100 mls/hr IVPB DAILY [facility]; Protocol Last Admin: 04/01/18 10:51 Dose: 100 mls/hr Diltiazem HCl 125 mg/ Dextrose 125 mls @ 5 mls/hr IV .Q24H [facility]; Protocol Last Admin: 04/01/18 09:25 Dose: 5 mg/hr, 5 mls/hr Ipratropium [place] (Atrovent) 0.5 mg IH RQ6 [facility] Last Admin: 04/01/18 07:10 Dose: 0.5 mg Morphine Sulfate (Morphine) 2 mg IVP Q3 PRN PRN Reason: Agitation Last Admin: 04/01/18 10:35 Dose: 2 mg Mupirocin (Bactroban 2% Nasal) 0.25 gm WALDO BID [facility] Last Admin: 04/01/18 10:55 Dose: 0.25 gm Paroxetine HCl (Paxil) 20 mg PO DAILY [facility] Last Admin: 04/01/18 10:53 Dose: Not Given Rosuvastatin Calcium (Crestor) 10 mg PO HS [facility] Last Admin: 03/31/18 21:10 Dose: 10 mg - Labs Labs: 03/31/18 04:03 03/31/18 04:03 PT 15.5 SECONDS (9.7-12.2) H D 03/31/18 04:03 INR 1.4 D 03/31/18 04:03 APTT 47 SECONDS (21-34) H D 03/31/18 04:03 - Head Exam Head Exam: ATRAUMATIC, NORMAL INSPECTION - Eye Exam Eye Exam: EOMI, Normal appearance Pupil Exam: NORMAL ACCOMODATION, PERRL - ENT Exam ENT Exam: Mucous Membranes Moist, Normal Exam - Neck Exam Neck Exam: Normal Inspection - Respiratory Exam Respiratory Exam: NORMAL BREATHING PATTERN - GI/Abdominal Exam GI & Abdominal Exam: Soft, Normal Bowel Sounds - Extremities Exam Extremities Exam: Full ROM - Neurological Exam Neurological Exam: Alert, Awake, CN II-XII Intact, Oriented x3 - Skin Skin Exam: Dry, Intact, Warm Assessment and Plan - Assessment and Plan (Free Text) Assessment: Plan: Chronic diastolic heart failure Echo: Presevered EF Moderate to Severe and moderate AI Moderate to sever pulmonary hypertension (See EMR for full report) Medications Digozxin .125mg PO Daily Crestor 10mg PO HS [facility] Furosemide 20mg IVP DAILY [facility] Pradaxa 75mg PO BID [facility] Aspirin 81mg PO Daily -Continue medical management per family wishes. Pulmonary Fibrosis -O2 Atrial Fibrillation -Will continue to follow. ppx -Pepcid 20mg DAILY [facility] Plan discussed with Attending Dr. Flores. Jasiel Ashton, PGY-2 <Jori Flores - Last Filed: 04/01/18 22:40> Objective - Vital Signs/Intake and Output Vital Signs (last 24 hours): Temp Pulse Resp BP Pulse Ox 97.8 F 85 20 123/55 L 92 L 04/01/18 20:00 04/01/18 22:19 04/01/18 21:17 04/01/18 21:17 04/01/18 21:17 Intake and Output: 04/01/18 04/02/18 18:59 06:59 Intake Total 55 90 Output Total 30 80 Balance 25 10 - Medications Medications: Current Medications Aspirin (Aspirin Chewable) 81 mg PO DAILY [facility] Last Admin: 04/01/18 10:00 Dose: Not Given Buspirone HCl (Buspar) 10 mg PO BID [facility] Last Admin: 04/01/18 22:23 Dose: Not Given Dabigatran (Pradaxa) 75 mg PO BID [facility] Last Admin: 04/01/18 22:23 Dose: Not Given Digoxin (Digoxin) 0.125 mg PO DAILY@1800 [facility] Last Admin: 04/01/18 22:23 Dose: Not Given Famotidine (Pepcid) 20 mg PO DAILY [facility] Last Admin: 04/01/18 10:00 Dose: Not Given Furosemide (Lasix) 20 mg IVP DAILY [facility] Last Admin: 04/01/18 10:50 Dose: 20 mg Cefepime HCl (Maxipime Iv 1 Gm Premix) 1 gm in 50 mls @ 100 mls/hr IVPB DAILY [facility]; Protocol Last Admin: 04/01/18 10:51 Dose: 100 mls/hr Diltiazem HCl 125 mg/ Dextrose 125 mls @ 5 mls/hr IV .Q24H [facility]; Protocol Last Titration: 04/01/18 21:00 Dose: 0 mg/hr, 0 mls/hr Ipratropium [place] (Atrovent) 0.5 mg IH RQ6 [facility] Last Admin: 04/01/18 20:00 Dose: Not Given Morphine Sulfate (Morphine) 2 mg IVP Q3 PRN PRN Reason: Agitation Last Admin: 04/01/18 19:51 Dose: 2 mg Mupirocin (Bactroban 2% Nasal) 0.25 gm WALDO BID [facility] Last Admin: 04/01/18 10:55 Dose: 0.25 gm Paroxetine HCl (Paxil) 20 mg PO DAILY [facility] Last Admin: 04/01/18 10:53 Dose: Not Given Rosuvastatin Calcium (Crestor) 10 mg PO HS [facility] Last Admin: 04/01/18 22:23 Dose: Not Given - Labs Labs: 03/31/18 04:03 03/31/18 04:03 PT 15.5 SECONDS (9.7-12.2) H D 03/31/18 04:03 INR 1.4 D 03/31/18 04:03 APTT 47 SECONDS (21-34) H D 03/31/18 04:03 Assessment and Plan - Assessment and Plan (Free Text) Assessment: Patient seen and evaluated personally by me. Plan of care d/w the resident and as documented
--- NOTE | 2018-04-01 14:58 | RAD ---
Date of service: 04/01/2018 HISTORY: chf COMPARISON: 03/31/2018 FINDINGS: LUNGS: The prior bilateral coalescent airspace opacities appear slightly more extensive in each lung than before. PLEURA: Probable bilateral minimal pleural effusions. No pneumothorax appreciated. CARDIOVASCULAR: There is presence of aortic atherosclerotic calcification on x-ray. Cardiomegaly-similar underlying pulmonary venous congestion-likely present similar and/or slightly increased bilaterally. Duallead pacemaker device in place OSSEOUS STRUCTURES: Cervical thoracic spondylosis. Generalized osteopenia. VISUALIZED UPPER ABDOMEN: Normal. OTHER FINDINGS: Surgical rochelle right neck-similar IMPRESSION: Worsening bilateral airspace opacities-worsening infiltrates and/or worsening bilateral areas of pulmonary venous congestion/pulmonary edema. Other findings as above.
[2018-04-01] MEDS: Digoxin 125 mcg (0.125 mg) Tab PO SCH (22:23)
[2018-04-02] MEDS: Ipratropium 0.02% Inhal Soln (0.5 mg/2.5 ml) UD IH SCH (01:13)
[2018-04-02] MEDS: Mupirocin 2% Ointment (NASAL) NAS SCH ×2 (10:26→18:49)
[2018-04-02] MEDS: Cefepime IV 1 gm in Dextrose 1 GM/50 ML BAG IVPB SCH (10:28)
--- NOTE | 2018-04-02 12:46 | CP.PCM.CON ---
History of Present Illness - History of Present Illness History of Present Illness: Palliative consult requested by Doctor Cassidy for goals of care discussion Patient is a 87 yo lady brought in from home by ambulance . Patient's daughter noticed that patient had mild fever and SOB fallowed by cough the evening of ad mission. Those symptoms did not decline after use of home O2 and nebulizer. Patient also complained of chest discomfort. The daughter, who is patient's main primary care coordinator having similar experience with patient in the past, called 911 the same evening. In ED patient underwent severe respiratory distress and placed on BiPap. CXR significant for pneumonia. maxipime IV initiated. Patient was in A Fib , Cardio consult called and HR regulated by Cardizem IV and Digoxin. Patient transferred to ICU. Her respiratory status is worsening due to known Hx of Pulmonary finbrosis and daughter is considering the Morphine drip. Palliative care was asked to assist in this process. PMH: A Fib, pulmonary fibrosis, PPM, COPD, PE, CHF, dementia Soc. Hx: , lives at home with family, retired, used to work at [employer] in [place], uses O2 at home Fam. Hx: from lung cancer Review of Systems - Review of Systems All systems: reviewed and no additional remarkable complaints except Review of Systems: ROS unobtainable from patient due to lethargy. ROS obtained from [facility]. Per nursing patient has been dependent of C Pap Past Patient History - Infectious Disease Hx of Infectious Diseases: None - Tetanus Immunizations Tetanus Immunization: Unknown - Past Medical History & Family History Past Medical History?: Yes - Past Social History Smoking Status: Never Smoked - CARDIAC Hx Atrial Fibrillation: Yes Hx Congestive Heart Failure: Yes Hx Hypercholesterolemia: Yes Hx Hypertension: Yes Hx Pacemaker: Yes Hx Peripheral Edema: No - PULMONARY Hx Bronchitis: Yes Hx Chronic Obstructive Pulmonary Disease (COPD): Yes Hx Pulmonary Embolism: Yes - NEUROLOGICAL Hx Dementia: Yes (new dementia; forgetful) - HEENT Hx HEENT Problems: Yes 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; gets injections) - RENAL Hx Chronic Kidney Disease: No - ENDOCRINE/METABOLIC Hx Hyperthyroidism: Yes (surgery done) - HEMATOLOGICAL/ONCOLOGICAL Hx Blood Disorders: No - INTEGUMENTARY Hx Dermatological Problems: No - MUSCULOSKELETAL/RHEUMATOLOGICAL Hx Arthritis: Yes - GASTROINTESTINAL Hx Gastrointestinal Disorders: No - GENITOURINARY/GYNECOLOGICAL Hx Genitourinary Disorders: No - PSYCHIATRIC Hx Anxiety: Yes (takes paxil) Hx Substance Use: No - SURGICAL HISTORY Hx Surgeries: Yes Hx Thyroidectomy: Yes Other/Comment: lumpectomy left breast - ANESTHESIA Hx Anesthesia: Yes Hx Anesthesia Reactions: No Hx Malignant Hyperthermia: No Has any member of the family had a problem w/ anesthesia?: No Meds Allergies/Adverse Reactions: Allergies Allergy/AdvReac Type Severity Reaction Status Date / Time codeine Allergy Intermediate Verified 01/24/18 12:00 lorazepam AdvReac Severe Verified 01/24/18 12:00 - Medications Medications: Current Medications Aspirin (Aspirin Chewable) 81 mg PO DAILY [facility] Last Admin: 04/02/18 10:28 Dose: Not Given Buspirone HCl (Buspar) 10 mg PO BID [facility] Last Admin: 04/02/18 10:28 Dose: Not Given Dabigatran (Pradaxa) 75 mg PO BID [facility] Last Admin: 04/02/18 10:28 Dose: Not Given Digoxin (Digoxin) 0.125 mg PO DAILY@1800 [facility] Last Admin: 04/01/18 22:23 Dose: Not Given Famotidine (Pepcid) 20 mg PO DAILY [facility] Last Admin: 04/02/18 10:28 Dose: Not Given Furosemide (Lasix) 20 mg IVP DAILY [facility] Last Admin: 04/02/18 10:26 Dose: 20 mg Cefepime HCl (Maxipime Iv 1 Gm Premix) 1 gm in 50 mls @ 100 mls/hr IVPB DAILY [facility]; Protocol Last Admin: 04/02/18 10:28 Dose: 100 mls/hr Diltiazem HCl 125 mg/ Dextrose 125 mls @ 5 mls/hr IV .Q24H [facility]; Protocol Last Admin: 04/02/18 09:47 Dose: Not Given Ipratropium [place] (Atrovent) 0.5 mg IH RQ6 [facility] Last Admin: 04/02/18 01:13 Dose: Not Given Morphine Sulfate (Morphine) 2 mg IVP Q3 PRN PRN Reason: Agitation Last Admin: 04/02/18 10:27 Dose: 2 mg Mupirocin (Bactroban 2% Nasal) 0.25 gm WALDO BID [facility] Last Admin: 04/02/18 10:26 Dose: 0.25 gm Paroxetine HCl (Paxil) 20 mg PO DAILY [facility] Last Admin: 04/02/18 10:28 Dose: Not Given Rosuvastatin Calcium (Crestor) 10 mg PO HS [facility] Last Admin: 04/01/18 22:23 Dose: Not Given Physical Exam - Constitutional Appears: In Acute Distress, Chronically Ill - Head Exam Head Exam: ATRAUMATIC, NORMAL INSPECTION, NORMOCEPHALIC - Eye Exam Eye Exam: EOMI, Normal appearance, PERRL Pupil Exam: NORMAL ACCOMODATION, PERRL - ENT Exam ENT Exam: Mucous Membranes Dry - Neck Exam Neck exam: Positive for: Normal Inspection - Respiratory Exam Respiratory Exam: Chest Wall Tenderness, Respiratory Distress - Cardiovascular Exam Cardiovascular Exam: Tachycardia, Irregular Rhythm - GI/Abdominal Exam GI & Abdominal Exam: Hypoactive Bowel Sounds, Soft - Rectal Exam Rectal Exam: Deferred - Extremities Exam Extremities exam: Positive for: normal inspection - Back Exam Back exam: NORMAL INSPECTION - Neurological Exam Neurological exam: Motor Sensory Deficit - Psychiatric Exam Psychiatric exam: Flat Affect - Skin Skin Exam: Dry, Intact, Pallor, Warm Results - Vital Signs Recent Vital Signs: Last Vital Signs Temp 99.0 F 04/02/18 12:28 Pulse 88 04/02/18 12:17 Resp 15 04/02/18 12:17 BP 115/53 L 04/02/18 12:17 Pulse Ox 100 04/02/18 12:17 - Labs Result Diagrams: 03/31/18 04:03 03/31/18 04:03 Assessment & Plan - Assessment and Plan (Free Text) Assessment: Palliative consult DNR/DNI, Advance Directive on chart, PPS 10% I reviewed all medical records and diagnostic studies, examined patient in the bed and discussed goals of care with daughter at bedside. Patient is lethargic, eyes closed, unresponsive to verbal stimuli, and reacts to deep touch. BiPap on, O2Sat 99 %. Breathing is labored with accessory muscles use occasionally presenting with Chaine Velez pattern. Patient is receiving Cardizem drip and Morphine IV Q 3 hr PRN. BP 149/56, HR 90, RR 26, afebrile Daughter Amanda, who also works here at the hospital, at bed side. I reviewed patient's clinical presentation and elicited her understanding and expectations. The daughter stated being very familiar with her mother's condition. Just while ago the patient had similar symptoms but was able to recover from it. patient's no long ago from lung cancer and daughter feels that her mother is now breathing the same way the father did. I elicited daughter's expectations. She stated that she feels her mother will not recover this time and wanted her to go natural . However, at the same time daughter still has a ray of hope and would like to see if her mother would wake up if Morphine PRN was held off. I discussed with her the role and benefi mellisa of Morphine in her mother's condition, but certainly supported her thinking. We agreed that patient does not receive her next dose of Morphine in 3 hr and to monitor if patient would get alert enough to at least make eye contact with her daughter. If daughter notices that her mother's breathing becomes heavy and distressful she will call nurse immediately for Morphine dose. The daughter raven anders she discussed Morphine drip last nigh with Doctor Angle as the option. This was shared with nursing. Impression * Acute respiratory distress due to complex PMH and fibrosis * Lethargy * PO intolerance * Patient is expected to on this admission due to uncurable , advanced, Pulmonary fibrosis * Family is supporting Natural * Daughter is decided on Morphine drip if needed to improve comfort Suggestion * Continue CPap * NPO * Morphine PRN for respiratory distress ( hold on the next dose , per daughter's wish) * If respiratory distress worsens, consider Morphine drip and O2 via [place] only for natural promotion * Patient is in house hospice appropriate * Agree with DNR/DNI Advance care planing 50 min Palliative care will sign off at this time Thank you for consulting [facility]
--- NOTE | 2018-04-02 15:18 | CP.PCM.PN ---
<Jasiel Ashton - Last Filed: 04/02/18 17:14> Subjective - Date & Time of Evaluation Date of Evaluation: 04/02/18 Time of Evaluation: 15:18 - Subjective Subjective: Dr. Flores Service Patient seen and examined at bedside. Per nursing, no acute events occurred overnight . ROS limited due to patients current clinical condition. Objective - Vital Signs/Intake and Output Vital Signs (last 24 hours): Temp Pulse Resp BP Pulse Ox 99.0 F 88 15 115/53 L 100 04/02/18 12:28 04/02/18 12:57 04/02/18 12:17 04/02/18 12:17 04/02/18 12:17 Intake and Output: 04/02/18 04/02/18 06:59 18:59 Intake Total 95 50 Output Total 200 0 Balance -105 50 - Medications Medications: Current Medications Aspirin (Aspirin Chewable) 81 mg PO DAILY [facility] Last Admin: 04/02/18 10:28 Dose: Not Given Buspirone HCl (Buspar) 10 mg PO BID [facility] Last Admin: 04/02/18 10:28 Dose: Not Given Dabigatran (Pradaxa) 75 mg PO BID [facility] Last Admin: 04/02/18 10:28 Dose: Not Given Digoxin (Digoxin) 0.125 mg PO DAILY@1800 [facility] Last Admin: 04/01/18 22:23 Dose: Not Given Famotidine (Pepcid) 20 mg PO DAILY [facility] Last Admin: 04/02/18 10:28 Dose: Not Given Furosemide (Lasix) 20 mg IVP DAILY [facility] Last Admin: 04/02/18 10:26 Dose: 20 mg Cefepime HCl (Maxipime Iv 1 Gm Premix) 1 gm in 50 mls @ 100 mls/hr IVPB DAILY [facility]; Protocol Last Admin: 04/02/18 10:28 Dose: 100 mls/hr Diltiazem HCl 125 mg/ Dextrose 125 mls @ 5 mls/hr IV .Q24H [facility]; Protocol Last Admin: 04/02/18 09:47 Dose: Not Given Ipratropium [place] (Atrovent) 0.5 mg IH RQ6 [facility] Last Admin: 04/02/18 01:13 Dose: Not Given Morphine Sulfate (Morphine) 2 mg IVP Q3 PRN PRN Reason: Agitation Last Admin: 04/02/18 10:27 Dose: 2 mg Mupirocin (Bactroban 2% Nasal) 0.25 gm [place] BID [facility] Last Admin: 04/02/18 10:26 Dose: 0.25 gm Paroxetine HCl (Paxil) 20 mg PO DAILY [facility] Last Admin: 04/02/18 10:28 Dose: Not Given Rosuvastatin Calcium (Crestor) 10 mg PO HS [facility] Last Admin: 04/01/18 22:23 Dose: Not Given - Labs Labs: 03/31/18 04:03 03/31/18 04:03 PT 15.5 SECONDS (9.7-12.2) H D 03/31/18 04:03 INR 1.4 D 03/31/18 04:03 APTT 47 SECONDS (21-34) H D 03/31/18 04:03 - Head Exam Head Exam: ATRAUMATIC, NORMAL INSPECTION - Eye Exam Eye Exam: EOMI, Normal appearance, PERRL Pupil Exam: NORMAL ACCOMODATION - ENT Exam ENT Exam: Mucous Membranes Moist - Respiratory Exam Respiratory Exam: Clear to Ausculation Bilateral, NORMAL BREATHING PATTERN - Cardiovascular Exam Cardiovascular Exam: REGULAR RHYTHM, +S1, +S2 - GI/Abdominal Exam GI & Abdominal Exam: Soft, Normal Bowel Sounds. absent: Hyperactive Bowel Sounds - Extremities Exam Extremities Exam: Full ROM, Normal Inspection. absent: Pedal Edema - Neurological Exam Neurological Exam: Alert, Awake, Oriented x3 - Psychiatric Exam Psychiatric exam: Normal Affect, Normal Mood - Skin Skin Exam: Dry, Intact Assessment and Plan - Assessment and Plan (Free Text) Assessment: Chronic diastolic heart failure Echo: Presevered EF Moderate to Severe and moderate AI Moderate to sever pulmonary hypertension (See EMR for full report) Medications Digozxin .125mg PO Daily Crestor 10mg PO HS [facility] Furosemide 20mg IVP DAILY [facility] Pradaxa 75mg PO BID [facility] Aspirin 81mg PO Daily -Continue medical management per family wishes. Pulmonary Fibrosis -O2 Atrial Fibrillation -Will continue to follow. ppx -Pepcid 20mg DAILY [facility] Plan discussed with Attending Dr. Flores. Jasiel Ashton, PGY-2 <Jori Flores - Last Filed: 04/02/18 21:29> Objective - Vital Signs/Intake and Output Vital Signs (last 24 hours): Temp Pulse Resp BP Pulse Ox 98.1 F 106 H 16 130/53 L 100 04/02/18 16:00 04/02/18 17:17 04/02/18 17:17 04/02/18 17:17 04/02/18 17:17 Intake and Output: 04/02/18 04/03/18 18:59 06:59 Intake Total 50 Output Total 20 Balance 30 - Medications Medications: Current Medications Aspirin (Aspirin Chewable) 81 mg PO DAILY [facility] Last Admin: 04/02/18 10:28 Dose: Not Given Buspirone HCl (Buspar) 10 mg PO BID [facility] Last Admin: 04/02/18 17:43 Dose: Not Given Dabigatran (Pradaxa) 75 mg PO BID [facility] Last Admin: 04/02/18 17:43 Dose: Not Given Digoxin (Digoxin) 0.125 mg PO DAILY@1800 [facility] Last Admin: 04/02/18 17:43 Dose: Not Given Famotidine (Pepcid) 20 mg PO DAILY [facility] Last Admin: 04/02/18 10:28 Dose: Not Given Furosemide (Lasix) 20 mg IVP DAILY [facility] Last Admin: 04/02/18 10:26 Dose: 20 mg Cefepime HCl (Maxipime Iv 1 Gm Premix) 1 gm in 50 mls @ 100 mls/hr IVPB DAILY [facility]; Protocol Last Admin: 04/02/18 10:28 Dose: 100 mls/hr Diltiazem HCl 125 mg/ Dextrose 125 mls @ 5 mls/hr IV .Q24H [facility]; Protocol Last Admin: 04/02/18 09:47 Dose: Not Given Ipratropium [place] (Atrovent) 0.5 mg IH RQ6 [facility] Last Admin: 04/02/18 01:13 Dose: Not Given Morphine Sulfate (Morphine) 2 mg IVP Q3 PRN PRN Reason: Agitation Last Admin: 04/02/18 18:48 Dose: 2 mg Mupirocin (Bactroban 2% Nasal) 0.25 gm WALDO BID [facility] Last Admin: 04/02/18 18:49 Dose: 0.25 gm Paroxetine HCl (Paxil) 20 mg PO DAILY [facility] Last Admin: 04/02/18 10:28 Dose: Not Given Rosuvastatin Calcium (Crestor) 10 mg PO HS [facility] Last Admin: 04/01/18 22:23 Dose: Not Given - Labs Labs: 03/31/18 04:03 03/31/18 04:03 PT 15.5 SECONDS (9.7-12.2) H D 03/31/18 04:03 INR 1.4 D 03/31/18 04:03 APTT 47 SECONDS (21-34) H D 03/31/18 04:03 Assessment and Plan - Assessment and Plan (Free Text) Assessment: Patient seen and evaluated personally by me. Plan of care d/w the certified court/medical interpreter and as documented
[2018-04-02] MEDS: Digoxin 125 mcg (0.125 mg) Tab PO SCH (17:43)
[2018-04-03] MEDS: Ipratropium 0.02% Inhal Soln (0.5 mg/2.5 ml) UD IH SCH ×3 (02:12→13:30)
[2018-04-03] MEDS: Cefepime IV 1 gm in Dextrose 1 GM/50 ML BAG IVPB SCH (10:23)
[2018-04-03] MEDS: Mupirocin 2% Ointment (NASAL) NAS SCH (10:24)
[2018-04-03 10:29] LABS: HEMOGLOBIN 10.1 g/dL (11.0-16.0); MEAN CELL VOLUME 94.6 fL (81.0-99.0); MEAN CORPUSCULAR HEMOGLOBIN 29.6 pg (27.0-31.0); MEAN CORPUSCULAR HGB CONC 31.3 g/dL (33.0-37.0); RBC 3.42 Mil/uL (3.80-5.20); RED CELL DISTRIBUTION WIDTH 17.3 % (11.5-14.5); WHITE BLOOD COUNT 22.6 K/uL (4.8-10.8)
[2018-04-03 11:24] LABS: ALB/GLOB RATIO 0.9 (1.0-2.1); ALBUMIN 3.1 g/dL (3.5-5.0); CALCIUM 7.1 mg/dl (8.6-10.4)
--- NOTE | 2018-04-03 13:49 | RAD ---
Date of service: 04/03/2018 HISTORY: pna COMPARISON: Portable chest 04/01/2018. FINDINGS: LUNGS: Bipolar pacemaker reiterated. Cardiomegaly stable. Diminishing pulmonary vascular congestion pattern. Underlying infiltrate not excluded at the mid inferior left lung zones medially. Reticular markings remain increased, likely from CHF. PLEURA: No significant pleural effusion identified, no pneumothorax apparent. CARDIOVASCULAR: Calcific atherosclerotic changes are seen related to the thoracic aorta. Cardiomegaly. Vascular pattern described above. OSSEOUS STRUCTURES: No significant abnormalities. VISUALIZED UPPER ABDOMEN: Normal. OTHER FINDINGS: None. IMPRESSION: Improving CHF. Underlying infiltrates not excluded at the mid inferior left chest. Pacemaker reiterated. Cardiomegaly stable.
[2018-04-03] MEDS ORDERED: Morphine Sulfate 250 MG in Dextrose 5% In Water 240 ML IV PRN (16:55)
--- NOTE | 2018-04-03 16:58 | CP.PCM.PN ---
Subjective - Date & Time of Evaluation Date of Evaluation: 04/03/18 Time of Evaluation: 16:57 - Subjective Subjective: pt is not responding on bipap poor prognosis labs showing multiorgan failure agree for comfort care will start morphine drip off bipap NRB o2 Objective - Vital Signs/Intake and Output Vital Signs (last 24 hours): Temp Pulse Resp BP Pulse Ox 100 F H 118 H 16 123/60 100 04/03/18 16:00 04/03/18 16:17 04/03/18 16:17 04/03/18 16:17 04/03/18 16:17 Intake and Output: 04/03/18 04/03/18 06:59 18:59 Intake Total 5 Output Total 5 Balance 0 - Medications Medications: Current Medications Aspirin (Aspirin Chewable) 81 mg PO DAILY [facility] Last Admin: 04/03/18 13:53 Dose: Not Given Buspirone HCl (Buspar) 10 mg PO BID [facility] Last Admin: 04/03/18 13:53 Dose: Not Given Famotidine (Pepcid) 20 mg PO DAILY [facility] Last Admin: 04/03/18 13:53 Dose: Not Given Furosemide (Lasix) 20 mg IVP DAILY [facility] Last Admin: 04/03/18 10:23 Dose: 20 mg Cefepime HCl (Maxipime Iv 1 Gm Premix) 1 gm in 50 mls @ 100 mls/hr IVPB DAILY [facility]; Protocol Last Admin: 04/03/18 10:23 Dose: 100 mls/hr Diltiazem HCl 125 mg/ Dextrose 125 mls @ 5 mls/hr IV .Q24H [facility]; Protocol Last Admin: 04/03/18 08:00 Dose: Not Given Dextrose (Dextrose 5% In Water 1000 Ml) 1,000 mls @ 50 mls/hr IV .Q20H [facility] Last Admin: 04/03/18 08:00 Dose: 50 mls/hr Morphine Sulfate 250 mg/ (Dextrose) 250 mls @ 2 mls/hr IV .Q24H PRN; Protocol PRN Reason: Agitation Ipratropium [place] (Atrovent) 0.5 mg IH RQ6 [facility] Last Admin: 04/03/18 13:30 Dose: 0.5 mg Morphine Sulfate (Morphine) 2 mg IVP Q3 PRN PRN Reason: Agitation Last Admin: 04/03/18 10:23 Dose: 2 mg Mupirocin (Bactroban 2% Nasal) 0.25 gm [place] BID [facility] Last Admin: 04/03/18 10:24 Dose: 0.25 gm Rosuvastatin Calcium (Crestor) 10 mg PO HS [facility] Last Admin: 04/02/18 22:20 Dose: Not Given - Labs Labs: 04/03/18 10:16 04/03/18 10:16 PT 15.5 SECONDS (9.7-12.2) H D 03/31/18 04:03 INR 1.4 D 03/31/18 04:03 APTT 47 SECONDS (21-34) H D 03/31/18 04:03
--- NOTE | 2018-04-03 22:58 | CP.PCM.PN ---
Subjective - Date & Time of Evaluation Date of Evaluation: 04/02/18 Time of Evaluation: 22:57 - Subjective Subjective: Patient's overall condition is not improving. Patient is becoming more disoriented. Becoming more lethargic. Poorly responding. Family at bedside. Overall patient is not doing well. Poor prognosis. DNR/DNI. I suggested comfort care. Family agreeing and possible comfort care tomorrow I educated the family regarding the ongoing current situation. Objective - Vital Signs/Intake and Output Vital Signs (last 24 hours): Temp Pulse Resp BP Pulse Ox 99.9 F H 115 H 14 129/52 L 99 04/03/18 20:00 04/03/18 20:17 04/03/18 20:17 04/03/18 20:17 04/03/18 20:17 Intake and Output: 04/03/18 04/04/18 18:59 06:59 Intake Total 600 3 Output Total 50 Balance 550 3 - Medications Medications: Current Medications Buspirone HCl (Buspar) 10 mg PO BID [facility] Last Admin: 04/03/18 13:53 Dose: Not Given Furosemide (Lasix) 20 mg IVP DAILY [facility] Last Admin: 04/03/18 10:23 Dose: 20 mg Diltiazem HCl 125 mg/ Dextrose 125 mls @ 5 mls/hr IV .Q24H [facility]; Protocol Last Admin: 04/03/18 08:00 Dose: Not Given Dextrose (Dextrose 5% In Water 1000 Ml) 1,000 mls @ 50 mls/hr IV .Q20H [facility] Last Admin: 04/03/18 08:00 Dose: 50 mls/hr Morphine Sulfate 250 mg/ (Dextrose) 250 mls @ 2 mls/hr IV .Q24H PRN; Protocol PRN Reason: Agitation Last Titration: 04/03/18 19:00 Dose: 3 mg/hr, 3 mls/hr Ipratropium [place] (Atrovent) 0.5 mg IH RQ6 [facility] Last Admin: 04/03/18 13:30 Dose: 0.5 mg Rosuvastatin Calcium (Crestor) 10 mg PO HS [facility] Last Admin: 04/02/18 22:20 Dose: Not Given - Labs Labs: 04/03/18 10:16 04/03/18 10:16 PT 15.5 SECONDS (9.7-12.2) H D 03/31/18 04:03 INR 1.4 D 03/31/18 04:03 APTT 47 SECONDS (21-34) H D 03/31/18 04:03
[2018-04-04] MEDS: Ipratropium 0.02% Inhal Soln (0.5 mg/2.5 ml) UD IH SCH ×3 (02:44→11:11)
--- NOTE | 2018-04-04 04:55 | CP.PCM.PN ---
Subjective - Date & Time of Evaluation Date of Evaluation: 04/03/18 Time of Evaluation: 18:20 - Subjective Subjective: Patient seen and examined at bedside. On BiPAP Family around. Objective - Vital Signs/Intake and Output Vital Signs (last 24 hours): Temp Pulse Resp BP Pulse Ox 99.0 F 88 15 115/53 L 100 04/02/18 12:28 04/02/18 12:57 04/02/18 12:17 04/02/18 12:17 04/02/18 12:17 Intake and Output: 04/02/18 04/02/18 06:59 18:59 Intake Total 95 50 Output Total 200 0 Balance -105 50 - Medications Medications: Current Medications Aspirin (Aspirin Chewable) 81 mg PO DAILY [facility] Last Admin: 04/02/18 10:28 Dose: Not Given Buspirone HCl (Buspar) 10 mg PO BID [facility] Last Admin: 04/02/18 10:28 Dose: Not Given Dabigatran (Pradaxa) 75 mg PO BID [facility] Last Admin: 04/02/18 10:28 Dose: Not Given Digoxin (Digoxin) 0.125 mg PO DAILY@1800 [facility] Last Admin: 04/01/18 22:23 Dose: Not Given Famotidine (Pepcid) 20 mg PO DAILY [facility] Last Admin: 04/02/18 10:28 Dose: Not Given Furosemide (Lasix) 20 mg IVP DAILY [facility] Last Admin: 04/02/18 10:26 Dose: 20 mg Cefepime HCl (Maxipime Iv 1 Gm Premix) 1 gm in 50 mls @ 100 mls/hr IVPB DAILY [facility]; Protocol Last Admin: 04/02/18 10:28 Dose: 100 mls/hr Diltiazem HCl 125 mg/ Dextrose 125 mls @ 5 mls/hr IV .Q24H [facility]; Protocol Last Admin: 04/02/18 09:47 Dose: Not Given Ipratropium [place] (Atrovent) 0.5 mg IH RQ6 [facility] Last Admin: 04/02/18 01:13 Dose: Not Given Morphine Sulfate (Morphine) 2 mg IVP Q3 PRN PRN Reason: Agitation Last Admin: 04/02/18 10:27 Dose: 2 mg Mupirocin (Bactroban 2% Nasal) 0.25 gm WALDO BID [facility] Last Admin: 04/02/18 10:26 Dose: 0.25 gm Paroxetine HCl (Paxil) 20 mg PO DAILY [facility] Last Admin: 04/02/18 10:28 Dose: Not Given Rosuvastatin Calcium (Crestor) 10 mg PO HS [facility] Last Admin: 04/01/18 22:23 Dose: Not Given - Labs Labs: 03/31/18 04:03 03/31/18 04:03 PT 15.5 SECONDS (9.7-12.2) H D 03/31/18 04:03 INR 1.4 D 03/31/18 04:03 APTT 47 SECONDS (21-34) H D 03/31/18 04:03 - Head Exam Head Exam: ATRAUMATIC, NORMAL INSPECTION - Eye Exam Eye Exam: EOMI, Normal appearance, PERRL Pupil Exam: NORMAL ACCOMODATION - ENT Exam ENT Exam: Mucous Membranes Moist - Respiratory Exam Respiratory Exam: Clear to Ausculation Bilateral, NORMAL BREATHING PATTERN - Cardiovascular Exam Cardiovascular Exam: REGULAR RHYTHM, +S1, +S2 - GI/Abdominal Exam GI & Abdominal Exam: Soft, Normal Bowel Sounds. absent: Hyperactive Bowel Sounds - Extremities Exam Extremities Exam: Full ROM, Normal Inspection. absent: Pedal Edema - Neurological Exam Neurological Exam: Alert, Awake, Oriented x3 - Psychiatric Exam Psychiatric exam: Normal Affect, Normal Mood - Skin Skin Exam: Dry, Intact Assessment and Plan - Assessment and Plan (Free Text) Assessment: Chronic diastolic heart failure Echo: Presevered EF Moderate to Severe and moderate AI Moderate to sever pulmonary hypertension (See EMR for full report) Medications Digozxin .125mg PO Daily Crestor 10mg PO HS [facility] Furosemide 20mg IVP DAILY [facility] Pradaxa 75mg PO BID [facility] Aspirin 81mg PO Daily -Continue medical management per family wishes. Pulmonary Fibrosis -O2 Atrial Fibrillation -Will continue to follow. ppx -Pepcid 20mg DAILY [facility] Objective - Vital Signs/Intake and Output Vital Signs (last 24 hours): Temp Pulse Resp BP Pulse Ox 99.9 F H 95 H 11 L 122/46 L 98 04/04/18 04:00 04/04/18 04:17 04/04/18 04:17 04/04/18 04:17 04/04/18 04:17 Intake and Output: 04/03/18 04/04/18 18:59 06:59 Intake Total 600 303 Output Total 50 30 Balance 550 273 - Medications Medications: Current Medications Buspirone HCl (Buspar) 10 mg PO BID [facility] Last Admin: 04/03/18 13:53 Dose: Not Given Furosemide (Lasix) 20 mg IVP DAILY [facility] Last Admin: 04/03/18 10:23 Dose: 20 mg Diltiazem HCl 125 mg/ Dextrose 125 mls @ 5 mls/hr IV .Q24H [facility]; Protocol Last Admin: 04/03/18 08:00 Dose: Not Given Dextrose (Dextrose 5% In Water 1000 Ml) 1,000 mls @ 50 mls/hr IV .Q20H [facility] Last Admin: 04/03/18 08:00 Dose: 50 mls/hr Morphine Sulfate 250 mg/ (Dextrose) 250 mls @ 2 mls/hr IV .Q24H PRN; Protocol PRN Reason: Agitation Last Titration: 04/03/18 19:00 Dose: 3 mg/hr, 3 mls/hr Ipratropium [place] (Atrovent) 0.5 mg IH RQ6 [facility] Last Admin: 04/04/18 02:44 Dose: Not Given Rosuvastatin Calcium (Crestor) 10 mg PO HS [facility] Last Admin: 04/02/18 22:20 Dose: Not Given - Labs Labs: 04/03/18 10:16 04/03/18 10:16 PT 15.5 SECONDS (9.7-12.2) H D 03/31/18 04:03 INR 1.4 D 03/31/18 04:03 APTT 47 SECONDS (21-34) H D 03/31/18 04:03
[2018-04-04 20:32] VITALS: BP 94/33; PULSE 108; RESP 12; O2SAT 92
[2018-04-04 20:33] VITALS: TEMP 98.4
--- NOTE | 2018-04-04 22:19 | CP.PCM.PRO ---
Pronouncement of Note - Clinical Findings Physical Exam: No Response Verbal/Painful Stimuli, Absent Peripheral Puls es{Carotid & Femoral}, Absent Heart & Breath Sounds, No Pupillary Light Reflex, No Corneal Reflex, Pupils Fixed & Dilated, Absence of Vital Signs - Pronouncement Time Time of Pronouncement of : 23:58 - Notifications Pronouncement Notifications: Family Notified, Atending Notified Parts Sales Manager Notified: No - Autopsy Autopsy Requested: No [place] [id number]
--- NOTE | 2018-04-11 18:47 | CP.PCM.DIS ---
Provider - Provider Date of Admission: 03/30/18 02:21 Attending physician: Coreen Barbour MD Consults: 03/30/18 02:21 Cardiology Consult Routine Comment: Consulting Provider: Jori Flores Consulting Physician: Jori Flores Reason for Consult: NSTEMI 03/30/18 03:17 Critical Care Consult Stat Comment: Consulting Provider: Aminta Celeste Consulting Physician: Aminta Celeste Reason for Consult: NSTEMI, rapid a-fib 03/30/18 05:00 Social Work Referral Routine Comment: lives with family Physician Instructions: Reason For Exam: frequent hospitalization 03/30/18 08:10 Inpatient [employer] Core Measures Referral Routine Comment: Physician Instructions: Reason For Exam: CHF 04/02/18 10:00 Palliative Care Consult Routine Comment: Consulting Provider: Cheyenne Rodriguez Physician Instructions: Reason For Exam: goals of care Time Spent in preparation of Discharge (in minutes): 45 Hospital Course - Lab Results Lab Results: Micro Results 03/30/18 01:44 Blood Blood Culture - Final NO GROWTH AFTER 5 DAYS 03/30/18 01:44 Blood Gram Stain - Final TEST NOT PERFORMED 03/30/18 01:36 Blood Blood Culture - Final NO GROWTH AFTER 5 DAYS 03/30/18 01:36 Blood Gram Stain - Final TEST NOT PERFORMED 03/30/18 08:49 Naris MRSA Culture (Admit) - Final MRSA DETECTED 03/30/18 03:57 Urine,Catheterized Urine Culture - Final No Growth (<1,000 CFU/ML) Most Recent Lab Values WBC 22.6 K/uL (4.8-10.8) H 04/03/18 10:16 RBC 3.42 Mil/uL (3.80-5.20) L 04/03/18 10:16 Hgb 10.1 g/dL (11.0-16.0) L 04/03/18 10:16 Hct 32.3 % (34.0-47.0) L 04/03/18 10:16 MCV 94.6 fL (81.0-99.0) 04/03/18 10:16 MCH 29.6 pg (27.0-31.0) 04/03/18 10:16 MCHC 31.3 g/dL (33.0-37.0) L 04/03/18 10:16 RDW 17.3 % (11.5-14.5) H 04/03/18 10:16 Plt Count 305 K/uL (130-400) 04/03/18 10:16 MPV 10.0 fL (7.2-11.7) 04/03/18 10:16 Neut % (Auto) 84.3 % (50.0-75.0) H 03/31/18 04:03 Lymph % (Auto) 9.8 % (20.0-40.0) L 03/31/18 04:03 [place] % (Auto) 5.8 % (0.0-10.0) 03/31/18 04:03 Eos % (Auto) 0.0 % (0.0-4.0) 03/31/18 04:03 Baso % (Auto) 0.1 % (0.0-2.0) 03/31/18 04:03 Neut # (Auto) 13.8 K/uL (1.8-7.0) H 03/31/18 04:03 Lymph # (Auto) 1.6 K/uL (1.0-4.3) 03/31/18 04:03 [place] # (Auto) 1.0 K/uL (0.0-0.8) H 03/31/18 04:03 Eos # (Auto) 0.0 K/uL (0.0-0.7) 03/31/18 04:03 Baso # (Auto) 0.0 K/uL (0.0-0.2) 03/31/18 04:03 Neutrophils % (Manual) 89 % (50-75) H 03/31/18 04:03 Band Neutrophils % 3 % (0-2) H 03/31/18 04:03 Lymphocytes % (Manual) 3 % (20-40) L 03/31/18 04:03 Monocytes % (Manual) 3 % (0-10) 03/31/18 04:03 Eosinophils % (Manual) 2 % (0-4) 03/31/18 04:03 Platelet Estimate Normal (NORMAL) 03/31/18 04:03 PT 15.5 SECONDS (9.7-12.2) H D 03/31/18 04:03 INR 1.4 D 03/31/18 04:03 APTT 47 SECONDS (21-34) H D 03/31/18 04:03 Sodium 145 mmol/L (132-148) 04/03/18 10:16 Potassium 5.5 mmol/L (3.6-5.2) H 04/03/18 10:16 Chloride 107 mmol/L (98-107) 04/03/18 10:16 Carbon Dioxide 23 mmol/L (22-30) 04/03/18 10:16 Anion Gap 20 (10-20) 04/03/18 10:16 BUN 111 mg/dL (7-17) H* D 04/03/18 10:16 Creatinine 5.1 mg/dL (0.7-1.2) H 04/03/18 10:16 Est GFR ( Amer) 10 04/03/18 10:16 Est GFR (Non-Af Amer) 8 04/03/18 10:16 Random Glucose 133 mg/dL (65-105) H 04/03/18 10:16 Lactic Acid 2.3 mmol/L (0.7-2.1) H 04/03/18 10:16 Calcium 7.1 mg/dl (8.6-10.4) L 04/03/18 10:16 Phosphorus 10.7 mg/dL (2.5-4.5) H 04/03/18 10:16 Magnesium 3.0 mg/dL (1.6-2.3) H 04/03/18 10:16 Total Bilirubin 1.0 mg/dL (0.2-1.3) 04/03/18 10:16 AST 147 U/L (14-36) H D 04/03/18 10:16 ALT 42 U/L (9-52) 04/03/18 10:16 Alkaline Phosphatase 157 U/L (38-126) H D 04/03/18 10:16 Total Creatine Kinase 32 U/L (30-135) 03/31/18 04:03 CK-MB (Mass) 2.53 ng/mL (0.0-3.38) 03/31/18 04:03 Troponin I 1.4000 ng/mL (0.00-0.120) H* 03/31/18 04:03 NT-Pro-B Natriuret Pep 98776 pg/mL (0-900) H 03/30/18 01:52 Total Protein 6.7 g/dL (6.3-8.3) 04/03/18 10:16 Albumin 3.1 g/dL (3.5-5.0) L 04/03/18 10:16 Globulin 3.6 gm/dL (2.2-3.9) 04/03/18 10:16 Albumin/Globulin Ratio 0.9 (1.0-2.1) L 04/03/18 10:16 Urine Color Straw (YELLOW) 03/30/18 03:57 Urine Clarity Clear (Clear) 03/30/18 03:57 Urine pH 7.0 (5.0-8.0) 03/30/18 03:57 Ur Specific [place] 1.003 (1.003-1.030) 03/30/18 03:57 Urine Protein Negative mg/dL (NEGATIVE) 03/30/18 03:57 Urine Glucose (UA) Normal mg/dL (Normal) 03/30/18 03:57 Urine Ketones Negative mg/dL (NEGATIVE) 03/30/18 03:57 Urine Blood 2+ (NEGATIVE) H 03/30/18 03:57 Urine Nitrate Negative (NEGATIVE) 03/30/18 03:57 Urine Bilirubin Negative (NEGATIVE) 03/30/18 03:57 Urine Urobilinogen Normal mg/dL (0.2-1.0) 03/30/18 03:57 Ur Leukocyte Esterase Neg [place]/uL (Negative) 03/30/18 03:57 Urine WBC (Auto) 1 /hpf (0-5) 03/30/18 03:57 Urine RBC (Auto) 14 /hpf (0-3) H 03/30/18 03:57 Digoxin 0.6 ng/mL (0.8-2.0) L 03/30/18 01:20 Influenza Typ A,B (EIA) Negative for flu a/b (NEGATIVE) 03/30/18 01:20 - Hospital Course Hospital Course: Chief complaint: Severe shortness of breath and chest pain, shortness of breath HPI: 87-year-old female with a history of hypertension atrial fibrillation pacemaker Recently hospitalized with the decompensated heart failure, atrial flutter and fibrillation. Patient was recovering from the rehabilitation, and at home she was using the home oxygen, she started noticing worsening shortness of breath, family concerned that she is not breathing to breathe well. Chest discomfort associate with this will be noted. Patient was using the oxygen in the house, including the nebulizer without any improvement. In the emergency room patient was having severe shortness of breath, she was on oxygen as well as placed on BiPAP. But as the heart rate was controlled with intravenous medication patient hospitalized and admitted to the intensive care unit. Also noted to have a high troponin level. Chest x-ray showing congested. Lasix was given. She has no chest pain. Denies any nausea vomiting. But poor intake noted. Past medical history: Hypertension, atrial fibrillation. Lung fibrosis, home oxygen Past surgical history: Pacemaker, thyroidectomy. Family history noncontributory Social history: Denies any alcohol or smoking. Possible secondhand smoking noted in the past. She drinks coffee at least it 3 times. Currently not working. Current medications: Reviewed. Review of systems: Recently she started having increasing dementia. Episodes of shortness of breath. Cough noted. Sometimes with mucus production. Even at minimal exertion to using accessory muscles. Using home oxygen On examination: Patient had a tachycardia, episodes of flutter and the atrial fibrillation. Using the home oxygen. Also taking the anticoagulation. Patient has no chest pain. Regular heart sound. But bilateral Velcro-like rales noted Pedal edema noted. Chest x-ray showing evidence of bilateral worsening infiltrative changes. Worsening congestion noted. Cardiomegaly no pleural effusion. Assessment/recommendation: 87-year-old female with history of hypertension, atrial fibrillation, osteoarthritis, recently hospital with the decompensated heart failure with the atrial flutter fibrillation. Lung fibrosis. Patient was also noted to have interstitial lung disease. Positive troponin. History of atrial fibrillation. On anticoagulation orally. Patient now admitted with acute decompensated heart failure likely. Associated with this severe interstitial lung disease. I agree with the Lasix. Low-dose Solu-Medrol. Cardiology evaluation. Echocardiogram. Antibiotic for empirical. GI prophylaxis. And will follow-up the patient. Patient on home oxygen Will speak to the family and progressively increase the physical exercise. BiPAP now. Bronchodilators and will follow the patient Patient initially admitted to the hospital with decompensated heart failure. Patient has a positive troponin. She was tachycardic, tachypneic. Placed on BiPAP and admitted to the intensive care unit. Nitroglycerin drip started. Lasix was given. Initially patient was showing some improvement. But she is becoming more short of breath. Over the course of next a few days. Patient was increasing SOB noted. As the condition getting worse, and also renal function. Also deteriorating family decided DNR and comfort care, and there. Hospice care recommended at that time. Patient was placed on morphine as needed, and also morphine drip was started as per the family request. Patient slowly becoming more agonal breathing. Unresponsive. She become apneic, asystolic and in the intensive care unit. Family was informed. Final diagnosis: Decompensated heart failure, aortic stenosis, atrial flutter fibrillation is pretty advanced. Acute renal insufficiency Discharge Exam - Head Exam Head Exam: ATRAUMATIC, NORMAL INSPECTION Discharge Plan - Follow Up Plan Condition: GUARDED Disposition: WITH WITHOUT AUTOPSY
--- NOTE | 2018-04-11 18:48 | CP.PCM.PN ---
Subjective - Date & Time of Evaluation Date of Evaluation: 03/31/18 Time of Evaluation: 18:47 - Subjective Subjective: Patient is having some improvement. But still using high flow oxygen. Some shortness of breath. she is awake and responding. Family at bedside. Will continue the current supportive treatment. Patient is a DNR. Meanwhile, will continue the current aggressive treatment for the ongoing pneumonia, and CHF. Objective - Vital Signs/Intake and Output Vital Signs (last 24 hours): Temp Pulse Resp BP Pulse Ox 98.4 F 108 H 12 94/33 L 92 L 04/04/18 20:00 04/04/18 19:17 04/04/18 19:17 04/04/18 20:17 04/04/18 19:17 - Labs Labs: 04/03/18 10:16 04/03/18 10:16 PT 15.5 SECONDS (9.7-12.2) H D 03/31/18 04:03 INR 1.4 D 03/31/18 04:03 APTT 47 SECONDS (21-34) H D 03/31/18 04:03
--- NOTE | 2018-04-11 18:48 | CP.PCM.PN ---
Subjective - Date & Time of Evaluation Date of Evaluation: 04/01/18 Time of Evaluation: 18:48 - Subjective Subjective: Patient is having some worsening symptoms of shortness of breath. Significant discomfort noted. Using the BiPAP. No chest pain. Somewhat drowsy. But responded to deep stimuli. Family at bedside. Comfort care recommended. Will continue current aggressive oxygenation, bronchodilators and Lasix. Objective - Vital Signs/Intake and Output Vital Signs (last 24 hours): Temp Pulse Resp BP Pulse Ox 98.4 F 108 H 12 94/33 L 92 L 04/04/18 20:00 04/04/18 19:17 04/04/18 19:17 04/04/18 20:17 04/04/18 19:17 - Labs Labs: 04/03/18 10:16 04/03/18 10:16 PT 15.5 SECONDS (9.7-12.2) H D 03/31/18 04:03 INR 1.4 D 03/31/18 04:03 APTT 47 SECONDS (21-34) H D 03/31/18 04:03
== END 2018-04-04 23:52 ==
LOC: C.ER 00:43 → C.9I 02:21
PROVIDERS: ADMIT Internal Medicine; ATTEND Internal Medicine
PROC: 5A09557 Assistance with Respiratory Ventilation, Greater than 96 Consecutive Hours, Continuous Positive Airway Pressure (ICD-10-PCS; principal; 2018-03-30)
DX: I11.0 Hypertensive heart disease with heart failure (principal); I21.4 Non-ST elevation (NSTEMI) myocardial infarction; J18.9 Pneumonia, unspecified organism; J44.0 Chronic obstructive pulmonary disease with (acute) lower respiratory infection; I48.92 Unspecified atrial flutter; I47.2 Ventricular tachycardia; I50.33 Acute on chronic diastolic (congestive) heart failure; I48.91 Unspecified atrial fibrillation; E78.00 Pure hypercholesterolemia, unspecified; I27.20 Pulmonary hypertension, unspecified; J84.10 Pulmonary fibrosis, unspecified; Z99.81 Dependence on supplemental oxygen; E05.90 Thyrotoxicosis, unspecified without thyrotoxic crisis or storm; Z51.5 Encounter for palliative care; F41.9 Anxiety disorder, unspecified; Z66 Do not resuscitate; I35.0 Nonrheumatic aortic (valve) stenosis